=== PATIENT | female | born 1955 | race Caucasian/White ===

== ENCOUNTER → 2017-07-15 09:46 | Outpatient (CLI) | payer OTHER, SELFPAY ==
[2017-07-15 10:29] LABS: Add Manual Diff / Slide Review NO; Basophils Percent Auto 0.7 % (0-2); Eosinophils Percent Auto 3.9 % (2-4); Hematocrit 38.6 % (36-46); Hemoglobin 13.2 g/dL (12.0-16.0); Lymphocytes Percent Auto 31.7 % (25-40); Mean Corpuscular HGB Conc 34.2 % (30-36); Mean Corpuscular Hemoglobin 29.3 PG (26-34); Mean Corpuscular Volume 85.7 fL (80-100); Monocytes Percent Auto 7.3 % (3-14); Neutrophils Absolute Auto 4500 /uL (3000-5900); Neutrophils Percent Auto 56.4 % (50-75); Platelet Count 300 X10^3/uL (150-400); Red Cell Distribution Width 13.9 % (11.6-14.8)
[2017-07-15 11:45] LABS: Blood Urea Nitrogen 21 mg/dL (7-17); Calcium 9.6 mg/dL (8.4-10.2); Carbon Dioxide 29 mmol/L (22-32); Chloride 101 mmol/L (98-107); Cholesterol 242 mg/dL (140-199); Estimated Glomerular Filt Rate > 60.0 mL/min (>60); Glucose 93 mg/dL (70-100); HDL Cholesterol 55 mg/dL (40-60); HEMOLYSIS < 15 (0-50); LDL Cholesterol Calculated 174 mg/dL (<100); Sodium 141 mmol/L (137-145); Triglycerides 64 mg/dL (35-150)
== END ==
PROVIDERS: Family Provider Family Medicine; PCP Family Medicine; Visit Provider Internal Medicine Cardiovascular Disease
DX: I77.810 Thoracic aortic ectasia (principal)
CPT/HCPCS: 36415; 80048; 80061; 85025

== ENCOUNTER → 2017-07-17 11:56 | Outpatient (CLI) | payer OTHER, SELFPAY ==
--- NOTE | 2017-07-19 05:57 | DI.NM.S_ITS ---
DATE OF SERVICE: 07/17/2017 REFERRING PHYSICIAN: Jesse Calvillo MD PROCEDURE: Nuclear cardiac stress study. INDICATIONS: Mrs. Dubon is a 61-year-old patient with symptoms of exertional dyspnea. A nuclear cardiac stress study is performed to exclude underlying ischemic heart disease. STRESS TEST: This patient was unable to exercise on a treadmill, and therefore, a pharmacologic Lexiscan injection was performed with low level walking. She was given a standard injection of Lexiscan medication and reported symptoms of nausea, dyspnea, and flushing but no complaints of anginal chest discomfort and no obvious EKG changes, though there was significant electrical artifact. PROCEDURE: She received an injection of 25.6 mCi of technetium 99 Myoview for the stress portion of the examination and returned 1 day later for the resting images, receiving an additional 26.4 mCi. Prone imaging could not be performed. FINDINGS: RAW DATA: Raw data images demonstrate prominent breast shadows and evident obesity. No other significant artifact or interference. QUANTITATIVE GATED SPECT IMAGING: Gated images demonstrate a normal-sized ventricle with an end-diastolic volume of 127 cc. The ejection fraction is estimated at 72%. No regional wall motion abnormalities noted. QUANTITATIVE PERFUSION SPECT IMAGING: Myocardial perfusion images are of poor quality due to the lack of prone imaging and due to significant tissue attenuation artifact. There are shifting areas of hypoperfusion. Stress perfusion imaging shows moderate hypoperfusion involving the inferior wall, inferior septum, and the inferior apex with modest hypoperfusion of the proximal and mid anterior wall. With resting images, there is prominent hypoperfusion apparent in the anterior wall and inferior apex with less prominent hypoperfusion of the inferior wall. It's my guess that this represents shifting tissue attenuation artifact from prominent breasts and obesity. Similar findings were identified at the time of her previous nuclear cardiac stress study 2 years ago, which I interpreted as probably normal based predominantly on her absence of regional wall motion abnormality and normal ventricular function. DISCUSSION: This examination is indeterminate, and underlying ischemic heart disease cannot be excluded based on shifting perfusion abnormalities on her nuclear cardiac study. Clinical correlation is suggested. Kathy Dubon - ALMAZ/sharon/layo doc#: [id number]/job#: [id number] dd: 07/18/2017 17:41:00 dt: 07/19/2017 05:43:00 DICTATING MD/COPIES TO: Renato Smith MD COPIES MNE: GARRETT
== END ==
PROVIDERS: PCP Family Medicine; Visit Provider Internal Medicine Cardiovascular Disease
DX: R06.09 Other forms of dyspnea (principal)
CPT/HCPCS: 78452; 93016; 93017; 93018; A9502; J2785

== ENCOUNTER → 2017-07-18 09:04 | Outpatient (CLI) | payer OTHER, SELFPAY ==
--- NOTE | 2017-07-18 | DI.ECHO.S_ITS ---
[place] [facility]---------+ [facility] +---------+ : : [address] : [address] : : : : [id number] : : : : Phone: [phone]+ Echocardiogram Report + + :Name: PEDRO CAMARGO Study Date: 07/18/2017 Height: 63 in : :[facility] Weight: 282 lb : : Gender: Female BSA: 2.2 m2 : :: 1955 Age: 61 yrs BP: 180/86 mmHg: :Reason For Study: Dyspnea on exertion : :Ordering Physician: Jesse : :Alfonzo Calvillo Performed By: Shelby Gutierres : + + Interpretation Summary 1) Borderline concentric left ventricular hypertrophy with normal size, wall motion, and sytolic function (EF 55-60%). 2) Normal right ventricular size and function. 3) No significant valvular abnormalities. 4) The ascending aorta is mildly enlarged at 3.8cm. 5) Hypertension present during the study (BP 180/86). 6) Compared to the Echo done 07/01/2009, no significant change. Procedure: A two-dimensional transthoracic echocardiogram with color flow and Doppler was performed. The study quality was technically adequate. Comparison is made with the echocardiogram of 07/01/2009. The patient was in normal sinus rhythm during the exam. The heart rate ranged between 54-70 bpm during the study. Left Ventricle: The left ventricle is normal in size. There is borderline concentric left ventricular hypertrophy. The ejection fraction is estimated to be 55-60%. Left ventricular systolic function is normal. There are no focal wall motion abnormalities. Assessment of diastolic parameters indicates a relaxation abnormality of the left ventricle, consistent with normal filling pressures. Right Ventricle: The right ventricle is normal in size and function. Atria: The left atrium is moderately dilated. Right atrial size is normal. There is no Doppler evidence for an interatrial shunt. Mitral Valve: The mitral valve is normal in structure and function. There is mild mitral regurgitation. Aortic Valve: The aortic valve is not well visualized. The aortic valve opens well. There is no aortic valve stenosis. No aortic regurgitation is present. Tricuspid Valve: The tricuspid valve is normal. There is a trace or physiologic amount of tricuspid regurgitation. Pulmonary artery pressures cannot be estimated because of the lack of a measurable TR jet velocity. Pulmonic Valve: The pulmonic valve is not well visualized. Great Vessels: The aortic root is normal size. The ascending aorta is mildly enlarged. The aortic arch is normal in size. The IVC is of normal diameter and collapses greater than 50% with a sniff. This suggests a low right atrial pressure of 3 mm Hg. Pericardium/ Pleura There is no pericardial effusion. MMode/2D Measurements & Calculations LVIDd: 5.5 cm LVOT diam: 2.2 cm LVIDs: 3.5 cm Ao root diam: 3.4 cm FS: 36.2 % Aortic Jxn: 2.7 cm EPSS: 0.54 cm asc Aorta Diam: 3.8 cm IVSd: 1.2 cm Ao Arch Diam (Prox Trans): 2.9 cm LVPWd: 0.97 cm LV harper. diameter/BSA (cm/m^2): 2.5 LV sys. diameter/BSA (cm/m^2): 1.6 LA A2 area: 28.1 cm2 RA long axis: 5.9 cm LA A4 area: 24.4 cm2 RA area: 18.9 cm2 LA length (vol): 6.7 cm RA vol: 51.1 ml LA vol: 86.9 ml RA : 22.8 ml/m2 LA vol index: 38.8 ml/m2 IVC diam: 1.3 cm RVD1 (basal): 3.4 cm RVD2 (mid): 2.0 cm TAPSE: 2.8 cm Doppler Measurements & Calculations Ao V2 max: 197.0 cm/sec LVOT Max Xu: 100.9 cm/sec Ao V2 mean: 126.0 cm/sec LV V1 max P.1 mmHg Ao max P.5 mmHg LV V1 VTI: 25.6 cm Ao mean P.4 mmHg HALLIE(I,D): 2.2 cm2 Ao V2 VTI: 44.7 cm HALLIE(V,D): 1.9 cm2 sev ratio: 0.57 HALLIE indexed to BSA (cm^2/m^2): 0.97 MV E max xu: 105.6 cm/sec PA V2 max: 95.4 cm/sec MV A max xu: 86.5 cm/sec PA V2 mean: 58.3 cm/sec MV E/A: 1.2 PA mean P.6 mmHg Med Peak E' Xu: 9.2 cm/sec PA Accel Time: 0.04 sec E/E' med: 11.5 Lat Peak E' Xu: 11.8 cm/sec E/E' lat: 9.0 E/e' average: 10.2 MV dec time: 0.23 sec MV P1/2t: 68.3 msec MV P1/2t max xu: 105.6 cm/sec MVA(2t): 3.2 cm2 Reading Physician:04:42 PM
== END ==
PROVIDERS: PCP Family Medicine; Visit Provider Internal Medicine Cardiovascular Disease
DX: R06.09 Other forms of dyspnea (principal)
CPT/HCPCS: 93306

== ENCOUNTER 2017-09-23 14:51 | Emergency (ER) | payer OTHER, SELFPAY ==
[2017-09-23] VITALS (15 sets, daily range): BP systolic 117–147; BP diastolic 50–108; PULSE 68–84; RESP 12–18; TEMP 36.8; O2SAT 96–99
--- NOTE | 2017-09-23 15:04 | DI.RAD.S_ITS ---
PROCEDURE: XR CHEST 1V INDICATIONS: Chest Pain TECHNIQUE: One view of the chest was acquired. COMPARISON: [facility], , CHEST 2 VIEW, 10/03/2016, 13:17. FINDINGS: Surgical changes and devices: None. Lungs and pleura: No pleural effusions or pneumothorax. Lungs are clear. Mediastinum: Mediastinal contours appear normal there is suggestion of mild pulmonary vascular congestion. Heart size is enlarged. Bones and chest wall: No suspicious bony lesions. Overlying soft tissues appear unremarkable. IMPRESSION: Cardiomegaly and mild congestion. No focal infiltrate or pneumothorax. Dictated by: John Cross M.D. on 09/23/2017 at 15:24 Approved by: John Cross M.D. on 09/23/2017 at 15:28
[2017-09-23] MEDS: SODIUM CHLORIDE 0.9% 1,000 ML 150 ML IV (15:12)
[2017-09-23] MEDS: NITROGLYCERIN 0.4 MG SL TAB SL ×2 (15:13→15:48)
[2017-09-23 15:14] LABS: Add Manual Diff / Slide Review NO; Basophils Percent Auto 1.2 % (0-2); Eosinophils Percent Auto 3.6 % (2-4); Lymphocytes Percent Auto 29.1 % (25-40); Mean Corpuscular HGB Conc 34.4 % (30-36); Mean Corpuscular Hemoglobin 29.5 PG (26-34); Mean Corpuscular Volume 85.7 fL (80-100); Monocytes Percent Auto 6.2 % (3-14); Neutrophils Absolute Auto 6100 /uL (3000-5900); Neutrophils Percent Auto 59.9 % (50-75); Platelet Count 283 X10^3/uL (150-400); Red Blood Cell Count 4.43 X10^6/uL (4.0-5.2); Red Cell Distribution Width 14.1 % (11.6-14.8); White Blood Cell Count 10.2 X10^3/uL (4.5-11.0)
[2017-09-23 15:27] LABS: Alanine Aminotransferase 22 IU/L (9-52); Albumin 4.4 g/dL (3.5-5.0); Albumin Globulin Ratio 1.5 (1.0-2.8); Alkaline Phosphatase 82 U/L (38-126); Aspartate Aminotransferase 28 IU/L (14-36); BUN Creatinine Ratio 21.1 (6-22); Bilirubin Total 0.5 mg/dL (0.2-1.3); Blood Urea Nitrogen 19 mg/dL (7-17); Calcium 9.6 mg/dL (8.4-10.2); Carbon Dioxide 24 mmol/L (22-32); Chloride 103 mmol/L (98-107); Creatine Kinase 159 U/L (30-135); Estimated Glomerular Filt Rate > 60.0 mL/min (>60); Glucose 126 mg/dL (80-110); Lipase 67 U/L (23-300); Potassium 4.4 mmol/L (3.4-5.1); Sodium 141 mmol/L (137-145); Total Protein 7.4 g/dL (6.3-8.2)
[2017-09-23 15:39] LABS: Troponin I < 0.012 ng/mL (0.01-0.034)
[2017-09-23 15:43] LABS: CKMB % Relative Index 0.5 % (1.5-5.0); Creatine Kinase MB 0.76 ng/mL (<2.37); HEMOLYSIS 18 (0-50)
--- NOTE | 2017-09-23 16:01 | ED.CHESTPAIN ---
HPI - Chest Pain <George MasonDO johnnie - Last Filed: 09/25/17 11:40> General Chief Complaint: Chest Pain Stated Complaint: CHEST PAIN Time Seen by Provider: 09/23/17 14:55 Source: patient Mode of arrival: ambulatory Limitations: no limitations History of Present Illness HPI narrative: 62-year-old female with history of coronary artery disease and recent LAD stent presents with 8/10 left anterior chest pain with radiation to her left shoulder that started while exerting herself at cardiac rehab. She developed some small ?blip? of pain on Saturday and over the course of today her pain has become more intense and has persisted for longer duration. She took 1 nitro prior to arriving and her pain dropped from an 8 to a 5. Patient was at [facility] August 23 and had a drug alluding stent in her LAD. She has been doing quite well since discharge and her pain became quite intense while on the exercise bike at cardiac rehab Related Data Home Medications Medication Instructions Recorded Confirmed losartan 100 mg tablet 100 mg PO QPM 08/26/17 09/23/17 spironolactone 25 mg tablet 12.5 mg PO QPM 08/26/17 09/23/17 tiotropium bromide 18 mcg capsule 1 cap INHALATION DAILY 08/26/17 09/23/17 with inhalation device aspirin 81 mg PO DAILY 09/23/17 09/23/17 beclomethasone dipropionate [Qvar 1 puff INHALATION BID 09/23/17 09/23/17 RediHaler] clopidogrel 75 mg PO DAILY 09/23/17 09/23/17 nitroglycerin 1 tab SUBLINGUAL PRN PRN 09/23/17 09/23/17 rosuvastatin 5 mg PO QPM 09/23/17 09/23/17 sertraline 100 mg PO QPM 09/23/17 09/23/17 Previous Rx's Medication Instructions Recorded epinephrine 0.3 mg IM X1 PRN #1 syr 05/28/17 hydrocortisone valerate 0.2 % TOPICAL BIDP PRN #15 gm 05/28/17 salmeterol 50 mcg/dose blister 1 inhalation INHALATION BID #28 06/27/17 powder for inhalation each albuterol sulfate HFA 90 2 puff INHALATION QIDP PRN #3 inh 07/31/17 mcg/actuation aerosol inhaler furosemide 20 mg tablet 20 mg PO DAILY #30 tab 08/26/17 hydrocodone 5 mg-acetaminophen 325 1 tab PO Q4HP PRN #60 tab 08/26/17 mg tablet Allergies Allergy/AdvReac Type Severity Reaction Status Date / Time clonazepam [CLONAZEPAM] Allergy Unknown Verified 08/26/17 09:48 Penicillins [PENICILLINS] Allergy Unknown Verified 08/26/17 09:48 shellfish derived Allergy Unknown Verified 08/26/17 09:48 [SHELLFISH DERIVED] Review of Systems <George Lara DO - Last Filed: 09/25/17 11:40> Review of Systems All systems reviewed & are unremarkable except as noted in HPI and below Constitutional Denies chills, Denies fever(s), Denies lethargy and Denies weakness Eyes Denies change in vision, Denies eye discharge, Denies irritation and Denies loss of vision ENT Ears, Nose, Mouth, and Throat: Denies change in voice, Denies neck pain and Denies sore throat Cardiovascular Reports chest pain, Denies irregular heart rhythm, Denies lightheadedness, Denies palpitations, Denies dyspnea, Denies dyspnea on exertion and Denies orthopnea Respiratory Denies cough, Denies dyspnea, Denies dyspnea on exertion and Denies wheezing Gastrointestinal Gastrointestinal: Denies abdominal pain, Denies change in bowel habits, Denies diarrhea, Denies nausea and Denies vomiting Genitourinary Denies hematuria, Denies flank pain, Denies urinary incontinence and Denies urinary urgency Musculoskeletal Denies neck pain Integumentary/Breasts Denies pruritus, Denies erythema, Denies rash and Denies wounds Neurologic Denies confusion, Denies loss of vision and Denies weakness Psychiatric Denies anxiety, Denies confusion, Denies depression, Denies homicidal ideation and Denies suicidal ideation Endocrine Denies palpitations Hematologic/Lymphatic Denies easy bruising Allergic/Immunologic Denies wheezing Exam <George Lara DO - Last Filed: 09/25/17 11:40> Initial Vital Signs Initial Vital Signs: Vital Signs Pulse Rate 84 09/23/17 14:58 Respiratory Rate 16 09/23/17 14:58 Pulse Oximetry 99 09/23/17 14:58 Const General: cooperative, well developed and in distress Nutritional Appearance: well nourished Orientation: alert, awake, oriented x3 and not confused HENNY Head: normocephalic and atraumatic Ears: external ears normal and TM's normal bilaterally Nose: external nose normal and No nasal discharge Face and sinus: sinuses nontender, face symmetric, no sinus tenderness and No dry mucous membranes Mouth: oral mucosae normal and moist mucous membranes Teeth and gingiva: dentition normal Throat: tonsils normal and uvula midline Eyes General: appearance normal, both eyes and all related structures Eyelids: eyelids normal Conjunctivae: conjunctivae normal Sclera: sclerae normal Pupils: PERRL EOM: EOM intact bilaterally Neck Neck: normal visual inspection, trachea midline, No lymphadenopathy, No midline deformity and No JVD Lymphatic: No lymphedema Chest Chest: normal inspection of the chest Resp Effort & Inspection: normal respiratory effort, able to speak in complete sentences, no respiratory distress and no use of accessory muscles Auscultation: clear to auscultation bilaterally, no rales, no rhonchi and no wheezes Cardio Rate: regular rate Rhythm: regular rhythm Heart Sounds: no click, no gallops, no murmurs and no rubs Pulses: normal peripheral pulses GI Inspection: non-distended Palpation: soft, no hepatosplenomegaly, No guarding, No pulsatile mass and No tender Auscultation: normal bowel sounds Back/Spine/Pelvis Back: No CVA tenderness Cervical Spine: cervical ROM normal and No pain with cervical ROM Thoracic/Lumbar Spine: thoracic and lumbar spine normal to inspection Skin General: no rashes or lesions noted, No jaundice and No petechiae Neuro General: alert, oriented x3, gait normal and no focal motor deficits Speech: speech normal Extrem General: full ROM, no clubbing, cyanosis or edema, no pedal edema and no calf tenderness Psych Appearance: well kempt Mental Status: mental status grossly normal Attitude: cooperative Thought Content: normal and suicidality Judgment: judgment good <Camilla Valdovinos DO - Last Filed: 09/24/17 03:04> Initial Vital Signs Initial Vital Signs: Vital Signs Pulse Rate 84 09/23/17 14:58 Respiratory Rate 16 09/23/17 14:58 Pulse Oximetry 99 09/23/17 14:58 Course <George Lara DO - Last Filed: 09/25/17 11:40> Orders Ordered: Discontinued Medications Heparin Sodium (Porcine) (Heparin) 8,700 unit 70 unit/kg (8700 unit) IV NOW ONE Stop: 09/23/17 16:06 Last Admin: 09/23/17 16:20 Dose: 8,700 unit Sodium Chloride (Normal Saline 0.9%) 1,000 mls @ 150 mls/hr IV CONT GABI Last Infusion: 09/23/17 20:25 Dose: 0 mls/hr Admin: 09/23/17 15:12 Dose: 150 mls/hr Heparin Sodium/Dextrose (Heparin Drip) 25,000 unit in 500 mls @ 29.808 mls/hr IV CONT GABI; Protocol Last Infusion: 09/23/17 22:18 Dose: 12 units/kg/hr, 29.808 mls/hr Admin: 09/23/17 16:20 Dose: 12 units/kg/hr, 29.808 mls/hr Nitroglycerin (Nitroglycerin) 50 mg in 250 mls @ 1.5 mls/hr IV TITRATE GABI; Protocol Last Titration: 09/23/17 22:19 Dose: 20 mcg/min, 6 mls/hr Titration: 09/23/17 19:01 Dose: 20 mcg/min, 6 mls/hr Titration: 09/23/17 18:30 Dose: 15 mcg/min, 4.5 mls/hr Titration: 09/23/17 17:40 Dose: 10 mcg/min, 3 mls/hr Titration: 09/23/17 17:30 Dose: 5 mcg/min, 1.5 mls/hr Titration: 09/23/17 17:26 Dose: 0 mcg/min, 0 mls/hr Admin: 09/23/17 16:35 Dose: 5 mcg/min, 1.5 mls/hr Nitroglycerin (Nitrostat) 0.4 mg SL [id number] PRN PRN Reason: Chest Pain Last Admin: 09/23/17 15:48 Dose: 0.4 mg Admin: 09/23/17 15:13 Dose: 0.4 mg Reevaluation(s) Reevaluation #1: Patient continues to improve with sublingual nitro. After 3rd nitro and it 20 min rest. Her pain started coming back and rises to a 4/10. This point time nitro drip ordered. Additionally heparin bolus and drip are ordered. Consultations Consultation #1: cardiology at [facility] paged and agrees with transfer, however, call to supervisor food checkers and cashiers informs us of no beds Vital Signs - 8 hr 09/23/17 19:21 09/23/17 20:30 09/23/17 21:28 Pulse Rate 68 70 71 Respiratory Rate 16 15 13 Blood Pressure Blood Pressure [Left Arm] 141/85 H 120/95 H 125/99 H Pulse Oximetry 96 97 97 09/23/17 22:28 Pulse Rate 72 Respiratory Rate 15 Blood Pressure 135/84 H Blood Pressure [Left Arm] Pulse Oximetry 97 <Camilla Valdovinos, - Last Filed: 09/24/17 03:04> Orders Ordered: Discontinued Medications Heparin Sodium (Porcine) (Heparin) 8,700 unit 70 unit/kg (8700 unit) IV NOW ONE Stop: 09/23/17 16:06 Last Admin: 09/23/17 16:20 Dose: 8,700 unit Sodium Chloride (Normal Saline 0.9%) 1,000 mls @ 150 mls/hr IV CONT GABI Last Infusion: 09/23/17 20:25 Dose: 0 mls/hr Admin: 09/23/17 15:12 Dose: 150 mls/hr Heparin Sodium/Dextrose (Heparin Drip) 25,000 unit in 500 mls @ 29.808 mls/hr IV CONT GABI; Protocol Last Infusion: 09/23/17 22:18 Dose: 12 units/kg/hr, 29.808 mls/hr Admin: 09/23/17 16:20 Dose: 12 units/kg/hr, 29.808 mls/hr Nitroglycerin (Nitroglycerin) 50 mg in 250 mls @ 1.5 mls/hr IV TITRATE GABI; Protocol Last Titration: 09/23/17 22:19 Dose: 20 mcg/min, 6 mls/hr Titration: 09/23/17 19:01 Dose: 20 mcg/min, 6 mls/hr Titration: 09/23/17 18:30 Dose: 15 mcg/min, 4.5 mls/hr Titration: 09/23/17 17:40 Dose: 10 mcg/min, 3 mls/hr Titration: 09/23/17 17:30 Dose: 5 mcg/min, 1.5 mls/hr Titration: 09/23/17 17:26 Dose: 0 mcg/min, 0 mls/hr Admin: 09/23/17 16:35 Dose: 5 mcg/min, 1.5 mls/hr Nitroglycerin (Nitrostat) 0.4 mg SL [id number] PRN PRN Reason: Chest Pain Last Admin: 09/23/17 15:48 Dose: 0.4 mg Admin: 09/23/17 15:13 Dose: 0.4 mg Vital Signs - 8 hr 09/23/17 19:21 09/23/17 20:30 09/23/17 21:28 Pulse Rate 68 70 71 Respiratory Rate 16 15 13 Blood Pressure Blood Pressure [Left Arm] 141/85 H 120/95 H 125/99 H Pulse Oximetry 96 97 97 09/23/17 22:28 Pulse Rate 72 Respiratory Rate 15 Blood Pressure 135/84 H Blood Pressure [Left Arm] Pulse Oximetry 97 MDM - Chest Pain <George Lara DO - Last Filed: 09/25/17 11:40> Lab Data Result diagrams: 09/23/17 15:04 09/23/17 15:04 Lab Results 09/23/17 09/23/17 09/23/17 Range/Units 08:07 15:04 15:04 WBC 10.2 (4.5-11.0) X10^3/uL RBC 4.43 (4.0-5.2) X10^6/uL Hgb 13.0 (12.0-16.0) g/dL Hct 38.0 (36-46) % MCV 85.7 (80-100) fL MCH 29.5 (26-34) PG MCHC 34.4 (30-36) % RDW 14.1 (11.6-14.8) % Plt Count 283 (150-400) X10^3/uL Neut % (Auto) 59.9 (50-75) % Lymph % (Auto) 29.1 (25-40) % [place] % (Auto) 6.2 (3-14) % Eos % (Auto) 3.6 (2-4) % Baso % (Auto) 1.2 (0-2) % Neut # (Auto) 6100 H (8664-0471) /uL APTT (26.4-36.2) SECONDS Sodium 141 (137-145) mmol/L Potassium 4.4 (3.4-5.1) mmol/L Chloride 103 (98-107) mmol/L Carbon Dioxide 24 (22-32) mmol/L BUN 19 H (7-17) mg/dL Creatinine 0.90 (0.52-1.04) mg/dL Estimated GFR > 60.0 (>60) mL/min BUN/Creatinine Ratio 21.1 (6-22) Glucose 126 H (80-110) mg/dL Calcium 9.6 (8.4-10.2) mg/dL Total Bilirubin 0.5 (0.2-1.3) mg/dL AST 28 (14-36) IU/L ALT 22 (9-52) IU/L Alkaline Phosphatase 82 (38-126) U/L Total Creatine Kinase 159 H (30-135) U/L CK-MB (CK-2) 0.76 (<2.37) ng/mL CK-MB (CK-2) Rel Index 0.5 L (1.5-5.0) % Troponin I < 0.012 < 0.012 (0.01-0.034) ng/mL Total Protein 7.4 (6.3-8.2) g/dL Albumin 4.4 (3.5-5.0) g/dL Globulin 3.0 (1.7-4.1) g/dL Albumin/Globulin Ratio 1.5 (1.0-2.8) Lipase 67 (23-300) U/L / Range/Units 15:04 WBC (4.5-11.0) X10^3/uL RBC (4.0-5.2) X10^6/uL Hgb (12.0-16.0) g/dL Hct (36-46) % MCV (80-100) fL MCH (26-34) PG MCHC (30-36) % RDW (11.6-14.8) % Plt Count (150-400) X10^3/uL Neut % (Auto) (50-75) % Lymph % (Auto) (25-40) % [place] % (Auto) (3-14) % Eos % (Auto) (2-4) % Baso % (Auto) (0-2) % Neut # (Auto) (7246-6459) /uL APTT 28 (26.4-36.2) SECONDS Sodium (137-145) mmol/L Potassium (3.4-5.1) mmol/L Chloride (98-107) mmol/L Carbon Dioxide (22-32) mmol/L BUN (7-17) mg/dL Creatinine (0.52-1.04) mg/dL Estimated GFR (>60) mL/min BUN/Creatinine Ratio (6-22) Glucose (80-110) mg/dL Calcium (8.4-10.2) mg/dL Total Bilirubin (0.2-1.3) mg/dL AST (14-36) IU/L ALT (9-52) IU/L Alkaline Phosphatase (38-126) U/L Total Creatine Kinase (30-135) U/L CK-MB (CK-2) (<2.37) ng/mL CK-MB (CK-2) Rel Index (1.5-5.0) % Troponin I (0.01-0.034) ng/mL Total Protein (6.3-8.2) g/dL Albumin (3.5-5.0) g/dL Globulin (1.7-4.1) g/dL Albumin/Globulin Ratio (1.0-2.8) Lipase (23-300) U/L <Camilla Valdovinos, DO - Last Filed: 09/24/17 03:04> Lab Data Lab Results 09/23/17 09/23/17 09/23/17 Range/Units 08:07 15:04 15:04 WBC 10.2 (4.5-11.0) X10^3/uL RBC 4.43 (4.0-5.2) X10^6/uL Hgb 13.0 (12.0-16.0) g/dL Hct 38.0 (36-46) % MCV 85.7 (80-100) fL MCH 29.5 (26-34) PG MCHC 34.4 (30-36) % RDW 14.1 (11.6-14.8) % Plt Count 283 (150-400) X10^3/uL Neut % (Auto) 59.9 (50-75) % Lymph % (Auto) 29.1 (25-40) % [place] % (Auto) 6.2 (3-14) % Eos % (Auto) 3.6 (2-4) % Baso % (Auto) 1.2 (0-2) % Neut # (Auto) 6100 H (3188-7539) /uL APTT (26.4-36.2) SECONDS Sodium 141 (137-145) mmol/L Potassium 4.4 (3.4-5.1) mmol/L Chloride 103 (98-107) mmol/L Carbon Dioxide 24 (22-32) mmol/L BUN 19 H (7-17) mg/dL Creatinine 0.90 (0.52-1.04) mg/dL Estimated GFR > 60.0 (>60) mL/min BUN/Creatinine Ratio 21.1 (6-22) Glucose 126 H (80-110) mg/dL Calcium 9.6 (8.4-10.2) mg/dL Total Bilirubin 0.5 (0.2-1.3) mg/dL AST 28 (14-36) IU/L ALT 22 (9-52) IU/L Alkaline Phosphatase 82 (38-126) U/L Total Creatine Kinase 159 H (30-135) U/L CK-MB (CK-2) 0.76 (<2.37) ng/mL CK-MB (CK-2) Rel Index 0.5 L (1.5-5.0) % Troponin I < 0.012 < 0.012 (0.01-0.034) ng/mL Total Protein 7.4 (6.3-8.2) g/dL Albumin 4.4 (3.5-5.0) g/dL Globulin 3.0 (1.7-4.1) g/dL Albumin/Globulin Ratio 1.5 (1.0-2.8) Lipase 67 (23-300) U/L // Range/Units 15:04 WBC (4.5-11.0) X10^3/uL RBC (4.0-5.2) X10^6/uL Hgb (12.0-16.0) g/dL Hct (36-46) % MCV (80-100) fL MCH (26-34) PG MCHC (30-36) % RDW (11.6-14.8) % Plt Count (150-400) X10^3/uL Neut % (Auto) (50-75) % Lymph % (Auto) (25-40) % [place] % (Auto) (3-14) % Eos % (Auto) (2-4) % Baso % (Auto) (0-2) % Neut # (Auto) (7396-7642) /uL APTT 28 (26.4-36.2) SECONDS Sodium (137-145) mmol/L Potassium (3.4-5.1) mmol/L Chloride (98-107) mmol/L Carbon Dioxide (22-32) mmol/L BUN (7-17) mg/dL Creatinine (0.52-1.04) mg/dL Estimated GFR (>60) mL/min BUN/Creatinine Ratio (6-22) Glucose (80-110) mg/dL Calcium (8.4-10.2) mg/dL Total Bilirubin (0.2-1.3) mg/dL AST (14-36) IU/L ALT (9-52) IU/L Alkaline Phosphatase (38-126) U/L Total Creatine Kinase (30-135) U/L CK-MB (CK-2) (<2.37) ng/mL CK-MB (CK-2) Rel Index (1.5-5.0) % Troponin I (0.01-0.034) ng/mL Total Protein (6.3-8.2) g/dL Albumin (3.5-5.0) g/dL Globulin (1.7-4.1) g/dL Albumin/Globulin Ratio (1.0-2.8) Lipase (23-300) U/L Discharge Plan Departure Patient Disposition: [facility] Clinical Impression: Angina pectoris, unstable Discharge Date/Time: 09/23/17 22:17 Interventions: ED Discharge Assessment Last Done: 09/23/17 22:28 Prescriptions: No Action salmeterol [Serevent Diskus] 50 mcg/dose blister with device 1 inhalation INHALATION BID Qty: 28 RF: 5 losartan 100 mg tablet 100 mg PO QPM RF: 0 spironolactone 25 mg tablet 12.5 mg PO QPM RF: 0 tiotropium bromide 18 mcg capsule, w/inhalation device 1 cap INHALATION DAILY RF: 0 hydrocodone-acetaminophen 5-325 mg tablet 1 tab PO Q4HP PRN (Reason: pain) Qty: 60 RF: 0 furosemide 20 mg tablet 20 mg PO DAILY Qty: 30 RF: 0 epinephrine 0.3 MG/0.3 ML auto-injector 0.3 mg IM X1 PRNQty: 1 RF: 3 hydrocortisone valerate 0.2 % cream 0.2 % Topical BIDP PRNQty: 15 RF: 4 albuterol sulfate [Ventolin HFA] 90 mcg/actuation HFA aerosol inhaler 2 puff INHALATION QIDP PRN (Reason: shortness of breath) Qty: 3 RF: 0 clopidogrel 75 mg tablet 75 mg PO DAILY RF: 0 nitroglycerin 0.4 mg tablet, sublingual 1 tab Sublingual PRN PRN (Reason: Chest Pain) RF: 0 aspirin 81 mg tablet,chewable 81 mg PO DAILY RF: 0 rosuvastatin 5 mg tablet 5 mg PO QPM RF: 0 beclomethasone dipropionate [Qvar RediHaler] 80 mcg/actuation HFA aerosol breath activated 1 puff Inhalation BID RF: 0 sertraline 100 MG tablet 100 mg PO QPM RF: 0 <Camilla Valdovinos, DO - Last Filed: 09/24/17 03:04> Sign Out Provider Sign Out Attestation: Patient signed out to me DR. Lara, Patient awaiting transfer. On nitro drip. Continues to have intermittent pain.
[2017-09-23] MEDS: HEPARIN 5,000 UNIT/ML VIAL 8700 UNIT IV (16:20)
[2017-09-23] MEDS: HEPARIN DRIP 25,000 UNIT/500 ML IV.SOLN 29.808 UNIT IV (16:20)
[2017-09-23] MEDS: NITROGLYCERIN 50 MG/250 ML INFUS..BTL IV (16:35)
[2017-09-23 16:42] LABS: PTT Partial Thromboplastin Tim 28 SECONDS (26.4-36.2)
--- NOTE | 2017-09-23 17:03 | ED_ITS ---
HPI - Chest Pain <George MasonDO johnnie - Last Filed: 09/25/17 11:40> General Chief Complaint: Chest Pain Stated Complaint: CHEST PAIN Time Seen by Provider: 09/23/17 14:55 Source: patient Mode of arrival: ambulatory Limitations: no limitations History of Present Illness HPI narrative: 62-year-old female with history of coronary artery disease and recent LAD stent presents with 8/10 left anterior chest pain with radiation to her left shoulder that started while exerting herself at cardiac rehab. She developed some small ?blip? of pain on Saturday and over the course of today her pain has become more intense and has persisted for longer duration. She took 1 nitro prior to arriving and her pain dropped from an 8 to a 5. Patient was at [facility] August 23 and had a drug alluding stent in her LAD. She has been doing quite well since discharge and her pain became quite intense while on the exercise bike at cardiac rehab Related Data Home Medications Medication Instructions Recorded Confirmed losartan 100 mg tablet 100 mg PO QPM 08/26/17 09/23/17 spironolactone 25 mg tablet 12.5 mg PO QPM 08/26/17 09/23/17 tiotropium bromide 18 mcg capsule 1 cap INHALATION DAILY 08/26/17 09/23/17 with inhalation device aspirin 81 mg PO DAILY 09/23/17 09/23/17 beclomethasone dipropionate [Qvar 1 puff INHALATION BID 09/23/17 09/23/17 RediHaler] clopidogrel 75 mg PO DAILY 09/23/17 09/23/17 nitroglycerin 1 tab SUBLINGUAL PRN PRN 09/23/17 09/23/17 rosuvastatin 5 mg PO QPM 09/23/17 09/23/17 sertraline 100 mg PO QPM 09/23/17 09/23/17 Previous Rx's Medication Instructions Recorded epinephrine 0.3 mg IM X1 PRN #1 syr 05/28/17 hydrocortisone valerate 0.2 % TOPICAL BIDP PRN #15 gm 05/28/17 salmeterol 50 mcg/dose blister 1 inhalation INHALATION BID #28 06/27/17 powder for inhalation each albuterol sulfate HFA 90 2 puff INHALATION QIDP PRN #3 inh 07/31/17 mcg/actuation aerosol inhaler furosemide 20 mg tablet 20 mg PO DAILY #30 tab 08/26/17 hydrocodone 5 mg-acetaminophen 325 1 tab PO Q4HP PRN #60 tab 08/26/17 mg tablet Allergies Allergy/AdvReac Type Severity Reaction Status Date / Time clonazepam [CLONAZEPAM] Allergy Unknown Verified 08/26/17 09:48 Penicillins [PENICILLINS] Allergy Unknown Verified 08/26/17 09:48 shellfish derived Allergy Unknown Verified 08/26/17 09:48 [SHELLFISH DERIVED] Review of Systems <George Lara DO - Last Filed: 09/25/17 11:40> Review of Systems All systems reviewed & are unremarkable except as noted in HPI and below Constitutional Denies chills, Denies fever(s), Denies lethargy and Denies weakness Eyes Denies change in vision, Denies eye discharge, Denies irritation and Denies loss of vision ENT Ears, Nose, Mouth, and Throat: Denies change in voice, Denies neck pain and Denies sore throat Cardiovascular Reports chest pain, Denies irregular heart rhythm, Denies lightheadedness, Denies palpitations, Denies dyspnea, Denies dyspnea on exertion and Denies orthopnea Respiratory Denies cough, Denies dyspnea, Denies dyspnea on exertion and Denies wheezing Gastrointestinal Gastrointestinal: Denies abdominal pain, Denies change in bowel habits, Denies diarrhea, Denies nausea and Denies vomiting Genitourinary Denies hematuria, Denies flank pain, Denies urinary incontinence and Denies urinary urgency Musculoskeletal Denies neck pain Integumentary/Breasts Denies pruritus, Denies erythema, Denies rash and Denies wounds Neurologic Denies confusion, Denies loss of vision and Denies weakness Psychiatric Denies anxiety, Denies confusion, Denies depression, Denies homicidal ideation and Denies suicidal ideation Endocrine Denies palpitations Hematologic/Lymphatic Denies easy bruising Allergic/Immunologic Denies wheezing Exam <George Lara DO - Last Filed: 09/25/17 11:40> Initial Vital Signs Initial Vital Signs: Vital Signs Pulse Rate 84 09/23/17 14:58 Respiratory Rate 16 09/23/17 14:58 Pulse Oximetry 99 09/23/17 14:58 Const General: cooperative, well developed and in distress Nutritional Appearance: well nourished Orientation: alert, awake, oriented x3 and not confused HENPA Head: normocephalic and atraumatic Ears: external ears normal and TM's normal bilaterally Nose: external nose normal and No nasal discharge Face and sinus: sinuses nontender, face symmetric, no sinus tenderness and No dry mucous membranes Mouth: oral mucosae normal and moist mucous membranes Teeth and gingiva: dentition normal Throat: tonsils normal and uvula midline Eyes General: appearance normal, both eyes and all related structures Eyelids: eyelids normal Conjunctivae: conjunctivae normal Sclera: sclerae normal Pupils: PERRL EOM: EOM intact bilaterally Neck Neck: normal visual inspection, trachea midline, No lymphadenopathy, No midline deformity and No JVD Lymphatic: No lymphedema Chest Chest: normal inspection of the chest Resp Effort & Inspection: normal respiratory effort, able to speak in complete sentences, no respiratory distress and no use of accessory muscles Auscultation: clear to auscultation bilaterally, no rales, no rhonchi and no wheezes Cardio Rate: regular rate Rhythm: regular rhythm Heart Sounds: no click, no gallops, no murmurs and no rubs Pulses: normal peripheral pulses GI Inspection: non-distended Palpation: soft, no hepatosplenomegaly, No guarding, No pulsatile mass and No tender Auscultation: normal bowel sounds Back/Spine/Pelvis Back: No CVA tenderness Cervical Spine: cervical ROM normal and No pain with cervical ROM Thoracic/Lumbar Spine: thoracic and lumbar spine normal to inspection Skin General: no rashes or lesions noted, No jaundice and No petechiae Neuro General: alert, oriented x3, gait normal and no focal motor deficits Speech: speech normal Extrem General: full ROM, no clubbing, cyanosis or edema, no pedal edema and no calf tenderness Psych Appearance: well kempt Mental Status: mental status grossly normal Attitude: cooperative Thought Content: normal and suicidality Judgment: judgment good <Camilla Valdovinos DO - Last Filed: 09/24/17 03:04> Initial Vital Signs Initial Vital Signs: Vital Signs Pulse Rate 84 09/23/17 14:58 Respiratory Rate 16 09/23/17 14:58 Pulse Oximetry 99 09/23/17 14:58 Course <George Lara DO - Last Filed: 09/25/17 11:40> Orders Ordered: Discontinued Medications Heparin Sodium (Porcine) (Heparin) 8,700 unit 70 unit/kg (8700 unit) IV NOW ONE Stop: 09/23/17 16:06 Last Admin: 09/23/17 16:20 Dose: 8,700 unit Sodium Chloride (Normal Saline 0.9%) 1,000 mls @ 150 mls/hr IV CONT GABI Last Infusion: 09/23/17 20:25 Dose: 0 mls/hr Admin: 09/23/17 15:12 Dose: 150 mls/hr Heparin Sodium/Dextrose (Heparin Drip) 25,000 unit in 500 mls @ 29.808 mls/hr IV CONT GABI; Protocol Last Infusion: 09/23/17 22:18 Dose: 12 units/kg/hr, 29.808 mls/hr Admin: 09/23/17 16:20 Dose: 12 units/kg/hr, 29.808 mls/hr Nitroglycerin (Nitroglycerin) 50 mg in 250 mls @ 1.5 mls/hr IV TITRATE GABI; Protocol Last Titration: 09/23/17 22:19 Dose: 20 mcg/min, 6 mls/hr Titration: 09/23/17 19:01 Dose: 20 mcg/min, 6 mls/hr Titration: 09/23/17 18:30 Dose: 15 mcg/min, 4.5 mls/hr Titration: 09/23/17 17:40 Dose: 10 mcg/min, 3 mls/hr Titration: 09/23/17 17:30 Dose: 5 mcg/min, 1.5 mls/hr Titration: 09/23/17 17:26 Dose: 0 mcg/min, 0 mls/hr Admin: 09/23/17 16:35 Dose: 5 mcg/min, 1.5 mls/hr Nitroglycerin (Nitrostat) 0.4 mg SL [id number] PRN PRN Reason: Chest Pain Last Admin: 09/23/17 15:48 Dose: 0.4 mg Admin: 09/23/17 15:13 Dose: 0.4 mg Reevaluation(s) Reevaluation #1: Patient continues to improve with sublingual nitro. After 3rd nitro and it 20 min rest. Her pain started coming back and rises to a 4/10. This point time nitro drip ordered. Additionally heparin bolus and drip are ordered. Consultations Consultation #1: cardiology at [facility] paged and agrees with transfer, however, call to food and nutrition supervisor informs us of no beds Vital Signs - 8 hr 09/23/17 19:21 09/23/17 20:30 09/23/17 21:28 Pulse Rate 68 70 71 Respiratory Rate 16 15 13 Blood Pressure Blood Pressure [Left Arm] 141/85 H 120/95 H 125/99 H Pulse Oximetry 96 97 97 09/23/17 22:28 Pulse Rate 72 Respiratory Rate 15 Blood Pressure 135/84 H Blood Pressure [Left Arm] Pulse Oximetry 97 <Camilla Valdovinos, - Last Filed: 09/24/17 03:04> Orders Ordered: Discontinued Medications Heparin Sodium (Porcine) (Heparin) 8,700 unit 70 unit/kg (8700 unit) IV NOW ONE Stop: 09/23/17 16:06 Last Admin: 09/23/17 16:20 Dose: 8,700 unit Sodium Chloride (Normal Saline 0.9%) 1,000 mls @ 150 mls/hr IV CONT GABI Last Infusion: 09/23/17 20:25 Dose: 0 mls/hr Admin: 09/23/17 15:12 Dose: 150 mls/hr Heparin Sodium/Dextrose (Heparin Drip) 25,000 unit in 500 mls @ 29.808 mls/hr IV CONT GABI; Protocol Last Infusion: 09/23/17 22:18 Dose: 12 units/kg/hr, 29.808 mls/hr Admin: 09/23/17 16:20 Dose: 12 units/kg/hr, 29.808 mls/hr Nitroglycerin (Nitroglycerin) 50 mg in 250 mls @ 1.5 mls/hr IV TITRATE GABI; Protocol Last Titration: 09/23/17 22:19 Dose: 20 mcg/min, 6 mls/hr Titration: 09/23/17 19:01 Dose: 20 mcg/min, 6 mls/hr Titration: 09/23/17 18:30 Dose: 15 mcg/min, 4.5 mls/hr Titration: 09/23/17 17:40 Dose: 10 mcg/min, 3 mls/hr Titration: 09/23/17 17:30 Dose: 5 mcg/min, 1.5 mls/hr Titration: 09/23/17 17:26 Dose: 0 mcg/min, 0 mls/hr Admin: 09/23/17 16:35 Dose: 5 mcg/min, 1.5 mls/hr Nitroglycerin (Nitrostat) 0.4 mg SL [id number] PRN PRN Reason: Chest Pain Last Admin: 09/23/17 15:48 Dose: 0.4 mg Admin: 09/23/17 15:13 Dose: 0.4 mg Vital Signs - 8 hr 09/23/17 19:21 09/23/17 20:30 09/23/17 21:28 Pulse Rate 68 70 71 Respiratory Rate 16 15 13 Blood Pressure Blood Pressure [Left Arm] 141/85 H 120/95 H 125/99 H Pulse Oximetry 96 97 97 09/23/17 22:28 Pulse Rate 72 Respiratory Rate 15 Blood Pressure 135/84 H Blood Pressure [Left Arm] Pulse Oximetry 97 MDM - Chest Pain <George Lara DO - Last Filed: 09/25/17 11:40> Lab Data Result diagrams: 09/23/17 15:04 09/23/17 15:04 Lab Results 09/23/17 09/23/17 09/23/17 Range/Units 08:07 15:04 15:04 WBC 10.2 (4.5-11.0) X10^3/uL RBC 4.43 (4.0-5.2) X10^6/uL Hgb 13.0 (12.0-16.0) g/dL Hct 38.0 (36-46) % MCV 85.7 (80-100) fL MCH 29.5 (26-34) PG MCHC 34.4 (30-36) % RDW 14.1 (11.6-14.8) % Plt Count 283 (150-400) X10^3/uL Neut % (Auto) 59.9 (50-75) % Lymph % (Auto) 29.1 (25-40) % [place] % (Auto) 6.2 (3-14) % Eos % (Auto) 3.6 (2-4) % Baso % (Auto) 1.2 (0-2) % Neut # (Auto) 6100 H (2304-0747) /uL APTT (26.4-36.2) SECONDS Sodium 141 (137-145) mmol/L Potassium 4.4 (3.4-5.1) mmol/L Chloride 103 (98-107) mmol/L Carbon Dioxide 24 (22-32) mmol/L BUN 19 H (7-17) mg/dL Creatinine 0.90 (0.52-1.04) mg/dL Estimated GFR > 60.0 (>60) mL/min BUN/Creatinine Ratio 21.1 (6-22) Glucose 126 H (80-110) mg/dL Calcium 9.6 (8.4-10.2) mg/dL Total Bilirubin 0.5 (0.2-1.3) mg/dL AST 28 (14-36) IU/L ALT 22 (9-52) IU/L Alkaline Phosphatase 82 (38-126) U/L Total Creatine Kinase 159 H (30-135) U/L CK-MB (CK-2) 0.76 (<2.37) ng/mL CK-MB (CK-2) Rel Index 0.5 L (1.5-5.0) % Troponin I < 0.012 < 0.012 (0.01-0.034) ng/mL Total Protein 7.4 (6.3-8.2) g/dL Albumin 4.4 (3.5-5.0) g/dL Globulin 3.0 (1.7-4.1) g/dL Albumin/Globulin Ratio 1.5 (1.0-2.8) Lipase 67 (23-300) U/L / Range/Units 15:04 WBC (4.5-11.0) X10^3/uL RBC (4.0-5.2) X10^6/uL Hgb (12.0-16.0) g/dL Hct (36-46) % MCV (80-100) fL MCH (26-34) PG MCHC (30-36) % RDW (11.6-14.8) % Plt Count (150-400) X10^3/uL Neut % (Auto) (50-75) % Lymph % (Auto) (25-40) % [place] % (Auto) (3-14) % Eos % (Auto) (2-4) % Baso % (Auto) (0-2) % Neut # (Auto) (9536-1152) /uL APTT 28 (26.4-36.2) SECONDS Sodium (137-145) mmol/L Potassium (3.4-5.1) mmol/L Chloride (98-107) mmol/L Carbon Dioxide (22-32) mmol/L BUN (7-17) mg/dL Creatinine (0.52-1.04) mg/dL Estimated GFR (>60) mL/min BUN/Creatinine Ratio (6-22) Glucose (80-110) mg/dL Calcium (8.4-10.2) mg/dL Total Bilirubin (0.2-1.3) mg/dL AST (14-36) IU/L ALT (9-52) IU/L Alkaline Phosphatase (38-126) U/L Total Creatine Kinase (30-135) U/L CK-MB (CK-2) (<2.37) ng/mL CK-MB (CK-2) Rel Index (1.5-5.0) % Troponin I (0.01-0.034) ng/mL Total Protein (6.3-8.2) g/dL Albumin (3.5-5.0) g/dL Globulin (1.7-4.1) g/dL Albumin/Globulin Ratio (1.0-2.8) Lipase (23-300) U/L <Camilla Valdovinos, DO - Last Filed: 09/24/17 03:04> Lab Data Lab Results 09/23/17 09/23/17 09/23/17 Range/Units 08:07 15:04 15:04 WBC 10.2 (4.5-11.0) X10^3/uL RBC 4.43 (4.0-5.2) X10^6/uL Hgb 13.0 (12.0-16.0) g/dL Hct 38.0 (36-46) % MCV 85.7 (80-100) fL MCH 29.5 (26-34) PG MCHC 34.4 (30-36) % RDW 14.1 (11.6-14.8) % Plt Count 283 (150-400) X10^3/uL Neut % (Auto) 59.9 (50-75) % Lymph % (Auto) 29.1 (25-40) % [place] % (Auto) 6.2 (3-14) % Eos % (Auto) 3.6 (2-4) % Baso % (Auto) 1.2 (0-2) % Neut # (Auto) 6100 H (4326-8329) /uL APTT (26.4-36.2) SECONDS Sodium 141 (137-145) mmol/L Potassium 4.4 (3.4-5.1) mmol/L Chloride 103 (98-107) mmol/L Carbon Dioxide 24 (22-32) mmol/L BUN 19 H (7-17) mg/dL Creatinine 0.90 (0.52-1.04) mg/dL Estimated GFR > 60.0 (>60) mL/min BUN/Creatinine Ratio 21.1 (6-22) Glucose 126 H (80-110) mg/dL Calcium 9.6 (8.4-10.2) mg/dL Total Bilirubin 0.5 (0.2-1.3) mg/dL AST 28 (14-36) IU/L ALT 22 (9-52) IU/L Alkaline Phosphatase 82 (38-126) U/L Total Creatine Kinase 159 H (30-135) U/L CK-MB (CK-2) 0.76 (<2.37) ng/mL CK-MB (CK-2) Rel Index 0.5 L (1.5-5.0) % Troponin I < 0.012 < 0.012 (0.01-0.034) ng/mL Total Protein 7.4 (6.3-8.2) g/dL Albumin 4.4 (3.5-5.0) g/dL Globulin 3.0 (1.7-4.1) g/dL Albumin/Globulin Ratio 1.5 (1.0-2.8) Lipase 67 (23-300) U/L // Range/Units 15:04 WBC (4.5-11.0) X10^3/uL RBC (4.0-5.2) X10^6/uL Hgb (12.0-16.0) g/dL Hct (36-46) % MCV (80-100) fL MCH (26-34) PG MCHC (30-36) % RDW (11.6-14.8) % Plt Count (150-400) X10^3/uL Neut % (Auto) (50-75) % Lymph % (Auto) (25-40) % [place] % (Auto) (3-14) % Eos % (Auto) (2-4) % Baso % (Auto) (0-2) % Neut # (Auto) (2773-7262) /uL APTT 28 (26.4-36.2) SECONDS Sodium (137-145) mmol/L Potassium (3.4-5.1) mmol/L Chloride (98-107) mmol/L Carbon Dioxide (22-32) mmol/L BUN (7-17) mg/dL Creatinine (0.52-1.04) mg/dL Estimated GFR (>60) mL/min BUN/Creatinine Ratio (6-22) Glucose (80-110) mg/dL Calcium (8.4-10.2) mg/dL Total Bilirubin (0.2-1.3) mg/dL AST (14-36) IU/L ALT (9-52) IU/L Alkaline Phosphatase (38-126) U/L Total Creatine Kinase (30-135) U/L CK-MB (CK-2) (<2.37) ng/mL CK-MB (CK-2) Rel Index (1.5-5.0) % Troponin I (0.01-0.034) ng/mL Total Protein (6.3-8.2) g/dL Albumin (3.5-5.0) g/dL Globulin (1.7-4.1) g/dL Albumin/Globulin Ratio (1.0-2.8) Lipase (23-300) U/L Discharge Plan Departure Patient Disposition: [facility] Clinical Impression: Angina pectoris, unstable Discharge Date/Time: 09/23/17 22:17 Interventions: ED Discharge Assessment Last Done: 09/23/17 22:28 Prescriptions: No Action salmeterol [Serevent Diskus] 50 mcg/dose blister with device 1 inhalation INHALATION BID Qty: 28 RF: 5 losartan 100 mg tablet 100 mg PO QPM RF: 0 spironolactone 25 mg tablet 12.5 mg PO QPM RF: 0 tiotropium bromide 18 mcg capsule, w/inhalation device 1 cap INHALATION DAILY RF: 0 hydrocodone-acetaminophen 5-325 mg tablet 1 tab PO Q4HP PRN (Reason: pain) Qty: 60 RF: 0 furosemide 20 mg tablet 20 mg PO DAILY Qty: 30 RF: 0 epinephrine 0.3 MG/0.3 ML auto-injector 0.3 mg IM X1 PRNQty: 1 RF: 3 hydrocortisone valerate 0.2 % cream 0.2 % Topical BIDP PRNQty: 15 RF: 4 albuterol sulfate [Ventolin HFA] 90 mcg/actuation HFA aerosol inhaler 2 puff INHALATION QIDP PRN (Reason: shortness of breath) Qty: 3 RF: 0 clopidogrel 75 mg tablet 75 mg PO DAILY RF: 0 nitroglycerin 0.4 mg tablet, sublingual 1 tab Sublingual PRN PRN (Reason: Chest Pain) RF: 0 aspirin 81 mg tablet,chewable 81 mg PO DAILY RF: 0 rosuvastatin 5 mg tablet 5 mg PO QPM RF: 0 beclomethasone dipropionate [Qvar RediHaler] 80 mcg/actuation HFA aerosol breath activated 1 puff Inhalation BID RF: 0 sertraline 100 MG tablet 100 mg PO QPM RF: 0 <Camilla Valdovinos, DO - Last Filed: 09/24/17 03:04> Sign Out Provider Sign Out Attestation: Patient signed out to me DR. Lara, Patient awaiting transfer. On nitro drip. Continues to have intermittent pain.
[2017-09-23 20:48] LABS: Troponin I < 0.012 ng/mL (0.01-0.034)
--- NOTE | 2017-09-23 22:36 | PC.NURSE ---
1548 Pt received 1 dose sublingual NTG prior to coming to ED with approx 10 min relief. Gave 2 additional doses in ED, per order with minimal/short-lived relief of chest pressure. Provider aware. Heparin drip and bolus and NTG drip ordered. 1620 started heparin bolus and drip per cardiac protocol. Started NTG drip per protocol 1726 Pt beginning to feel lightheaded. BP of 98/63. Paused drip. 1730 Pt BP now 130/86. Pt states chest pressure returning since NTG paused. Provider notified. Restarted drip with blood pressure remaining within normal limits. 1900 NTG increased to 20mcg/min per protocol. Pt states chest pressure still present, but tolerable. Provider notified.
== END 2017-09-23 22:17 | disposition short-term general hospital (02) ==
PROVIDERS: Emergency Medicine; Emergency Provider Emergency Medicine; PCP Family Medicine
DX: I20.0 Unstable angina (principal)
CPT/HCPCS: 36591; 71045; 80053; 81003; 82550; 82553; 83690; 84484; 85025; 85730; 93005; 93010; 96361; 96365; 96366; 96368; 96375; 99285; J1644

== ENCOUNTER → 2017-12-19 16:48 | Outpatient (CLI) | payer OTHER, SELFPAY ==
--- NOTE | 2017-12-19 16:54 | DI.RAD.S_ITS ---
PROCEDURE: XR HUMERUS RT 2V INDICATIONS: limited ROM, fall today TECHNIQUE: 2 views of the humerus were acquired. COMPARISON: [facility], CR, FOREARM RIGHT, 08/03/2014, 18:23. [facility], CR, XR FOREARM RT 2V, 12/19/2017, 17:03. FINDINGS: Bones: Subtle cortical irregularity in the medial humeral epicondyle. No suspicious bony lesions. There is severe degenerative joint disease in right shoulder. Soft tissues: No suspicious soft tissue calcifications. IMPRESSION: Subtle cortical irregularity in the medial humeral epicondyle. If there is elbow pain, x-ray of the elbow is suggested. Dictated by: Bela Kasper M.D. on 12/19/2017 at 17:39 Approved by: Bela Kasper M.D. on 12/19/2017 at 17:42
--- NOTE | 2017-12-19 16:54 | DI.RAD.S_ITS ---
PROCEDURE: XR FOREARM RT 2V INDICATIONS: limited ROM, fall TECHNIQUE: 2 views of the forearm were acquired. COMPARISON: [facility], CR, XR HUMERUS RT 2V, 12/19/2017, 17:03. FINDINGS: Bones: No fractures or dislocations. No suspicious bony lesions. Soft tissues: No suspicious soft tissue calcifications or masses. IMPRESSION: No fracture or dislocation. Dictated by: Bela Kasper M.D. on 12/19/2017 at 17:35 Approved by: Bela Kasper M.D. on 12/19/2017 at 17:36
--- NOTE | 2017-12-19 16:54 | DI.RAD.S_ITS ---
PROCEDURE: XR RIBS RT 2V INDICATIONS: fall TECHNIQUE: 2 views of the right ribs were acquired. COMPARISON: [facility], , XR CHEST 1V, 09/23/2017, 15:09. [facility], , CHEST 2 VIEW, 10/03/2016, 13:17. FINDINGS: Surgical changes and devices: None. Bones and chest wall: No fractures or dislocations. No suspicious bony lesions. Overlying soft tissues appear unremarkable. Severe glenohumeral joint degeneration. Lungs and pleura: The visualized lung appears clear. No pleural effusions or pneumothorax are visible. IMPRESSION: No displaced right rib fractures. Dictated by: Bela Kasper M.D. on 12/19/2017 at 17:42 Approved by: Bela Kasper M.D. on 12/19/2017 at 17:43
--- OUTSIDE RECORDS SUMMARY | 2018-01-13 11:46 | XMS_ITS | Referral Summary ---
:1955 Author Organization [address] [address] Care Team Providers Name Role Phone Nagi Nair Primary Care Provider Reason for Referral Rehabilitation - Outpatient (Routine) Status Reason Specialty Diagnoses / Procedures Referred By Contact Referred To Contact Closed Diagnoses Effort angina (CMS/HCC) History of heart artery stent [facility] [address] [place] [address] [id number] [place] [address] Hospital - Outpatient (Routine) Status Reason Specialty Diagnoses / Referred By Referred To Procedures Contact Contact Closed Specialty Services Radiology Diagnoses DIA (dyspnea on exertion) Effort angina (CMS/HCC) Abnormal stress test Jesse Calvillo [facility] Special Required Procedures [place] LEFT HEART CATH MD [facility] [address] [facility] [address] [place], [place] [id number] Phone: Diagnostic Imaging (Routine) Status Reason Specialty Diagnoses / Referred By Referred To Procedures Contact Contact Closed Specialty Services Radiology Diagnoses Effort angina (CMS/HCC) Abnormal stress test Jesse Calvillo [facility] Special Required Procedures [place] LEFT HEART CATH MD [facility] [address] [facility] [address] [place], [place] [phone] Phone: Reason for Visit Reason Comments Heart Problem Encounter Details Date Type Department Care Team Description 07/26/2017 Office Visit Jesse Atkins (dyspnea on exertion) (Primary Dx); Clinics Cardiology MD [facility] Effort angina ([facility]); [facility] [address] Essential hypertension; [address], [address] Hyperlipidemia, unspecified hyperlipidemia type; [address] [place], [place] Obesity, Class III, BMI 40-49.9 (morbid obesity) ([facility]); [place] [address] Abnormal stress test; [id number] History of heart artery stent [phone] Allergies Active Allergy Reactions Severity Noted Date Comments Clonazepam Anaphylaxis High 06/10/2017 Penicillins 06/10/2017 Shellfish Derived 06/10/2017 as of this encounter Medications Prescription Sig. Disp. Refills Start Date End Date Status ipratropium-albutero prn 06/23/2009 Active l (DUONEB) 0.5-2.5 mg/3 mL nebulizer solution EPINEPHrine (EPIPEN) Use as needed. 3 05/28/2017 Active 0.3 mg/0.3 mL injection syringe HYDROcodone-acetamin TK 1 T PO Q 0 04/04/2017 Active ophen (NORCO) 5-325 FOUR H PRN P mg hydrocortisone APPLY TOPICALLY 4 05/29/2017 Active (WESTCORT) 0.2 % TO AFFECTED cream AREA BID FOR ROSACEA beclomethasone take as 06/23/2009 Active (QVAR) 80 directed/daily mcg/actuation inhaler sertraline (ZOLOFT) Take 1 tablet 3 05/28/2017 Active 100 mg tablet by mouth daily VENTOLIN HFA 90 INHALE 2 PUFFS 0 07/09/2017 Active mcg/actuation PO QID PRN FOR inhaler SOB losartan (COZAAR) Take 1 tablet 90 tablet 3 07/26/2017 Active 100 mg (100 mg total) 9 tabletIndications: by mouth Essential nightly. hypertension rosuvastatin Take 1 tablet 90 tablet 3 07/26/2017 Active (CRESTOR) 5 mg (5 mg total) by 9 tablet mouth daily. aspirin 81 mg Take 1 tablet 90 tablet 3 08/23/2017 Active chewable tablet (81 mg total) 9 by mouth daily. losartan (COZAAR) Take 0.5 45 tablet 3 06/13/2017 Discontinued 100 mg tablets (50 mg 8 tabletIndications: total) by mouth Essential nightly. hypertension SEREVENT DISKUS 50 Inhale 1 puff 2 5 07/16/2017 Discontinued mcg/dose diskus (two) times a 8 inhaler day. clopidogrel (PLAVIX) Take 1 tablet 90 tablet 1 08/23/2017 Discontinued 75 mg tablet (75 mg total) 8 by mouth daily. 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 Sleep apnea 06/22/2009 Social History Tobacco Use Types Packs/Day Years Used Date Former Smoker Smokeless Tobacco: Never Used Sex Assigned at Date Recorded Not on file as of this encounter Last Filed Vital Signs Vital Sign Reading Time Taken Blood Pressure 150/82 07/26/2017 11:57 AM PDT Pulse 76 07/26/2017 11:57 AM PDT Temperature - - Respiratory Rate - - Oxygen Saturation - - Inhaled Oxygen Concentration - - Weight 131 kg (288 lb) 07/26/2017 11:57 AM PDT Height 161.3 cm (5' 3.5) 07/26/2017 11:57 AM PDT Body Mass Index 50.22 07/26/2017 11:57 AM PDT in this encounter Instructions Patient Instructions - Jesse Calvillo MD - 07/26/2017 11:40 AM PDT1) Increase your losartan from 50mg daily to 100mg daily in the evening/night. 2) Start rosuvastatin 5mg daily in the evening/night. 3) Heart healthy diet is using extra virgin olive oil, eating unsalted nuts such as almonds, cashews, and walnuts/pecans, eating vegetables and fruits. Avoid red meat and avoid coconut oil.in this encounter Progress Notes Jesse Calvillo MD - 07/26/2017 11:40 AM PDTFormatting of this note may be different from the original. Subjective Patient ID: Kathy Dubon is a 62 y.o. female that presents today for had concerns including Heart Problem. HPI: 62 yo W h/o HTN, HLD, and RAH here for f/u on her chest pain. Patient is here by herself. Since her last visit, she continues to have dyspnea, chest pain, and knee pain with exertion. Dyspnea is the rate limiting factor. Chest pain occurs at rest as well but it resolves within few minutes. Inhalers are not helping her dyspnea. PROBLEM LIST: # HTN # HLD # Severe Athsma # RAH # Morbid obesity Past Medical History: Diagnosis Date ??? Asthma ??? Hyperlipemia ??? Hypertension ??? Psoriasis ??? Sleep apnea Past Surgical History: Procedure Laterality Date ??? SECTION Social History Social History ??? Marital status: Unknown Spouse name: N/A ??? Number of children: N/A ??? Years of education: N/A Social History Main Topics ??? Smoking status: Former Smoker ??? Smokeless tobacco: Never Used ??? Alcohol use None ??? Drug use: Unknown ??? Sexual activity: Not Asked Other Topics Concern ??? None Social History Narrative ??? None Allergies Allergen Reactions ??? Clonazepam ??? Penicillins ??? Shellfish Derived Current Medication List Sig beclomethasone (QVAR) 80 mcg/actuation inhaler take as directed EPINEPHrine (EPIPEN) 0.3 mg/0.3 mL injection syringe Use as needed. HYDROcodone-acetaminophen (NORCO) 5-325 mg TK 1 T PO Q FOUR H PRN P hydrocortisone (WESTCORT) 0.2 % cream APPLY TOPICALLY TO AFFECTED AREA BID FOR ROSACEA ipratropium-albuterol (DUONEB) 0.5-2.5 mg/3 mL nebulizer solution take as directed losartan (COZAAR) 100 mg tablet Take 0.5 tablets (50 mg total) by mouth nightly. SEREVENT DISKUS 50 mcg/dose diskus inhaler Inhale 1 puff 2 (two) times a day. sertraline (ZOLOFT) 100 mg tablet Take 1 tablet by mouth daily VENTOLIN HFA 90 mcg/actuation inhaler INHALE 2 PUFFS PO QID PRN FOR SOB Review of Systems Constitutional: Positive for fatigue and unexpected weight change. HENT: Negative for facial swelling. Eyes: Positive for visual disturbance. Respiratory: Positive for shortness of breath. Negative for chest tightness. Cardiovascular: Positive for leg swelling. Negative for chest pain and palpitations. Gastrointestinal: Negative for blood in stool. Heartburn Endocrine: Negative for polydipsia. Genitourinary: Negative for hematuria. Musculoskeletal: Negative for neck stiffness. Skin: Positive for rash. Neurological: Positive for dizziness, weakness and light-headedness. Negative for syncope and numbness. Hematological: Bruises/bleeds easily. Psychiatric/Behavioral: Negative for agitation. The patient is nervous/anxious. Objective BP (!) 150/82 (BP Location: Left arm, Patient Position: Sitting) Pulse 76 Ht 1.613 m Wt 131kg BMI 50.22 kg/m?? Physical Exam: General appearance: No apparent distress, well-nourished, pleasant, cooperative HEET: Normocephalic atraumatic, no scleral icterus, tongue midline, mucous membranes moist Neck: supple Cardiovascular: RRR, normal S1 and normal S2, no murmurs/ rubs/gallops, no JVD, no peripheral edema Respiratory: Good aeration, CTAB Abdomen: Obese Soft, nontender, + bowel sounds Neuro: Alert, no facial droop, tongue midline, no gross motor deficits Psych: appropriate affect Skin: no rashes on face, neck, and lower extremities Echo 2009: The ejection fraction estimate is 60-65%. The left atrium is moderately dilated. There is trace tricuspid regurgitation. The ascending aorta is mildly enlarged at 4.1cm. There is trace mitral regurgitation. Echo 07/18/2017: 1) Borderline concentric left ventricular hypertrophy with normal size, wall motion, and sytolic function (EF 55-60%). 2) Normal right ventricular size and function. 3) No significant valvular abnormalities. 4) The ascending aorta is mildly enlarged at 3.8cm. 5) Hypertension present during the study (BP 180/86). 6) Compared to the Echo done 07/01/2009, no significant change. Pharmaceutical nuclear stress 07/17/2017: poor quality images. Stress imaging shows moderate hypoperfusion involving the inferior wall, inferior septum, inferior apex, and proximal to mid anterior wall. Rest images shows prominent hypoperfusion in the anterior wall and inferoapex with less hypoperfusion in the inferior wall. These shifting abnormalities are probably artifacts ( breasts and/or obesity). ECG 06/13/2017: Sinus rhythm, LVH and left axis deviation BMP 10/01/2016: sodium 144, potassuim 4.8, chloride 107, CO2 27, BUN 22, Cr 0.7, TSH 1.15, WBC 10.2, Hct 38.8, Plt 299 Labs 07/15/2017: sodium 141, potassium 5.0, chloride 101, CO2 29 , BUN 21, Cr 0.7 , total cholesterol 242, HDL 55, LDL 174, TG 64, WBC 8.0, Hct 38.6, Plt 300 Assessment/Plan Diagnoses and all orders for this visit: DIA (dyspnea on exertion) Effort angina ([facility]) Essential hypertension Hyperlipidemia, unspecified hyperlipidemia type Obesity, Class III, BMI 40-49.9 (morbid obesity) ([facility]) Assessment/Plan Comments: # Anginal chest pain with dyspnea on exertion: etiology unclear as it could be obesity related vs asthma (but doesn't improve with inhaler) vs. Ischemic heart disease. Her stress test is abnormal but it could be from artifacts. She has significant risk factors for CAD including untreated HLD and undertreated HTN. Plan: - [facility] ordered. Informed consent obtained after discussing risks vs benefits vs alternatives. Will try to schedule for 08/08 at 2:30PM - Patient will work with PCP on whether it is safe to start aspirin. She was told by some doctors many years ago to avoid aspirin and so has never taken it # Hypertension: continues to be elevated. Plan: - Increase losartan from 50 mg nightly to 100mg qhs # Hyperlipidemia: Plan: - Start rosuvastatin 5mg qhs. Patient leery of taking meds but is willing to consider low dose rosuvastatin. - Patient to work on diet as well. F/U after cath. ADDENDUM 08/23/2017: Cath with anesthesia showed obstructive disease in the mid- LAD involving the ostium of second diagonal (bifurcating lesion) and obstructive disease of the ostium of posterolateral branch. BRIGITTE was placed to mid-LAD. Will have the patient start aspirin + clopidogrel and see me backin 1 month. Electronically signed by Jesse Calvillo MD 07/26/2017 12:05 PM in this encounter Plan of Treatment Scheduled Tests Name Priority Associated Diagnoses Order Schedule SI LEFT HEART CATH Routine Effort angina ([facility]) Expected: 07/26/2017, Abnormal stress test Expires: 10/26/2018 Scheduled Referrals Name Priority Associated Diagnoses Order Schedule *SRC MV Referral to Cardiac Routine Effort angina ([facility]) 1 Occurrences starting Rehabilitation History of heart artery 08/28/2017 until stent 02/28/2018 as of this encounter Results SI LEFT HEART CATH (08/23/2017 12:32 PM) Narrative Performed At Cardiac Cath Report Date of Service 08/23/17 Procedure: SI LEFT HEART CATHSI STENT BRIGITTE - CORONARY Vascular Access Right Radial Artery using 5 Fr sheath, closure with TR Band Diagnostic Catheters Left main: [place] 4.5, 5 Fr RCA: [place] 4.5, 5 Fr Procedure Details Coronary angiography details: The patient was brought to the cardiac catheterization lab in a fasting state. Patient was laid supine on the cardiac catheterization table and the vascular access site was prepped and draped in the usual sterile fashion. One percent Xylocaine was infiltrated over the right radial artery. Vascular access was then achieved under ultrasound guidance.. Guide wire was used to advance the catheter through the sheath and up into the aortic sinuses. After coronary angiography was completed, guide wire was advanced through the catheter ahead of the tip of the catheter and the guide wire along with the catheter were pulled together out of the sheath. Medications/Fluoro Time Medications Administered: 1.Sedation through anesthesia 2. Heparin: 5000 units IV Fluorscopy Time: see cath tech report Fluids administered: see cath tech report Contrast (Isovue): see cath tech report Blood loss: 5 mls Findings 1) Coronary angiography: right dominance A. Left main: normal caliber short left main with no angiographic disease. B. Left Anterior Descending (LAD) Artery: normal caliber vessel with 40-50% stenosis at the ostium and 80% stenosis at the takeoff of the second diagonal branch.?The first diagonal is small caliber with mild diffuse disease.?The second diagonal branch has 80% stenosis at the ostium. C. Left Circumflex (LCx): LCx is a normal caliber vessel with mild luminal irregularities and 30% stenosis in the mid-vessel D. Right Coronary Artery: normal caliber vessel with 60% stenosis in the mid vessel and 70-80% stenosis at the ostium of posterolateral branch. 2) Left Heart catheterization A. LVEDP is mildly elevated at 21 mmHg Complications There were no periprocedural complications identified SUMMARY There were no periprocedural complications identified RECOMMENDATIONS: - Obstructive disease in the mid-LAD including involving 80% ostial 2nd diagonal branch involvement (bifurcation lesion) - Obstructive disease of the ostium of the posterolateral branch Jesse Calvillo MD in this encounter Visit Diagnoses Diagnosis DIA (dyspnea on exertion) - Primary Other dyspnea and respiratory abnormality Effort angina (CMS/HCC) Other and unspecified angina pectoris Essential hypertension Unspecified essential hypertension Hyperlipidemia, unspecified hyperlipidemia type Obesity, Class III, BMI 40-49.9 (morbid obesity) (CMS/HCC) Abnormal stress test Other nonspecific abnormal cardiovascular system function study History of heart artery stent Insurance Payer Benefit Plan / Group Subscriber ID Type Phone Address [facility] [place] of this encounter
== END ==
PROVIDERS: Visit Provider Physician Assistant
DX: M25.531 Pain in right wrist (principal); M25.521 Pain in right elbow; M25.511 Pain in right shoulder; M19.011 Primary osteoarthritis, right shoulder; R07.81 Pleurodynia
CPT/HCPCS: 71100; 73060; 73090

== ENCOUNTER → 2017-12-20 11:57 | Outpatient (CLI) | payer OTHER, SELFPAY ==
--- NOTE | 2017-12-20 11:59 | DI.RAD.S_ITS ---
PROCEDURE: XR SHOULDER RT MIN 2V INDICATIONS: FALL TECHNIQUE: 3 views of the shoulder were acquired. COMPARISON: [facility], CR, XR ELBOW RT MIN 3V, 12/20/2017, 12:10. [facility], CR, XR HUMERUS RT 2V, 12/19/2017, 17:03. [facility], CR, XR FOREARM RT 2V, 12/19/2017, 17:03. [facility], CR, XR RIBS RT 2V, 12/19/2017, 17:03. FINDINGS: Bones: No fractures or dislocations. No suspicious bony lesions. Visualized ribs appear intact. Prominent degenerative changes are seen, with moderate to severe glenohumeral joint space narrowing with associated spur formation of the glenoid and humeral head. Soft tissues: No suspicious soft tissue calcifications. The visualized lung demonstrates an unremarkable appearance. IMPRESSION: No dimas acute bony abnormality is detected. If there is point tenderness (or other clinical suspicion for a fracture not seen on these images) please consider a dedicated CT for further evaluation. Prominent glenohumeral joint degenerative change. Dictated by: Deven Cedeño M.D. on 12/20/2017 at 11:29 Approved by: Deven Cedeño M.D. on 12/20/2017 at 11:30
--- NOTE | 2017-12-20 11:59 | DI.RAD.S_ITS ---
PROCEDURE: XR ELBOW RT MIN 3V INDICATIONS: FALL TECHNIQUE: 2 views of the elbow were acquired. COMPARISON: [facility], CR, XR RIBS RT 2V, 12/19/2017, 17:03. [facility], CR, XR HUMERUS RT 2V, 12/19/2017, 17:03. [facility], CR, XR FOREARM RT 2V, 12/19/2017, 17:03. [facility], CR, XR SHOULDER RT MIN 2V, 12/20/2017, 12:10. FINDINGS: Bones: There is a minimal cortical irregularity seen of the medial humeral epicondyle. No additional focal bony abnormalities are seen. Age-appropriate bony degenerative changes are seen. Soft tissues: No elbow joint effusion. No suspicious soft tissue calcifications. IMPRESSION: Potential mildly displaced fracture of the medial epicondyle. Please correlate with focal tenderness. No additional bony abnormality can be seen. No elbow joint effusion can be seen. Dictated by: Deven Cedeño M.D. on 12/20/2017 at 11:26 Approved by: Deven Cedeño M.D. on 12/20/2017 at 11:29
== END ==
PROVIDERS: PCP Student in an Organized Health Care Education/Training Program; Visit Provider Physician Assistant
DX: M25.511 Pain in right shoulder (principal); M25.521 Pain in right elbow; M19.011 Primary osteoarthritis, right shoulder
CPT/HCPCS: 73030; 73080

== ENCOUNTER 2017-12-30 14:00 | Outpatient (RCR) | payer OTHER, SELFPAY ==
[2017-09-10 14:32] VITALS: BP 120/72; BP 120/76; O2SAT 98; BMI 49.4
--- NOTE | 2017-09-10 15:11 | CR.IEVALNOTE ---
CR Initial Assessment Report DX: STENT LAD, Syncope, Asthma, CHF, CAD/CP/DIA, Arthritis, Depression/Anxiety, Sleep Apnea CR Cardiac Rehab Initial Assessment Start: 09/10/17 14:32 Freq: Status: Active Session 1 Protocol: Document 09/10/17 14:32 MARY (Rec: 09/10/17 14:55 MARY [id number]) Cardiac Rehabilitation Exercise Risk Risk Moderate % 55-60% 07/18/17 EF Comment: down from 30-65% 2009 AICD No Pacemaker No Heart Rhythm SR Left Arm Blood Pressure (90/60-120/80 mmHg) 120/72 Blood Pressure Method Manual Cuff/Auscultation Blood Pressure Position Sitting Right Arm Blood Pressure (90/60-120/80 mmHg) 120/76 Blood Pressure Method Manual Cuff/Auscultation Blood Pressure Position Sitting Bilateral Resting Heart Rate: 79 Strength: Normal Pulse Rhythm: Regular Pulse Assessment Method Pulse Ox/Monitor Pulse Oximetry (91-100 %) 98 Comment: 96 AFTER EXERTION Cardiac Rehabilitation Exercise Fall Risk History of Falling (Immediate or Yes Previous) Secondary Diagnosis (More Than 2 Medical Yes Diagnoses) Ambulatory Aid None/bed rest/nurse assist IV/Heparin Lock No Gait/Transferring Normal/bedrest/immobile Mental Status Oriented to own ability Score Total 40 Risk Level Moderate Fall Risk Action Implement Moderate Fall Risk Precautions Cardiac Rehabilitation Nutrition Evaluation Recent Lipid Blood Test Yes Date Blood Test Drawn 07/15/17 Total Cholesterol 242 Triglycerides 64 HDL 55 LDL 174 Lipid Medications Yes: CRESTOR 5MG. NEW SINCE STENT Goal for Lipids LOWER TOT AND LDL History of Diabetes No Cardiac Rehabilitation Weight Management Plan Height 160.02 cm Weight 126.552 kg Body Mass Index (BMI) 49.4 Patient Goal(s) Lose 1-2 of Girth Lose 5-10 lbs Body Weight BMI Goal of 19-25 Comment PT STATES SHE WANTS TO LOSE 100# Vitamins & Supplements No Use Occasionally Intake Type WINE Amount Occasionally Nutrition Evaluation Referral to Diabetes Education No Patient Following Diet Plan Yes: STATES KETO Diet Low-Carb Patient's Nutritional Goals WANTS TO LOSE WEIGHT FOR HEART AND SO SHE CAN HAVE KNEES REPAIRED. DISCUSSED DAILY INTAKE AND WHILE PATIENT THINKS SHE IS DOING KETO, IS INGESTING HIGH GLYCEMIC VEGETABLES. 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 Hx Hypertension No: PER PT, HTN MEDS NEW Medications LASIX, SPIRONOLACTONE, LOSARTAN Goal of BP <130/80 Yes HTN Education Discussion YES. HAS RECENTLY PURCHASED OWN BP MACHINE FOR HOME USE Medications Reconciled Yes CR Psychosocial Evaluation Goal WANTS TO BE CONFIDENT ENOUGH TO RESUME ACTIVITES SHE USED TO PERFORM. KNEES AND BREATHING A BIG PART OF THAT Identifies Stressors HX DEPRESSION AND TX WITH PSYCHOLOGIST SINCE 'S SUDDEN 4 YEARS AGO. MEDICATIONS RECENTLY UPPED AND STATES SHE FEELS LIKE SHE IS ACTUALLY LOOKING FORWARD TO DOING THINGS NOW. Psych Consult No Discussion with Patient Yes Psychotropic Medications Yes: SERTRALINE; PRE-EXISTING PSYCH RELATIONSHIP PHQ9 Score 19 HQ Scoring Scale 10-14 = Severe PHQ >9 Yes PCP Notified Yes Comment LM FOR DR. 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 FINALLY WORKED UP AND FAILED STRESS TEST. Treatment Prescribed for Individual Yes Needs No Treatment Change Yes: Please Continue with Cardiopulmonary Rehabilitation as Ordered Date 09/10/17 Document 09/10/17 15:03 AA (Rec: 09/10/17 15:11 AA [id number]) Cardiac Rehabilitation Exercise Fall Risk Comment Implement fall procedures, physioball w/ saucer next to rail. Assistive Devices None Hilliard Activity Status Index 7.59 Home Exercise No Symptoms: Abnormal Gait Back Pain Difficulty Walking Joint Pain Limited Range of Motion Muscle Weakness Radiating Pain into Limb Body Alignment Posture Forward Head Leaning Rigid Thoracic Kyphosis Ambulation Assistive Device None Orthotic/Prosthetic Devices or Brace: No Exercise NS Results 5 mins METS 2.1 Angina with Exercise No Exercise Tolerance Poor Additional Comment Not oriented to own ability. States that she is capable of more, but not willing to try to do more. Chronic pain, no cartilage on L knee, and very little on R knee. Calf pain in L leg, unable to do TM, barely completed 5 mins on NS. CR Pre Exercise Evaluation Orientation Self Pulse Check SUMA PRE Scale Exercise Safety Equipment Orientation Warm Up/Cool Down Patient Short-term Goal(s) To increase strength and endurance to be able to complete 20 mins on NS CR in 6 weeks. 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 to lose weight and gain relaxation skills in CR in 12 weeks. Prescribed Exercises Arm Ergometer MET Goal 2.50 Nustep MET Goal 2.50 RPE 11-14 Equipment Goals NuStep 2.5 Arm Bike 2.5 Number/Value 2 LVL 2 l. blue Progress to Goal Increase as tolerated Current Diagnoses Presence of coronary angioplasty implant and graft (09/10/17)
--- NOTE | 2017-09-10 15:32 | CR.EDUC ---
CR Education Report CR Education Start: 09/10/17 15:24 Freq: Status: Active Protocol: Document 09/10/17 15:27 MARY (Rec: 09/10/17 15:31 [facility] [id number]) CR Education Education Called Dr. Nair's office back and spoke to his nurse Mitchell (male) at 1520 09/10/17. Conveyed the message about the PHQ-9 score being 19 and that our policy is to contact above 9. Noted that the patient told us that the recent change in her setraline had positive results and she feels like she is looking forward to doing things. Contacted Dr. Calvillo's office to inquire about next scheduled appt as pt was unsure and had recently called a week and a half ago to schedule a time but hadn't heard back. Her next appt is 10/02/17 at 1430 with a 1415 check in time in [place]. Called pt's number and left a message with whomever answered to call us back. Please note that the listed number is her home/business number and that she doesn't want info shared there.
--- NOTE | 2017-09-23 16:11 | CR.EDUC ---
Current Diagnoses Presence of coronary angioplasty implant and graft (09/23/17) Past Medical History (Last Reviewed 08/26/17 @ 10:35 by Nagi Nair MD) Diastolic congestive heart failure (Chronic) Coronary artery disease (Chronic) Ascending aortic aneurysm (Chronic) Essential hypertension (Chronic 02/24/15) Mild persistent asthma without complication (Chronic 02/24/15) Primary osteoarthritis of both knees (Chronic 02/24/15) Chest pain (Chronic 08/09/15) Chronic left-sided low back pain with left-sided sciatica (Chronic 10/03/16) Dyspnea on exertion (Chronic 03/15/17) Depression (Chronic 04/04/17) Anxiety (Chronic Unknown) Asthma (Chronic Unknown) Hyperlipemia (Chronic Unknown) Psoriasis (Chronic Unknown) Sleep apnea (Chronic Unknown) Provider Summary Visit Care Team Role Provider Type Nagi Nair MD Primary Care Provider Physician Specialty: Family Practice Address: [address] [place] [address] Email: [email or web address] Jesse Calvillo MD Attending Provider Physician Specialty: Cardiology Address: [address] [place] [address], [id number] Email: CR Education Report CR Education Start: 09/10/17 15:24 Freq: Status: Active Protocol: Document 09/10/17 15:27 MARY (Rec: 09/10/17 15:31 [facility] [id number]) CR EDUCATION Education Called Dr. Nair's office back and spoke to his nurse Jans (male) at 1520 09/10/17. Conveyed the message about the PHQ-9 score being 19 and that our policy is to contact above 9. Noted that the patient told us that the recent change in her setraline had positive results and she feels like she is looking forward to doing things. Contacted Dr. Calvillo's office to inquire about next scheduled appt as pt was unsure and had recently called a week and a half ago to schedule a time but hadn't heard back. Her next appt is 10/02/17 at 1430 with a 1415 check in time in [place]. Called pt's number and left a message with whomever answered to call us back. Please note that the listed number is her home/business number and that she doesn't want info shared there. Document 09/12/17 14:43 JCP (Rec: 09/12/17 14:45 JCP [id number]) CR EDUCATION Education DISCUSSED WEIGHT LOSS WITH PEDRO. RECOMMENDED THE [facility] FOR WEIGHT LOSS UNDER SUPERVISION WITH DR. JOSEPH. TOLD HER I WOULD BE HAPPY TO HELP HER WITH THE KETO DIET AFTER CONSULT. SHE IS UNDER ALOT OF STRESS RIGHT NOW.SIENNA Document 09/19/17 14:56 MARY (Rec: 09/19/17 14:57 MARY [id number]) CR EDUCATION Education reviewed stretches she could do for calves and hamstrings. was able to maintain full 20 min on arsh by going backwards
--- NOTE | 2017-10-10 15:55 | CR.REVALNOTE ---
Current Diagnoses Presence of coronary angioplasty implant and graft (10/10/17) Past Medical History (Last Reviewed 10/01/17 @ 06:47 by Nagi Nair MD) Diastolic congestive heart failure (Chronic) Coronary artery disease (Chronic) Ascending aortic aneurysm (Chronic) Essential hypertension (Chronic 02/24/15) Mild persistent asthma without complication (Chronic 02/24/15) Primary osteoarthritis of both knees (Chronic 02/24/15) Chest pain (Chronic 08/09/15) Chronic left-sided low back pain with left-sided sciatica (Chronic 10/03/16) Dyspnea on exertion (Chronic 03/15/17) Depression (Chronic 04/04/17) Anxiety (Chronic Unknown) Asthma (Chronic Unknown) Hyperlipemia (Chronic Unknown) Psoriasis (Chronic Unknown) Sleep apnea (Chronic Unknown) Provider Summary Visit Care Team Role Provider Type Nagi Nair MD Primary Care Provider Physician Specialty: Family Practice Address: [address] [place] [address], [id number] Email: [email or web address] Jesse Calvillo MD Attending Provider Physician Specialty: Cardiology Address: [address] [place] [address], [id number] Email: CR Re-Evaluation Report 10.10.17- CFS Kathy returned today, per clearance from Dr. Calvillo, after she recieved another stent on 09.24.17. She tolerated exercise well. Tolerated 33 min of cardio before knees were too sore. No SOB, or fatigue. No CP. No change to ExRx as she only exercised 4 times with original Rx. Knees are still really sore. She stated that she has found someone that will do her knee surgeries in a year. She meets with [facility] clinic today to help aide in her weight loss journey. CR Education Start: 09/10/17 15:24 Freq: Status: Active Protocol: Document 09/10/17 15:27 MARY (Rec: 09/10/17 15:31 MARY [id number]) CR EDUCATION Education Called Dr. Nair's office back and spoke to his nurse Jans (male) at 1520 09/10/17. Conveyed the message about the PHQ-9 score being 19 and that our policy is to contact above 9. Noted that the patient told us that the recent change in her setraline had positive results and she feels like she is looking forward to doing things. Contacted Dr. Calvillo's office to inquire about next scheduled appt as pt was unsure and had recently called a week and a half ago to schedule a time but hadn't heard back. Her next appt is 10/02/17 at 1430 with a 1415 check in time in [place]. Called pt's number and left a message with whomever answered to call us back. Please note that the listed number is her home/business number and that she doesn't want info shared there. Document 09/12/17 14:43 JCP (Rec: 09/12/17 14:45 JCP [id number]) CR EDUCATION Education DISCUSSED WEIGHT LOSS WITH KATHY. RECOMMENDED THE [facility] CL[facility]IC FOR WEIGHT LOSS UNDER SUPERVISION WITH DR. JOSEPH. TOLD HER I WOULD BE HAPPY TO HELP HER WITH THE KETO DIET AFTER CONSULT. SHE IS UNDER ALOT OF STRESS RIGHT NOW.SIENNA Document 09/19/17 14:56 MARY (Rec: 09/19/17 14:57 MARY [id number]) CR EDUCATION Education reviewed stretches she could do for calves and hamstrings. was able to maintain full 20 min on arsh by going backwards Document 09/23/17 16:06 JCP (Rec: 09/23/17 16:11 JCP [id number]) CR EDUCATION Education KATHY COMES IN TODAY WALKING WITH CHEST PRESSURE 5/10. IMPROVES WITH SITTING. STARTS EXERCISING ON AE AND CHEST PAIN RETURNS GIVEN NITRO .4MG SUBQ WITH RELIEF 1/10. SOON SHE EXERCISES AGAIN IT RETURNS.40 POINT DROP IN SYSTOLIC WITH NITRO. PAIN LEFT BREAST;THROAT AND CHEST. SPOKE WITH JAKE RN AT TRIAGE DESK TO LET KNOW I AM TAKING HER TO THE ER. REPORT GIVEN TO GILL TENDER. SIENNA 09/23/17 16:11 CR Education Note by Lorin Gaitan Current Diagnoses Presence of coronary angioplasty implant and graft (09/23/17) Past Medical History (Last Reviewed 08/26/17 @ 10:35 by Nagi Nair MD) Diastolic congestive heart failure (Chronic) Coronary artery disease (Chronic) Ascending aortic aneurysm (Chronic) Essential hypertension (Chronic 02/24/15) Mild persistent asthma without complication (Chronic 02/24/15) Primary osteoarthritis of both knees (Chronic 02/24/15) Chest pain (Chronic 08/09/15) Chronic left-sided low back pain with left-sided sciatica (Chronic 10/03/16) Dyspnea on exertion (Chronic 03/15/17) Depression (Chronic 04/04/17) Anxiety (Chronic Unknown) Asthma (Chronic Unknown) Hyperlipemia (Chronic Unknown) Psoriasis (Chronic Unknown) Sleep apnea (Chronic Unknown) Provider Summary Visit Care Team Role Provider Type Nagi Nair MD Primary Care Provider Physician Specialty: Family Practice Address: [address] [place] [address], [id number] Email: [email or web address] Jesse Calvillo MD Attending Provider Physician Specialty: Cardiology Address: [address] [place] [address], [id number] Email: CR Education Report CR Education Start: 09/10/17 15:24 Freq: Status: Active Protocol: Document 09/10/17 15:27 MARY (Rec: 09/10/17 15:31 MARY [id number]) CR EDUCATION Education Called Dr. Nair's office back and spoke to his nurse Jans (male) at 1520 09/10/17. Conveyed the message about the PHQ-9 score being 19 and that our policy is to contact above 9. Noted that the patient told us that the recent change in her setraline had positive results and she feels like she is looking forward to doing things. Contacted Dr. Calvillo's office to inquire about next scheduled appt as pt was unsure and had recently called a week and a half ago to schedule a time but hadn't heard back. Her next appt is 10/02/17 at 1430 with a 1415 check in time in [place]. Called pt's number and left a message with whomever answered to call us back. Please note that the listed number is her home/business number and that she doesn't want info shared there. Document 09/12/17 14:43 JCP (Rec: 09/12/17 14:45 JCP [id number]) CR EDUCATION Education DISCUSSED WEIGHT LOSS WITH KATHY. RECOMMENDED THE [facility] CL[facility] FOR WEIGHT LOSS UNDER SUPERVISION WITH DR. JOSEPH. TOLD HER I WOULD BE HAPPY TO HELP HER WITH THE KETO DIET AFTER CONSULT. SHE IS UNDER ALOT OF STRESS RIGHT NOW.SIENNA Document 09/19/17 14:56 MARY (Rec: 09/19/17 14:57 MARY [id number]) CR EDUCATION Education reviewed stretches she could do for calves and hamstrings. was able to maintain full 20 min on arsh by going backwards Initialized on 09/23/17 16:11 - END OF NOTE Document 10/10/17 15:53 CFS (Rec: 10/10/17 15:54 CFS [id number]) CR EDUCATION Education First day back to CR after stent placed on 09.24.17. Tolerated exercise well. No SOB. discussed appt with [facility] clinic that is scheduled for today.
[2017-11-07 15:27] VITALS: BP 132/92
== END 2017-12-31 08:13 ==
LOC: CAR 14:00
PROVIDERS: PCP Family Medicine; Visit Provider Internal Medicine Cardiovascular Disease
DX: Z95.5 Presence of coronary angioplasty implant and graft (principal)
CPT/HCPCS: 93798

== ENCOUNTER → 2018-02-13 10:59 | Outpatient (CLI) | payer OTHER, SELFPAY ==
--- NOTE | 2018-02-18 07:50 | PM.PFT.1 ---
Pulmonary Function Test Referral & Results Date Patient Seen: 02/13/18 Requesting provider: Genaro Steward Indication: Dyspnea upon exertion Results: The spirometry demonstrates an FVC of 1.87 L which is 56% of predicted. The FEV1 was measured at 1.15 L which is 45% of predicted. The FEV1/FVC ratio was 62 which is 70% of predicted. Following the administration of bronchodilator there was a 47% improvement in FEV1 and a 159% improvement in FEF 25-75% . Lung volumes show an SVC of 2.66 L which is 87% of predicted. The diffusing capacity was measured at 24.06 which is 99% of predicted. The maximum voluntary ventilation was reduced Interpretation: This study demonstrates moderately severe obstructive lung disease with an FEV1 of only 45% of predicted but there is evidence of significant benefit following bronchodilator based on a 47% improvement in FEV1 and a greater than 100% improvement in FEF 25-75% suggesting significant improvement in small airway flow Lung volumes were minimally reduced suggesting perhaps mild restrictive lung disease Compared to PFTs performed in June 2009, FEV1 is actually improved on current study. Previous FEV1 was 0.95 L currently is 1.15 L and lung volumes are also significantly improved previously SVC was 1.84 L currently 2.66 L Clinical correlation suggested
== END ==
PROVIDERS: PCP Student in an Organized Health Care Education/Training Program; Visit Provider Student in an Organized Health Care Education/Training Program
DX: R06.09 Other forms of dyspnea (principal)
CPT/HCPCS: 94060; 94726; 94729

== ENCOUNTER → 2018-03-20 11:20 | Outpatient (CLI) | payer OTHER, SELFPAY ==
[2018-03-20 11:26] LABS: Bacteria Urine None Seen; RBC Urine None Seen (0-5/HPF); WBC Urine None Seen (0-5/HPF)
[2018-03-20 11:51] LABS: Add Manual Diff / Slide Review NO; Basophils Absolute Auto 0 /uL (0-100); Basophils Percent Auto 0.5 % (0-2); Eosinophils Absolute Auto 200 /uL (0-450); Eosinophils Percent Auto 2.3 % (2-4); Hematocrit 41.1 % (36-46); Hemoglobin 13.9 g/dL (12.0-16.0); Lymphocytes Absolute Auto 2800 /uL (1100-4500); Lymphocytes Percent Auto 31.4 % (25-40); Mean Corpuscular HGB Conc 33.8 % (30-36); Mean Corpuscular Hemoglobin 29.2 PG (26-34); Mean Corpuscular Volume 86.1 fL (80-100); Monocytes Absolute Auto 500 /uL (0-900); Monocytes Percent Auto 6.1 % (3-14); Neutrophils Absolute Auto 5400 /uL (1500-7000); Neutrophils Percent Auto 59.7 % (50-75); Platelet Count 372 X10^3/uL (150-400); Red Blood Cell Count 4.78 X10^6/uL (4.0-5.2); Red Cell Distribution Width 14.1 % (11.6-14.8)
[2018-03-20 11:58] LABS: Appearance Urine UA CLEAR; Bilirubin Urine UA NEGATIVE (NEGATIVE); Color Urine UA YELLOW; Glucose Urine UA NEGATIVE (Negative); Ketones Urine UA NEGATIVE (NEGATIVE); Leukocyte Esterase Urine UA NEGATIVE (NEGATIVE); Nitrite Urine UA NEGATIVE (Negative); Occult Blood Urine UA TRACE-INTACT (Negative); Protein Urine UA NEGATIVE (Negative); Urobilinogen Urine UA 0.2 E.U./dL (0.2)
[2018-03-20 12:07] LABS: BUN Creatinine Ratio 22.5 (6-22); Blood Urea Nitrogen 18 mg/dL (7-17); Calcium 9.9 mg/dL (8.4-10.2); Carbon Dioxide 29 mmol/L (22-32); Chloride 101 mmol/L (98-107); Cholesterol 290 mg/dL (140-199); Estimated Glomerular Filt Rate > 60.0 mL/min (>60); Glucose 93 mg/dL (80-110); HDL Cholesterol 55 mg/dL (40-60); HEMOLYSIS < 15 (0-50); LDL Cholesterol Calculated 213 mg/dL (<100); Potassium 4.9 mmol/L (3.4-5.1); Sodium 140 mmol/L (137-145); Triglycerides 110 mg/dL (35-150)
[2018-03-20 12:14] LABS: Amorphous Sediment Urine 2+; Culture Indicated Urine Cult Not Indicated
== END ==
PROVIDERS: PCP Student in an Organized Health Care Education/Training Program; Visit Provider Internal Medicine Cardiovascular Disease
DX: I10 Essential (primary) hypertension (principal); E78.2 Mixed hyperlipidemia; E55.9 Vitamin D deficiency, unspecified; E87.6 Hypokalemia; T50.2X5A Adverse effect of carbonic-anhydrase inhibitors, benzothiadiazides and other diuretics, initial encounter; R30.0 Dysuria
CPT/HCPCS: 36415; 80048; 80061; 81001; 82306; 85025

== ENCOUNTER → 2018-09-25 08:53 | Outpatient (CLI) | payer OTHER, SELFPAY ==
[2018-09-25 09:32] LABS: Add Manual Diff / Slide Review NO; Basophils Absolute Auto 100 /uL (0-100); Basophils Percent Auto 0.7 % (0-2); Eosinophils Absolute Auto 300 /uL (0-450); Eosinophils Percent Auto 3.2 % (2-4); Hematocrit 38.3 % (36-46); Hemoglobin 12.9 g/dL (12.0-16.0); Lymphocytes Absolute Auto 2500 /uL (1100-4500); Lymphocytes Percent Auto 27.7 % (25-40); Mean Corpuscular HGB Conc 33.5 % (30-36); Mean Corpuscular Volume 86.6 fL (80-100); Monocytes Absolute Auto 700 /uL (0-900); Monocytes Percent Auto 7.3 % (3-14); Neutrophils Absolute Auto 5500 /uL (1500-7000); Neutrophils Percent Auto 61.1 % (50-75); Platelet Count 319 X10^3/uL (150-400); Red Blood Cell Count 4.42 X10^6/uL (4.0-5.2); Red Cell Distribution Width 13.7 % (11.6-14.8)
[2018-09-25 10:02] LABS: BUN Creatinine Ratio 24.3 (6-22); Blood Urea Nitrogen 17 mg/dL (7-17); Calcium 9.4 mg/dL (8.4-10.2); Carbon Dioxide 27 mmol/L (22-32); Chloride 104 mmol/L (98-107); Cholesterol 237 mg/dL (140-199); Estimated Glomerular Filt Rate > 60.0 mL/min (>60); Glucose 98 mg/dL (80-110); HDL Cholesterol 47 mg/dL (40-60); HEMOLYSIS < 15 (0-50); LDL Cholesterol Calculated 169 mg/dL (<100); Potassium 4.7 mmol/L (3.4-5.1); Sodium 139 mmol/L (137-145); Triglycerides 106 mg/dL (35-150)
== END ==
PROVIDERS: PCP Student in an Organized Health Care Education/Training Program; Visit Provider Internal Medicine Cardiovascular Disease
DX: I10 Essential (primary) hypertension (principal)
CPT/HCPCS: 36415; 80048; 80061; 85025

== ENCOUNTER 2018-10-04 17:58 | Emergency (ER) | payer OTHER, SELFPAY ==
--- NOTE | 2018-10-04 18:03 | DI.RAD.S_ITS ---
PROCEDURE: XR CHEST 1V INDICATIONS: Cough and chest pain TECHNIQUE: One view of the chest was acquired. COMPARISON: None. FINDINGS: Surgical changes and devices: None. Lungs and pleura: Lungs are clear. No pleural effusions or pneumothorax. Mediastinum: Mediastinal contours appear normal. Heart size is normal. Bones and chest wall: No suspicious bony lesions. Overlying soft tissues appear unremarkable. IMPRESSION: No acute process. Dictated by: Armand Resendiz M.D. on 10/04/2018 at 18:27 Approved by: Armand Resendiz M.D. on 10/04/2018 at 18:27
--- NOTE | 2018-10-04 18:05 | ED.SOB ---
HPI - SOB/Dyspnea General Chief Complaint: Shortness of Breath/Dyspnea Stated Complaint: real bad cough Time Seen by Provider: 10/04/18 18:01 Source: patient Mode of arrival: ambulatory Limitations: no limitations History of Present Illness Patient is a 63-year-old female who was sent over from the walk-in clinic for concerns about ST elevations on her EKG. The patient went to the walk-in clinic today for a cough. She states she has had a cough for the past several days if not the past several weeks. She also states she has been short of breath for the past several weeks. She does have a history of asthma. She has been taking her asthma medication to include her inhalers. She states she does have a diagnosis of diastolic heart failure. She is on Lasix. She has not described any lower extremity swelling. She states that for the past several weeks if not the past several months she has had dyspnea on exertion which she feels potentially has been worsening. She denies any fevers. She denies any chest pain. She states that her symptoms are similar to when she has had pneumonia in the past. Related Data Home Medications Medication Instructions Recorded Confirmed losartan 100 mg tablet 100 mg PO QPM 08/26/17 07/17/18 spironolactone 25 mg tablet 12.5 mg PO QPM 08/26/17 07/17/18 aspirin 81 mg PO DAILY 09/23/17 07/17/18 beclomethasone dipropionate [Qvar 1 puff INHALATION BID 09/23/17 07/17/18 RediHaler] clopidogrel 75 mg PO DAILY 09/23/17 07/17/18 nitroglycerin 1 tab SUBLINGUAL PRN PRN 09/23/17 07/17/18 vitamin B complex tablet 1 tab PO DAILY 07/17/18 Previous Rx's Medication Instructions Recorded epinephrine 0.3 mg IM X1 PRN #1 syr 05/28/17 hydrocortisone valerate 0.2 % TOPICAL BIDP PRN #15 gm 05/28/17 metoprolol tartrate 25 mg tablet 25 mg PO BID #180 tab 12/13/17 albuterol sulfate HFA 90 1 puff INHALATION Q6H #6.7 gram 01/23/18 mcg/actuation aerosol inhaler montelukast 10 mg tablet 10 mg PO QPM #30 tab 02/25/18 rosuvastatin 10 mg tablet 10 mg PO QPM #90 tab 03/20/18 duloxetine 20 mg capsule,delayed 20 mg PO BID #60 cap 07/17/18 release furosemide 80 mg tablet 80 mg PO BID #60 tab 07/17/18 methocarbamol 500 mg tablet 500 mg PO TID PRN #90 tab 07/17/18 potassium chloride ER 20 mEq 20 meq PO BID #60 tab 07/17/18 tablet,extended release albuterol sulfate 2.5 mg INHALATION Q4-6H PRN #90 ml 10/04/18 prednisone 40 mg PO DAILY 5 Days #10 tab 10/04/18 Allergies Allergy/AdvReac Type Severity Reaction Status Date / Time clonazepam [CLONAZEPAM] Allergy Unknown Verified 10/04/18 18:12 Penicillins [PENICILLINS] Allergy Unknown Verified 10/04/18 18:12 shellfish derived Allergy Unknown Verified 10/04/18 18:12 [SHELLFISH DERIVED] Review of Systems Constitutional Denies fever(s) and Denies headache(s) ENT Ears, Nose, Mouth, and Throat: Denies headache(s) Cardiovascular Denies edema, Denies palpitations, Reports dyspnea and Reports dyspnea on exertion Comments: No current chest pain. States she had chest pain several days ago for which she took her nitroglycerin which resolved the symptoms. Respiratory Reports cough, Reports dyspnea, Reports dyspnea on exertion and Reports wheezing Gastrointestinal Gastrointestinal: Denies abdominal pain, Denies nausea and Denies vomiting Genitourinary Denies dysuria Musculoskeletal Denies myalgias and Denies arthralgias Integumentary/Breasts Denies lesions and Denies rash Neurologic Denies behavioral changes and Denies headache(s) Psychiatric Denies behavioral changes Endocrine Denies palpitations Hematologic/Lymphatic Denies easy bleeding and Denies easy bruising Allergic/Immunologic Denies urticaria and Reports wheezing [facility] Medical History Diastolic congestive heart failure (Chronic) Coronary artery disease (Chronic) Ascending aortic aneurysm (Chronic) Essential hypertension (Chronic 02/24/15) Mild persistent asthma without complication (Chronic 02/24/15) Primary osteoarthritis of both knees (Chronic 02/24/15) Chest pain (Chronic 08/09/15) Chronic left-sided low back pain with left-sided sciatica (Chronic 10/03/16) Dyspnea on exertion (Chronic 03/15/17) Depression (Chronic 04/04/17) Anxiety (Chronic) Gout (Chronic) Hyperlipemia (Chronic) Morbid obesity (Chronic) Psoriasis (Chronic) Sleep apnea (Chronic) History of left heart catheterization (LHC) (Resolved 09/24/17) Syncope (Resolved) Social History Smoking Status: Never smoker Exam Initial Vital Signs Initial Vital Signs: Vital Signs Temperature 98.3 F 10/04/18 18:12 Pulse Rate 84 10/04/18 18:12 Respiratory Rate 22 10/04/18 18:12 Blood Pressure 176/96 H 10/04/18 18:12 Pulse Oximetry 96 10/04/18 18:12 Const General: cooperative, well developed and well groomed Orientation: alert, awake and oriented x3 HENMT Head: normal to inspection and normocephalic Resp Effort & Inspection: normal respiratory effort, audible wheezes, cough, not labored, no retractions and not tachypneic Auscultation: crackles and wheezes Cardio Rate: regular rate Rhythm: regular rhythm Pulses: radial pulses present GI Inspection: non-distended Palpation: soft Skin Lesions: no lesions Rashes: no rashes Neuro General: alert and awake Cognition: normal cognition Speech: speech normal Extrem General: normal to inspection and capillary refill normal Psych Appearance: grossly normal and well kempt Scores GCS [place] coma scale eye opening: Spontaneous [place] coma scale verbal response: Orientated [place] coma scale motor response: Obey commands [place] coma scale total score: 15 Course Orders Ordered: ED Orders 10/04/18 18:03 XR chest 1V Stat EKG-12 Lead Stat 10/04/18 18:25 B Type Natriuretic Peptide Stat Complete Blood Count AUTO DIFF Stat Comprehensive Metabolic Panel Stat Lipase Stat Partial Thromboplastin Time Stat Prothrombin Time INR Stat Troponin I Stat 10/04/18 20:55 Troponin I Stat Discontinued Medications Albuterol (Ventolin Hfa Prepack) 1 box MISC SEEINSTR ONE Stop: 10/04/18 22:16 Last Admin: 10/04/18 22:30 Dose: 1 box Albuterol/Ipratropium (Duoneb) 3 ml INH NOW ONE Stop: 10/04/18 18:23 Last Admin: 10/04/18 18:23 Dose: 3 ml Methylprednisolone (Solu-Medrol 125 Mg Vial) 125 mg IV NOW ONE Stop: 10/04/18 18:52 Last Admin: 10/04/18 19:04 Dose: 125 mg Vital Signs - 8 hr 10/04/18 18:24 10/04/18 19:50 10/04/18 21:30 Pulse Rate 77 73 69 Respiratory Rate 16 16 19 Blood Pressure [Left Arm] 164/90 H 155/90 H Pulse Oximetry 95 97 95 10/04/18 22:00 10/04/18 22:30 Pulse Rate 75 76 Respiratory Rate 22 14 Blood Pressure [Left Arm] 147/74 H Pulse Oximetry 96 96 MDM - SOB/Dyspnea Medical Records Attestation: I reviewed the patient's medical records. Lab Data Attestation: I reviewed the patient's lab results. Result diagrams: 10/04/18 18:25 10/04/18 18:25 Lab Results 10/04/18 10/04/18 10/04/18 Range/Units 18:25 18:25 18:25 WBC 11.4 H (4.5-11.0) X10^3/uL RBC 4.57 (4.0-5.2) X10^6/uL Hgb 13.2 (12.0-16.0) g/dL Hct 39.3 (36-46) % MCV 86.1 (80-100) fL MCH 28.9 (26-34) PG MCHC 33.6 (30-36) % RDW 13.8 (11.6-14.8) % Plt Count 346 (150-400) X10^3/uL Neut % (Auto) 57.0 (50-75) % Lymph % (Auto) 30.9 (25-40) % [place] % (Auto) 7.1 (3-14) % Eos % (Auto) 3.0 (2-4) % Baso % (Auto) 2.0 (0-2) % Neut # (Auto) 6500 (9238-5869) /uL Lymph # (Auto) 3500 (4587-7185) /uL [place] # (Auto) 800 (0-900) /uL Eos # (Auto) 300 (0-450) /uL Baso # (Auto) 200 H (0-100) /uL PT 11.5 (10.1-12.7) SECONDS INR 1.0 (0.9-1.3) APTT 30 D (26.4-36.2) SECONDS Sodium 141 (137-145) mmol/L Potassium 4.5 (3.4-5.1) mmol/L Chloride 103 (98-107) mmol/L Carbon Dioxide 28 (22-32) mmol/L BUN 28 H (7-17) mg/dL Creatinine 0.70 (0.52-1.04) mg/dL Estimated GFR > 60.0 (>60) mL/min BUN/Creatinine Ratio 40.0 H (6-22) Glucose 105 (80-110) mg/dL Calcium 9.4 (8.4-10.2) mg/dL Total Bilirubin 0.4 (0.2-1.3) mg/dL AST 19 (14-36) IU/L ALT 7 L (9-52) IU/L Alkaline Phosphatase 79 (38-126) U/L Troponin I (0.01-0.034) ng/mL B-Natriuretic Peptide 332 H (<100) Total Protein 7.6 (6.3-8.2) g/dL Albumin 4.3 (3.5-5.0) g/dL Globulin 3.3 (1.7-4.1) g/dL Albumin/Globulin Ratio 1.3 (1.0-2.8) Lipase 47 (23-300) U/L 10/04/18 10/04/18 Range/Units 18:25 20:55 WBC (4.5-11.0) X10^3/uL RBC (4.0-5.2) X10^6/uL Hgb (12.0-16.0) g/dL Hct (36-46) % MCV (80-100) fL MCH (26-34) PG MCHC (30-36) % RDW (11.6-14.8) % Plt Count (150-400) X10^3/uL Neut % (Auto) (50-75) % Lymph % (Auto) (25-40) % [place] % (Auto) (3-14) % Eos % (Auto) (2-4) % Baso % (Auto) (0-2) % Neut # (Auto) (7103-9499) /uL Lymph # (Auto) (2331-7455) /uL [place] # (Auto) (0-900) /uL Eos # (Auto) (0-450) /uL Baso # (Auto) (0-100) /uL PT (10.1-12.7) SECONDS INR (0.9-1.3) APTT (26.4-36.2) SECONDS Sodium (137-145) mmol/L Potassium (3.4-5.1) mmol/L Chloride (98-107) mmol/L Carbon Dioxide (22-32) mmol/L BUN (7-17) mg/dL Creatinine (0.52-1.04) mg/dL Estimated GFR (>60) mL/min BUN/Creatinine Ratio (6-22) Glucose (80-110) mg/dL Calcium (8.4-10.2) mg/dL Total Bilirubin (0.2-1.3) mg/dL AST (14-36) IU/L ALT (9-52) IU/L Alkaline Phosphatase (38-126) U/L Troponin I 0.013 0.016 (0.01-0.034) ng/mL B-Natriuretic Peptide (<100) Total Protein (6.3-8.2) g/dL Albumin (3.5-5.0) g/dL Globulin (1.7-4.1) g/dL Albumin/Globulin Ratio (1.0-2.8) Lipase (23-300) U/L Imaging Data Chest x-ray: Radiologist's impression: [place] [address] XRay Report Signed Patient: Kathy Dubon LMR#: [id number] : 8Acct:[id number] Age/Sex: 63 / FDate of Service: 10/04/18 Loc: ED Accession Number: [id number] Procedure: XR chest 1V Ordering Provider: Jude Desai D.O. PROCEDURE: XR CHEST 1V INDICATIONS: Cough and chest pain TECHNIQUE: One view of the chest was acquired. COMPARISON: None. FINDINGS: Surgical changes and devices: None. Lungs and pleura: Lungs are clear. No pleural effusions or pneumothorax. Mediastinum: Mediastinal contours appear normal. Heart size is normal. Bones and chest wall: No suspicious bony lesions. Overlying soft tissues appear unremarkable. IMPRESSION: No acute process. Dictated by: Armand Resendiz M.D. on 10/04/2018 at 18:27 Approved by: Armand Resendiz M.D. on 10/04/2018 at 18:27 ECG Data Attestation: I personally reviewed and interpreted this ECG as follows: Prior ECG tracings: available for review Interpretation: Sinus rhythm Ventricular rate of 90 LVH Normal QRS Normal QTC Inverted T-waves V2 V3 V5 V6 1 and aVL Comparison EKG from the walk-in clinic his similar to this EKG. There are no ST elevations. Comparison EKG from 09/23/2017. Inverted T-waves are new otherwise EKG is unchanged MDM Narrative Medical decision making narrative: Patient's troponin is negative x2. Her chest x-ray is unremarkable. EKG does show inverted T-waves which were new from EKG in 2018. There are no ST elevations on the EKG. Patient was given a DuoNeb here in the emergency department for her wheezing. She states this only helped her symptoms. her chest x-ray and labs and physical exam is not consistent with pneumonia. Patient does have risk factors for ACS however I feel that the symptoms that brought her in her more likely asthma related. We will send home with a prescription for steroids. She was given steroids here in the ER. I do feel that she needs a stress test and I did discuss this with Dr. Kothari who is on-call for the patient's primary provider who took the patient's information. The patient was instructed to contact her primary doctor's office on Saturday for a stress test sometime next week. There is no indication for antibiotics. Patient has nitroglycerin at home for any chest pain. she was given return precautions and follow-up instructions. She expressed understanding and agreement with plan. Discharge Plan Departure Patient Disposition: Home Clinical Impression: Cough, Dyspnea on exertion Discharge Date/Time: 10/04/18 23:18 Interventions: ED Discharge Assessment Last Done: 10/04/18 23:14 Instructions: Cough Activity Restrictions/Additional Instructions: On Saturday morning contact the [facility] at [phone]. I discussed her case tonight with Dr. Kothari. That will help you with getting a stress test sometime next week. Until then take all of your medications as directed. Return to the emergency department for any new or worsening symptoms. Prescriptions: New albuterol sulfate 2.5 mg /3 mL (0.083 %) solution for nebulization 2.5 mg INHALATION Q4-6H PRN (Reason: shortness of breath or wheezing) Qty: 90 RF: 0 prednisone 20 mg tablet 40 mg PO DAILY 5 Days Qty: 10 RF: 0 No Action losartan 100 mg tablet 100 mg PO QPM RF: 0 spironolactone 25 mg tablet 12.5 mg PO QPM RF: 0 epinephrine 0.3 MG/0.3 ML auto-injector 0.3 mg IM X1 PRNQty: 1 RF: 3 hydrocortisone valerate 0.2 % cream 0.2 % Topical BIDP PRNQty: 15 RF: 4 metoprolol tartrate 25 mg tablet 25 mg PO BID Qty: 180 RF: 1 montelukast 10 mg tablet 10 mg PO QPM Qty: 30 RF: 0 rosuvastatin 10 mg tablet 10 mg PO QPM Qty: 90 RF: 1 albuterol sulfate 90 mcg/actuation HFA aerosol inhaler 1 puff INHALATION Q6H Qty: 6.7 RF: 5 furosemide 80 mg tablet 80 mg PO BID Qty: 60 RF: 1 potassium chloride 20 mEq tablet extended release 20 meq PO BID Qty: 60 RF: 0 vitamin B complex tablet 1 tab PO DAILY RF: 0 duloxetine [Cymbalta] 20 mg capsule,delayed release(DR/EC) 20 mg PO BID Qty: 60 RF: 0 methocarbamol 500 mg tablet 500 mg PO TID PRN (Reason: spasms) Qty: 90 RF: 5 clopidogrel 75 mg tablet 75 mg PO DAILY RF: 0 nitroglycerin 0.4 mg tablet, sublingual 1 tab Sublingual PRN PRN (Reason: Chest Pain) RF: 0 aspirin 81 mg tablet,chewable 81 mg PO DAILY RF: 0 beclomethasone dipropionate [Qvar RediHaler] 80 mcg/actuation HFA aerosol breath activated 1 puff Inhalation BID RF: 0 Referrals: Genaro Steward MD [Primary Care Provider] -
[2018-10-04 18:12] VITALS: BP 176/96; PULSE 84; RESP 22; TEMP 36.8; O2SAT 96
[2018-10-04] MEDS: ALBUTEROL/IPRATROPIUM 3 ML AMPUL INH (18:23)
[2018-10-04 18:24] VITALS: PULSE 77; RESP 16; O2SAT 95
[2018-10-04 18:45] LABS: Add Manual Diff / Slide Review NO; Basophils Absolute Auto 200 /uL (0-100); Eosinophils Absolute Auto 300 /uL (0-450); Hematocrit 39.3 % (36-46); Hemoglobin 13.2 g/dL (12.0-16.0); Lymphocytes Absolute Auto 3500 /uL (1100-4500); Lymphocytes Percent Auto 30.9 % (25-40); Mean Corpuscular HGB Conc 33.6 % (30-36); Mean Corpuscular Hemoglobin 28.9 PG (26-34); Mean Corpuscular Volume 86.1 fL (80-100); Monocytes Absolute Auto 800 /uL (0-900); Monocytes Percent Auto 7.1 % (3-14); Neutrophils Absolute Auto 6500 /uL (1500-7000); Platelet Count 346 X10^3/uL (150-400); Red Blood Cell Count 4.57 X10^6/uL (4.0-5.2); Red Cell Distribution Width 13.8 % (11.6-14.8); White Blood Cell Count 11.4 X10^3/uL (4.5-11.0)
[2018-10-04 18:47] LABS: Prothrombin Time 11.5 SECONDS (10.1-12.7)
[2018-10-04 18:49] LABS: Alanine Aminotransferase 7 IU/L (9-52); Albumin 4.3 g/dL (3.5-5.0); Albumin Globulin Ratio 1.3 (1.0-2.8); Alkaline Phosphatase 79 U/L (38-126); Aspartate Aminotransferase 19 IU/L (14-36); Bilirubin Total 0.4 mg/dL (0.2-1.3); Blood Urea Nitrogen 28 mg/dL (7-17); Calcium 9.4 mg/dL (8.4-10.2); Carbon Dioxide 28 mmol/L (22-32); Chloride 103 mmol/L (98-107); Estimated Glomerular Filt Rate > 60.0 mL/min (>60); Globulin 3.3 g/dL (1.7-4.1); Glucose 105 mg/dL (80-110); HEMOLYSIS 29 (0-50); Lipase 47 U/L (23-300); Potassium 4.5 mmol/L (3.4-5.1); Sodium 141 mmol/L (137-145); Total Protein 7.6 g/dL (6.3-8.2)
[2018-10-04 18:50] LABS: PTT Partial Thromboplastin Tim 30 SECONDS (26.4-36.2)
[2018-10-04] MEDS: methylPREDNISolone 125 MG/2 ML VIAL IV (19:04)
[2018-10-04 19:31] LABS: B Type Natriuretic Peptide 332 (<100)
[2018-10-04 19:34] LABS: Troponin I 0.013 ng/mL (0.01-0.034)
[2018-10-04 19:50] VITALS: BP 164/90; PULSE 73; RESP 16; O2SAT 97
[2018-10-04 21:30] VITALS: BP 155/90; PULSE 69; RESP 19; O2SAT 95
[2018-10-04 21:35] LABS: Troponin I 0.016 ng/mL (0.01-0.034)
[2018-10-04 22:00] VITALS: BP 147/74; PULSE 75; RESP 22; O2SAT 96
[2018-10-04 22:30] VITALS: PULSE 76; RESP 14; O2SAT 96
[2018-10-04] MEDS: ALBUTEROL HFA PREPACK 1 BOX MISC (22:30)
== END 2018-10-04 23:18 | disposition home or self-care (01) ==
PROVIDERS: Emergency Provider Emergency Medicine; PCP Student in an Organized Health Care Education/Training Program
DX: R05 Cough (principal); R06.00 Dyspnea, unspecified
CPT/HCPCS: 36415; 36591; 71045; 80053; 83690; 83880; 84484; 85025; 85610; 85730; 93005; 94640; 96374; 99283; 99285; J2930

== ENCOUNTER 2018-11-03 14:53 | Emergency (ER) | payer OTHER, SELFPAY ==
[2018-11-03 14:55] VITALS: BP 130/72; PULSE 71; RESP 24; TEMP 37.3; O2SAT 97
[2018-11-03 15:27] LABS: Add Manual Diff / Slide Review NO; Basophils Absolute Auto 100 /uL (0-100); Basophils Percent Auto 0.8 % (0-2); Eosinophils Absolute Auto 400 /uL (0-450); Eosinophils Percent Auto 4.3 % (2-4); Hematocrit 38.5 % (36-46); Hemoglobin 13.2 g/dL (12.0-16.0); Lymphocytes Absolute Auto 3000 /uL (1100-4500); Lymphocytes Percent Auto 30.1 % (25-40); Mean Corpuscular HGB Conc 34.2 % (30-36); Mean Corpuscular Hemoglobin 29.3 PG (26-34); Mean Corpuscular Volume 85.6 fL (80-100); Monocytes Absolute Auto 700 /uL (0-900); Monocytes Percent Auto 7.1 % (3-14); Neutrophils Absolute Auto 5700 /uL (1500-7000); Neutrophils Percent Auto 57.7 % (50-75); Platelet Count 361 X10^3/uL (150-400); Red Cell Distribution Width 14.2 % (11.6-14.8); White Blood Cell Count 9.9 X10^3/uL (4.5-11.0)
[2018-11-03] MEDS: KETOROLAC 60 MG/2 ML VIAL 15 MG IV (15:30)
[2018-11-03 15:38] LABS: Alanine Aminotransferase 20 IU/L (9-52); Albumin 4.3 g/dL (3.5-5.0); Albumin Globulin Ratio 1.3 (1.0-2.8); Alkaline Phosphatase 80 U/L (38-126); Aspartate Aminotransferase 28 IU/L (14-36); BUN Creatinine Ratio 26.7 (6-22); Bilirubin Total 0.6 mg/dL (0.2-1.3); Blood Urea Nitrogen 16 mg/dL (7-17); Calcium 9.4 mg/dL (8.4-10.2); Carbon Dioxide 26 mmol/L (22-32); Chloride 103 mmol/L (98-107); Estimated Glomerular Filt Rate > 60.0 mL/min (>60); Globulin 3.2 g/dL (1.7-4.1); Glucose 91 mg/dL (80-110); HEMOLYSIS < 15 (0-50); Potassium 4.2 mmol/L (3.4-5.1); Sodium 140 mmol/L (137-145); Total Protein 7.5 g/dL (6.3-8.2)
--- NOTE | 2018-11-03 15:46 | ED_ITS ---
HPI - Abdominal Pain General Chief Complaint: Abdominal Pain Stated Complaint: BLOOD URINE RIGHT SIDE PAIN Time Seen by Provider: 11/03/18 15:00 Source: patient Mode of arrival: Ambulatory History of Present Illness HPI narrative: 63-year-old female with extensive cardiac history head nonsmoker presents with a chief complaint of a sudden onset right flank pain with radiation into her right groin and hematuria. Her pain is worse when she moves and improves with rest. She denies fever, chills nor nausea or vomiting. She denies any dizziness, weakness or lightheadedness. She was seen at the walk-in clinic and sent here when she was found to have blood in her urine. There is no sign of infection. She has no history of kidney stones Related Data Home Medications Medication Instructions Recorded Confirmed losartan 100 mg tablet 100 mg PO QPM 08/26/17 10/23/18 spironolactone 25 mg tablet 12.5 mg PO QPM 08/26/17 10/23/18 aspirin 81 mg PO DAILY 09/23/17 10/23/18 beclomethasone dipropionate [Qvar 1 puff INHALATION BID 09/23/17 10/23/18 RediHaler] clopidogrel 75 mg PO DAILY 09/23/17 10/23/18 vitamin B complex 1 tab PO DAILY 07/17/18 10/23/18 ezetimibe 10 mg tablet 10 mg PO DAILY 10/23/18 11/03/18 isosorbide mononitrate 60 mg 60 mg PO QAM 10/23/18 10/23/18 tablet,extended release 24 hr nitroglycerin 0.4 mg sublingual 0.4 mg SL Q5-15M PRN 10/23/18 10/23/18 tablet sertraline 100 mg tablet 100 mg PO DAILY 10/23/18 10/23/18 terbinafine HCl 250 mg tablet 250 mg PO DAILY 10/23/18 10/23/18 metoprolol tartrate 25 mg PO BID 11/03/18 11/03/18 Previous Rx's Medication Instructions Recorded epinephrine 0.3 mg IM X1 PRN #1 syr 05/28/17 hydrocortisone valerate 0.2 % TOPICAL BIDP PRN #15 gm 05/28/17 albuterol sulfate 90 mcg/actuation 1 puff INHALATION Q6H #6.7 gram 01/23/18 aerosol inhaler montelukast 10 mg tablet 10 mg PO QPM #30 tab 02/25/18 furosemide 80 mg tablet 80 mg PO BID #60 tab 07/17/18 methocarbamol 500 mg tablet 500 mg PO TID PRN #90 tab 07/17/18 albuterol sulfate 2.5 mg INHALATION Q4-6H PRN #90 ml 10/04/18 duloxetine 20 mg capsule,delayed 20 mg PO BID #180 cap 10/14/18 release rosuvastatin 40 mg tablet 40 mg PO QPM #90 tab 10/23/18 hydrocodone-acetaminophen 1 tab PO Q4-6H PRN #10 tab 11/03/18 ketorolac 10 mg PO Q6H PRN #14 tab 11/03/18 lidocaine [Lidoderm] 1 patch TOP DAILY #15 each 11/03/18 ondansetron 4 mg PO TID-QID PRN #10 tab 11/03/18 Allergies Allergy/AdvReac Type Severity Reaction Status Date / Time clonazepam [CLONAZEPAM] Allergy Unknown Verified 10/23/18 10:20 Penicillins [PENICILLINS] Allergy Unknown Verified 10/23/18 10:20 shellfish derived Allergy Unknown Verified 10/23/18 10:20 [SHELLFISH DERIVED] Review of Systems Constitutional Constitutional: Denies chills, Denies fatigue, Denies fever(s), Denies frequent falls, Denies lethargy and Denies weakness Eyes Eyes: Denies change in vision, Denies eye discharge, Denies irritation and Denies loss of vision ENT Ears, Nose, Mouth, and Throat: Denies change in voice, Denies dizziness, Denies neck pain, Denies sore throat and Denies throat swelling Cardiovascular Cardiovascular: Denies chest pain, Denies irregular heart rhythm, Denies lightheadedness, Denies palpitations, Denies dyspnea, Denies dyspnea on exertion and Denies orthopnea Respiratory Respiratory: Denies cough, Denies dyspnea, Denies dyspnea on exertion and Denies wheezing Gastrointestinal Gastrointestinal: Denies abdominal pain, Denies change in bowel habits, Denies diarrhea, Denies nausea and Denies vomiting Genitourinary Genitourinary: Denies hematuria, Reports flank pain, Denies urinary incontinence and Denies urinary urgency Musculoskeletal Musculoskeletal: Denies back pain, Denies muscle weakness, Denies neck pain, Denies numbness and Denies tingling Integumentary/Breasts Skin/Breast: Denies pruritus, Denies erythema, Denies rash and Denies wounds Neurologic Neurologic: Denies behavioral changes, Denies confusion, Denies dizziness, Denies frequent falls, Denies loss of vision, Denies numbness, Denies tingling and Denies weakness Psychiatric Psychiatric: Denies anxiety, Denies behavioral changes, Denies confusion, Denies depression, Denies homicidal ideation and Denies suicidal ideation Endocrine Endocrine: Denies fatigue, Denies flushing and Denies palpitations Hematologic/Lymphatic Hematologic/Lymphatic: Denies easy bruising Allergic/Immunologic Allergic/Immunologic: Denies urticaria, Denies throat swelling and Denies wheezing [facility] Medical History Anxiety (Chronic) Ascending aortic aneurysm (Chronic) Chest pain (Chronic 08/09/15) Chronic left-sided low back pain with left-sided sciatica (Chronic 10/03/16) Coronary artery disease (Chronic) Depression (Chronic 04/04/17) Diastolic congestive heart failure (Chronic) Dyspnea on exertion (Chronic 03/15/17) Essential hypertension (Chronic 02/24/15) Gout (Chronic) History of left heart catheterization (LHC) (Resolved 09/24/17) Hyperlipemia (Chronic) Mild persistent asthma without complication (Chronic 02/24/15) Morbid obesity (Chronic) Primary osteoarthritis of both knees (Chronic 02/24/15) Psoriasis (Chronic) Sleep apnea (Chronic) Syncope (Resolved) Surgical History History of colonoscopy with polypectomy (Resolved 10/30/10) Hx of arthroscopy of left knee (Resolved 2005) S/P angioplasty with stent (Chronic 08/23/17) S/P angioplasty with stent (Resolved 09/24/17) Status post delivery (Resolved) Family History Father No problems noted. Mother Hypertension Diabetes mellitus CAD (coronary artery disease) Social History Smoking Status: Never smoker Family History Father No problems noted. Mother Hypertension Diabetes mellitus CAD (coronary artery disease) Social History Smoking Status: Never smoker Exam Narrative Exam Narrative: GENERAL: [] year old patient appears stated age. Well-nourished, well-developed patient, in mild distress. HEAD: Atraumatic. Normocephalic. EYES: Pupils equal round and reactive. Extraocular motions intact. No scleral icterus. No injection or drainage. ENT: Nose without bleeding, purulent drainage. Throat without erythema, tonsi llar hypertrophy or exudate. Airway patent. NECK: Trachea midline. Non tender CARDIOVASCULAR: Regular rate and rhythm without murmurs, gallops, or rubs. RESPIRATORY: Clear to auscultation. Breath sounds equal bilaterally. No wheezes, rales, or rhonchi. GASTROINTESTINAL: Abdomen soft, non-tender, nondistended. EXTREMITIES: No edema or joint tenderness. BACK: Nontender without deformity or crepitance. Right flank tenderness to palpation NEURO: AOx3. SKIN: No rash or erythema of visible areas Initial Vital Signs Initial Vital Signs: Vital Signs Temperature 99.1 F 11/03/18 14:55 Pulse Rate 71 11/03/18 14:55 Respiratory Rate 24 11/03/18 14:55 Blood Pressure 130/72 11/03/18 14:55 Pulse Oximetry 97 11/03/18 14:55 Course Orders Ordered: ED Orders 11/03/18 15:19 Complete Blood Count AUTO DIFF Stat Comprehensive Metabolic Panel Stat 11/03/18 16:56 CT kidney ureter bladder (KUB) Stat Discontinued Medications Ketorolac Tromethamine (Toradol) 15 mg IV NOW ONE Stop: 11/03/18 15:02 Last Admin: 11/03/18 15:30 Dose: 15 mg Documented by: DEEPA Vital Signs Vital signs: Vital Signs - 8 hr 11/03/18 14:55 11/03/18 17:30 Temperature 99.1 F Pulse Rate 71 68 Respiratory Rate 24 16 Blood Pressure 130/72 144/86 H Pulse Oximetry 97 97 MDM - Abdominal Pain Lab Data Result diagrams: 11/03/18 15:19 11/03/18 15:19 Labs: Lab Results 11/03/18 11/03/18 Range/Units 15:19 15:19 WBC 9.9 (4.5-11.0) X10^3/uL RBC 4.50 (4.0-5.2) X10^6/uL Hgb 13.2 (12.0-16.0) g/dL Hct 38.5 (36-46) % MCV 85.6 (80-100) fL MCH 29.3 (26-34) PG MCHC 34.2 (30-36) % RDW 14.2 (11.6-14.8) % Plt Count 361 (150-400) X10^3/uL Neut % (Auto) 57.7 (50-75) % Lymph % (Auto) 30.1 (25-40) % [place] % (Auto) 7.1 (3-14) % Eos % (Auto) 4.3 H (2-4) % Baso % (Auto) 0.8 (0-2) % Neut # (Auto) 5700 (9897-6126) /uL Lymph # (Auto) 3000 (4840-3465) /uL [place] # (Auto) 700 (0-900) /uL Eos # (Auto) 400 (0-450) /uL Baso # (Auto) 100 (0-100) /uL Sodium 140 (137-145) mmol/L Potassium 4.2 (3.4-5.1) mmol/L Chloride 103 (98-107) mmol/L Carbon Dioxide 26 (22-32) mmol/L BUN 16 (7-17) mg/dL Creatinine 0.60 (0.52-1.04) mg/dL Estimated GFR > 60.0 (>60) mL/min BUN/Creatinine Ratio 26.7 H (6-22) Glucose 91 (80-110) mg/dL Calcium 9.4 (8.4-10.2) mg/dL Total Bilirubin 0.6 (0.2-1.3) mg/dL AST 28 (14-36) IU/L ALT 20 (9-52) IU/L Alkaline Phosphatase 80 (38-126) U/L Total Protein 7.5 (6.3-8.2) g/dL Albumin 4.3 (3.5-5.0) g/dL Globulin 3.2 (1.7-4.1) g/dL Albumin/Globulin Ratio 1.3 (1.0-2.8) Imaging Data CT scan - abdomen: Radiologist's impression: [address] [address] [address] Scan Report Signed Patient: Kathy Dubon LMR#: [id number] : 8Acct:[id number] Age/Sex: 63 / FDate of Service: 11/03/18 Loc: ED Accession Number: [id number] Procedure: CT kidney ureter bladder (KUB) Ordering Provider: George Lara D.O. PROCEDURE: CT KIDNEY URETER BLADDER (KUB) INDICATIONS: R flank pain, hematuria TECHNIQUE: Noncontrast 5 mm thick sections acquired from the diaphragms to the symphysis. 5 mm thick coronal and sagittal reformats were then performed. For radiation dose reduction, the following was used: automated exposure control, adjustment of mA and/or kV according to patient size. COMPARISON: [facility], CT, CT ANGIO CHEST PE, 08/08/2017, 17:04. FINDINGS: Image quality: Excellent. Lung bases: 5 x 2 mm oval nodule is seen in anterior aspect of the right l mi ddle lobe unchanged from previous CT study series 3 image 2.. Bilateral lung bases otherwise clear. Heart size is normal. Urinary system: Both kidneys are normal in size. No kidney stones. No hydronephrosis or perinephric fat stranding. Both ureters appear non-dilated throughout their expected courses. Bladder wall thickness is normal; no calcified bladder stones. Other solid organs: Liver is normal in size. Gallbladder is within normal limits. Pancreas is normal in contours. Spleen is normal in size. No adrenal nodules. Peritoneum and bowel: Unenhanced bowel loops demonstrate normal wall thickness and caliber. No free fluid or air. The appendix is visualized and is within normal limits. Nodes and vessels: No retroperitoneal or mesenteric adenopathy by size criteria. Aorta and inferior vena cava are normal in caliber. Abdominal wall: No ventral hernias. Pelvis: No free pelvic fluid. No inguinal hernias. Nonspecific bilateral inguinal lymph nodes are seen and measures up to 1.2 cm in short axis diameter in right inguinal region. Uterus and bilateral adnexa show no gross abnormality. Bones: No suspicious bony lesions. No vertebral body compression fractures. IMPRESSION: 1. No renal stone or hydronephrosis. Normal appearing bilateral ureters or urinary bladder. 2. Nonspecific mildly enlarged bilateral inguinal lymph nodes. No peritoneal or retroperitoneal lymphadenopathy. 3. Normal appendix. No bowel obstruction. No free fluid or free air. 4. Stable 5 mm right middle lobe nodule unchanged from previous CT of chest stud y and likely represent benign process. Dictated by: John Cross M.D. on 11/03/2018 at 17:24 MDM Narrative Medical decision making narrative: Multiple etiologies for patient's symptoms considered including: [Pyelonephritis versus kidney stone versus passed kidney stone versus shingles versus bowel obstruction versus other] Patient's symptoms improved or duration of stay with above-stated therapies. Findings and discharge diagnosis discussed with patient/family followed by verbalization of understanding Return precautions discussed with patient/family whom verbalize understanding. Discharge Plan Departure Patient Disposition: Home Clinical Impression: Acute flank pain Hematuria Qualifiers: Hematuria type: unspecified type Qualified Code(s): R31.9 - Hematuria, unspecified Discharge Date/Time: 11/03/18 19:42 Instructions: DI for Hematuria Activity Restrictions/Additional Instructions: *You have been diagnosed with [acute flank pain with hematuria. May be a passed kidney stone. ] *What to do: *Take medications as directed *Follow up with your primary care provider in 2-3 days, call for an appointment. Let them know you were seen in the Emergency Department and that we ask that you be seen in follow up *Return to ER if you should have any new, worsening or concerning symptoms Prescriptions: New hydrocodone-acetaminophen 5-325 mg tablet 1 tab PO Q4-6H PRN (Reason: pain) Qty: 10 RF: 0 ketorolac 10 mg tablet 10 mg PO Q6H PRN (Reason: pain) Qty: 14 RF: 0 lidocaine [Lidoderm] 5 % adhesive patch,medicated 1 patch TOP DAILY Qty: 15 RF: 0 ondansetron 4 mg tablet,disintegrating 4 mg PO TID-QID PRN (Reason: nausea and vomiting) Qty: 10 RF: 0 No Action losartan 100 mg tablet 100 mg PO QPM RF: 0 spironolactone 25 mg tablet 12.5 mg PO QPM RF: 0 epinephrine 0.3 MG/0.3 ML auto-injector 0.3 mg IM X1 PRNQty: 1 RF: 3 hydrocortisone valerate 0.2 % cream 0.2 % Topical BIDP PRNQty: 15 RF: 4 montelukast 10 mg tablet 10 mg PO QPM Qty: 30 RF: 0 duloxetine [Cymbalta] 20 mg capsule,delayed release(DR/EC) 20 mg PO BID Qty: 180 RF: 1 albuterol sulfate 90 mcg/actuation HFA aerosol inhaler 1 puff INHALATION Q6H Qty: 6.7 RF: 5 rosuvastatin 40 mg tablet 40 mg PO QPM Qty: 90 RF: 1 isosorbide mononitrate 60 mg tablet extended release 24 hr 60 mg PO QAM RF: 0 ezetimibe 10 mg tablet 10 mg PO DAILY RF: 0 sertraline 100 mg tablet 100 mg PO DAILY RF: 0 terbinafine HCl 250 mg tablet 250 mg PO DAILY RF: 0 nitroglycerin 0.4 mg tablet, sublingual 0.4 mg SL Q5-15M PRNRF: 0 furosemide 80 mg tablet 80 mg PO BID Qty: 60 RF: 1 vitamin B complex tablet 1 tab PO DAILY RF: 0 methocarbamol 500 mg tablet 500 mg PO TID PRN (Reason: spasms) Qty: 90 RF: 5 clopidogrel 75 mg tablet 75 mg PO DAILY RF: 0 aspirin 81 mg tablet,chewable 81 mg PO DAILY RF: 0 beclomethasone dipropionate [Qvar RediHaler] 80 mcg/actuation HFA aerosol breath activated 1 puff Inhalation BID RF: 0 metoprolol tartrate 25 mg tablet 25 mg PO BID RF: 0 albuterol sulfate 2.5 mg /3 mL (0.083 %) solution for nebulization 2.5 mg INHALATION Q4-6H PRN (Reason: shortness of breath or wheezing) Qty: 90 RF: 0 Referrals: Genaro Steward MD [Primary Care Provider] -
--- NOTE | 2018-11-03 16:56 | DI.CT.S_ITS ---
PROCEDURE: CT KIDNEY URETER BLADDER (KUB) INDICATIONS: R flank pain, hematuria TECHNIQUE: Noncontrast 5 mm thick sections acquired from the diaphragms to the symphysis. 5 mm thick coronal and sagittal reformats were then performed. For radiation dose reduction, the following was used: automated exposure control, adjustment of mA and/or kV according to patient size. COMPARISON: [facility], CT, CT ANGIO CHEST PE, 08/08/2017, 17:04. FINDINGS: Image quality: Excellent. Lung bases: 5 x 2 mm oval nodule is seen in anterior aspect of the right l middle lobe unchanged from previous CT study series 3 image 2.. Bilateral lung bases otherwise clear. Heart size is normal. Urinary system: Both kidneys are normal in size. No kidney stones. No hydronephrosis or perinephric fat stranding. Both ureters appear non-dilated throughout their expected courses. Bladder wall thickness is normal; no calcified bladder stones. Other solid organs: Liver is normal in size. Gallbladder is within normal limits. Pancreas is normal in contours. Spleen is normal in size. No adrenal nodules. Peritoneum and bowel: Unenhanced bowel loops demonstrate normal wall thickness and caliber. No free fluid or air. The appendix is visualized and is within normal limits. Nodes and vessels: No retroperitoneal or mesenteric adenopathy by size criteria. Aorta and inferior vena cava are normal in caliber. Abdominal wall: No ventral hernias. Pelvis: No free pelvic fluid. No inguinal hernias. Nonspecific bilateral inguinal lymph nodes are seen and measures up to 1.2 cm in short axis diameter in right inguinal region. Uterus and bilateral adnexa show no gross abnormality. Bones: No suspicious bony lesions. No vertebral body compression fractures. IMPRESSION: 1. No renal stone or hydronephrosis. Normal appearing bilateral ureters or urinary bladder. 2. Nonspecific mildly enlarged bilateral inguinal lymph nodes. No peritoneal or retroperitoneal lymphadenopathy. 3. Normal appendix. No bowel obstruction. No free fluid or free air. 4. Stable 5 mm right middle lobe nodule unchanged from previous CT of chest study and likely represent benign process. Dictated by: John Cross M.D. on 11/03/2018 at 17:24 Approved by: John Cross M.D. on 11/03/2018 at 17:30
[2018-11-03 17:30] VITALS: BP 144/86; PULSE 68; RESP 16; O2SAT 97
== END 2018-11-03 19:42 | disposition home or self-care (01) ==
PROVIDERS: Emergency Provider Emergency Medicine; PCP Student in an Organized Health Care Education/Training Program
DX: R31.9 Hematuria, unspecified (principal); R10.9 Unspecified abdominal pain
CPT/HCPCS: 36415; 74176; 80053; 85025; 96374; 99282; 99284; J1885

== ENCOUNTER → 2018-11-11 11:56 | Outpatient (CLI) | payer OTHER, SELFPAY | PROVIDERS: PCP Student in an Organized Health Care Education/Training Program; Visit Provider Student in an Organized Health Care Education/Training Program | DX: R10.9 Unspecified abdominal pain (principal); Z53.9 Procedure and treatment not carried out, unspecified reason ==

== ENCOUNTER → 2018-11-17 10:54 | Outpatient (CLI) | payer OTHER, SELFPAY ==
--- NOTE | 2018-11-17 10:54 | DI.CT.S_ITS ---
PROCEDURE: CT ABDOMEN PELVIS WO/W CON INDICATIONS: Flank pain TECHNIQUE: Optional 5 mm thick noncontrast images acquired from the diaphragm to the symphysis pubis. After the administration of intravenous contrast, 5 mm thick images acquired from the diaphragm to the symphysis pubis after a 10-minute delay. 2 mm thick coronal and sagittal reformats were then performed of the kidneys and ureters. For radiation dose reduction, the following was used: automated exposure control, adjustment of mA and/or kV according to patient size. COMPARISON: [facility], CT, CT KIDNEY URETER BLADDER (KUB), 11/03/2018, 16:57. FINDINGS: Image quality: Excellent. Lung bases: Lung bases are clear. Heart size is normal. Urinary system: Both kidneys are normal in size, without hydronephrosis or nephrolithiasis on pre-contrast images. No perinephric fat stranding. There is normal bilateral renal enhancement. Renal calyces appear normal in morphology when filled with contrast. Opacified portions of both ureters demonstrate normal caliber. Bladder wall thickness is normal. No calcified bladder stones. Other solid organs: Liver is normal in size and enhancement. Gallbladder unremarkable. Biliary system is non dilated. Pancreas enhances normally. Spleen is normal in size and enhancement. Fat attenuation 1 cm left adrenal nodule presumably a myelolipoma. Peritoneum and bowel: Bowel loops demonstrate normal wall thickness and caliber. No free fluid or air. Nodes and vessels: No retroperitoneal or mesenteric adenopathy by size criteria. Aorta and inferior vena cava are normal in size. Abdominal wall: No ventral hernias. Pelvis: No pathologic free pelvic fluid. No inguinal hernias or adenopathy. In the left adnexal region, there is a 3.1 x 3.2 cm cystic lesion involving the left ovary, nonspecific and recommend further assessment with ultrasound. Bones: No suspicious bony lesions. No vertebral body compression fractures. IMPRESSION: No urolithiasis. No evidence of urinary obstruction. Normal appendix. 3.2 cm left adnexal/ovarian cystic lesion, technically non-specific in the absence of any prior studies. Given patient age, recommend further evaluation and continued long-term surveillance with dedicated pelvic ultrasound to exclude cystic ovarian malignancy. Consider further evaluation with biochemical data such as CA-125. No acute process identified. Incidental left adrenal myelolipoma Dictated by: Damien Schulz M.D. on 11/17/2018 at 12:33 Approved by: Damien Schulz M.D. on 11/17/2018 at 12:42
== END ==
PROVIDERS: PCP Student in an Organized Health Care Education/Training Program; Visit Provider Student in an Organized Health Care Education/Training Program
DX: R10.9 Unspecified abdominal pain (principal); R31.9 Hematuria, unspecified; N83.202 Unspecified ovarian cyst, left side; D17.79 Benign lipomatous neoplasm of other sites
CPT/HCPCS: 74178; Q9967

== ENCOUNTER → 2018-11-19 12:00 | Outpatient (CLI) | payer OTHER, SELFPAY ==
--- NOTE | 2018-11-19 12:10 | DI.US.S_ITS ---
PROCEDURE: US PELVIC COMPLETE INDICATIONS: LEFT ADNEXAL MASS ON CT TECHNIQUE: Real-time scanning was performed of the pelvic organs, with image documentation. Additional endovaginal scanning was necessary due to incomplete visualization of the adnexal and endometrial structures by transabdominal scanning. COMPARISON: [facility], CT, CT ABDOMEN PELVIS WO/W CON, 11/17/2018, 10:55. FINDINGS: Transabdominal scanning: Limited scanning through the kidneys shows no hydronephrosis. No pathologic free abdominal or pelvic fluid. Endovaginal scanning: Uterus: Uterus is normal in size for postmenopausal status at 3.5 x 4.8 x 7.4 cm, anteverted. The endometrium measures 4.0 mm in combined thickness. Ovaries: Not seen bilaterally at the left adnexa a cystic masslike structure appears present measuring up to 2.4 x 3.6 x 3.2 cm. IMPRESSION: Anteverted uterus, no uterine fibroids or endometrial lining thickness is found. Prior CT scanning from 11/17/18 has identified a cystic structure at the left adnexa, and this can be seen by ultrasound scanning but quality of visualization is quite limited due to adjacent bowel gas. Gynecological consultation is anticipated to determine whether excisional biopsy is warranted at this time versus sequential followup. MR scanning with contrast could be utilized for a more thorough at higher resolution evaluation of this structure if clinically desired. Dictated by: Emory Walsh M.D. on 11/19/2018 at 14:10 Approved by: Emory Walsh M.D. on 11/19/2018 at 14:18
== END ==
PROVIDERS: PCP Student in an Organized Health Care Education/Training Program; Visit Provider Student in an Organized Health Care Education/Training Program
DX: N94.89 Other specified conditions associated with female genital organs and menstrual cycle (principal)
CPT/HCPCS: 76830; 76856

== ENCOUNTER → 2018-11-24 16:25 | Outpatient (CLI) | payer OTHER, SELFPAY ==
[2018-11-24 17:53] LABS: Vitamin D 25 Hydroxy (D3) 18.3 ng/mL (30.0-100.0)
[2018-11-24 17:58] LABS: Erythrocyte Sedimentation Rate 10 MM/HR (0-20)
[2018-11-24 18:06] LABS: Cancer Antigen 125 < 6 U/mL (0-35)
[2018-11-25 14:12] LABS: Cholesterol 249 mg/dL (140-199); HDL Cholesterol 47 mg/dL (40-60); LDL Cholesterol Calculated 177 mg/dL (<100); Triglycerides 124 mg/dL (35-150)
[2018-11-27 14:55] LABS: Human HE4 Antigen 36 pmol/L
== END ==
PROVIDERS: PCP Student in an Organized Health Care Education/Training Program; Visit Provider Obstetrics & Gynecology
DX: N94.89 Other specified conditions associated with female genital organs and menstrual cycle (principal); R10.9 Unspecified abdominal pain; E55.9 Vitamin D deficiency, unspecified; Z91.89 Other specified personal risk factors, not elsewhere classified; R19.09 Other intra-abdominal and pelvic swelling, mass and lump; E78.2 Mixed hyperlipidemia
CPT/HCPCS: 36415; 80061; 82306; 85651; 86304; 86305

== ENCOUNTER → 2019-02-23 13:03 | Outpatient (CLI) | payer OTHER, SELFPAY ==
[2019-02-23 15:59] LABS: Cancer Antigen 125 < 6 U/mL (0-35)
[2019-02-26 16:33] LABS: Human HE4 Antigen 33 pmol/L
== END ==
PROVIDERS: Obstetrics & Gynecology; PCP Student in an Organized Health Care Education/Training Program; Visit Provider Student in an Organized Health Care Education/Training Program
DX: N94.89 Other specified conditions associated with female genital organs and menstrual cycle (principal)
CPT/HCPCS: 36415; 86304; 86305

== ENCOUNTER → 2019-02-23 13:32 | Outpatient (ROUT) | payer OTHER, SELFPAY ==
[2019-02-23 15:08] LABS: Add Manual Diff / Slide Review NO; Basophils Absolute Auto 100 /uL (0-100); Basophils Percent Auto 0.9 % (0-2); Eosinophils Absolute Auto 200 /uL (0-450); Eosinophils Percent Auto 1.9 % (2-4); Hematocrit 42.7 % (36-46); Hemoglobin 14.4 g/dL (12.0-16.0); Lymphocytes Absolute Auto 2600 /uL (1100-4500); Lymphocytes Percent Auto 28.6 % (25-40); Mean Corpuscular HGB Conc 33.8 % (30-36); Mean Corpuscular Hemoglobin 29.2 PG (26-34); Mean Corpuscular Volume 86.2 fL (80-100); Monocytes Absolute Auto 500 /uL (0-900); Monocytes Percent Auto 5.6 % (3-14); Neutrophils Absolute Auto 5800 /uL (1500-7000); Platelet Count 329 X10^3/uL (150-400); Red Blood Cell Count 4.95 X10^6/uL (4.0-5.2); Red Cell Distribution Width 13.6 % (11.6-14.8); White Blood Cell Count 9.2 X10^3/uL (4.5-11.0)
[2019-02-23 16:21] LABS: BUN Creatinine Ratio 24.3 (6-22); Blood Urea Nitrogen 17 mg/dL (7-17); Calcium 10.1 mg/dL (8.4-10.2); Carbon Dioxide 23 mmol/L (22-32); Chloride 102 mmol/L (98-107); Cholesterol 197 mg/dL (140-199); Estimated Glomerular Filt Rate > 60.0 mL/min (>60); Glucose 103 mg/dL (80-110); HDL Cholesterol 26 mg/dL (40-60); HEMOLYSIS < 15 (0-50); LDL Cholesterol Calculated 156 mg/dL (<100); Potassium 4.3 mmol/L (3.4-5.1); Sodium 139 mmol/L (137-145); Triglycerides 76 mg/dL (35-150)
== END ==
PROVIDERS: PCP Student in an Organized Health Care Education/Training Program; Visit Provider Internal Medicine Cardiovascular Disease
DX: E78.5 Hyperlipidemia, unspecified (principal); I10 Essential (primary) hypertension; N94.89 Other specified conditions associated with female genital organs and menstrual cycle
CPT/HCPCS: 36415; 80048; 80061; 85025; 86304; 86305

== ENCOUNTER → 2019-03-30 10:54 | Outpatient (CLI) | payer OTHER, SELFPAY ==
--- NOTE | 2019-03-30 10:55 | DI.US.S_ITS ---
PROCEDURE: US PELVIC COMPLETE INDICATIONS: ADNEXAL MASS TECHNIQUE: Real-time scanning was performed of the pelvic organs, with image documentation. Additional endovaginal scanning was necessary due to incomplete visualization of the adnexal and endometrial structures by transabdominal scanning. COMPARISON: [facility], , US PELVIC COMPLETE, 11/19/2018, 12:20. FINDINGS: Transabdominal scanning: Limited scanning through the kidneys shows no hydronephrosis. No pathologic free abdominal or pelvic fluid. Endovaginal scanning: Uterus: Uterus is normal in size at 5.6 x 4.1 x 3.5 cm. The endometrium measures 5 mm in combined thickness. Ovaries: Ovaries not seen bilaterally. Previously described left adnexal cystic lesion is decreased in size now measuring 2.4 x 2.2 x 2.8 cm, previously 7.4 x 4.8 x 3.4 cm. IMPRESSION: Left adnexal cystic lesion probably decreased in size as discussed above. Ovaries technically not sonographically visualized, and the study is suboptimal due to body habitus therefore recommend continued ultrasound surveillance (next examination in 6 months) to determine fdc stability and more definitively exclude cystic neoplasm. Dictated by: Damien Schulz M.D. on 03/30/2019 at 16:03 Approved by: Damien Schulz M.D. on 03/30/2019 at 16:07
== END ==
PROVIDERS: PCP Student in an Organized Health Care Education/Training Program; Referring Provider Obstetrics & Gynecology; Visit Provider Obstetrics & Gynecology
DX: N94.89 Other specified conditions associated with female genital organs and menstrual cycle (principal)
CPT/HCPCS: 76830; 76856

== ENCOUNTER → 2019-06-25 11:34 | Outpatient (CLI) | payer OTHER, SELFPAY ==
[2019-06-25 12:59] LABS: Cholesterol 70 mg/dL (140-199); HDL Cholesterol 41 mg/dL (40-60); LDL Cholesterol Calculated 17 mg/dL (<100); Triglycerides 61 mg/dL (35-150)
== END ==
PROVIDERS: PCP Student in an Organized Health Care Education/Training Program; Referring Provider Student in an Organized Health Care Education/Training Program; Visit Provider Student in an Organized Health Care Education/Training Program
DX: E78.2 Mixed hyperlipidemia (principal)
CPT/HCPCS: 36415; 80061

== ENCOUNTER → 2019-07-16 12:14 | Outpatient (CLI) | payer OTHER, SELFPAY ==
[2019-07-16 13:39] LABS: Blood Urea Nitrogen 14 mg/dL (7-17); Calcium 9.8 mg/dL (8.4-10.2); Carbon Dioxide 30 mmol/L (22-32); Chloride 104 mmol/L (98-107); Cholesterol 147 mg/dL (140-199); Estimated Glomerular Filt Rate > 60.0 mL/min (>60); Glucose 97 mg/dL (80-110); HDL Cholesterol 39 mg/dL (40-60); HEMOLYSIS < 15 (0-50); LDL Cholesterol Calculated 96 mg/dL (<100); Potassium 5.1 mmol/L (3.4-5.1); Sodium 140 mmol/L (137-145); Triglycerides 58 mg/dL (35-150)
[2019-07-16 13:43] LABS: Add Manual Diff / Slide Review NO; Basophils Absolute Auto 0 /uL (0-100); Basophils Percent Auto 0.6 % (0-2); Eosinophils Absolute Auto 300 /uL (0-450); Eosinophils Percent Auto 4.4 % (2-4); Hematocrit 38.9 % (36-46); Hemoglobin 13.2 g/dL (12.0-16.0); Lymphocytes Absolute Auto 2600 /uL (1100-4500); Lymphocytes Percent Auto 35.3 % (25-40); Mean Corpuscular HGB Conc 33.8 % (30-36); Mean Corpuscular Hemoglobin 29.8 PG (26-34); Mean Corpuscular Volume 87.9 fL (80-100); Monocytes Absolute Auto 500 /uL (0-900); Monocytes Percent Auto 6.7 % (3-14); Neutrophils Absolute Auto 3900 /uL (1500-7000); Platelet Count 302 X10^3/uL (150-400); Red Blood Cell Count 4.43 X10^6/uL (4.0-5.2); Red Cell Distribution Width 13.9 % (11.6-14.8); White Blood Cell Count 7.3 X10^3/uL (4.5-11.0)
== END ==
PROVIDERS: PCP Student in an Organized Health Care Education/Training Program; Referring Provider Internal Medicine Cardiovascular Disease; Visit Provider Internal Medicine Cardiovascular Disease
DX: I25.10 Atherosclerotic heart disease of native coronary artery without angina pectoris (principal); E78.5 Hyperlipidemia, unspecified
CPT/HCPCS: 36415; 80048; 80061; 85025

== ENCOUNTER → 2020-02-02 10:06 | Outpatient (CLI) | payer OTHER, SELFPAY ==
[2020-02-02 11:15] LABS: Cholesterol 106 mg/dL (140-199); HDL Cholesterol 39 mg/dL (40-60); LDL Cholesterol Calculated 44 mg/dL (<100); Triglycerides 114 mg/dL (35-150)
== END ==
PROVIDERS: PCP Student in an Organized Health Care Education/Training Program; Referring Provider Internal Medicine Cardiovascular Disease; Visit Provider Internal Medicine Cardiovascular Disease
DX: I25.10 Atherosclerotic heart disease of native coronary artery without angina pectoris (principal); I10 Essential (primary) hypertension
CPT/HCPCS: 36415; 80061

== ENCOUNTER → 2020-03-25 16:29 | Outpatient (CLI) | payer OTHER, SELFPAY ==
[2020-03-25 17:34] LABS: Alanine Aminotransferase 12 IU/L (<35); Albumin 4.5 g/dL (3.5-5.0); Albumin Globulin Ratio 1.4 (1.0-2.8); Alkaline Phosphatase 83 U/L (38-126); Aspartate Aminotransferase 22 IU/L (14-36); BUN Creatinine Ratio 27.9 (6-22); Bilirubin Total 0.3 mg/dL (0.2-1.3); Blood Urea Nitrogen 24 mg/dL (7-17); Calcium 9.6 mg/dL (8.4-10.2); Carbon Dioxide 32 mmol/L (22-32); Chloride 104 mmol/L (98-107); Estimated Glomerular Filt Rate > 60.0 mL/min (>60); Globulin 3.2 g/dL (1.7-4.1); Glucose 94 mg/dL (80-110); HEMOLYSIS < 15 (0-50); Potassium 4.4 mmol/L (3.4-5.1); Sodium 139 mmol/L (137-145); Total Protein 7.7 g/dL (6.3-8.2)
[2020-03-25 17:35] LABS: Hematocrit 40.2 % (36-46); Hemoglobin 13.1 g/dL (12.0-16.0)
[2020-03-25 17:41] LABS: Prealbumin 24.5 mg/dL (17.6-36.0)
== END ==
PROVIDERS: PCP Student in an Organized Health Care Education/Training Program; Referring Provider Student in an Organized Health Care Education/Training Program; Visit Provider Student in an Organized Health Care Education/Training Program
DX: E46 Unspecified protein-calorie malnutrition (principal); M62.831 Muscle spasm of calf
CPT/HCPCS: 36415; 80053; 84134; 85014; 85018

== ENCOUNTER → 2020-06-23 16:18 | Outpatient (CLI) | payer OTHER, SELFPAY ==
[2020-06-23 17:47] LABS: Add Manual Diff / Slide Review NO; Basophils Absolute Auto 0 /uL (0-100); Basophils Percent Auto 0.6 % (0-2); Eosinophils Absolute Auto 300 /uL (0-450); Eosinophils Percent Auto 3.7 % (2-4); Hemoglobin 11.4 g/dL (12.0-16.0); Lymphocytes Absolute Auto 2300 /uL (1100-4500); Lymphocytes Percent Auto 33.2 % (25-40); Mean Corpuscular HGB Conc 32.6 % (30-36); Mean Corpuscular Hemoglobin 29.1 PG (26-34); Mean Corpuscular Volume 89.1 fL (80-100); Monocytes Absolute Auto 600 /uL (0-900); Monocytes Percent Auto 8.3 % (3-14); Neutrophils Absolute Auto 3800 /uL (1500-7000); Neutrophils Percent Auto 54.2 % (50-75); Platelet Count 307 X10^3/uL (150-400); Red Blood Cell Count 3.93 X10^6/uL (4.0-5.2); Red Cell Distribution Width 14.4 % (11.6-14.8)
[2020-06-23 18:52] LABS: Albumin 3.9 g/dL (3.5-5.0); BUN Creatinine Ratio 23.3 (6-22); Blood Urea Nitrogen 20 mg/dL (7-17); Calcium 9.5 mg/dL (8.4-10.2); Carbon Dioxide 29 mmol/L (22-32); Chloride 105 mmol/L (98-107); Estimated Glomerular Filt Rate > 60.0 mL/min (>60); Glucose 108 mg/dL (80-110); HEMOLYSIS < 15 (0-50); Potassium 4.7 mmol/L (3.4-5.1); Sodium 141 mmol/L (137-145)
[2020-06-23 19:00] LABS: NT-proBNP (BNP-Adult 18+) 1610 pg/mL (<125); Prealbumin 22.5 mg/dL (17.6-36.0)
== END ==
PROVIDERS: PCP Student in an Organized Health Care Education/Training Program; Referring Provider Student in an Organized Health Care Education/Training Program; Visit Provider Student in an Organized Health Care Education/Training Program
DX: E46 Unspecified protein-calorie malnutrition (principal); I10 Essential (primary) hypertension; I50.30 Unspecified diastolic (congestive) heart failure; R60.9 Edema, unspecified
CPT/HCPCS: 36415; 80048; 82040; 83880; 84134; 85025

== ENCOUNTER → 2020-07-14 10:04 | Outpatient (CLI) | payer OTHER, SELFPAY ==
[2020-07-14 12:13] LABS: Add Manual Diff / Slide Review NO; Basophils Absolute Auto 100 /uL (0-100); Basophils Percent Auto 0.8 % (0-2); Eosinophils Absolute Auto 200 /uL (0-450); Eosinophils Percent Auto 2.8 % (2-4); Hemoglobin 12.9 g/dL (12.0-16.0); Lymphocytes Absolute Auto 2800 /uL (1100-4500); Lymphocytes Percent Auto 37.2 % (25-40); Mean Corpuscular HGB Conc 32.3 % (30-36); Mean Corpuscular Hemoglobin 28.4 PG (26-34); Mean Corpuscular Volume 87.9 fL (80-100); Monocytes Absolute Auto 400 /uL (0-900); Monocytes Percent Auto 5.5 % (3-14); Neutrophils Absolute Auto 4000 /uL (1500-7000); Neutrophils Percent Auto 53.7 % (50-75); Platelet Count 341 X10^3/uL (150-400); Red Blood Cell Count 4.55 X10^6/uL (4.0-5.2); Red Cell Distribution Width 14.1 % (11.6-14.8); White Blood Cell Count 7.5 X10^3/uL (4.5-11.0)
[2020-07-14 12:25] LABS: BUN Creatinine Ratio 23.5 (6-22); Blood Urea Nitrogen 16 mg/dL (7-17); Calcium 9.6 mg/dL (8.4-10.2); Carbon Dioxide 27 mmol/L (22-32); Chloride 104 mmol/L (98-107); Cholesterol 193 mg/dL (140-199); Estimated Glomerular Filt Rate > 60.0 mL/min (>60); Glucose 89 mg/dL (80-110); HDL Cholesterol 56 mg/dL (40-60); HEMOLYSIS < 15 (0-50); LDL Cholesterol Calculated 125 mg/dL (<100); Potassium 4.2 mmol/L (3.4-5.1); Sodium 138 mmol/L (137-145); Triglycerides 61 mg/dL (35-150)
== END ==
PROVIDERS: PCP Student in an Organized Health Care Education/Training Program; Referring Provider Internal Medicine Cardiovascular Disease; Visit Provider Internal Medicine Cardiovascular Disease
DX: E78.5 Hyperlipidemia, unspecified (principal); I25.10 Atherosclerotic heart disease of native coronary artery without angina pectoris
CPT/HCPCS: 36415; 80048; 80061; 85025

== ENCOUNTER → 2020-08-15 11:18 | Outpatient (CLI) | payer OTHER, SELFPAY ==
[2020-08-15 13:00] LABS: COVID19 -Nasal RAPID Negative (Negative)
== END ==
PROVIDERS: PCP Student in an Organized Health Care Education/Training Program; Visit Provider Physician Assistant
DX: Z01.812 Encounter for preprocedural laboratory examination (principal); Z20.822 Contact with and (suspected) exposure to COVID-19
CPT/HCPCS: 87635

== ENCOUNTER → 2020-08-16 10:41 | Outpatient (CLI) | payer OTHER, SELFPAY ==
--- NOTE | 2020-08-16 | DI.NM.S_ITS ---
PROCEDURE: NM KSENIA PERF SPECT R&S PHARM Rest and pharmacological stress myocardial perfusion SPECT with gated imaging and ejection fraction RADIOPHARMACEUTICAL: 27.0 mCi Tc-99m tetrafosmin IV at rest and 25.9 mCi Tc-99m tetrafosmin IV at peak effect of pharmacological stress. Svz-[id number]-[id number] was performed. INDICATIONS: Dyspnea, unspecified TECHNIQUE: Radiopharmaceutical was injected at peak stress test, and also at rest. SPECT images were obtained. SPECT myocardial perfusion images were displayed in short axis, horizontal long axis, and vertical long axis views. Gated images were reviewed using [employer] software. COMPARISON: None. CARDIAC STRESS: A pharmacologic stress test was performed under the supervision of an attending staff, using an infusion of lexiscan 0.4mg IV X1. Hemodynamic data: There is normal blood pressure and heart rate response to pharmacologic stress. Symptoms: The patient denied anginal chest pain. Aminophylline: none EKG: No diagnostic changes of ischemia; frequent PVCs. FINDINGS: Raw data: There is good myocardial uptake of radiotracer. No significant motion artifacts. Mdvm-zi-fefkf ratio is 0.36 (normal is less than 0.38 for tetrafosmin tracer). Left ventricle function: Gated images demonstrate hypokinesis of the distal septum and the apex. No segmental wall motion abnormalities. No transient ischemic dilation; TID is 1.08 (normal less than 1.3). Left ventricle resting end diastolic volume is 203 mL. Left ventricle stress ejection fraction is 45%; normal range is above 45%. Myocardial perfusion: There is a partially reversible apical defect consistent with prior infarction and moderate ashely-infarct ischemia. SSS 16, SRS 5. IMPRESSION: Abnormal pharmaceutical nuclear stress test 1) There is a partially reversible apical defect consistent with prior infarction and moderate ashely-infarct ischemia. SSS 16, SRS 5. 2) Enlarged left ventricle (resting EDV 203cc) with mildly reduced systolic function (EF post stress 45%). There is hypokinesis of the distal septum and the apex. 3) No ECG evidence of ischemia. 4) No angina during the study. 5) Compared to the nuclear stress test done 08/26/2015, apical perfusion defect described above is new on this study. Dictated by: Jesse Calvillo MD on 08/17/2020 at 16:55 Approved by: Jesse Calvillo MD on 08/17/2020 at 16:59
== END ==
PROVIDERS: PCP Student in an Organized Health Care Education/Training Program; Referring Provider Internal Medicine Cardiovascular Disease; Visit Provider Internal Medicine Cardiovascular Disease
DX: R94.39 Abnormal result of other cardiovascular function study (principal); R07.2 Precordial pain; R06.00 Dyspnea, unspecified
CPT/HCPCS: 78452; 93017; A9502; J2785

== ENCOUNTER → 2020-09-28 15:57 | Outpatient (CLI) | payer OTHER, SELFPAY ==
--- NOTE | 2020-09-28 15:58 | DI.ECHO.S_ITS ---
[facility] +---------+ : : [address] : : : : [id number] : : : : Phone: [phone]+ Echocardiogram Report + + :Name: PEDRO CAMARGO Study Date: 09/28/2020 Height: 64 in : :[facility] ReadingLocation: Weight: 282 lb: : Gender: Female BSA: 2.3 m2 : :: 1955 Age: 65 yrs : :Reason For Study: ISCHEMIC CARDIOMYOAPTHY : :Ordering Physician: MARVA, : :JOSÉ Performed By: Nathalia Ring : :Referring: JOSÉ CALVILLO : + + Interpretation Summary 1) Mildly enlarged left ventricle with low normal systolic function (EF 50- 55%). 2) The right ventricle is normal in size and function. 3) No significant valvular abnormalities. 4) Compared to the Echo done 01/12/2019, LVEF has increased slightly from 45- 50% to 50-55%. Procedure: A two-dimensional transthoracic echocardiogram with color flow and Doppler was performed. The study quality was technically adequate. Comparison is made with the echocardiogram of 01/12/2019. The patient was in sinus rhythm with heart rates between 62-97 bpm during the exam. Left Ventricle: The left ventricle is mildly dilated. The estimated left ventricular end diastolic volume is 94 ml. There is mild concentric left ventricular hypertrophy. The ejection fraction is estimated to be 50-55%. There are no obvious focal wall motion abnormalities noted but poor endocardial definition reduces the sensitivity for the detection of such. Right Ventricle: The right ventricle is normal in size and function. Atria: The left atrium is mildly dilated. Right atrial size is normal. There is no Doppler evidence for an interatrial shunt. Mitral Valve: The mitral valve is normal in structure and function. There is mild mitral regurgitation. Aortic Valve: The aortic valve opens well. There is no aortic valve stenosis. No aortic regurgitation is present. Tricuspid Valve: The tricuspid valve is normal in structure and function. There is mild tricuspid regurgitation. Pulmonary artery pressures cannot be estimated because of the lack of a measurable TR jet velocity but the IVC suggests a CVP of around 3 mmHg. Pulmonic Valve: The pulmonic valve is not well seen, but is grossly normal. There is mild pulmonic regurgitation. Great Vessels: The aortic root is normal size. The ascending aorta is mildly enlarged. The IVC is of normal diameter and collapses greater than 50% with a sniff. This suggests a low right atrial pressure of 3 mm Hg. Pericardium/ Pleura There is no pericardial effusion. There is no pleural effusion. MMode/2D Measurements & Calculations LVIDd: 6.3 cm LVOT diam: 2.1 cm LVIDs: 4.3 cm Ao root diam: 3.2 cm FS: 31.6 % asc Aorta Diam: 3.7 cm IVSd: 1.3 cm Ao Arch Diam (Prox Trans): 2.9 cm LVPWd: 1.1 cm LV harper. diameter/BSA (cm/m^2): 2.8 LV sys. diameter/BSA (cm/m^2): 1.9 LA A2 area: 27.0 cm2 RA long axis: 6.5 cm LA A4 area: 25.1 cm2 RA area: 21.8 cm2 LA length (vol): 6.3 cm RA vol: 61.9 ml LA vol: 91.0 ml RA : 27.4 ml/m2 LA vol index: 40.2 ml/m2 IVC diam: 1.2 cm RVD1 (basal): 3.6 cm TAPSE: 2.7 cm Doppler Measurements & Calculations Ao V2 max: 188.0 cm/sec LVOT Max Xu: 102.8 cm/sec Ao V2 mean: 125.3 cm/sec LV V1 max P.2 mmHg Ao max P.1 mmHg LV V1 VTI: 22.3 cm Ao mean P.3 mmHg HALLIE(I,D): 2.1 cm2 Ao V2 VTI: 37.2 cm HALLIE(V,D): 1.9 cm2 sev ratio: 0.60 HALLIE indexed to BSA (cm^2/m^2): 0.92 MV E max xu: 86.3 cm/sec PA V2 max: 128.5 cm/sec MV A max xu: 117.8 cm/sec PA V2 mean: 84.1 cm/sec MV E/A: 0.73 PA mean P.2 mmHg Med Peak E' Xu: 5.1 cm/sec PA pr(Accel): 44.7 mmHg E/E' med: 16.9 Lat Peak E' Xu: 4.9 cm/sec E/E' lat: 17.4 E/e' average: 17.2 MV dec time: 0.23 sec SV(LVOT): 77.2 ml Reading Physician:09:26 AM
== END ==
PROVIDERS: PCP Student in an Organized Health Care Education/Training Program; Referring Provider Internal Medicine Cardiovascular Disease; Visit Provider Internal Medicine Cardiovascular Disease
DX: I08.1 Rheumatic disorders of both mitral and tricuspid valves (principal); I77.89 Other specified disorders of arteries and arterioles; I25.5 Ischemic cardiomyopathy
CPT/HCPCS: 93306

== ENCOUNTER → 2020-11-23 17:35 | Outpatient (CLI) | payer OTHER, SELFPAY ==
--- NOTE | 2020-11-23 17:38 | DI.MG.S_ITS ---
BILATERAL DIGITAL SCREENING MAMMOGRAM 3D/2D WITH CAD: 11/23/2020 CLINICAL: Routine screening. Comparison is made to exams dated: 09/13/2010 mammogram and 03/22/2006 mammogram - [facility]. There are scattered fibroglandular elements in both breasts. Current study was also evaluated with a Computer Aided Detection (CAD) system. There is an oval equal density mass with a circumscribed margin in the left breast at 12 o'clock middle depth. No other significant masses, calcifications, or other findings are seen in either breast. IMPRESSION: INCOMPLETE: NEEDS ADDITIONAL IMAGING EVALUATION The oval equal density mass in the left breast is indeterminate. Mediolateral and spot compression views as well as additional views with possible ultrasound are recommended. This exam was interpreted at Station ID: [id number]. NOTE: For mammograms, a report in lay terms will be sent to the patient. Approximately 15% of breast malignancies will not be visualized mammographically. In the management of a palpable breast mass, a negative mammogram must not discourage biopsy of a clinically suspicious lesion. Electronically Signed By: Jacob casiano/sridhar:11/24/2020 08:35:12 letter sent: Additional Imaging Needed ACR BI-RADS Category 0: Incomplete [id number]
== END ==
PROVIDERS: PCP Student in an Organized Health Care Education/Training Program; Referring Provider Student in an Organized Health Care Education/Training Program; Visit Provider Student in an Organized Health Care Education/Training Program
DX: Z12.31 Encounter for screening mammogram for malignant neoplasm of breast (principal)
CPT/HCPCS: 77063; 77067

== ENCOUNTER → 2020-12-20 13:33 | Outpatient (CLI) | payer OTHER, SELFPAY ==
--- NOTE | 2020-12-20 | DI.MG.S_ITS ---
UNILATERAL LEFT DIGITAL DIAGNOSTIC MAMMOGRAM 3D/2D WITH ADDITIONAL VIEWS: 12/20/2020 CLINICAL: Additional evaluation requested from prior study. Comparison is made to exams dated: 11/23/2020 mammogram, 09/13/2010 mammogram, and 03/22/2006 mammogram - [facility]. There are scattered fibroglandular elements in left breast. There is an oval equal density mass with a circumscribed margin in the left breast at 12 o'clock middle depth. No other significant masses or calcifications are seen in the breast. IMPRESSION: INCOMPLETE: NEEDS ADDITIONAL IMAGING EVALUATION The oval equal density mass in the left breast is indeterminate. An ultrasound is recommended. Ultrasound will be performed immediately following the current exam. This exam was interpreted at Station ID: [id number]. NOTE: For mammograms, a report in lay terms will be sent to the patient. Approximately 15% of breast malignancies will not be visualized mammographically. In the management of a palpable breast mass, a negative mammogram must not discourage biopsy of a clinically suspicious lesion. Electronically Signed By: Jacob Gandhi M.D. [email or web address]/:12/20/2020 14:17:18 ACR BI-RADS Category 0: Incomplete [id number]
--- NOTE | 2020-12-20 | DI.US.S_ITS ---
LIMITED ULTRASOUND OF LEFT BREAST: 12/20/2020 CLINICAL: Patient returns today to evaluate a focal asymmetry in the left breast. Comparison is made to exams dated: 12/20/2020 mammogram, 11/23/2020 mammogram, 09/13/2010 mammogram, and 03/22/2006 mammogram - [facility]. Color flow and real-time ultrasound of the left breast 11-1 o'clock region were performed on the areas of interest. No discrete cystic or solid mass lesion identified in the area of mammographic abnormality. There are a few retroareolar dilated ducts in the left breast at 12 o'clock. There is mild internal debris within the ducts without a discrete mass. Color flow imaging demonstrates that there is no vascularity present. IMPRESSION: PROBABLY BENIGN The dilated ducts in the left breast likely represent duct ectasia and appear benign. There are no abnormalities seen in the left breast to correspond with the mammography finding in the superior left breast. A follow-up mammogram in 6 months is recommended to demonstrate stability. This exam was interpreted at Station ID: [id number]. Electronically Signed By: Jacob casiano/:12/20/2020 15:04:29 letter sent: Followup Recommended Ultrasound BI-RADS: 3 Probably benign
== END ==
PROVIDERS: PCP Student in an Organized Health Care Education/Training Program; Referring Provider Student in an Organized Health Care Education/Training Program; Visit Provider Student in an Organized Health Care Education/Training Program
DX: R92.8 Other abnormal and inconclusive findings on diagnostic imaging of breast (principal); N63.25 Unspecified lump in the left breast, overlapping quadrants
CPT/HCPCS: 76642; 77065; G0279

== ENCOUNTER 2021-02-18 08:42 | Observation (INO) | payer OTHER, SELFPAY ==
[2021-02-18] VITALS (25 sets, daily range): BP systolic 117–223; BP diastolic 66–109; PULSE 58–74; RESP 14–22; TEMP 35.5–37; O2SAT 93–97; BMI 51.5
--- NOTE | 2021-02-18 09:04 | DI.CT.S_ITS ---
PROCEDURE: CT CERVICAL SPINE WO CON INDICATIONS: Fall TECHNIQUE: Noncontrast 3 mm thick sections acquired from the skull base to the T4 level. Sagittal and coronal reformats were then constructed. For radiation dose reduction, the following was used: automated exposure control, adjustment of mA and/or kV according to patient size. COMPARISON: None. FINDINGS: Image quality: Slightly limited given body habitus. This results in beam hardening and decreased penetration most prominently along the lower cervical spine.. Bones: No fractures or dislocations. Straightening of the normal cervical lordosis. Vertebral body heights are maintained. Mild endplate degenerative changes and [id number] facet arthropathy. No significant bony spinal canal or neural foraminal stenosis. Visualized superior ribs are intact. Soft tissues: Prevertebral soft tissues are normal in thickness. Likely periparotid lymph nodes with scattered subcentimeter short axis cervical chain lymph nodes. No adenopathy by size criteria. Vascular calcifications noted within the carotid vessels worse at the bifurcations. [place] tonsilliths. No paravertebral hematomas. No apical pneumothoraces. IMPRESSION: No acute fracture or dislocation. Dictated by: Willis Solis D.O. on 02/18/2021 at 8:56 Approved by: Willis Solis D.O. on 02/18/2021 at 9:00
--- NOTE | 2021-02-18 09:04 | DI.CT.S_ITS ---
PROCEDURE: CT HEAD/BRAIN WO CON INDICATIONS: Fall TECHNIQUE: Noncontrast 4.5 mm thick angled axial sections acquired from the foramen magnum to the vertex, with coronal and sagittal reformats. For radiation dose reduction, the following was used: automated exposure control, adjustment of mA and/or kV according to patient size. COMPARISON: [facility], CT, HEAD WITHOUT CONTRAST, 03/22/2017, 11:04. FINDINGS: Image quality: Excellent. CSF spaces: Basal cisterns are patent. No extra-axial fluid collections. The ventricles are symmetric in size and shape. Brain: No intracranial bleeds or masses. There are periventricular and deep white matter chronic small vessel ischemic changes. There is proximal intracranial internal artery atherosclerosis. Skull and face: Calvarium and visualized facial bones appear intact, without suspicious lesions. Sinuses: Visualized sinuses and mastoids are clear. IMPRESSION: No acute intracranial abnormality. Mild microvascular ischemic changes. Dictated by: Willis Solis D.O. on 02/18/2021 at 8:53 Approved by: Willis Solis D.O. on 02/18/2021 at 8:56
--- NOTE | 2021-02-18 09:19 | ED_ITS ---
HPI - Fall General Chief Complaint: Fall Stated Complaint: Syncope, GLF, hit head on thinners Time Seen by Provider: 02/18/21 09:19 Source: patient and EMS Mode of arrival: EMS Limitations: no limitations History of Present Illness HPI Narrative: This is a 65-year-old female comes emergency department with complaint of possible syncopal episode. Patient states she woke up and went to the bathroom, sat down on her bed. She states she started to get tunnel vision she felt like she was going to pass out she felt herself fall and land on her dog and the dog bed. She did have a loss of consciousness for short period of time. When she woke up she could not get up and felt very tired, nauseated dizzy and light headed. She states she did not feel like she was in full control of her body. She has been about 30 minutes on the floor. She states she felt drunk but has not had anything to drink. She has not had similar symptoms in the past. She has had a headache for several weeks but nothing acutely today she has also had blurred vision for the last several weeks no acute changes. She has had some neck and low back discomfort. She has had chronic shortness of breath and chest tightness which is not new or changed. She is nauseated today but not actively vomiting. No diarrhea constipation. She has had some urinary frequency with small amounts but no dysuria. She has not any bowel or bladder incontinence. Patient has not taken her daily blood pressure medications she has a history of diastolic congestive heart failure, hypertension, asthma and has 3 cardiac stents the most recent was placed in August of 2020. Surgeon about history of shoulder surgery as well as knee repair x2. No tobacco, occasional alcohol but nothing in the last day, no illicit. Her primary care is Dr. Steward and Dr. Calvillo is her cardiology. Related Data Home Medications Medication Instructions Recorded Confirmed aspirin 81 mg chewable tablet 81 mg PO DAILY 09/23/17 02/18/21 ezetimibe 10 mg tablet 10 mg PO DAILY 10/23/18 02/18/21 evolocumab 140 mg/mL subcutaneous 140 mg SUBCUT Q2W 07/24/19 02/18/21 pen injector (Alec Jones) metoprolol tartrate 25 mg tablet 25 mg PO BID 09/15/20 02/18/21 gabapentin 600 mg tablet 600 mg PO DAILY tab 01/17/21 02/18/21 lidocaine 5 % topical patch 1 patch TOP DAILY PRN each 01/17/21 02/18/21 (Lidoderm) Previous Rx's Medication Instructions Recorded rosuvastatin 40 mg tablet 40 mg PO QPM #90 tab 11/06/18 diclofenac sodium 1 % topical gel 2 gram TOP QID #100 gram 12/17/18 albuterol sulfate 2.5 mg (3 mL) INHALATION Q4-6H PRN 11/06/19 #90 ml nitroglycerin 0.4 mg sublingual 0.4 mg SL Q5-15M PRN #25 tab 11/06/19 tablet ciclesonide 80 mcg/actuation 1 puff INHALATION BID #6.1 gram 12/09/19 aerosol inhaler (Alvesco) hydrocortisone valerate 0.2 % 0.2 % TOPICAL BIDP #15 gram 12/09/19 topical cream montelukast 10 mg tablet 10 mg PO QPM #90 tab 03/15/20 spironolactone 25 mg tablet 12.5 mg PO QPM #45 tab 03/15/20 Parking Permit... #1 ea 06/23/20 duloxetine 20 mg capsule,delayed 20 mg PO BID #180 cap 06/23/20 release (Cymbalta) epinephrine 0.3 mg/0.3 mL 0.3 mg (0.3 mL) IM X1 PRN #1 syr 06/23/20 injection, auto-injector methocarbamol 500 mg tablet 500 mg PO TID PRN #90 tab 06/23/20 furosemide 40 mg tablet 40 mg PO BID #180 tab 06/24/20 Ventolin HFA 90 mcg/actuation 2 puff INHALATION Q6H PRN #18 g NS 09/28/20 aerosol inhaler (albuterol sulfate) Allergies Allergy/AdvReac Type Severity Reaction Status Date / Time clonazepam [CLONAZEPAM] Allergy Unknown Verified 01/17/21 13:18 Penicillins [PENICILLINS] Allergy Unknown Verified 01/17/21 13:18 shellfish derived Allergy Unknown Verified 01/17/21 13:18 [SHELLFISH DERIVED] Review of Systems Review of Systems ROS Unobtainable: All systems reviewed & are unremarkable except as noted in HPI and below Patient History Medical History Anxiety Ascending aortic aneurysm Chronic left-sided low back pain with left-sided sciatica (10/03/16) Coronary artery disease Depression (04/04/17) Diastolic congestive heart failure Essential hypertension (02/24/15) Gout History of left heart catheterization (LHC) (09/24/17) Hyperlipemia Mild persistent asthma without complication (02/24/15) Morbid obesity Primary osteoarthritis of both knees (02/24/15) Psoriasis Right shoulder pain Sleep apnea Syncope Tinea pedis Surgical History H/O right knee surgery H/O shoulder surgery History of colonoscopy with polypectomy (10/30/10) Hx of arthroscopy of left knee (2005) S/P angioplasty with stent (08/23/17) S/P angioplasty with stent (09/24/17) Status post delivery Family History Father No problems noted. Mother Hypertension Diabetes mellitus CAD (coronary artery disease) Social History Smoking Status: Never smoker alcohol intake: current substance use type: does not use Smoking Status: Never smoker alcohol intake frequency: 0-2 drinks per day Substance Use Type: does not use Exam Narrative Exam Narrative: GEN: well nourished, well appearing female, alert and oriented x 3, patient appears to be in mild distress. HEENT: Atraumatic, pupils are equal round reactive to light, extraocular movements are intact, no nystagmus, nares are clear, TMs are clear with no fluid, there is no conjunctival pallor. Throat is clear without any exudates, erythema, tonsillar enlargement or uvular deviation, no facial droop. HEART: Regular rate and rhythm without murmur, clicks, rubs. No carotid bruits, pulses are equal in upper and lower extremities LUNGS:Lungs clear to auscultation, no wheezes, rales, crackles, chest moves symmetrically ABD:bowel sounds normal, soft, non-tender, no guarding, rebound, rigidity, no masses noted, no hepatosplenomegaly :No CVA tenderness MSCL: Non-tender, no muscle atrophy, muscles strength 5/5 upper and lower extremities, full range of motion, gait not tested. NEURO:CN 2-12 intact, sensation normal, reflexes 2/4 upper and lower extremities. finger nose finger test normal, heel magallanes test normal SKIN: No rash, no other skin changes. Initial Vital Signs Initial Vital Signs: Vital Signs Pulse Rate 70 02/18/21 08:50 Pulse Oximetry 96 02/18/21 08:50 Course Orders Ordered: ED Orders 02/18/21 09:03 EKG-12 Lead Stat 02/18/21 09:04 CT cervical spine wo con Stat CT head/brain wo con Stat 02/18/21 09:25 Chest [XR chest 1V] Stat 02/18/21 09:30 BNP [NT-proBNP (BNP-Adult 18+)] Stat Complete Blood Count AUTO DIFF Stat Comprehensive Metabolic Panel Stat Partial Thromboplastin Time Stat Prothrombin Time INR Stat Troponin & CK Cardiac Panel Stat Type and Screen Stat 02/18/21 10:09 CT angio head and neck Stat 02/18/21 10:13 COVID19 -Nasal swab/Pre-Proc Stat 02/18/21 12:24 COVID19 - ADMIT (STOCK CONTROL CLERK swab/PCR) Stat Albuterol (Albuterol 2.5 Mg/3 Ml Neb (Adult)) 2.5 mg INH Q4H PRN PRN Reason: shortness of breath or wheezing Aspirin (Aspirin 81 Mg Chew Tab) 81 mg PO DAILY GABI Atorvastatin Calcium (Atorvastatin 20 Mg Tablet) 80 mg PO BEDTIME GABI Budesonide (Budesonide 0.5 Mg/2 Ml Neb) 0.5 mg INH RTBID GABI Diclofenac Sodium (Diclofenac 1% Gel 100 Gm) 2 applic TOP QID GABI Duloxetine HCl (Duloxetine 20 Mg Capsule) 20 mg PO BID [facility] Ezetimibe (Ezetimibe 10 Mg Tablet) 10 mg PO DAILY [facility] Enoxaparin Sodium (Enoxaparin 40 Mg/0.4 Ml Syringe) 40 mg SUBCUT BID [facility] Furosemide (Furosemide 40 Mg Tablet) 40 mg PO BID [facility] Gabapentin (Gabapentin 600 Mg Tablet) 600 mg PO DAILY [facility] Lidocaine (Lidocaine Patch 1 Each Adh..Patch) 1 each TOP DAILY PRN PRN Reason: Shortness of Breath Methocarbamol (Methocarbamol 500 Mg Tablet) 500 mg PO TID PRN PRN Reason: spasms Metoprolol Tartrate (Metoprolol Ir 25 Mg Tablet) 25 mg PO BID [facility] Montelukast Sodium (Montelukast 10 Mg Tablet) 10 mg PO QPM [facility] Naloxone HCl (Naloxone 0.4 Mg/Ml Vial) 0.2 mg IV Q2MIN PRN PRN Reason: Opiate Reversal Nitroglycerin (Nitroglycerin 0.4 Mg Sl Tab) 0.4 mg SL Q5M PRN PRN Reason: chest pain Evolocumab [Repatha Sureclick] 140 Mg/Ml Pen Injector 140 mg SUBCUT Q14D@0900 [facility] Ondansetron HCl (Ondansetron 4 Mg/2 Ml Inj) 4 mg IV Q6HR PRN PRN Reason: Nausea And Vomiting Last Admin: 02/18/21 10:19 Dose: 4 mg Documented by: RASHID Spironolactone (Spironolactone 25 Mg Tablet) 12.5 mg PO QPM [facility] Discontinued Medications Acetaminophen (Acetaminophen 325 Mg Tablet) 975 mg PO NOW ONE Stop: 02/18/21 09:21 Last Admin: 02/18/21 14:33 Dose: Not Given Documented by: EDGARDO Diphenhydramine HCl (Diphenhydramine 50 Mg/Ml Vial) 25 mg IV NOW ONE Stop: 02/18/21 12:07 Last Admin: 02/18/21 12:15 Dose: 25 mg Documented by: SUSANNE Meclizine HCl (Meclizine Hcl 12.5 Mg Tablet) 50 mg PO NOW ONE Stop: 02/18/21 10:10 Last Admin: 02/18/21 10:18 Dose: 50 mg Documented by: RASHID Tizanidine HCl (Tizanidine 4 Mg Tablet) 4 mg PO NOW ONE Stop: 02/18/21 09:22 Consultations Consultation #1: Dr. Renteria, plan for observation. Patient arrives with vertigo like symptoms. She has somewhat atypical pattern with a syncopal episode. We discussed that head CT CT angio or negative. She has no acute neurologic changes. Based her history sounds like vertigo symptoms started and then she fell but did have a short loss of consciousness. We discussed whether not we should try to obtain MRI. Plan at this time is to admit patient for observation if she continues to be symptomatic will obtain MRI tomorrow. Patient did respond to meclizine and Benadryl but when we try to get her up out of the bed she is acutely worsened. She does have risk factors with history of CHF, asthma and hypertension. Vital Signs Vital signs: Vital Signs - 8 hr 02/18/21 08:50 02/18/21 08:56 02/18/21 09:00 Temperature 98.6 F Pulse Rate 70 72 65 Respiratory Rate 18 Blood Pressure 223/103 H Pulse Oximetry 96 96 95 02/18/21 09:01 02/18/21 09:23 02/18/21 09:54 Temperature Pulse Rate 68 73 66 Respiratory Rate Blood Pressure 191/86 H 174/81 H Pulse Oximetry 95 96 96 02/18/21 09:57 02/18/21 10:00 02/18/21 10:08 Temperature Pulse Rate 66 68 67 Respiratory Rate Blood Pressure 172/81 H 183/85 H 199/109 H Pulse Oximetry 95 94 93 02/18/21 10:09 02/18/21 10:12 02/18/21 10:20 Temperature Pulse Rate 67 69 68 Respiratory Rate 14 17 Blood Pressure 183/91 H 177/86 H 192/93 H Pulse Oximetry 93 94 94 02/18/21 10:30 02/18/21 10:31 02/18/21 10:53 Temperature Pulse Rate 74 68 66 Respiratory Rate 15 16 16 Blood Pressure 201/107 H 199/88 H Pulse Oximetry 96 95 95 02/18/21 11:00 02/18/21 11:30 02/18/21 11:31 Temperature Pulse Rate 67 66 66 Respiratory Rate 16 15 17 Blood Pressure 193/87 H 187/94 H Pulse Oximetry 94 95 94 02/18/21 12:01 02/18/21 12:14 Temperature Pulse Rate 70 64 Respiratory Rate 19 15 Blood Pressure 191/102 H Pulse Oximetry 96 MDM - Fall Lab Data Result diagrams: 02/18/21 09:30 02/18/21 09:30 Labs: Lab Results 02/18/21 02/18/21 02/18/21 Range/Units 09:30 09:30 09:30 WBC 7.4 (4.5-11.0) X10^3/uL RBC 4.45 (4.0-5.2) X10^6/uL Hgb 12.9 (12.0-16.0) g/dL Hct 38.0 (36-46) % MCV 85.5 (80-100) fL MCH 29.1 (26-34) PG MCHC 34.1 (30-36) % RDW 14.1 (11.6-14.8) % Plt Count 297 (150-400) X10^3/uL Neut % (Auto) 59.9 (50-75) % Lymph % (Auto) 30.8 (25-40) % [place] % (Auto) 6.3 (3-14) % Eos % (Auto) 2.1 (2-4) % Baso % (Auto) 0.9 (0-2) % Neut # (Auto) 4400 (8239-0827) /uL Lymph # (Auto) 2300 (5033-2656) /uL [place] # (Auto) 500 (0-900) /uL Eos # (Auto) 200 (0-450) /uL Baso # (Auto) 100 (0-100) /uL PT 10.9 (10.1-12.7) SECONDS INR 1.0 (0.9-1.3) APTT 30 (26.4-36.2) SECONDS Sodium 140 (137-145) mmol/L Potassium 4.4 (3.4-5.1) mmol/L Chloride 107 (98-107) mmol/L Carbon Dioxide 28 (22-32) mmol/L BUN 13 (7-17) mg/dL Creatinine 0.65 (0.52-1.04) mg/dL Estimated GFR > 60.0 (>60) mL/min BUN/Creatinine Ratio 20.0 (6-22) Glucose 101 (80-110) mg/dL Calcium 9.2 (8.4-10.2) mg/dL Total Bilirubin 0.6 (0.2-1.3) mg/dL AST 20 (14-36) IU/L ALT 15 (<35) IU/L Alkaline Phosphatase 70 (38-126) U/L Total Creatine Kinase (30-135) U/L CK-MB (CK-2) CK-MB (CK-2) Rel Index Troponin I (0.01-0.034) ng/mL NT-Pro-B Natriuret Pep (<125) pg/mL Total Protein 7.6 (6.3-8.2) g/dL Albumin 4.2 (3.5-5.0) g/dL Globulin 3.4 (1.7-4.1) g/dL Albumin/Globulin Ratio 1.2 (1.0-2.8) SARS-CoV-2 (PCR) (Negative) Blood Type Antibody Screen 02/18/21 02/18/21 02/18/21 Range/Units 09:30 09:30 10:13 WBC (4.5-11.0) X10^3/uL RBC (4.0-5.2) X10^6/uL Hgb (12.0-16.0) g/dL Hct (36-46) % MCV (80-100) fL MCH (26-34) PG MCHC (30-36) % RDW (11.6-14.8) % Plt Count (150-400) X10^3/uL Neut % (Auto) (50-75) % Lymph % (Auto) (25-40) % [place] % (Auto) (3-14) % Eos % (Auto) (2-4) % Baso % (Auto) (0-2) % Neut # (Auto) (4935-2310) /uL Lymph # (Auto) (0420-4876) /uL [place] # (Auto) (0-900) /uL Eos # (Auto) (0-450) /uL Baso # (Auto) (0-100) /uL PT (10.1-12.7) SECONDS INR (0.9-1.3) APTT (26.4-36.2) SECONDS Sodium (137-145) mmol/L Potassium (3.4-5.1) mmol/L Chloride (98-107) mmol/L Carbon Dioxide (22-32) mmol/L BUN (7-17) mg/dL Creatinine (0.52-1.04) mg/dL Estimated GFR (>60) mL/min BUN/Creatinine Ratio (6-22) Glucose (80-110) mg/dL Calcium (8.4-10.2) mg/dL Total Bilirubin (0.2-1.3) mg/dL AST (14-36) IU/L ALT (<35) IU/L Alkaline Phosphatase (38-126) U/L Total Creatine Kinase 63 (30-135) U/L CK-MB (CK-2) TNP CK-MB (CK-2) Rel Index TNP Troponin I < 0.012 (0.01-0.034) ng/mL NT-Pro-B Natriuret Pep 319 H (<125) pg/mL Total Protein (6.3-8.2) g/dL Albumin (3.5-5.0) g/dL Globulin (1.7-4.1) g/dL Albumin/Globulin Ratio (1.0-2.8) SARS-CoV-2 (PCR) Negative (Negative) Blood Type B Positive Antibody Screen Negative 02/18/21 Range/Units 12:24 WBC (4.5-11.0) X10^3/uL RBC (4.0-5.2) X10^6/uL Hgb (12.0-16.0) g/dL Hct (36-46) % MCV (80-100) fL MCH (26-34) PG MCHC (30-36) % RDW (11.6-14.8) % Plt Count (150-400) X10^3/uL Neut % (Auto) (50-75) % Lymph % (Auto) (25-40) % [place] % (Auto) (3-14) % Eos % (Auto) (2-4) % Baso % (Auto) (0-2) % Neut # (Auto) (9692-7097) /uL Lymph # (Auto) (5879-0960) /uL [place] # (Auto) (0-900) /uL Eos # (Auto) (0-450) /uL Baso # (Auto) (0-100) /uL PT (10.1-12.7) SECONDS INR (0.9-1.3) APTT (26.4-36.2) SECONDS Sodium (137-145) mmol/L Potassium (3.4-5.1) mmol/L Chloride (98-107) mmol/L Carbon Dioxide (22-32) mmol/L BUN (7-17) mg/dL Creatinine (0.52-1.04) mg/dL Estimated GFR (>60) mL/min BUN/Creatinine Ratio (6-22) Glucose (80-110) mg/dL Calcium (8.4-10.2) mg/dL Total Bilirubin (0.2-1.3) mg/dL AST (14-36) IU/L ALT (<35) IU/L Alkaline Phosphatase (38-126) U/L Total Creatine Kinase (30-135) U/L CK-MB (CK-2) CK-MB (CK-2) Rel Index Troponin I (0.01-0.034) ng/mL NT-Pro-B Natriuret Pep (<125) pg/mL Total Protein (6.3-8.2) g/dL Albumin (3.5-5.0) g/dL Globulin (1.7-4.1) g/dL Albumin/Globulin Ratio (1.0-2.8) SARS-CoV-2 (PCR) Negative (Negative) Blood Type Antibody Screen Urine Dip Bedside Urine Glucose Negative Bedside Urine Bilirubin - Negative Bedside Urine Ketone - Negative Urine Specific [place] 1.015 Bedside Urine Occult Blood - Negative Bedside Urine pH 6.5 Bedside Urine Protein - Negative Bedside Urine Urobilinogen - Negative Bedside Urine Nitrite - Negative Bedside Urine Leukocytes - Negative Esterase Imaging Data CT scan - head: Radiologist's Impression: Launch?[place] [address] CT Scan Report Signed Patient: Kathy Dubon MR#: [id number] : 1955 Acct:[id number] Age/Sex: 65 / F Date of Service: 02/18/21 Loc: ED Accession Number: [id number] ?? Procedure: CT head/brain wo con Ordering Provider: Cate Devi D.O. PROCEDURE:? CT HEAD/BRAIN WO CON ? INDICATIONS:? Fall ? TECHNIQUE:? Noncontrast 4.5 mm thick angled axial sections acquired from the foramen magnum to the vertex, with coronal and sagittal reformats.? For radiation dose reduction, the following was used:? automated exposure control, adjustment of mA and/or kV according to patient size.? ? COMPARISON:? [facility], CT, HEAD WITHOUT CONTRAST, 03/22/2017, 11:04. ? FINDINGS:? Image quality:? Excellent.? ? CSF spaces:? Basal cisterns are patent.? No extra-axial fluid collections.? The ventricles are symmetric in size and shape.? ? Brain:? No intracranial bleeds or masses. There are periventricular and deep white matter chronic small vessel ischemic changes.? There is proximal intracranial internal artery atherosclerosis.? ? Skull and face:? Calvarium and visualized facial bones appear intact, without suspicious lesions.? ? Sinuses:? Visualized sinuses and mastoids are clear.? ? IMPRESSION:? ? No acute intracranial abnormality. ? Mild microvascular ischemic changes. ? ? Dictated by: Willis Solis D.O. on 02/18/2021 at 8:53 ? ? Approved by: Willis Solis D.O. on 02/18/2021 at 8:56?? CT - cervical spine: Radiologist's Impression: [place] [address] CT Scan Report Signed Patient: Kathy Dubon MR#: [id number] : 1955 Acct:[id number] Age/Sex: 65 / F Date of Service: 02/18/21 Loc: ED Accession Number: [id number] ?? Procedure: CT cervical spine wo con Ordering Provider: Cate Devi D.O. PROCEDURE:? CT CERVICAL SPINE WO CON ? INDICATIONS:? Fall ? TECHNIQUE:? Noncontrast 3 mm thick sections acquired from the skull base to the T4 level.? Sagittal and coronal reformats were then constructed.? For radiation dose reduction, the following was used:? automated exposure control, adjustment of mA and/or kV according to patient size.? ? COMPARISON:? None. ? FINDINGS:? Image quality:? Slightly limited given body habitus.? This results in beam hardening and decreased penetration most prominently along the lower cervical spine..? ? Bones:? No fractures or dislocations.? Straightening of the normal cervical lordosis.? Vertebral body heights are maintained.? Mild endplate degenerative changes and [id number] facet arthropathy.? No significant bony spinal canal or neural foraminal stenosis.? Visualized superior ribs are intact.? ? Soft tissues:? Prevertebral soft tissues are normal in thickness.? Likely periparotid lymph nodes with scattered subcentimeter short axis cervical chain lymph nodes.? No adenopathy by size criteria.? Vascular calcifications noted within the carotid vessels worse at the bifurcations.? [place] tonsilliths.? No paravertebral hematomas.? No apical pneumothoraces.? ? ? IMPRESSION:? ? No acute fracture or dislocation. ? Dictated by: Willis Solis D.O. on 02/18/2021 at 8:56 ? ? Approved by: Willis Solis D.O. on 02/18/2021 at 9:00?? Chest x-ray: Radiologist's Impression: Launch?Image [address] [address] XRay Report Signed Patient: Kathy Dubon MR#: [id number] : 1955 Acct:[id number] Age/Sex: 65 / F Date of Service: 02/18/21 Loc: ED Accession Number: [id number] ?? Procedure: XR chest 1V Ordering Provider: Cate Deiv D.O. PROCEDURE:? XR CHEST 1V ? INDICATIONS:? syncope ? TECHNIQUE:? One supine view of the chest was acquired.? ? COMPARISON:[facility], , XR CHEST 1V, 10/04/2018, 18:20. ? FINDINGS:? ? Surgical changes and devices:? None.? ? Lungs and pleura:? Lungs are clear.? No pleural effusions or pneumothorax.? Slightly prominent pulmonary vasculature likely due to technique. ? Mediastinum:? Mediastinal contours appear normal.? Heart size along the upper limits of normal given technique. ? Bones and chest wall:? No suspicious bony lesions.? Overlying soft tissues appear unremarkable.? ? IMPRESSION:? ? No evidence of an acute cardiopulmonary abnormality. ? ? Dictated by: Willis Solis D.O. on 02/18/2021 at 8:50 ? ? Approved by: Willis Solis D.O. on 02/18/2021 at 8:52?? CTA - brain/neck: Radiologist's Impression: Kathy Dubon??65??F??1955 ? Allergy/Adv: clonazepam, Penicillins, shellfish derived (More??) Close Head/Neck CTA (Signed) Solis,Willis - 02/18/21 Chest X-Ray (Signed) Solis,02/18/[address] (Signed) Solis,02/18/[address] (Signed) Solis,02/18/21 Mammogram, Additional Views (Signed) Jacob Gandhi - 12/20/20 Breast Ultrasound (Signed) Jacob Gandhi - 12/20/20 Mammogram Screening (Signed) Jacob Gandhi - 11/23/20 Echocardiogram Ultrasound (Signed) Jesse Calvillo - 09/28/20 Myocardial Perfusion Scan Nuc Med (Signed) Jesse Calvillo - 08/16/20 DI Result CC 06/22/20 Pelvis Ultrasound (Signed) Damien Schulz - 03/30/19 DI Result 01/12/19 Outside DI 01/12/19 Pelvis Ultrasound (Signed) Emory Walsh - 11/19/18 Abdomen/Pelvis CT (Signed) Damien Schulz - 11/17/18 Abdomen/Pelvis CT (Signed) John Cross - 11/03/18 Chest X-Ray (Signed) Armand Resendiz - 10/04/18 Shoulder X-Ray (Signed) GalaDeven anderson - 12/20/17 Elbow X-Ray (Signed) OscarJaymeDeven - 12/20/17 Ribs X-Ray (Signed) William Kasper - 12/19/17 Humerus X-Ray (Signed) William Kasper - 12/19/17 Forearm X-Ray (Signed) William Kasper - 12/19/17 Chest X-Ray (Signed) John Cross - 09/23/17 DI Result CC 08/08/17 Radiology Report (Cancelled) Renato Smith - 07/18/17 Echocardiogram Ultrasound (Signed) Jesse Calvillo - 07/18/17 Myocardial Perfusion Scan Nuc Med (Signed) Renato Smith - 07/17/17 Radiology - Historical 02/15/16 Radiology - Historical 08/09/15 Launch?[place] [address] CT Scan Report Signed Patient: Kathy Dubon MR#: [id number] : 1955 Acct:[id number] Age/Sex: 65 / F Date of Service: 02/18/21 Loc: ED Accession Number: [id number] ?? Procedure: CT angio head and neck Ordering Provider: Cate Devi D.O. PROCEDURE:? CT ANGIO HEAD AND NECK ? INDICATIONS:? vertigo, syncope ? TECHNIQUE:? After the administration of intravenous contrast, 1 mm thick sections acquired from the aortic arch through the [place] of [place].? Post-contrast 4.5 mm thick sections then re-acquired from the foramen magnum to the vertex.? 3-dimensional aqedtjg-ndlbegtds-phrejxdzcg (MIP) and/or volume rendering reformats were acquired of the central intracranial vasculature and neck separately. ? COMPARISON:? [facility], CT, CT CERVICAL SPINE WO CON, 02/18/2021, 9:38.? [facility], CT, CT HEAD/BRAIN WO CON, 02/18/2021, 9:38. ? FINDINGS:? Image quality:? Excellent.? ? HEAD CT ANGIOGRAPHY:? Anterior circulation:? Intracranial internal carotid arteries are normal in size and flow.? Calcifications are noted within the proximal intracranial carotid arteries most prominent within the cavernous segments.? No significant stenosis or occlusion.? The flow within the paired anterior cerebral arteries is normal and symmetric.? The flow within the middle cerebral arteries is normal and symmetric.? The anterior communicating artery is seen.? No aneurysms are seen.? ? Posterior circulation:? Incidental note of persistent circulation of the left posterior cerebral artery a diminutive left and dominant right vertebral arteries.? Mild vascular calcifications are noted within the V4 segment of the right vertebral artery.? Visualized portions of the vertebral arteries demonstrate normal caliber, and join to form a normal appearing basilar artery.? Flow within the posterior cerebral arteries is normal and symmetric.? No aneurysms are seen.? ? NECK CT ANGIOGRAPHY:? Carotid system:? Atherosclerotic calcifications are the carotid bifurcations and within the proximal internal carotid arteries without significant stenosis or occl usion.? The great vessels demonstrate a conventional anatomy as they arise from the aortic arch.? The origins of the common carotid arteries appear patent.? The common carotid arteries demonstrate normal caliber and courses.? The bifurcation regions are both widely patent.? The internal carotid arteries demonstrate normal calibers and courses.? ? Posterior circulation:? The origins of the vertebral arteries both appear widely patent.? The more superior extracranial portions of both vertebral arteries also demonstrate normal courses and calibers.? They join to form a normal appearing basilar ar vero.? ? Soft tissues:? Visualized neck soft tissues demonstrate no suspicious abnormalities.? ? Bones:? No suspicious bony lesions.? Age appropriate degenerative changes no acute osseous abnormality.? Visualized cervical spine appears normally aligned.? ? ? IMPRESSION:? ? No significant flow-limiting stenosis or occlusion of the cervical or intracranial vasculature. ? ? Dictated by: Willis Solis D.O. on 02/18/2021 at 10:14 ? ? Approved by: Willis Solis D.O. on 02/18/2021 at 10:22?? ECG Data Attestation: I personally reviewed and interpreted this ECG as follows: Prior ECG tracings: available for review Interpretation: Sinus rhythm rate of 70 NM 162 QRS of 128 QTC of 466. No acute ST changes. Patient has what appears to be PH, T-wave inversion V2 3 which appears similar to prior with changes in 2 3 AVF also present on 10/04/2018. MDM Narrative Medical decision making narrative: This is a 65-year-old female with a syncopal episode who on exam appears to have vertigo. She does not have any other acute neurologic changes. CT head is initially negative as well as C-spine and chest x-ray. CT angio was included patient has never had vertigo type symptoms before she does have cardiovascular risk factors with history of hypertension, CHF and prior cardiac stents. Patient is quite nauseated and when we sat her forward she is worsened with her vertigo symptoms. She was given meclizine. She was quite hypertensive on arrival but has been improving. Patient had not had her normal daily medications including her antihypertensive. She states she normally takes them had her medications yesterday. Patient unclear if she develops sudden acute vertigo and then fell and got knocked out verses possibly had a syncopal episode hit her head has concussive symptoms. CVA is a part of the differential but no clear neurologic changes otherwise. CT angiography is negative. Discussed case with Dr. Renteria accepts for observation. Plan to continue to monitor treat her symptoms and potentially MRI. Discharge Plan Departure Patient Disposition: Admitted as Observation Clinical Impression: Vertigo Admit Date/Time: 02/18/21 13:04 Admit Provider: Uvaldo Renteria
--- NOTE | 2021-02-18 09:25 | DI.RAD.S_ITS ---
PROCEDURE: XR CHEST 1V INDICATIONS: syncope TECHNIQUE: One supine view of the chest was acquired. COMPARISON: [facility], CR, XR CHEST 1V, 10/04/2018, 18:20. FINDINGS: Surgical changes and devices: None. Lungs and pleura: Lungs are clear. No pleural effusions or pneumothorax. Slightly prominent pulmonary vasculature likely due to technique. Mediastinum: Mediastinal contours appear normal. Heart size along the upper limits of normal given technique. Bones and chest wall: No suspicious bony lesions. Overlying soft tissues appear unremarkable. IMPRESSION: No evidence of an acute cardiopulmonary abnormality. Dictated by: Willis Solis D.O. on 02/18/2021 at 8:50 Approved by: Willis Solis D.O. on 02/18/2021 at 8:52
[2021-02-18 10:02] LABS: Add Manual Diff / Slide Review NO; Basophils Absolute Auto 100 /uL (0-100); Basophils Percent Auto 0.9 % (0-2); Eosinophils Absolute Auto 200 /uL (0-450); Eosinophils Percent Auto 2.1 % (2-4); Hemoglobin 12.9 g/dL (12.0-16.0); Lymphocytes Absolute Auto 2300 /uL (1100-4500); Lymphocytes Percent Auto 30.8 % (25-40); Mean Corpuscular HGB Conc 34.1 % (30-36); Mean Corpuscular Hemoglobin 29.1 PG (26-34); Mean Corpuscular Volume 85.5 fL (80-100); Monocytes Absolute Auto 500 /uL (0-900); Monocytes Percent Auto 6.3 % (3-14); Neutrophils Absolute Auto 4400 /uL (1500-7000); Neutrophils Percent Auto 59.9 % (50-75); Platelet Count 297 X10^3/uL (150-400); Red Blood Cell Count 4.45 X10^6/uL (4.0-5.2); Red Cell Distribution Width 14.1 % (11.6-14.8); White Blood Cell Count 7.4 X10^3/uL (4.5-11.0)
[2021-02-18 10:09] LABS: Prothrombin Time 10.9 SECONDS (10.1-12.7)
--- NOTE | 2021-02-18 10:09 | DI.CT.S_ITS ---
PROCEDURE: CT ANGIO HEAD AND NECK INDICATIONS: vertigo, syncope TECHNIQUE: After the administration of intravenous contrast, 1 mm thick sections acquired from the aortic arch through the [place] of [place]. Post-contrast 4.5 mm thick sections then re-acquired from the foramen magnum to the vertex. 3-dimensional zuexmzf-njurjefrg-lrsggnogsq (MIP) and/or volume rendering reformats were acquired of the central intracranial vasculature and neck separately. COMPARISON: [facility], CT, CT CERVICAL SPINE WO CON, 02/18/2021, 9:38. [facility], CT, CT HEAD/BRAIN WO CON, 02/18/2021, 9:38. FINDINGS: Image quality: Excellent. HEAD CT ANGIOGRAPHY: Anterior circulation: Intracranial internal carotid arteries are normal in size and flow. Calcifications are noted within the proximal intracranial carotid arteries most prominent within the cavernous segments. No significant stenosis or occlusion. The flow within the paired anterior cerebral arteries is normal and symmetric. The flow within the middle cerebral arteries is normal and symmetric. The anterior communicating artery is seen. No aneurysms are seen. Posterior circulation: Incidental note of persistent circulation of the left posterior cerebral artery a diminutive left and dominant right vertebral arteries. Mild vascular calcifications are noted within the V4 segment of the right vertebral artery. Visualized portions of the vertebral arteries demonstrate normal caliber, and join to form a normal appearing basilar artery. Flow within the posterior cerebral arteries is normal and symmetric. No aneurysms are seen. NECK CT ANGIOGRAPHY: Carotid system: Atherosclerotic calcifications are the carotid bifurcations and within the proximal internal carotid arteries without significant stenosis or occlusion. The great vessels demonstrate a conventional anatomy as they arise from the aortic arch. The origins of the common carotid arteries appear patent. The common carotid arteries demonstrate normal caliber and courses. The bifurcation regions are both widely patent. The internal carotid arteries demonstrate normal calibers and courses. Posterior circulation: The origins of the vertebral arteries both appear widely patent. The more superior extracranial portions of both vertebral arteries also demonstrate normal courses and calibers. They join to form a normal appearing basilar artery. Soft tissues: Visualized neck soft tissues demonstrate no suspicious abnormalities. Bones: No suspicious bony lesions. Age appropriate degenerative changes no acute osseous abnormality. Visualized cervical spine appears normally aligned. IMPRESSION: No significant flow-limiting stenosis or occlusion of the cervical or intracranial vasculature. Dictated by: Willis Solis D.O. on 02/18/2021 at 10:14 Approved by: Willis Solis D.O. on 02/18/2021 at 10:22
[2021-02-18 10:12] LABS: PTT Partial Thromboplastin Tim 30 SECONDS (26.4-36.2)
[2021-02-18 10:14] LABS: Alanine Aminotransferase 15 IU/L (<35); Albumin 4.2 g/dL (3.5-5.0); Albumin Globulin Ratio 1.2 (1.0-2.8); Alkaline Phosphatase 70 U/L (38-126); Aspartate Aminotransferase 20 IU/L (14-36); Bilirubin Total 0.6 mg/dL (0.2-1.3); Blood Urea Nitrogen 13 mg/dL (7-17); Calcium 9.2 mg/dL (8.4-10.2); Carbon Dioxide 28 mmol/L (22-32); Chloride 107 mmol/L (98-107); Creatine Kinase 63 U/L (30-135); Estimated Glomerular Filt Rate > 60.0 mL/min (>60); Globulin 3.4 g/dL (1.7-4.1); Glucose 101 mg/dL (80-110); HEMOLYSIS < 15 (0-50); Potassium 4.4 mmol/L (3.4-5.1); Sodium 140 mmol/L (137-145); Total Protein 7.6 g/dL (6.3-8.2)
[2021-02-18] MEDS: MECLIZINE HCL 12.5 MG TABLET 50 MG PO (10:18)
[2021-02-18] MEDS: ONDANSETRON 4 MG/2 ML INJ IV (10:19)
[2021-02-18 10:26] LABS: NT-proBNP (BNP-Adult 18+) 319 pg/mL (<125); Troponin I < 0.012 ng/mL (0.01-0.034)
[2021-02-18 10:44] LABS: COVID19 -Nasal RAPID Negative (Negative)
[2021-02-18] MEDS: diphenhydrAMINE 50 MG/ML VIAL 25 MG IV (12:15)
--- NOTE | 2021-02-18 12:26 | PC.NURSE ---
attemp to use bedside commode with assistance. Pt dizzy and nausea while on edge of stretcher. pt using bedpan with no difficulty. medicated with additional meds. resting comfortable on stretcher.
[2021-02-18 13:20] LABS: COVID19 - ADMIT (NP swab/PCR) Negative (Negative)
--- NOTE | 2021-02-18 14:31 | PC.NURSE ---
Patient arrives from ED via stretcher. Transferred to bed via slider board with assist. Patient endorses lower back pain, denies SOB, chest pain, N/V. Endorses dizziness. Patient assisted to use bedpan, voiding without complication. L Hand IV intact. Tele on. Medications reconciled with patient. Patient remains on RA, 96%. Call light in reach, instructed to call before getting OOB. Patient verbalizes understanding, stating she feels she's lost control of her limbs. This is of no change from being admitted to the ER. Patient denies further needs at this time.
--- NOTE | 2021-02-18 15:06 | P.HP_ITS ---
History of Present Illness History of Present Illness Date Patient Seen: 02/18/21 Time Patient Seen: 15:07 Chief complaint: Syncope, GLF, hit head on thinners Narrative: This is a 65-year-old female with osteoarthritis, hyperlipidemia, diastolic CHF, depression, coronary artery disease, chronic low back pain, anxiety, hypertension and gout who presents with an acute episode of syncope, falling in her home when she got out of bed and walked to the bathroom and then turned to turn the heat on and passed out, waking up a few seconds later on top of her squirming dog. She was subsequently dizzy with vertigo and nausea and also experiencing epigastric pain which has persisted. Her workup so far has not revealed any signs of anemia, myocardial infarct, CVA or electrolyte abnormalities/metabolic encephalopathy. She most likely had experienced a vasovagal episode related to the trip to the bathroom. She does not appear to have any orthopedic injury but continues to have the epigastric pain at a low level. This pain was not present until her fall. Patient History Medical History Anxiety Ascending aortic aneurysm Chronic left-sided low back pain with left-sided sciatica (10/03/16) Coronary artery disease Depression (04/04/17) Diastolic congestive heart failure Essential hypertension (02/24/15) Gout History of left heart catheterization (LHC) (09/24/17) Hyperlipemia Mild persistent asthma without complication (02/24/15) Morbid obesity Primary osteoarthritis of both knees (02/24/15) Psoriasis Right shoulder pain Sleep apnea Syncope Tinea pedis Surgical History H/O right knee surgery H/O shoulder surgery History of colonoscopy with polypectomy (10/30/10) Hx of arthroscopy of left knee (2005) S/P angioplasty with stent (08/23/17) S/P angioplasty with stent (09/24/17) Status post delivery Family & Social History Family History Father No problems noted. Mother Hypertension Diabetes mellitus CAD (coronary artery disease) Social History: Prior Living Arrangements House Safety & Behavioral: Feels Safe in Current Yes Environment Been Physically Hurt or No Threatened By a Person Suicidal Ideation Description None Suicide Plan Description No Plan Tobacco & Substance use: Smoking Status Never smoker alcohol intake current alcohol intake frequency a few times a week Substance Use Type does not use Meds Home Medications and Allergies Home Medications Medication Instructions Recorded Confirmed Type aspirin 81 mg chewable tablet 81 mg PO DAILY 09/23/17 02/18/21 History ezetimibe 10 mg tablet 10 mg PO DAILY 10/23/18 02/18/21 History rosuvastatin 40 mg tablet 40 mg PO QPM #90 tab 11/06/18 02/18/21 Rx diclofenac sodium 1 % topical gel 2 gram TOP QID #100 gram 12/17/18 02/18/21 Rx evolocumab 140 mg/mL subcutaneous 140 mg SUBCUT Q2W 07/24/19 02/18/21 History pen injector (Alec Jones) albuterol sulfate 2.5 mg (3 mL) INHALATION Q4-6H PRN 11/06/19 02/18/21 Rx #90 ml nitroglycerin 0.4 mg sublingual 0.4 mg SL Q5-15M PRN #25 tab 11/06/19 02/18/21 Rx tablet ciclesonide 80 mcg/actuation 1 puff INHALATION BID #6.1 gram 12/09/19 02/18/21 Rx aerosol inhaler ([place]ves[place]) hydrocortisone valerate 0.2 % 0.2 % TOPICAL BIDP #15 gram 12/09/19 02/18/21 Rx topical cream montelukast 10 mg tablet 10 mg PO QPM #90 tab 03/15/20 02/18/21 Rx spironolactone 25 mg tablet 12.5 mg PO QPM #45 tab 03/15/20 02/18/21 Rx Parking Permit... #1 ea 06/23/20 02/18/21 Rx duloxetine 20 mg capsule,delayed 20 mg PO BID #180 cap 06/23/20 02/18/21 Rx release (Cymbalta) epinephrine 0.3 mg/0.3 mL 0.3 mg (0.3 mL) IM X1 PRN #1 syr 06/23/20 02/18/21 Rx injection, auto-injector methocarbamol 500 mg tablet 500 mg PO TID PRN #90 tab 06/23/20 02/18/21 Rx furosemide 40 mg tablet 40 mg PO BID #180 tab 06/24/20 02/18/21 Rx metoprolol tartrate 25 mg tablet 25 mg PO BID 09/15/20 02/18/21 History Ventolin HFA 90 mcg/actuation 2 puff INHALATION Q6H PRN #18 g NS 09/28/20 02/18/21 Rx aerosol inhaler (albuterol sulfate) gabapentin 600 mg tablet 600 mg PO DAILY tab 01/17/21 02/18/21 History lidocaine 5 % topical patch 1 patch TOP DAILY PRN each 01/17/21 02/18/21 History (Lidoderm) Allergies Allergy/AdvReac Type Severity Reaction Status Date / Time clonazepam [CLONAZEPAM] Allergy Unknown Verified 01/17/21 13:18 Penicillins [PENICILLINS] Allergy Unknown Verified 01/17/21 13:18 shellfish derived Allergy Unknown Verified 01/17/21 13:18 [SHELLFISH DERIVED] Review of Systems Review of Systems Narrative: Positive for fall, nausea, vertigo, epigastric pain. Negative for fevers, chills, sweats, coughing, vomiting, shortness of breath, chest pain, seizures, rash, joint pain, sore throat and headache. Exam Vital Signs (past 8 hours): - 02/18/21 08:50 02/18/21 08:56 02/18/21 09:00 Temperature 98.6 F Pulse Rate 70 72 65 Respiratory Rate 18 Blood Pressure 223/103 H Pulse Oximetry 96 96 95 02/18/21 09:01 02/18/21 09:23 02/18/21 09:54 Temperature Pulse Rate 68 73 66 Respiratory Rate Blood Pressure 191/86 H 174/81 H Pulse Oximetry 95 96 96 02/18/21 09:57 02/18/21 10:00 02/18/21 10:08 Temperature Pulse Rate 66 68 67 Respiratory Rate Blood Pressure 172/81 H 183/85 H 199/109 H Pulse Oximetry 95 94 93 02/18/21 10:09 02/18/21 10:12 02/18/21 10:20 Temperature Pulse Rate 67 69 68 Respiratory Rate 14 17 Blood Pressure 183/91 H 177/86 H 192/93 H Pulse Oximetry 93 94 94 02/18/21 10:30 02/18/21 10:31 02/18/21 10:53 Temperature Pulse Rate 74 68 66 Respiratory Rate 15 16 16 Blood Pressure 201/107 H 199/88 H Pulse Oximetry 96 95 95 02/18/21 11:00 02/18/21 11:30 02/18/21 11:31 Temperature Pulse Rate 67 66 66 Respiratory Rate 16 15 17 Blood Pressure 193/87 H 187/94 H Pulse Oximetry 94 95 94 02/18/21 12:01 02/18/21 12:14 02/18/21 13:33 Temperature 98 F Pulse Rate 70 64 66 Respiratory Rate 19 15 20 Blood Pressure 191/102 H 184/83 H Pulse Oximetry 96 96 Oxygen Delivery Method Room Air Narrative Exam Narrative: She is alert and oriented x3. No apparent distress She is lying on her side in bed, looking quite comfortable Pupils are equally round and reactive to light and accommodation. Sclerae are pink and nonicteric. No lymph nodes are felt head, neck, supraclavicular area. There is no thyromegaly. Throat looks normal. JVD is less than 6 cm and no carotid bruits are heard. Heart is regular rate and rhythm without murmur Lungs are clear to auscultation bilaterally. Abdomen is soft, bowel sounds positive, no organomegaly. She does have consistent mild epigastric tenderness. Extremities have no ankle edema. Neurological exam: Deep tendon reflexes are normal and symmetric Cranial nerves 2-12 test intact There is no obvious vertigo provoked by changes in position Motor function is 5/5 throughout No loss of sensation There is no tremor. Objective Labs Result Diagrams: 02/18/21 09:30 02/18/21 09:30 Labs: Laboratory Results - last 24 hr 02/18/21 02/18/21 02/18/21 09:30 09:30 09:30 WBC 7.4 RBC 4.45 Hgb 12.9 Hct 38.0 MCV 85.5 MCH 29.1 MCHC 34.1 RDW 14.1 Plt Count 297 Neut % (Auto) 59.9 Lymph % (Auto) 30.8 [place] % (Auto) 6.3 Eos % (Auto) 2.1 Baso % (Auto) 0.9 Neut # (Auto) 4400 Lymph # (Auto) 2300 [place] # (Auto) 500 Eos # (Auto) 200 Baso # (Auto) 100 PT 10.9 INR 1.0 APTT 30 Sodium 140 Potassium 4.4 Chloride 107 Carbon Dioxide 28 BUN 13 Creatinine 0.65 Estimated GFR > 60.0 BUN/Creatinine Ratio 20.0 Glucose 101 Calcium 9.2 Total Bilirubin 0.6 AST 20 ALT 15 Alkaline Phosphatase 70 Total Creatine Kinase CK-MB (CK-2) CK-MB (CK-2) Rel Index Troponin I NT-Pro-B Natriuret Pep Total Protein 7.6 Albumin 4.2 Globulin 3.4 Albumin/Globulin Ratio 1.2 SARS-CoV-2 (PCR) Blood Type Antibody Screen 02/18/21 02/18/21 02/18/21 09:30 09:30 10:13 WBC RBC Hgb Hct MCV MCH MCHC RDW Plt Count Neut % (Auto) Lymph % (Auto) [place] % (Auto) Eos % (Auto) Baso % (Auto) Neut # (Auto) Lymph # (Auto) [place] # (Auto) Eos # (Auto) Baso # (Auto) PT INR APTT Sodium Potassium Chloride Carbon Dioxide BUN Creatinine Estimated GFR BUN/Creatinine Ratio Glucose Calcium Total Bilirubin AST ALT Alkaline Phosphatase Total Creatine Kinase 63 CK-MB (CK-2) TNP CK-MB (CK-2) Rel Index TNP Troponin I < 0.012 NT-Pro-B Natriuret Pep 319 H Total Protein Albumin Globulin Albumin/Globulin Ratio SARS-CoV-2 (PCR) Negative Blood Type B Positive Antibody Screen Negative 02/18/21 12:24 WBC RBC Hgb Hct MCV MCH MCHC RDW Plt Count Neut % (Auto) Lymph % (Auto) [place] % (Auto) Eos % (Auto) Baso % (Auto) Neut # (Auto) Lymph # (Auto) [place] # (Auto) Eos # (Auto) Baso # (Auto) PT INR APTT Sodium Potassium Chloride Carbon Dioxide BUN Creatinine Estimated GFR BUN/Creatinine Ratio Glucose Calcium Total Bilirubin AST ALT Alkaline Phosphatase Total Creatine Kinase CK-MB (CK-2) CK-MB (CK-2) Rel Index Troponin I NT-Pro-B Natriuret Pep Total Protein Albumin Globulin Albumin/Globulin Ratio SARS-CoV-2 (PCR) Negative Blood Type Antibody Screen Assessment & Plan Assessment & Plan narrative: This is a 65-year-old female with osteoarthritis, hyperlipidemia, diastolic CHF, depression, coronary artery disease, chronic low back pain, anxiety, hypertension and gout who presents with an acute episode of syncope, falling in her home when she got out of bed and walked to the bathroom and then turned to turn the heat on and passed out, waking up a few seconds later on top of her squirming dog. Syncope, present on admission. Active. -likely vasovagal/cardiogenic in relationship to suspected bradycardia/hypotensi on when walking to the bathroom -monitor with telemetry and consider further neurological imaging -repeat CBC and BMP in the morning Coronary artery disease, present on admission. Chronic. -continue metoprolol, spironolactone, rosuvastatin and as needed nitroglycerin. Diastolic congestive heart failure, present on admission. Chronic. -continue furosemide and metoprolol Hyperlipidemia, present on admission. Chronic. -continue rosuvastatin, Zetia and Evolocumab. Hypertension, present on admission. Chronic. -continue spironolactone and metoprolol Depression, present on admission. Chronic. -continue duloxetine Asthma, present admission. Chronic. -continue albuterol, ciclesonide and budesonide Psoriasis, present on admission. Chronic. -continue topical steroid treatment Sciatica with low back pain, present on admission. Chronic. -continue gabapentin Lovenox and sequential compression devices for DVT prevention Time Spent With Patient Critical Care time: I spent a total of [] minutes of critical care time on this patient's care today; this time is exclusive of procedural time.
[2021-02-18] MEDS: SPIRONOLACTONE 25 MG TABLET 12.5 MG PO (16:08)
[2021-02-18] MEDS: FUROSEMIDE 40 MG TABLET PO (16:37)
[2021-02-18] MEDS: METOPROLOL IR 25 MG TABLET PO ×2 (16:37→20:10)
[2021-02-18] MEDS: ATORVASTATIN 20 MG TABLET 80 MG PO (20:09)
[2021-02-18] MEDS: methocarbamoL 500 MG TABLET PO (20:09)
[2021-02-18] MEDS: DULOXETINE 20 MG CAPSULE PO (20:09)
[2021-02-18] MEDS: SODIUM CHLORIDE 0.9% FLUSH 10 ML IV (20:16)
[2021-02-18] MEDS: BUDESONIDE 0.5 MG/2 ML NEB INH (21:31)
--- NOTE | 2021-02-18 23:25 | PC.NURSE ---
Addendum entered by Carrie Lund R.N. 02/19/21 05:53: Patient has slept at intervals. Has been getting up to BSC with walker and 2 assists. Still feeling slightly dizzy but denies vertigo. Did start complaining of nausea and had several bouts of dry heaving. Jamil WALLER, informed and order received for Zofran which was administered. Original Note: Patient is alert and oriented. States she continues to have dizziness exacerbated by movement. Complains of 2/10 headache which is causing some blurred vision but declines offer of pain medication. Breath sounds CTA with RA sat of 95%. HRR w/telemetry reading of SR w/BBB. BP elevated at 152/81 which has improved from previous readings. Denied nausea except for some slight stomach upset which accompanies the waves of dizziness. BT present and was incontinent of stool earlier this shift. Has urinary urgency and had some incontinence related to use of Lasix. Is able to turn herself in bed. Up to BSC using walker and 2 assists. Buttocks/coccyx/rectal area bright red but blanchable; will use barrier cream to protect skin. Wearing bilateral calf SCD's. Fall risk score is high and bed alarm is activated.
[2021-02-19] MEDS: ALBUTEROL 2.5 MG/3 ML NEB (ADULT) INH (00:06)
[2021-02-19 00:09] VITALS: PULSE 57; RESP 18; O2SAT 97
[2021-02-19 03:57] VITALS: BP 141/92; PULSE 63; RESP 17; TEMP 37.1; O2SAT 94
[2021-02-19] MEDS: SODIUM CHLORIDE 0.9% FLUSH 10 ML IV ×2 (05:48→08:30)
[2021-02-19] MEDS: ONDANSETRON 4 MG/2 ML INJ IV (05:48)
[2021-02-19 08:00] VITALS: BP 150/67; PULSE 61; RESP 20; TEMP 36.3; O2SAT 93
[2021-02-19 08:02] LABS: Add Manual Diff / Slide Review NO; Basophils Absolute Auto 100 /uL (0-100); Eosinophils Absolute Auto 200 /uL (0-450); Hemoglobin 12.7 g/dL (12.0-16.0); Lymphocytes Absolute Auto 1700 /uL (1100-4500); Lymphocytes Percent Auto 21.6 % (25-40); Mean Corpuscular HGB Conc 33.5 % (30-36); Mean Corpuscular Hemoglobin 28.7 PG (26-34); Mean Corpuscular Volume 85.9 fL (80-100); Monocytes Absolute Auto 500 /uL (0-900); Monocytes Percent Auto 6.7 % (3-14); Neutrophils Absolute Auto 5500 /uL (1500-7000); Neutrophils Percent Auto 68.7 % (50-75); Platelet Count 277 X10^3/uL (150-400); Red Blood Cell Count 4.43 X10^6/uL (4.0-5.2); Red Cell Distribution Width 14.2 % (11.6-14.8)
[2021-02-19 08:18] LABS: Blood Urea Nitrogen 23 mg/dL (7-17); Calcium 9.3 mg/dL (8.4-10.2); Carbon Dioxide 30 mmol/L (22-32); Chloride 104 mmol/L (98-107); Estimated Glomerular Filt Rate > 60.0 mL/min (>60); Glucose 108 mg/dL (80-110); HEMOLYSIS < 15 (0-50); Potassium 4.4 mmol/L (3.4-5.1); Sodium 138 mmol/L (137-145)
[2021-02-19] MEDS: ASPIRIN 81 MG CHEW TAB PO (08:27)
[2021-02-19] MEDS: ENOXAPARIN 40 MG/0.4 ML SYRINGE SUBCUT (08:28)
[2021-02-19] MEDS: DULOXETINE 20 MG CAPSULE PO (08:28)
[2021-02-19] MEDS: FUROSEMIDE 40 MG TABLET PO (08:29)
[2021-02-19] MEDS: EZETIMIBE 10 MG TABLET PO (08:29)
[2021-02-19] MEDS: METOPROLOL IR 25 MG TABLET PO (08:29)
[2021-02-19] MEDS: GABAPENTIN 600 MG TABLET PO (08:29)
[2021-02-19 09:34] VITALS: PULSE 64; RESP 18
[2021-02-19] MEDS: BUDESONIDE 0.5 MG/2 ML NEB INH (09:34)
--- NOTE | 2021-02-19 11:51 | PT.IIE ---
Surgical History (Last Reviewed 02/18/21 @ 10:13 by Cate Devi DO) Status post delivery Medical History (Last Reviewed 02/18/21 @ 10:13 by Cate Devi DO) Anxiety Ascending aortic aneurysm Chronic left-sided low back pain with left-sided sciatica (10/03/16) Coronary artery disease Depression (04/04/17) Diastolic congestive heart failure Essential hypertension (02/24/15) Gout History of left heart catheterization (LHC) (09/24/17) Hyperlipemia Mild persistent asthma without complication (02/24/15) Morbid obesity Primary osteoarthritis of both knees (02/24/15) Psoriasis Right shoulder pain Sleep apnea Syncope Tinea pedis Physical Therapy Inpatient Evaluation/Re-Eval M1 PT/OT-IP Prior Functional Status Start: 02/19/21 09:19 Freq: NEEDED Status: Active Protocol: Document 02/19/21 11:51 AW (Rec: 02/19/21 13:47 AW [id number]) Medical Review Prior Functional Status Medical History Reviewed Yes Communication WNL. Pt is an effective verbal communicator. Mobility and Gait Pt is independent without AD at baseline. Activities of Daily Living and IADL's Independent with all ADL's. Pt drives, does her own shopping and IADL's. Her son assists with heavy chores and repairs around the house. Prior Functional Level (Other details) PMH includes morbid obesity ( BMI 52), diastolic CHF, anxiety. Social History Household Members none Living Arrangements House Number of Floors (Floors) One Floor Number of Stairs To Enter/Railing? Ramped entry. 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 She lives alone but her son, Deangelo, lives 10 minutes away. Pt has two beagles at home. M2 PT-IP Current Condition Start: 02/19/21 09:19 Freq: NEEDED Status: Active Protocol: Document 02/19/21 11:51 AW (Rec: 02/19/21 13:47 AW [id number]) Physical Therapy Current Condition Current Condition Evaluation Date 02/19/21 Treatment Diagnosis vasovagal syncope vs vestibular hypofunction; impaired mobility and gait Onset Date 02/18/21 M3 PT-IP Subjective Start: 02/19/21 09:19 Freq: NEEDED Status: Active Protocol: Document 02/19/21 11:51 AW (Rec: 02/19/21 13:47 AW [id number]) Subjective Physical Therapy Visit Type Type Initial Evaluation Visit Start Time 11:11 Visit Stop Time 11:51 Total Visit Minutes 40 Notes Pt's son arrived skilled nursing through evaluation and contributed some to history. 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 She denies room- spinning sensation but states when she fell, she felt as if she were on a rocking boat and that she had no control of her body. Her hands and feet were tingling. Symptoms have largely improved but she is nauseated during movement today. Patient Goals Return home with family support. Therapy Pain Assessment Pain When Pain Assessed After Treatment Pain Present Pain Present Pain Reported Location Head Intensity 7 Scale Used at base of skull and behind eyes M4 PT-IP Mobility and Gait Start: 02/19/21 09:19 Freq: NEEDED Status: Active Protocol: Document 02/19/21 11:51 AW (Rec: 02/19/21 13:47 AW [id number]) PT-Bed Mobility Assessment Rolling Type of Rolling Roll to Left Level of Assist Independent Supine to Sit Supine to Sit Standby Assistance Scooting Scooting to Edge of Bed Standby Assistance PT-Transfer Assessment Sit to and From Stand Sit to and from Stand Standby Assistance,Use of Upper Extremities Equipment Transfer Assistive Device Gait Belt,Front Wheeled Walker Transfers Transfer Destination Chair Transfer Technique pt amb with fww Transfer Ability Level of Assist Contact Guard Assistance Comments Mobility Comments Pt was lying in bed as PT arrived. She was hesitant to move due to nausea with movement but willing to sit up EOB. Supine BP was 119/56 HR 55. She completed bed mobility SBA with no observed nystagmus during or after movement. She sat EOB for a few minutes waiting for nausea to settle. BP was 165/88 HR 56. She stood SBA and used FWW to walk around the foot of the bed to the chair. Gait was very slow and measured due to nausea. Gait was notable for RLE adduction but pt was able to correct in response to cues . She transferred to chair CGA and BP was 153/76 HR 54. Pt sat for oculomotor and vestibular screen which increased her nausea. After a few more minutes, pt agreed to further ambulation, standing SBA and walking back toward L side of bed with FWW SBA/CGA. Nausea worsened and pt sat EOB . She agreed to walk back to the chair. While PT was CGA with hand on gait belt, pt's right knee buckled and PT was mod assist to stabilize the pt . Her son moved the chair closer and pt was able to turn 180 degrees and transfer back to chair CGA. BP was 145/87 HR 62. Pt was left in the chair with call light and tray table in reach. She agreed to use the call light for all mobility needs. Gait Assessment Gait Gait Assistance Required: Contact Guard Assist,Minimum Assistance,Moderate Assistance ,1 Person Assist Distance (Feet) 25 Assistive Devices Assistive Device Gait Belt,Front Wheeled Walker Orthotic/Prosthetic Devices or Brace: No Gait Deviations General Gait Pattern Antalgic,Ataxic,Decreased Stride Length,Decreased Feet Clearance,Narrow Based Gait Factors Limiting Gait Function Factors Limiting Gait Function Decreased Activity Tolerance, Decreased Sensation,Decreased Strength,Incoordination,Pain, Poor Balance Comments Gait Comments See mobility comments for details. Pt walked 25' x 3 with FWW and had one LOB/ buckling episode requiring PT mod assist to arrest a fall. Stair Climbing Assessment Comments Stair Climbing Comments Not assessed. Pt has ramps at home. PT-Balance Assessment Sitting Balance and Reactions Static Sitting Balance Ability Normal Dynamic Sitting Balance Ability Good Standing Balance and Reactions Static Standing Balance Ability Fair Dynamic Standing Balance Ability Fair Device Used FWW M5 PT-IP Objective Assessments Start: 02/19/21 09:19 Freq: NEEDED Status: Active Protocol: Document 02/19/21 11:51 AW (Rec: 02/19/21 14:04 AW [id number]) Orientation Orientation/Cognition Level of Alertness Alert Orientation Name,Day of Week,Place, Situation Language Function Ability No Deficits Noted Safety Awareness Understands Safety Issues Memory Description No Deficits Noted Gross Range of Motion Upper Extremity ROM Assessment Within Functional Limits Lower Extremity ROM Assessment Within Functional Limits Strength Upper Extremity Strength Assessment Within Functional Limits Lower Extremity Strength Assessment Bilaterally Impaired Hip B 4-/5 Knee R 4+/5; L 4/5 Ankle B 4/5 Comments Strength Comments No unilateral deficit on exam Coordination Assessment Gross Coordination Gross Coordination Impaired Assessment Finger to Nose Test Minimal Impairment Pronation/Supination Test Minimal Impairment Coordination Comments RUE missed targets by ~1 cm on finger to nose. Pt unable to increase speed in pronation/ supination so was difficult to assess. Sensation Assessment Sensation Gross Sensation Right UE Impaired,Left UE Impaired,Right LE Impaired, Left LE Impaired Light Touch Impaired Sensation Description Tingling Comments Sensation Comments Pt reports tingling in hands and feet is largely resolved at this time. Muscle Tone Muscle Tone WNL Yes Other Assessments Other Other Assessments Oculomotor screen: Smooth pursuits and saccades were abnormal with poor tracking and stability. Vestibular: head impulse test was abnormal with left rotation more affected than right. Pt had difficulty with gaze stabilization training and could not maintain 60 bpm with letters in focus. M6 PT-IP Treatment Start: 02/19/21 09:19 Freq: NEEDED Status: Active Protocol: Document 02/19/21 11:51 AW (Rec: 02/19/21 14:04 AW [id number]) Physical Therapy Treatment Education Education Provided Safety Other Treatments Other Treatment Performed Educated pt on results of oculomotor and vestibular screen along with implications for balance. Also educated pt and her son on recommendation for home with assist at this time due to continued symptoms and near fall with PT. M7 PT-IP Assessment and Plan Start: 02/19/21 09:19 Freq: NEEDED Status: Active Protocol: Document 02/19/21 11:51 AW (Rec: 02/19/21 14:04 AW [id number]) PT Summary Assessment and Plan Potential Rehabilitation Potential Good Status of Condition at Evaluation Unstable Summary Impairments Pain,Strength,Balance, Sensation,Bed Mobility, Transfers,Gait Assessment Summary Kathy is a 65 yo woman admitted after a possible syncopal episode who reports headache, blurred vision, sensation disturbance in hands and feet, and mal de debarquement sensation for ~2 weeks prior to fall. Head CT and CTA were negative for acute process. MRI has not been completed. Pt is independent in all regards at baseline. On assessment, pt had impaired visual tracking, saccades, and head impulse test which may imply vestibular involvement. No resting or gaze-evoked nystagmus were observed. Pt was persistently bradycardic during evaluation with HR 54- 62. She needed SBA/CGA for gait with FWW. Gait was notable for RLE adduction vs ataxia which pt was somewhat able to correct in response to cues. Pt had one RLE buckling episode which required mod assist from PT to arrest a fall. Pt would benefit from assist at home until symptoms subside. Outpatient ENT referral may also be indicated . Pt's son states we will take care of having assist at home. With assist, pt is most likely safe to discharge home with continued use of walker. Goals Bed Mobility Goal Independent Transfer Goal Independent,Front Wheeled Walker Gait Goal Independent,Front Wheel Walker Gait Distance 150 Days to Meet Goals 3 Frequency of Treatment Frequency Of Treatment Once a Day Treatment Plan Physical Therapy Treatment Plan Bed Mobility Training,Transfer Training,Gait Training, Therapeutic Exercise,Balance Retraining,Discharge Planning, Neuromuscular Re-ed, Coordination Retraining Other Recommendations and Next Treatment gaze stabilization exercise as Focus indicated; progress gait training with FWW vs 4WW Precautions Other Precautions syncope; falls Recommendations To Nursing Amount of Assist Needed 2 Person Assist Discharge Recommendations PT Discharge Recommendations Home with Assistance,Home with 24/7 Assist Available Other Discharge Recommendations ENT referral is indicated Transportation Needs at Discharge Private Vehicle
[2021-02-19 12:00] VITALS: BP 143/80; PULSE 60; RESP 20; TEMP 36.2; O2SAT 92
[2021-02-19] MEDS: LORazepam 0.5 MG TABLET PO (14:05)
--- NOTE | 2021-02-19 19:40 | P.DS_ITS ---
History of Present Illness History of Present Illness Chief complaint: Syncope, GLF, hit head on thinners Narrative: This is a 65-year-old female with osteoarthritis, hyperlipidemia, diastolic CHF, depression, coronary artery disease, chronic low back pain, anxiety, hypertension and gout who presents with an acute episode of syncope, falling in her home when she got out of bed and walked to the bathroom and then turned to turn the heat on and passed out, waking up a few seconds later on top of her squirming dog.? She was subsequently dizzy with vertigo and nausea and also experiencing epigastric pain which has persisted.? Her workup so far has not revealed any signs of anemia, myocardial infarct, CVA or electrolyte abnormalities/metabolic encephalopathy.? She most likely had experienced a vasovagal episode related to the trip to the bathroom.? She does not appear to have any orthopedic injury but continues to have the epigastric pain at a low level.? This pain was not present until her fall. Discharge Providers Provider Date of admission: 02/18/21 13:04 Discharge Date: 02/19/21 Primary care physician: Genaro Steward MD Consults: 02/18/21 15:06 Consult to Physical Therapy Evaluate & Treat Comment: Physician Instructions: Evaluate and Treat Discharge provider: Jered Garcia MD Summary Hospital Course Discharge Diagnosis: 1. Syncope 2. Vestibular neuritis 3. Coronary artery disease, stable 4. Heart failure with preserved LVEF without exacerbation Patient admitted due to syncope associated with vertigo symptoms. She had no events overnight though continues to experience mild vertigo and some blurring of vision during these episodes. We tried to get an MRI with lorazepam premedication but she was severely claustrophobic and could not tolerate any imaging. Her head CT was normal. Telemetry normal. Overall symptoms are consistent with vestibular neuritis. Recommend outpatient ENT evaluation. She was also evaluated by PT and thought to have some degree of gait instability and would benefit from outpatient PT. Status at Discharge Cognitive/behavioral status at discharge: oriented Functional status at discharge: independent ambulation Overall status at discharge: patient is progressing back to baseline Exam Vital Signs (past 8 hours): - 02/19/21 12:00 Temperature 97.1 F L Pulse Rate 60 Respiratory Rate 20 Blood Pressure 143/80 H Pulse Oximetry 92 Oxygen Delivery Method Room Air Oxygen Flow Rate 0 Narrative Exam Narrative: General: Alert and oriented, NAD Neurological: Affect normal, speech fluent, no gaze nystagmus, EOMI, visual hernandez are normal, normal finger to nose bilaterally, normal upper and lower extremity strength bilaterally Objective Labs Result Diagrams: 02/19/21 07:50 02/19/21 07:50 Labs: Laboratory Results - last 24 hr 02/19/21 02/19/21 07:50 07:50 WBC 8.0 RBC 4.43 Hgb 12.7 Hct 38.0 MCV 85.9 MCH 28.7 MCHC 33.5 RDW 14.2 Plt Count 277 Neut % (Auto) 68.7 Lymph % (Auto) 21.6 L [place] % (Auto) 6.7 Eos % (Auto) 2.0 Baso % (Auto) 1.0 Neut # (Auto) 5500 Lymph # (Auto) 1700 [place] # (Auto) 500 Eos # (Auto) 200 Baso # (Auto) 100 Sodium 138 Potassium 4.4 Chloride 104 Carbon Dioxide 30 BUN 23 H Creatinine 0.82 Estimated GFR > 60.0 BUN/Creatinine Ratio 28.0 H Glucose 108 Calcium 9.3 PFSH Medical History Anxiety Ascending aortic aneurysm Chronic left-sided low back pain with left-sided sciatica (10/03/16) Coronary artery disease Depression (04/04/17) Diastolic congestive heart failure Essential hypertension (02/24/15) Gout History of left heart catheterization (LHC) (09/24/17) Hyperlipemia Mild persistent asthma without complication (02/24/15) Morbid obesity Primary osteoarthritis of both knees (02/24/15) Psoriasis Right shoulder pain Sleep apnea Syncope Tinea pedis Surgical History H/O right knee surgery H/O shoulder surgery History of colonoscopy with polypectomy (10/30/10) Hx of arthroscopy of left knee (2005) S/P angioplasty with stent (08/23/17) S/P angioplasty with stent (09/24/17) Status post delivery Family History Father No problems noted. Mother Hypertension Diabetes mellitus CAD (coronary artery disease) Social History household members: none Smoking Status: Never smoker alcohol intake: current substance use type: does not use Discharge Plan Discharge Plan Patient Disposition: Home Provider Discharge Comment: You were admitted for syncope possibly due to vestibular neuritis. Follow up with PCP and discuss referral to ENT if symptoms persist. Discharge orders & Medications Prescriptions: Continued Alvesco 80 mcg/actuation HFA aerosol inhaler 1 puff INHALATION BID Qty: 6.1 11RF hydrocortisone valerate 0.2 % cream 0.2 % Topical BIDP Qty: 15 4RF montelukast 10 mg tablet 10 mg PO QPM Qty: 90 2RF spironolactone 25 mg tablet 12.5 mg PO QPM Qty: 45 2RF furosemide 40 mg tablet 40 mg PO BID Qty: 180 0RF metoprolol tartrate 25 mg tablet 25 mg PO BID 0RF ezetimibe 10 mg tablet 10 mg PO DAILY 0RF rosuvastatin 40 mg tablet 40 mg PO QPM Qty: 90 1RF albuterol sulfate 2.5 mg /3 mL (0.083 %) solution for nebulization 2.5 mg INHALATION Q4-6H PRN (Reason: shortness of breath or wheezing) Qty: 90 11RF nitroglycerin 0.4 mg tablet, sublingual 0.4 mg SL Q5-15M PRN (Reason: chest pain) Qty: 25 11RF albuterol sulfate [Ventolin HFA] 90 mcg/actuation HFA aerosol inhaler 2 puff inhalation Q6H PRN (Reason: shortness of breath or wheezing) Qty: 18 11RF diclofenac sodium 1 % gel 2 gram TOP QID Qty: 100 1RF Rx Instructions: apply to single elbow, wrist or hand; for hand includes palm/fingers/back of hand Repatha SureClick 140 mg/mL pen injector 140 mg SUBCUT Q2W 0RF (DME) Parking Permit... See Rx Instructions .ROUTE .MEDSUPPLY Qty: 1 0RF Rx Instructions: As directed duloxetine [Cymbalta] 20 mg capsule,delayed release(DR/EC) 20 mg PO BID Qty: 180 1RF methocarbamol 500 mg tablet 500 mg PO TID PRN (Reason: spasms) Qty: 90 5RF epinephrine 0.3 mg/0.3 mL auto-injector 0.3 mg IM X1 PRN (Reason: anaphylaxis) Qty: 1 3RF lidocaine [Lidoderm] 5 % adhesive patch,medicated 1 patch TOP DAILY PRN (Reason: Shortness of Breath) 0RF Rx Instructions: leave on most painful area for 12 hrs gabapentin 600 mg tablet 600 mg PO DAILY 0RF aspirin 81 mg tablet,chewable 81 mg PO DAILY 0RF Follow up/Referrals: Genaro Steward MD [Primary Care Provider] - Diet/Activity/Treatments Diet: Regular Visit Report/Discharge Packet Instructions: Vertigo Discharge Data Primary Care Provider: Genaro Steward Attending Provider: Uvaldo Renteria
== END 2021-02-19 18:20 | disposition home or self-care (01) ==
LOC: ED 12:53 → AC 13:04
PROVIDERS: Admitting Provider Family Medicine; Emergency Provider Emergency Medicine; PCP Student in an Organized Health Care Education/Training Program; Referring Provider Emergency Medicine; Visit Provider Family Medicine
DX: R55 Syncope and collapse (principal); I11.0 Hypertensive heart disease with heart failure; I50.30 Unspecified diastolic (congestive) heart failure; W18.39XA Other fall on same level, initial encounter; Y92.002 Bathroom of unspecified non-institutional (private) residence as the place of occurrence of the external cause; J45.909 Unspecified asthma, uncomplicated; E78.5 Hyperlipidemia, unspecified; F32.9 Major depressive disorder, single episode, unspecified; I25.10 Atherosclerotic heart disease of native coronary artery without angina pectoris; G58.8 Other specified mononeuropathies; Z20.822 Contact with and (suspected) exposure to COVID-19
CPT/HCPCS: 36415; 70450; 70496; 70498; 71045; 72125; 80048; 80053; 81003; 82550; 83880; 84484; 85025; 85610; 85730; 86850; 86900; 86901; 87635; 93005; 93010; 94640; 94760; 96372; 96374; 96375; 96376; 97162; 97535; 99284; C9803; G0378; J1200; J1650; J2405; J7613; Q9967

== ENCOUNTER → 2021-04-19 13:47 | Outpatient (CLI) | payer OTHER, SELFPAY ==
[2021-02-18 13:11] VITALS: BMI 51.5
--- NOTE | 2021-05-09 08:10 | P.HOLT.S_ITS ---
Research Chemical Engineer Report Referral & Results Date Patient Seen: 04/19/21 Requesting provider: Genaro Steward Indication: Syncope Duration of monitoring (days): 7 Diary information: There were 2 patient triggered events and 1 patient diary entry All 3 of these patient events were variably associated with (within 45 seconds) sinus rhythm and PVCs Data: Minimum heart rate identified was 57 beats per minute at 06:08 on 04/20/2021 Maximum sinus heart rate was 120 beats per minute at 18:53 on 04/22/2021 Maximum overall heart rate was 187 beats per minute at 01:13 on 04/26/2021 during a run of SVT Less than 1% of identified beats were supraventricular ectopic in origin which would classify them as rare Approximately 1.2% of identified beats were ventricular ectopic in origin which would classify them as occasional There were 10 runs of SVT the fastest being in 9.9 second run at a rate of 187 beats per minute. This was also the longest run There were no pauses of 3 seconds or longer or episodes of atrial fibrillation or AV block identified on this study Impression: 7 day cardiac cath lab manager demonstrating occasional PVCs as above but no etiology for syncope identified Clinical correlation suggested
== END ==
PROVIDERS: PCP Student in an Organized Health Care Education/Training Program; Referring Provider Student in an Organized Health Care Education/Training Program; Visit Provider Student in an Organized Health Care Education/Training Program
DX: I50.20 Unspecified systolic (congestive) heart failure (principal)
CPT/HCPCS: 93242; 93244

== ENCOUNTER → 2021-05-08 10:53 | Outpatient (CLI) | payer OTHER, SELFPAY ==
[2021-02-18 13:11] VITALS: BMI 51.5
[2021-05-08 12:23] LABS: Add Manual Diff / Slide Review NO; Basophils Absolute Auto 100 /uL (0-100); Basophils Percent Auto 1.1 % (0-2); Eosinophils Absolute Auto 200 /uL (0-450); Eosinophils Percent Auto 2.3 % (2-4); Hematocrit 38.9 % (36-46); Hemoglobin 13.1 g/dL (12.0-16.0); Lymphocytes Absolute Auto 2200 /uL (1100-4500); Mean Corpuscular HGB Conc 33.7 % (30-36); Mean Corpuscular Hemoglobin 29.2 PG (26-34); Mean Corpuscular Volume 86.5 fL (80-100); Monocytes Absolute Auto 500 /uL (0-900); Monocytes Percent Auto 6.2 % (3-14); Neutrophils Absolute Auto 4600 /uL (1500-7000); Neutrophils Percent Auto 61.4 % (50-75); Platelet Count 310 X10^3/uL (150-400); Red Cell Distribution Width 14.2 % (11.6-14.8); White Blood Cell Count 7.5 X10^3/uL (4.5-11.0)
[2021-05-08 13:00] LABS: BUN Creatinine Ratio 25.4 (6-22); Blood Urea Nitrogen 18 mg/dL (7-17); Calcium 9.3 mg/dL (8.4-10.2); Carbon Dioxide 25 mmol/L (22-32); Chloride 104 mmol/L (98-107); Cholesterol 266 mg/dL (140-199); Estimated Glomerular Filt Rate > 60.0 mL/min (>60); Glucose 109 mg/dL (80-110); HDL Cholesterol 54 mg/dL (40-60); HEMOLYSIS < 15 (0-50); LDL Cholesterol Calculated 195 mg/dL (<100); Potassium 4.3 mmol/L (3.4-5.1); Sodium 140 mmol/L (137-145); Triglycerides 84 mg/dL (35-150)
== END ==
PROVIDERS: PCP Student in an Organized Health Care Education/Training Program; Referring Provider Internal Medicine Cardiovascular Disease; Visit Provider Internal Medicine Cardiovascular Disease
DX: E78.5 Hyperlipidemia, unspecified (principal); I25.10 Atherosclerotic heart disease of native coronary artery without angina pectoris
CPT/HCPCS: 36415; 80048; 80061; 85025

== ENCOUNTER → 2021-06-26 10:37 | Outpatient (CLI) | payer OTHER, SELFPAY ==
[2021-02-18 13:11] VITALS: BMI 51.5
--- NOTE | 2021-06-26 10:38 | DI.ECHO.S_ITS ---
[facility]---------+ [facility] +---------+ : : [address] : : : : [id number] : : : : Phone: [phone]+ Echocardiogram Report + + :Name: PEDRO CAMARGO Study Date: 06/26/2021 Height: 64 in : :[facility] ReadingLocation: Weight: 300 lb : : Gender: Female BSA: 2.3 m2 : :: 1955 Age: 65 yrs BP: 208/95 mmHg: :Reason For Study: Syncope : :Ordering Physician: KENISHA, : :RUFINO Performed By: Jayce Weiner : :Referring: RUFINO DE : + + Interpretation Summary 1) Normal sized left ventricle with low normal systolic function (EF about 50%). 2) The right ventricle is normal in size and function. 3) No significant valvular abnormalities. 4) Compared to the Echo done 09/28/2020, no ignificant change. Procedure: A two-dimensional transthoracic echocardiogram with color flow and Doppler was performed. The study quality was technically difficult. Comparison is made with the echocardiogram of 09/28/2020. A contrast injection of Definity was performed to improve assessment of LV function. Left Ventricle: The left ventricle is normal in size. There is mild concentric left ventricular hypertrophy. Left ventricular systolic function is low normal. Left ventricular ejection fraction is estimated to be 50 +/- 5%. There are no focal wall motion abnormalities. Diastolic function could not be accurately assessed due to contradictory data. Right Ventricle: The right ventricle is normal in size and function. Atria: Both atria are normal in size. The interatrial septum grossly appears intact with no obvious evidence for an atrial septal defect. Mitral Valve: The mitral valve is normal in structure and function. There is mild mitral regurgitation. Aortic Valve: The aortic valve is normal in structure and function. There is no aortic valve stenosis. No aortic regurgitation is present. Tricuspid Valve: The tricuspid valve is normal in structure and function. There is a trace or physiologic amount of tricuspid regurgitation. Pulmonary artery pressures cannot be estimated because of the lack of a measurable TR jet velocity. Pulmonic Valve: The pulmonic valve is not well visualized. Great Vessels: The aortic root is normal size. The dimensions of the ascending aorta are normal. The IVC is of normal diameter and collapses greater than 50% with a sniff. This suggests a low right atrial pressure of 3 mm Hg. Pericardium/ Pleura There is no pericardial effusion. There is no pleural effusion. MMode/2D Measurements & Calculations LVIDd: 5.3 cm LVOT diam: 1.9 cm LVIDs: 3.9 cm asc Aorta Diam: 3.7 cm FS: 26.4 % IVSd: 1.3 cm LVPWd: 1.1 cm LV harper. diameter/BSA (cm/m^2): 2.3 LV sys. diameter/BSA (cm/m^2): 1.7 LA dimension: 3.2 cm RA long axis: 5.2 cm LA A2 area: 25.4 cm2 LA A4 area: 20.7 cm2 LA length (vol): 6.4 cm LA vol: 69.4 ml LA vol index: 29.9 ml/m2 TAPSE_phl: 2.8 cm Doppler Measurements & Calculations Ao V2 max: 191.0 cm/sec LVOT Max Xu: 133.0 cm/sec Ao V2 mean: 135.0 cm/sec LV V1 max P.1 mmHg Ao max P.0 mmHg LV V1 VTI: 28.9 cm Ao mean P.0 mmHg HALLIE(I,D): 2.0 cm2 Ao V2 VTI: 40.8 cm HALLIE(V,D): 2.0 cm2 sev ratio: 0.71 HALLIE indexed to BSA (cm^2/m^2): 0.86 MV E max xu: 91.7 cm/sec SV(LVOT): 81.9 ml MV A max xu: 94.3 cm/sec MV E/A: 0.97 Med Peak E' Xu: 4.5 cm/sec E/E' med: 20.2 Lat Peak E' Xu: 7.2 cm/sec E/E' lat: 12.8 E/e' average: 16.5 MV dec time: 0.27 sec AV VR_phl: 0.70 MV P1/2t-pr_phl: 78.0 msec HALLIE(VTI)/BSA_phl: 0.87 Reading Physician:01:14 PM
== END ==
PROVIDERS: PCP Student in an Organized Health Care Education/Training Program; Referring Provider Student in an Organized Health Care Education/Training Program; Visit Provider Student in an Organized Health Care Education/Training Program
DX: I34.0 Nonrheumatic mitral (valve) insufficiency (principal); R55 Syncope and collapse; I25.10 Atherosclerotic heart disease of native coronary artery without angina pectoris; I50.20 Unspecified systolic (congestive) heart failure
CPT/HCPCS: 93306; Q9957

== ENCOUNTER → 2021-07-18 11:55 | Outpatient (CLI) | payer OTHER, SELFPAY ==
[2021-02-18 13:11] VITALS: BMI 51.5
--- NOTE | 2021-07-18 11:56 | DI.MG.S_ITS ---
UNILATERAL LEFT DIGITAL DIAGNOSTIC MAMMOGRAM 3D/2D SHORT-TERM FOLLOW-UP: 07/18/2021 CLINICAL: Short term follow up for the left breast. Comparison is made to exams dated: 12/20/2020 mammogram, 11/23/2020 mammogram, 09/13/2010 mammogram, and 12/20/2020 [facility] There are scattered fibroglandular elements in left breast. The oval mass in the left breast at 12 o'clock middle depth is no longer seen. No other significant masses or calcifications are seen in the breast. IMPRESSION: NEGATIVE There is no mammographic evidence of malignancy. Return to annual mammogram screening schedule is recommended. This exam was interpreted at Station ID: [id number]. NOTE: For mammograms, a report in lay terms will be sent to the patient. Approximately 15% of breast malignancies will not be visualized mammographically. In the management of a palpable breast mass, a negative mammogram must not discourage biopsy of a clinically suspicious lesion. Electronically Signed By: Topher lee/sridhar:07/18/2021 12:46:26 letter sent: Normal Exam ACR BI-RADS Category 1: Negative [id number]
== END ==
PROVIDERS: PCP Student in an Organized Health Care Education/Training Program; Referring Provider Student in an Organized Health Care Education/Training Program; Visit Provider Student in an Organized Health Care Education/Training Program
DX: R92.8 Other abnormal and inconclusive findings on diagnostic imaging of breast (principal)
CPT/HCPCS: 77065; G0279

== ENCOUNTER 2022-01-16 17:44 | Emergency (ER) | payer OTHER, MEDICAID, SELFPAY ==
[2021-02-18 13:11] VITALS: BMI 51.5
[2022-01-16] VITALS (16 sets, daily range): BP systolic 147–226; BP diastolic 87–167; PULSE 69–83; RESP 16–23; TEMP 36.6; O2SAT 94–99; BMI 48.4
--- NOTE | 2022-01-16 17:56 | DI.RAD.S_ITS ---
PROCEDURE: XR CHEST 1V INDICATIONS: chest pain TECHNIQUE: One view of the chest was acquired. COMPARISON: [facility], LAURA, XR CHEST 1V, 02/18/2021, 9:29. [facility], CR, XR CHEST 1V, 10/04/2018, 18:20. FINDINGS: Surgical changes and devices: Right shoulder arthroplasty. Lungs and pleura: No consolidation identified. No pleural effusions or pneumothorax. Mediastinum: Mediastinal contours appear normal. Heart size is normal. Bones and chest wall: No suspicious bony lesions. Overlying soft tissues appear unremarkable. IMPRESSION: No consolidation identified. Dictated by: Bud Garibay M.D. on 01/16/2022 at 20:13 Approved by: Bud Garibay M.D. on 01/16/2022 at 20:14
--- NOTE | 2022-01-16 18:30 | ED_ITS ---
HPI - Chest Pain General Chief Complaint: Chest Pain Stated Complaint: Chest Pains Time Seen by Provider: 01/16/22 18:30 History of Present Illness HPI narrative: 66-year-old woman with a history of asthma, diastolic heart failure, hypertension, hyperlipidemia, coronary artery disease with a stent placed in July currently on Plavix presents with 5 days of profuse diarrhea, fevers, naus ea without vomiting, central chest pain and pressure that comes and goes with any activity and dramatically increasing dyspnea. She states that her inhalers have not been making much difference and she is having difficulty lying flat. She is felt so bad that she has not taken any for medications for the last couple of days. She is had low-grade headaches, cough without significant wheeze and nonproductive. Globally weak but no localizing neurologic findings Related Data Home Medications Medication Instructions Recorded Confirmed aspirin 81 mg chewable tablet 81 mg PO DAILY 09/23/17 01/16/22 evolocumab 140 mg/mL subcutaneous 140 mg SUBCUT Q2W 07/24/19 01/16/22 pen injector (Alec Jones) gabapentin 600 mg tablet 600 mg PO DAILY 01/17/21 01/16/22 lidocaine 5 % topical patch 1 patch topical DAILY PRN Pain, 01/17/21 01/16/22 (Lidoderm) Moderate metoprolol tartrate 25 mg tablet 50 mg PO BID 03/28/21 01/16/22 clopidogrel 75 mg tablet (Plavix) 75 mg PO BEDTIME 01/16/22 01/16/22 Previous Rx's Medication Instructions Recorded rosuvastatin 40 mg tablet 40 mg PO QPM #90 tabs 11/06/18 diclofenac sodium 1 % topical gel 2 gram topical QID #100 grams 12/17/18 nitroglycerin 0.4 mg sublingual 0.4 mg sublingual Q5-15M PRN chest 11/06/19 tablet pain #25 tabs hydrocortisone valerate 0.2 % 0.2 % topical BIDP #15 grams 12/09/19 topical cream spironolactone 25 mg tablet 12.5 mg PO QPM #45 tabs 03/15/20 Parking Permit... #1 ea 06/23/20 duloxetine 20 mg capsule,delayed 20 mg PO BID #180 caps 06/23/20 release (Cymbalta) budesonide 0.5 mg/2 mL suspension 0.5 mg (2 mL) inhalation BID #60 mL 03/28/21 for nebulization clonidine HCl 0.2 mg tablet 0.2 mg PO TID PRN hypertensive 05/23/21 emergency #20 tabs methocarbamol 500 mg tablet 500 mg PO TID PRN spasms #90 tabs 07/24/21 ezetimibe 10 mg tablet 10 mg PO DAILY #90 tabs 08/29/21 furosemide 40 mg tablet 40 mg PO BID #180 tabs 08/29/21 montelukast 10 mg tablet 10 mg PO QPM #90 tabs 09/05/21 epinephrine 0.3 mg/0.3 mL 0.3 mg (0.3 mL) IM X1 PRN 09/11/21 injection, auto-injector anaphylaxis ##1 Nebulizer #1 ea 10/26/21 Ventolin HFA 90 mcg/actuation 2 puff inhalation Q6H PRN 11/21/21 aerosol inhaler (albuterol sulfate) shortness of breath or wheezing #54 grams albuterol sulfate 2.5 mg/3 mL 5 - 10 mg (6 - 12 mL) inhalation 11/21/21 (0.083 %) solution for nebulization Q4-6H PRN shortness of breath or wheezing #180 mL albuterol sulfate 90 mcg/actuation 2 puff inhalation QID #8.5 grams 01/17/22 aerosol inhaler (ProAir HFA) prednisone 20 mg tablet 20 mg PO DAILY #14 tabs 01/17/22 prednisone 20 mg tablet 20 mg PO DAILY #14 tabs 01/17/22 Allergies Allergy/AdvReac Type Severity Reaction Status Date / Time Penicillins [PENICILLINS] Allergy Severe Anaphylaxis Verified 01/16/22 17:56 shellfish derived Allergy Severe Anaphylaxis Verified 01/16/22 17:56 [SHELLFISH DERIVED] clonazepam [CLONAZEPAM] Allergy Mild Hives Verified 01/16/22 17:56 Review of Systems Review of Systems Narrative: Remainder of complete review of systems is otherwise unremarkable except for that included in the HPI. Patient History Medical History Anxiety Ascending aortic aneurysm Chronic left-sided low back pain with left-sided sciatica (10/03/16) Coronary artery disease Depression (04/04/17) Essential hypertension (02/24/15) Gout History of left heart catheterization (LHC) (09/24/17) Hyperlipemia Mild persistent asthma without complication (02/24/15) Morbid obesity Primary osteoarthritis of both knees (02/24/15) Psoriasis Right shoulder pain Sleep apnea Syncope Tinea pedis Surgical History H/O right knee surgery H/O shoulder surgery History of colonoscopy with polypectomy (10/30/10) Hx of arthroscopy of left knee (2005) S/P angioplasty with stent (08/23/17) S/P angioplasty with stent (09/24/17) Status post delivery Family History Father No problems noted. Mother Hypertension Diabetes mellitus CAD (coronary artery disease) Social History household members: none Smoking Status: Never smoker alcohol intake: current substance use type: does not use Smoking Status: Never smoker alcohol intake frequency: a few times a week Substance Use Type: does not use Exam Initial Vital Signs Initial Vital Signs: Vital Signs Temperature 98 F 01/16/22 17:49 Pulse Rate 80 01/16/22 17:49 Respiratory Rate 22 01/16/22 17:49 Blood Pressure 207/94 H 01/16/22 17:49 Pulse Oximetry 96 01/16/22 17:49 Oxygen Delivery Method 01/16/22 17:49 General: Morbidly obese, chronically ill-appearing significantly dyspneic with simply trying to sit up and screwed up the bed. Able to give a complete and coherent history. Patient is unable to lay flat HEENT: Moist mucous membranes, normal sclera with reactive pupils, Neck: Body habitus makes JVD evaluation difficult, supple Respiratory: Lungs are essentially clear. I am not impressed with significant wheeze or crackles. No consolidated findings Full and symmetrical air movement, significant tachypnea and work of breathing without retraction with any movement Cardiac: Regular rate and rhythm no murmurs no bruits Abdomen: Soft, nontender, good bowel tones, no flank pain Skin: Warm and dry, no rashes, well perfused Neurologic: Globally weak but Grossly neurologically intact with no obvious asymmetries or abnormalities Extremities: No trauma, well perfused, 1+ lower extremity edema bilaterally Psych: Cooperative, appropriate insight and affect Course Orders Ordered: ED Orders 01/16/22 17:50 Covid-19 + FLU A/B + RSV - PCR Stat Respiratory Panel (Film Array) Stat 01/16/22 17:56 XR chest 1V Stat EKG-12 Lead Stat 01/16/22 20:35 BNP [NT-proBNP (BNP-Adult 18+)] Stat Blood Culture Stat Complete Blood Count AUTO DIFF Stat Comprehensive Metabolic Panel Stat D Dimer Stat Lactate (Lactic Acid) Stat Lipase Stat Magnesium Stat Partial Thromboplastin Time Stat Prothrombin Time INR Stat Troponin & CK Cardiac Panel Stat 01/16/22 21:50 CT angio chest PE protocol Stat 01/16/22 22:26 Urine Culture Stat Urine Microscopic Stat Methylprednisolone (Methylprednisolone 125 Mg/2 Ml Vial) 125 mg IV NOW ONE Stop: 01/17/22 01:16 Vital Signs Vital signs: Vital Signs - 8 hr 01/16/22 17:49 01/16/22 19:27 01/16/22 19:28 Temperature 98 F Pulse Rate 80 73 Respiratory Rate 22 Blood Pressure 207/94 H 194/109 H Pulse Oximetry 96 99 Oxygen Delivery Method Room Air 01/16/22 19:28 01/16/22 19:30 01/16/22 19:36 Temperature Pulse Rate 73 69 70 Respiratory Rate 20 Blood Pressure Pulse Oximetry 98 98 97 Oxygen Delivery Method Room Air 01/16/22 19:36 01/16/22 20:00 01/16/22 20:00 Temperature Pulse Rate 74 Respiratory Rate Blood Pressure 202/110 H 201/104 H Pulse Oximetry 97 Oxygen Delivery Method 01/16/22 20:10 01/16/22 20:10 01/16/22 20:30 Temperature Pulse Rate 71 69 Respiratory Rate 23 16 Blood Pressure 157/106 H Pulse Oximetry 97 Oxygen Delivery Method 01/16/22 21:00 01/16/22 21:13 01/16/22 21:13 Temperature Pulse Rate 74 72 Respiratory Rate 19 22 Blood Pressure 147/87 H Pulse Oximetry 98 Oxygen Delivery Method 01/16/22 21:30 01/16/22 21:30 01/16/22 22:08 Temperature Pulse Rate 71 83 Respiratory Rate 19 Blood Pressure 175/102 H Pulse Oximetry 97 95 Oxygen Delivery Method 01/16/22 22:30 01/16/22 22:30 01/16/22 23:00 Temperature Pulse Rate 74 79 Respiratory Rate 22 Blood Pressure 196/92 H Pulse Oximetry 96 95 Oxygen Delivery Method 01/16/22 23:01 01/16/22 23:01 01/16/22 23:30 Temperature Pulse Rate 76 Respiratory Rate Blood Pressure 226/98 H 202/167 H Pulse Oximetry 95 Oxygen Delivery Method 01/16/22 23:30 01/17/22 00:00 01/17/22 00:00 Temperature Pulse Rate 74 74 Respiratory Rate 17 26 H Blood Pressure 181/86 H Pulse Oximetry 94 94 Oxygen Delivery Method MDM - Chest Pain Lab Data Result diagrams: 01/16/22 20:35 01/16/22 20:35 Labs: Lab Results 01/16/22 01/16/22 01/16/22 Range/Units 17:50 17:50 20:35 WBC 9.7 (4.5-11.0) X10^3/uL RBC 4.32 (4.0-5.2) X10^6/uL Hgb 12.3 (12.0-16.0) g/dL Hct 36.6 (36-46) % MCV 84.6 (80-100) fL MCH 28.4 (26-34) PG MCHC 33.5 (30-36) % RDW 14.5 (11.6-14.8) % Plt Count 302 (150-400) X10^3/uL Neut % (Auto) 59.1 (50-75) % Lymph % (Auto) 28.3 (25-40) % [place] % (Auto) 9.2 (3-14) % Eos % (Auto) 2.8 (2-4) % Baso % (Auto) 0.6 (0-2) % Neut # (Auto) 5700 (5774-7688) /uL Lymph # (Auto) 2700 (2200-3232) /uL [place] # (Auto) 900 (0-900) /uL Eos # (Auto) 300 (0-450) /uL Baso # (Auto) 100 (0-100) /uL PT (10.1-12.7) SECONDS INR (0.9-1.3) APTT (26-36) SECONDS D-Dimer (<500) ng/ml Sodium (137-145) mmol/L Potassium (3.4-5.1) mmol/L Chloride (98-107) mmol/L Carbon Dioxide (22-32) mmol/L BUN (7-17) mg/dL Creatinine (0.52-1.04) mg/dL Estimated GFR (>60) mL/min BUN/Creatinine Ratio (6-22) Glucose (80-110) mg/dL Lactate (0.7-2.1) mmol/L Calcium (8.4-10.2) mg/dL Magnesium (1.6-2.3) mg/dL Total Bilirubin (0.2-1.3) mg/dL AST (14-36) IU/L ALT (<35) IU/L Alkaline Phosphatase (38-126) U/L Total Creatine Kinase (30-135) U/L CK-MB (CK-2) CK-MB (CK-2) Rel Index Troponin I (0.01-0.034) ng/mL NT-Pro-B Natriuret Pep (<125) pg/mL Total Protein (6.3-8.2) g/dL Albumin (3.5-5.0) g/dL Globulin (1.7-4.1) g/dL Albumin/Globulin Ratio (1.0-2.8) Lipase (23-300) U/L Chlamy pneumoniae PCR Not detected (Not Detect) Adenovirus (PCR) Detected H (Not Detect) B. pertussis DNA (PCR) Not detected (Not Detecte) B.parapertussis DNA PCR Not detected (Not Detecte) Coronavirus OC43 (PCR) Not detected (Not Detect) Coronavirus HKU1 (PCR) Not detected (Not Detect) Coronavirus 229E (PCR) Not detected (Not Detect) SARS-CoV-2 (PCR) Negative Not detected (Negative) Coronavirus NL63 (PCR) Not detected (Not Detect) Human Metapneumovir PCR Not detected (Not Detect) Influenza A (RT-PCR) Flu a negative (NEGATIVE) Influenza Type A (PCR) Not detected (Not Detect) Influenza B (RT-PCR) Flu b negative (NEGATIVE) Influenza Type B (PCR) Not detected (Not Detect) M. pneumoniae (PCR) Not detected (Not Detect) Parainfluenza 1 (PCR) Not detected (Not Detect) Parainfluenza 2 (PCR) Not detected (Not Detect) Parainfluenza 3 (PCR) Not detected (Not Detect) Parainfluenza 4 (PCR) Not detected (Not Detect) RSV (PCR) Negative Not detected (Negative) Entero/Rhino (PCR) Not detected (Not Detect) 01/16/22 01/16/22 01/16/22 Range/Units 20:35 20:35 20:35 WBC (4.5-11.0) X10^3/uL RBC (4.0-5.2) X10^6/uL Hgb (12.0-16.0) g/dL Hct (36-46) % MCV (80-100) fL MCH (26-34) PG MCHC (30-36) % RDW (11.6-14.8) % Plt Count (150-400) X10^3/uL Neut % (Auto) (50-75) % Lymph % (Auto) (25-40) % [place] % (Auto) (3-14) % Eos % (Auto) (2-4) % Baso % (Auto) (0-2) % Neut # (Auto) (1246-6650) /uL Lymph # (Auto) (6251-2933) /uL [place] # (Auto) (0-900) /uL Eos # (Auto) (0-450) /uL Baso # (Auto) (0-100) /uL PT 11.9 (10.1-12.7) SECONDS INR 1.0 (0.9-1.3) APTT 22 L (26-36) SECONDS D-Dimer 1155 H (<500) ng/ml Sodium 138 (137-145) mmol/L Potassium 3.6 (3.4-5.1) mmol/L Chloride 103 (98-107) mmol/L Carbon Dioxide 27 (22-32) mmol/L BUN 14 (7-17) mg/dL Creatinine 0.67 (0.52-1.04) mg/dL Estimated GFR > 60 (>60) mL/min BUN/Creatinine Ratio 20.9 (6-22) Glucose 95 (80-110) mg/dL Lactate (0.7-2.1) mmol/L Calcium 8.9 (8.4-10.2) mg/dL Magnesium 2.3 (1.6-2.3) mg/dL Total Bilirubin 0.4 (0.2-1.3) mg/dL AST 20 (14-36) IU/L ALT 19 (<35) IU/L Alkaline Phosphatase 75 (38-126) U/L Total Creatine Kinase 73 (30-135) U/L CK-MB (CK-2) TNP CK-MB (CK-2) Rel Index TNP Troponin I < 0.012 (0.01-0.034) ng/mL NT-Pro-B Natriuret Pep (<125) pg/mL Total Protein 7.2 (6.3-8.2) g/dL Albumin 4.0 (3.5-5.0) g/dL Globulin 3.2 (1.7-4.1) g/dL Albumin/Globulin Ratio 1.3 (1.0-2.8) Lipase 35 (23-300) U/L Chlamy pneumoniae PCR (Not Detect) Adenovirus (PCR) (Not Detect) B. pertussis DNA (PCR) (Not Detecte) B.parapertussis DNA PCR (Not Detecte) Coronavirus OC43 (PCR) (Not Detect) Coronavirus HKU1 (PCR) (Not Detect) Coronavirus 229E (PCR) (Not Detect) SARS-CoV-2 (PCR) (Negative) Coronavirus NL63 (PCR) (Not Detect) Human Metapneumovir PCR (Not Detect) Influenza A (RT-PCR) (NEGATIVE) Influenza Type A (PCR) (Not Detect) Influenza B (RT-PCR) (NEGATIVE) Influenza Type B (PCR) (Not Detect) M. pneumoniae (PCR) (Not Detect) Parainfluenza 1 (PCR) (Not Detect) Parainfluenza 2 (PCR) (Not Detect) Parainfluenza 3 (PCR) (Not Detect) Parainfluenza 4 (PCR) (Not Detect) RSV (PCR) (Negative) Entero/Rhino (PCR) (Not Detect) 01/16/22 01/16/22 Range/Units 20:35 20:35 WBC (4.5-11.0) X10^3/uL RBC (4.0-5.2) X10^6/uL Hgb (12.0-16.0) g/dL Hct (36-46) % MCV (80-100) fL MCH (26-34) PG MCHC (30-36) % RDW (11.6-14.8) % Plt Count (150-400) X10^3/uL Neut % (Auto) (50-75) % Lymph % (Auto) (25-40) % [place] % (Auto) (3-14) % Eos % (Auto) (2-4) % Baso % (Auto) (0-2) % Neut # (Auto) (2441-2557) /uL Lymph # (Auto) (6003-6722) /uL [place] # (Auto) (0-900) /uL Eos # (Auto) (0-450) /uL Baso # (Auto) (0-100) /uL PT (10.1-12.7) SECONDS INR (0.9-1.3) APTT (26-36) SECONDS D-Dimer (<500) ng/ml Sodium (137-145) mmol/L Potassium (3.4-5.1) mmol/L Chloride (98-107) mmol/L Carbon Dioxide (22-32) mmol/L BUN (7-17) mg/dL Creatinine (0.52-1.04) mg/dL Estimated GFR (>60) mL/min BUN/Creatinine Ratio (6-22) Glucose (80-110) mg/dL Lactate 1.1 (0.7-2.1) mmol/L Calcium (8.4-10.2) mg/dL Magnesium (1.6-2.3) mg/dL Total Bilirubin (0.2-1.3) mg/dL AST (14-36) IU/L ALT (<35) IU/L Alkaline Phosphatase (38-126) U/L Total Creatine Kinase (30-135) U/L CK-MB (CK-2) CK-MB (CK-2) Rel Index Troponin I (0.01-0.034) ng/mL NT-Pro-B Natriuret Pep 225 H (<125) pg/mL Total Protein (6.3-8.2) g/dL Albumin (3.5-5.0) g/dL Globulin (1.7-4.1) g/dL Albumin/Globulin Ratio (1.0-2.8) Lipase (23-300) U/L Chlamy pneumoniae PCR (Not Detect) Adenovirus (PCR) (Not Detect) B. pertussis DNA (PCR) (Not Detecte) B.parapertussis DNA PCR (Not Detecte) Coronavirus OC43 (PCR) (Not Detect) Coronavirus HKU1 (PCR) (Not Detect) Coronavirus 229E (PCR) (Not Detect) SARS-CoV-2 (PCR) (Negative) Coronavirus NL63 (PCR) (Not Detect) Human Metapneumovir PCR (Not Detect) Influenza A (RT-PCR) (NEGATIVE) Influenza Type A (PCR) (Not Detect) Influenza B (RT-PCR) (NEGATIVE) Influenza Type B (PCR) (Not Detect) M. pneumoniae (PCR) (Not Detect) Parainfluenza 1 (PCR) (Not Detect) Parainfluenza 2 (PCR) (Not Detect) Parainfluenza 3 (PCR) (Not Detect) Parainfluenza 4 (PCR) (Not Detect) RSV (PCR) (Negative) Entero/Rhino (PCR) (Not Detect) Urine Dip Bedside Urine Glucose Negative Bedside Urine Bilirubin - Negative Bedside Urine Ketone - Negative Urine Specific [place] 1.015 Bedside Urine Occult Blood + Bedside Urine pH 6.0 Bedside Urine Protein - Negative Bedside Urine Urobilinogen - Negative Bedside Urine Nitrite - Negative Bedside Urine Leukocytes + [address] scan - chest: Radiologist's Impression: FINDINGS:? Image quality:? There is metallic streak artifact from patient's right shoulder prosthesis limiting evaluation.? ? Pulmonary arteries:? Pulmonary arteries demonstrate no intraluminal filling defects to suggest central pulmonary embolism.? There is enlargement of the pulmonary arteries, with the main pulmonary artery measuring up to 4.3 cm suggestive of pulmonary arterial hypertension. ? Lower Neck: No lymphadenopathy by size criteria. Thyroid:? Visualized thyroid demonstrates no discrete nodules. Axillae: No lymphadenopathy by size criteria. Chest Wall:? Unremarkable.? Bones: Visualized osseous structures demonstrate no suspicious lesions. ? Lungs and Airways:? No acute consolidation.? There is nodular thickening along the right minor fissure measuring up to 0.8 cm on series 5, image 151.? Findings are similar to the prior study.? The trachea and central airways are patent. Pleura: No pneumothorax or pleural effusions.? ? Heart: Heart size is normal.? No pericardial effusion.? There is coronary arterial vascular calcification. Thoracic Vessels: The thoracic aorta is normal in size.? Mediastinum and Eliz: No lymphadenopathy by size criteria. Esophagus: No wall thickening. No hiatal hernia. ? Abdomen:? Visualized upper abdominal solid organs appear normal in the early arterial phase of enhancement.? ? IMPRESSION:? ? 1. No evidence of pulmonary embolism. ? 2. Enlargement of the pulmonary arteries suggestive of pulmonary arterial hypertension. ? 3. No acute airspace consolidation.? ? ? Dictated by: Jacob Gandhi M.D. on 01/16/2022 at 23:49 ? ? ECG Data Interpretation: sinus at 71 LVH with wide QRS No acute ischemic changes MDM Narrative Medical decision making narrative: 66-year-old woman with significant both pulmonary and cardiac history presents with mild upper respiratory symptoms no flu, COVID carbon RSV on respiratory panel. Significant increased dyspnea with minimal movement. No evidence of acute coronary syndrome, mild wheeze with good air movement overall. Bibasilar crackles however BNP is not dramatically elevated and chest x-ray does not show dramatic fluid overload. D-dimer is significantly elevated, she is currently on Plavix. She will go for a chest CT to rule out pulmonary embolism. Chest CT does not confirm a pulmonary emboli. Respiratory panel shows Adeno virus. On re-evaluation currently oxygen saturations are up in the mid 90 range and she feels she is at her baseline. There is no evidence of acute coronary syndrome, congestive heart failure or bacterial pneumonia. On re-evaluation she is doing quite a bit better, is able speak in full sentences oxygen levels are in the mid 90 range on room air. Questions are answered and patient is safe for discharge Critical Care Time Critical Care Time Critical Care Time: Yes Total Critical Care Time: 33 Attestation: Critical care time is separate from other billable procedures. There is a high probability of a significant, sudden or life-threatening deterioration that requires my full and direct attention, intervention and personal management. This critical care time includes consultation with family and other consulting doctors, review of records, and interpretation of data from labs, EKGs and imaging as well as managements of acute respiratory distress of uncertain etiology Discharge Plan Departure Patient Disposition: Home Clinical Impression: Adenovirus enteritis, Adenoviral infection Acute asthma exacerbation Qualifiers: Asthma severity: severe Asthma persistence: persistent Qualified Code(s): J45.51 - Severe persistent asthma with (acute) exacerbation Instructions: DI for Asthma -- Adult, DI for Viral Gastroenteritis -- Adult Activity Restrictions/Additional Instructions: Thank you for coming in today You have adenovirus this is causing your diarrhea by affecting your gut and it is also causing an acute asthma exacerbation by affecting your lungs. Fortunately, you do not have evidence of blood clots in her lungs, heart attack, your heart failure is appropriately controlled, I am not seeing signs of bacterial infection, there are no collapsed lungs, your kidney function and electrolytes are all appropriate. By day 5, I suspect you are getting close to the end of the diarrhea. I do recommend clear fluids and simple easy to digest foods as you have been doing. It is okay to continue to use the Imodium. Time will help this With your breathing, I have given you dose of IV steroids and will recommend a prednisone taper. Please continue to use your nebulizers and I am going to give you a prescription for albuterol MDI to use 4 times a day. Hopefully when prescribed like this, your insurance will provide additional inhalers. Please schedule an appointment with your primary care doctor within the next 3-5 days to make sure that you do not need additional steroid prior to stopping this course. If you find that you are getting worse or develop any new symptoms, please feel free to return to the emergency department for further evaluation. Prescriptions: New prednisone 20 mg tablet 20 mg PO DAILY Qty: 14 0RF Rx Instructions: 60 mg x 2 days, 40 mg x 2 days, 20 mg x 2 days and 10 mg x 4 days prednisone 20 mg tablet 20 mg PO DAILY Qty: 14 0RF Rx Instructions: 60 mg for 2 days, 40 mg for 2 days 20 mg for 2 days, 10 mg for 4 days albuterol sulfate [ProAir HFA] 90 mcg/actuation HFA aerosol inhaler 2 puff inhalation QID Qty: 8.5 1RF No Action hydrocortisone valerate 0.2 % cream 0.2 % Topical BIDP Qty: 15 4RF spironolactone 25 mg tablet 12.5 mg PO QPM Qty: 45 2RF methocarbamol 500 mg tablet 500 mg PO TID PRN (Reason: spasms) Qty: 90 5RF montelukast 10 mg tablet 10 mg PO QPM Qty: 90 1RF epinephrine 0.3 mg/0.3 mL auto-injector 0.3 mg IM X1 PRN (Reason: anaphylaxis) Qty: 1 3RF (DME) Nebulizer See Rx Instructions .Route .MEDSUPPLY Qty: 1 0RF Rx Instructions: As directed albuterol sulfate [Ventolin HFA] 90 mcg/actuation HFA aerosol inhaler 2 puff inhalation Q6H PRN (Reason: shortness of breath or wheezing) Qty: 54 11RF albuterol sulfate 2.5 mg /3 mL (0.083 %) solution for nebulization 5 - 10 mg INHALATION Q4-6H PRN (Reason: shortness of breath or wheezing) Qty: 180 11RF rosuvastatin 40 mg tablet 40 mg PO QPM Qty: 90 1RF nitroglycerin 0.4 mg tablet, sublingual 0.4 mg SL Q5-15M PRN (Reason: chest pain) Qty: 25 11RF budesonide 0.5 mg/2 mL suspension for nebulization 0.5 mg inhalation BID Qty: 60 11RF metoprolol tartrate 25 mg tablet 50 mg PO BID diclofenac sodium 1 % gel 2 gram TOP QID Qty: 100 1RF Rx Instructions: apply to single elbow, wrist or hand; for hand includes palm/fingers/back of hand Repatha SureClick 140 mg/mL pen injector 140 mg SUBCUT Q2W (DME) Parking Permit... See Rx Instructions .ROUTE .MEDSUPPLY Qty: 1 0RF Rx Instructions: As directed duloxetine [Cymbalta] 20 mg capsule,delayed release(DR/EC) 20 mg PO BID Qty: 180 1RF clonidine HCl 0.2 mg tablet 0.2 mg PO TID PRN (Reason: hypertensive emergency) Qty: 20 0RF Rx Instructions: For BP >180/110 ezetimibe 10 mg tablet 10 mg PO DAILY Qty: 90 3RF furosemide 40 mg tablet 40 mg PO BID Qty: 180 1RF lidocaine [Lidoderm] 5 % adhesive patch,medicated 1 patch TOP DAILY PRN (Reason: Pain, Moderate) Rx Instructions: leave on most painful area for 12 hrs gabapentin 600 mg tablet 600 mg PO DAILY aspirin 81 mg tablet,chewable 81 mg PO DAILY clopidogrel [Plavix] 75 mg Tablet 75 mg PO BEDTIME Referrals: Genaro Steward MD [Primary Care Provider] -
[2022-01-16 18:54] LABS: Influenza A - CEPHEID Flu A NEGATIVE (NEGATIVE); Influenza B - CEPHEID Flu B NEGATIVE (NEGATIVE); Respiratory Syncytial Virus Negative (Negative)
[2022-01-16 19:01] LABS: COVID-19 CEPHEID 4-PLEX PCR Negative (Negative)
[2022-01-16 21:00] LABS: Add Manual Diff / Slide Review NO; Basophils Absolute Auto 100 /uL (0-100); Basophils Percent Auto 0.6 % (0-2); Eosinophils Absolute Auto 300 /uL (0-450); Eosinophils Percent Auto 2.8 % (2-4); Hematocrit 36.6 % (36-46); Hemoglobin 12.3 g/dL (12.0-16.0); Lymphocytes Absolute Auto 2700 /uL (1100-4500); Lymphocytes Percent Auto 28.3 % (25-40); Mean Corpuscular HGB Conc 33.5 % (30-36); Mean Corpuscular Hemoglobin 28.4 PG (26-34); Mean Corpuscular Volume 84.6 fL (80-100); Monocytes Absolute Auto 900 /uL (0-900); Monocytes Percent Auto 9.2 % (3-14); Neutrophils Absolute Auto 5700 /uL (1500-7000); Neutrophils Percent Auto 59.1 % (50-75); Platelet Count 302 X10^3/uL (150-400); Red Blood Cell Count 4.32 X10^6/uL (4.0-5.2); Red Cell Distribution Width 14.5 % (11.6-14.8); White Blood Cell Count 9.7 X10^3/uL (4.5-11.0)
[2022-01-16 21:04] LABS: Prothrombin Time 11.9 SECONDS (10.1-12.7)
[2022-01-16 21:06] LABS: D Dimer 1155 ng/ml (<500)
[2022-01-16 21:07] LABS: PTT Partial Thromboplastin Tim 22 SECONDS (26-36)
[2022-01-16 21:13] LABS: Alanine Aminotransferase 19 IU/L (<35); Albumin Globulin Ratio 1.3 (1.0-2.8); Alkaline Phosphatase 75 U/L (38-126); Aspartate Aminotransferase 20 IU/L (14-36); BUN Creatinine Ratio 20.9 (6-22); Bilirubin Total 0.4 mg/dL (0.2-1.3); Blood Urea Nitrogen 14 mg/dL (7-17); Calcium 8.9 mg/dL (8.4-10.2); Carbon Dioxide 27 mmol/L (22-32); Chloride 103 mmol/L (98-107); Creatine Kinase 73 U/L (30-135); Estimated Glomerular Filt Rate > 60 mL/min (>60); Globulin 3.2 g/dL (1.7-4.1); Glucose 95 mg/dL (80-110); HEMOLYSIS 16 (0-50); Lipase 35 U/L (23-300); Magnesium 2.3 mg/dL (1.6-2.3); Potassium 3.6 mmol/L (3.4-5.1); Sodium 138 mmol/L (137-145); Total Protein 7.2 g/dL (6.3-8.2)
[2022-01-16 21:22] LABS: Lactate (Lactic Acid) 1.1 mmol/L (0.7-2.1); NT-proBNP (BNP-Adult 18+) 225 pg/mL (<125)
[2022-01-16 21:24] LABS: Troponin I < 0.012 ng/mL (0.01-0.034)
--- NOTE | 2022-01-16 21:50 | DI.CT.S_ITS ---
PROCEDURE: CT ANGIO CHEST PE PROTOCOL INDICATIONS: severe dyspnea TECHNIQUE: After the administration of intravenous contrast, 2 mm thick sections acquired from the pulmonary apices to the posterior costophrenic angles. 3-dimensional maximum intensity projection (MIP) coronal and sagittal reformats were then acquired through the thorax. For radiation dose reduction, the following was used: automated exposure control, adjustment of mA and/or kV according to patient size. COMPARISON: [facility], CT, CT ANGIO CHEST PE, 08/08/2017, 17:04. FINDINGS: Image quality: There is metallic streak artifact from patient's right shoulder prosthesis limiting evaluation. Pulmonary arteries: Pulmonary arteries demonstrate no intraluminal filling defects to suggest central pulmonary embolism. There is enlargement of the pulmonary arteries, with the main pulmonary artery measuring up to 4.3 cm suggestive of pulmonary arterial hypertension. Lower Neck: No lymphadenopathy by size criteria. Thyroid: Visualized thyroid demonstrates no discrete nodules. Axillae: No lymphadenopathy by size criteria. Chest Wall: Unremarkable. Bones: Visualized osseous structures demonstrate no suspicious lesions. Lungs and Airways: No acute consolidation. There is nodular thickening along the right minor fissure measuring up to 0.8 cm on series 5, image 151. Findings are similar to the prior study. The trachea and central airways are patent. Pleura: No pneumothorax or pleural effusions. Heart: Heart size is normal. No pericardial effusion. There is coronary arterial vascular calcification. Thoracic Vessels: The thoracic aorta is normal in size. Mediastinum and Eliz: No lymphadenopathy by size criteria. Esophagus: No wall thickening. No hiatal hernia. Abdomen: Visualized upper abdominal solid organs appear normal in the early arterial phase of enhancement. IMPRESSION: 1. No evidence of pulmonary embolism. 2. Enlargement of the pulmonary arteries suggestive of pulmonary arterial hypertension. 3. No acute airspace consolidation. Dictated by: Jacob Gandhi M.D. on 01/16/2022 at 23:49 Approved by: Jacob Gandhi M.D. on 01/16/2022 at 23:52
[2022-01-16 23:13] LABS: Adenovirus Detected (Not Detect)
[2022-01-16 23:14] LABS: B. parapertussis Not Detected (Not Detecte); Bordetella pertussis Not Detected (Not Detecte); Chlamydophila pneumoniae Not Detected (Not Detect); Coronavirus 229E Not Detected (Not Detect); Coronavirus HKU1 Not Detected (Not Detect); Coronavirus NL 63 Not Detected (Not Detect); Coronavirus OC43 Not Detected (Not Detect); Human Metapneumovirus Not Detected (Not Detect); Human Rhinovirus/Enterovirus Not Detected (Not Detect); Influenza A Not Detected (Not Detect); Influenza B Not Detected (Not Detect); Mycoplasma pneumoniae Not Detected (Not Detect); Parainfluenza Virus 1 Not Detected (Not Detect); Parainfluenza Virus 2 Not Detected (Not Detect); Parainfluenza Virus 3 Not Detected (Not Detect); Parainfluenza Virus 4 Not Detected (Not Detect); Respiratory Syncytial Virus Not Detected (Not Detect); SARS- CoV-2 Not Detected (Not Detecte)
[2022-01-17] VITALS: BP 181/86; PULSE 74; RESP 26; O2SAT 94
[2022-01-17 00:30] VITALS: BP 174/82; PULSE 73; RESP 18; O2SAT 93
[2022-01-17 01:00] VITALS: PULSE 73; RESP 27
[2022-01-17 01:30] VITALS: PULSE 73; RESP 30; O2SAT 95
[2022-01-17 01:30] LABS: Bacteria Urine None Seen; RBC Urine 0-1/HPF (0-5/HPF); Squamous Epithelial Cell Urine 1-5 /HPF (0-5/HPF); WBC Urine 0-1/HPF (0-5/HPF)
[2022-01-17] MEDS: methylPREDNISolone 125 MG/2 ML VIAL IV (01:40)
== END 2022-01-17 01:41 | disposition home or self-care (01) ==
PROVIDERS: Emergency Medicine; Emergency Provider Emergency Medicine; PCP Student in an Organized Health Care Education/Training Program
DX: B34.0 Adenovirus infection, unspecified (principal); A08.2 Adenoviral enteritis; J45.51 Severe persistent asthma with (acute) exacerbation; R11.2 Nausea with vomiting, unspecified; R07.9 Chest pain, unspecified; Z79.899 Other long term (current) drug therapy; Z79.01 Long term (current) use of anticoagulants; Z20.822 Contact with and (suspected) exposure to COVID-19
CPT/HCPCS: 0241U; 36415; 71045; 71275; 80053; 81003; 81015; 82550; 83605; 83690; 83735; 83880; 84484; 85025; 85379; 85610; 85730; 87040; 87086; 87633; 93005; 93010; 96374; 99284; J2930; Q9967

== ENCOUNTER → 2022-04-05 12:46 | Outpatient (CLI) | payer OTHER, SELFPAY ==
[2021-02-18 13:11] VITALS: BMI 51.5
[2022-04-05 13:35] LABS: Add Manual Diff / Slide Review NO; Basophils Absolute Auto 100 /uL (0-100); Basophils Percent Auto 1.2 % (0-2); Eosinophils Absolute Auto 300 /uL (0-450); Eosinophils Percent Auto 2.8 % (2-4); Hematocrit 40.6 % (36-46); Hemoglobin 13.2 g/dL (12.0-16.0); Lymphocytes Absolute Auto 3000 /uL (1100-4500); Lymphocytes Percent Auto 31.8 % (25-40); Mean Corpuscular HGB Conc 32.6 % (30-36); Mean Corpuscular Hemoglobin 28.4 PG (26-34); Mean Corpuscular Volume 87.1 fL (80-100); Monocytes Absolute Auto 600 /uL (0-900); Monocytes Percent Auto 6.6 % (3-14); Neutrophils Absolute Auto 5400 /uL (1500-7000); Neutrophils Percent Auto 57.6 % (50-75); Platelet Count 297 X10^3/uL (150-400); Red Blood Cell Count 4.66 X10^6/uL (4.0-5.2); Red Cell Distribution Width 14.7 % (11.6-14.8); White Blood Cell Count 9.3 X10^3/uL (4.5-11.0)
[2022-04-05 13:42] LABS: BUN Creatinine Ratio 29.8 (6-22); Blood Urea Nitrogen 17 mg/dL (7-17); Calcium 9.1 mg/dL (8.4-10.2); Carbon Dioxide 27 mmol/L (22-32); Chloride 103 mmol/L (98-107); Cholesterol 215 mg/dL (140-199); Estimated Glomerular Filt Rate > 60 mL/min (>60); Glucose 101 mg/dL (80-110); HDL Cholesterol 46 mg/dL (40-60); HEMOLYSIS 18 (0-50); LDL Cholesterol Calculated 152 mg/dL (<100); Potassium 4.4 mmol/L (3.4-5.1); Sodium 139 mmol/L (137-145); Triglycerides 83 mg/dL (35-150)
== END ==
PROVIDERS: PCP Student in an Organized Health Care Education/Training Program; Referring Provider Internal Medicine Cardiovascular Disease; Visit Provider Internal Medicine Cardiovascular Disease
DX: E78.5 Hyperlipidemia, unspecified (principal); I25.10 Atherosclerotic heart disease of native coronary artery without angina pectoris
CPT/HCPCS: 36415; 80048; 80061; 85025

== ENCOUNTER → 2022-08-02 14:52 | Outpatient (CLI) | payer MEDICARE, OTHER, SELFPAY ==
[2021-02-18 13:11] VITALS: BMI 51.5
--- NOTE | 2022-08-02 14:53 | DI.ECHO.S_ITS ---
[facility]---------+ [facility] +---------+ : : [address] : [address] : : : : [id number] : : : : Phone: [phone]+ Echocardiogram Report + + :Name: PEDRO CAMARGO Study Date: 08/02/2022 Height: 63 in : [facility] ReadingLocation: Weight: 303 lb : : Gender: Female BSA: 2.3 m2 : :: 1955 Age: 67 yrs BP: 166/96 mmHg: :Reason For Study: Hypertensive : :Ordering Physician: Darrell, : :Grant Performed By: Cheyanne Pierre : :Referring: GRANT YANG : + + Interpretation Summary 1) Normal sized left ventricle with low normal systolic function (EF 50-55%). 2) Upper normal right ventricular size with normal function. 3) No significant valvular abnormalities. 4) Compared to the Echo done 06/26/2021, no significant change. Procedure: A two-dimensional transthoracic echocardiogram with color flow and Doppler was performed. The study quality was technically difficult. Comparison is made with the echocardiogram of 06/26/2021. The patient was in normal sinus rhythm during the exam. Left Ventricle: The left ventricle is normal in size. The ejection fraction is estimated to be 50-55%. There are no focal wall motion abnormalities. Diastolic parameters suggest a relaxation abnormality of the left ventricle, consistent with probable normal filling pressures. Right Ventricle: The right ventricle is at the upper limits of normal in size. The right ventricular systolic function is normal. Atria: The left atrial size is normal. Right atrial size is normal. There is no Doppler evidence for an interatrial shunt. Mitral Valve: The mitral valve is normal. There is no mitral valve stenosis. There is no mitral regurgitation noted. Aortic Valve: The aortic valve is not well visualized. There is no aortic valve stenosis. No aortic regurgitation is present. Tricuspid Valve: The tricuspid valve is normal. There is no tricuspid stenosis. There is trace tricuspid regurgitation. Pulmonary artery pressures cannot be estimated because of the lack of a measurable TR jet velocity. Pulmonic Valve: The pulmonic valve is not well visualized. There is no pulmonic valvular stenosis. There is no pulmonic valvular regurgitation. Great Vessels: The aortic root is normal size. The ascending aorta is normal in size. The pulmonary artery is normal size. The IVC is of normal diameter and collapses greater than 50% with a sniff. This suggests a low right atrial pressure of 3 mm Hg. Pericardium/ Pleura There is no pericardial effusion. MMode/2D Measurements & Calculations LVOT diam: 2.1 cm LA A2 area: 19.8 cm2 Ao root diam: 3.1 cm LA A4 area: 17.2 cm2 asc Aorta Diam: 3.0 cm LA length (vol): 5.5 cm LA vol: 52.5 ml LA vol index: 22.7 ml/m2 RA long axis: 5.2 cm RVD1 (basal): 4.1 cm RA area: 16.5 cm2 RA vol: 44.2 ml RA : 19.1 ml/m2 LVLs ap4: 6.7 cm LVLd ap2: 7.3 cm LVLs ap2: 6.5 cm TAPSE_phl: 2.5 cm Doppler Measurements & Calculations Ao V2 max: 186.0 cm/sec LVOT Max Xu: 122.0 cm/sec Ao V2 mean: 117.0 cm/sec LV V1 max P.0 mmHg Ao max P.0 mmHg LV V1 VTI: 25.1 cm Ao mean P.0 mmHg HALLIE(I,D): 2.4 cm2 Ao V2 VTI: 36.6 cm HALLIE(V,D): 2.3 cm2 sev ratio: 0.69 HALLIE indexed to BSA (cm^2/m^2): 1.0 MV E max xu: 71.6 cm/sec PA V2 max: 107.0 cm/sec MV A max xu: 88.7 cm/sec PA V2 mean: 73.4 cm/sec MV E/A: 0.81 PA mean P.0 mmHg Med Peak E' Xu: 4.4 cm/sec PA pr(Accel): 45.7 mmHg E/E' med: 16.5 Lat Peak E' Xu: 7.5 cm/sec E/E' lat: 9.6 E/e' average: 13.0 MV dec time: 0.26 sec SV(LVOT): 86.9 ml AV VR_phl: 0.66 HALLIE(VTI)/BSA_phl: 1.0 MV P1/2t-pr_phl: 75.0 msec Reading Physician:05:00 PM
== END ==
PROVIDERS: PCP Pediatrics; Referring Provider Pediatrics; Visit Provider Pediatrics
DX: I16.0 Hypertensive urgency (principal)
CPT/HCPCS: 93306

== ENCOUNTER → 2022-08-10 14:12 | Outpatient (CLI) | payer MEDICARE, OTHER, SELFPAY ==
[2021-02-18 13:11] VITALS: BMI 51.5
--- NOTE | 2022-08-10 14:13 | DI.US.S_ITS ---
PROCEDURE: US PERIPH VENOUS LOW EXTREM BI INDICATIONS: EDEMA; CHRONIC ORTHOPNIA TECHNIQUE: Real-time imaging, as well as color and pulse Doppler interrogation, were performed of the deep veins of both legs from the inguinal ligament to the popliteal fossa. COMPARISON: None. FINDINGS: Right: The common femoral, femoral and popliteal veins are normally compressible, and free of intraluminal thrombus. Color and pulse Doppler demonstrate normal phasic intravascular flow. There is normal augmentation response to distal compression maneuver. Left: The common femoral, femoral and popliteal veins are normally compressible, and free of intraluminal thrombus. Color and pulse Doppler demonstrate normal phasic intravascular flow. There is normal augmentation response to distal compression maneuver. IMPRESSION: No DVT found bilaterally. Dictated by: Emory Walsh M.D. on 08/10/2022 at 14:56 Approved by: Emory Walsh M.D. on 08/10/2022 at 14:56
== END ==
PROVIDERS: PCP Pediatrics; Referring Provider Pediatrics; Visit Provider Pediatrics
DX: R60.0 Localized edema (principal); I16.0 Hypertensive urgency; I25.10 Atherosclerotic heart disease of native coronary artery without angina pectoris; I10 Essential (primary) hypertension; M17.0 Bilateral primary osteoarthritis of knee; R06.01 Orthopnea
CPT/HCPCS: 93970

== ENCOUNTER → 2022-08-24 12:15 | Outpatient (CLI) | payer MEDICARE, OTHER, SELFPAY ==
[2021-02-18 13:11] VITALS: BMI 51.5
--- NOTE | 2022-08-24 12:17 | DI.CT.S_ITS ---
PROCEDURE: CT ANGIO CHEST PE PROTOCOL INDICATIONS: recurring orthopnea, leg swelling hx, leg U/S planned, PEs? TECHNIQUE: After the administration of intravenous contrast, 2 mm thick sections acquired from the pulmonary apices to the posterior costophrenic angles. 3-dimensional maximum intensity projection (MIP) coronal and sagittal reformats were then acquired through the thorax. For radiation dose reduction, the following was used: automated exposure control, adjustment of mA and/or kV according to patient size. COMPARISON: [facility], CT, CT ANGIO CHEST PE PROTOCOL, 01/16/2022, 21:59. FINDINGS: Pulmonary arteries: The main pulmonary artery is enlarged measuring 4.2 cm. No intraluminal filling defects to suggest central pulmonary embolism. Lungs and pleura: No consolidation or pleural effusion. Few small pulmonary nodules present for example a 5 millimeter subpleural left lower lobe nodule, not significantly changed. Mediastinum: no pericardial effusion. No mediastinal or hilar adenopathy. Esophagus is normal in caliber. Multivessel coronary artery calcifications and/or stents. Bones and chest wall: Multilevel degenerative change of the visualized spine. No axillary or supraclavicular adenopathy. Right shoulder arthroplasty. Abdomen: Visualized upper abdominal solid organs appear unremarkable in the early arterial phase of enhancement. IMPRESSION: 1. No pulmonary embolism visualized. 2. Enlargement of the main pulmonary artery, a finding which can be seen in the setting of pulmonary hypertension. Dictated by: Topher Sims M.D. on 08/24/2022 at 14:54 Approved by: Topher Sims M.D. on 08/24/2022 at 15:08
[2022-08-24 13:36] LABS: D Dimer 423 ng/ml (<500)
[2022-08-24 13:40] LABS: Add Manual Diff / Slide Review NO; Basophils Absolute Auto 100 /uL (0-100); Eosinophils Absolute Auto 200 /uL (0-450); Eosinophils Percent Auto 2.4 % (2-4); Hematocrit 38.9 % (36-46); Lymphocytes Absolute Auto 2400 /uL (1100-4500); Mean Corpuscular HGB Conc 33.4 % (30-36); Mean Corpuscular Volume 86.7 fL (80-100); Monocytes Absolute Auto 600 /uL (0-900); Monocytes Percent Auto 6.6 % (3-14); Neutrophils Absolute Auto 6300 /uL (1500-7000); Platelet Count 304 X10^3/uL (150-400); Red Blood Cell Count 4.49 X10^6/uL (4.0-5.2); Red Cell Distribution Width 14.1 % (11.6-14.8); White Blood Cell Count 9.6 X10^3/uL (4.5-11.0)
[2022-08-24 13:46] LABS: Alanine Aminotransferase 19 IU/L (<35); Albumin 4.2 g/dL (3.5-5.0); Albumin Globulin Ratio 1.2 (1.0-2.8); Alkaline Phosphatase 88 U/L (38-126); Aspartate Aminotransferase 22 IU/L (14-36); BUN Creatinine Ratio 29.4 (6-22); Bilirubin Total 0.6 mg/dL (0.2-1.3); Blood Urea Nitrogen 20 mg/dL (7-17); Calcium 9.3 mg/dL (8.4-10.2); Carbon Dioxide 27 mmol/L (22-32); Chloride 103 mmol/L (98-107); Estimated Glomerular Filt Rate > 60 mL/min (>60); Globulin 3.4 g/dL (1.7-4.1); Glucose 97 mg/dL (80-110); HEMOLYSIS 19 (0-50); Potassium 4.2 mmol/L (3.4-5.1); Sodium 137 mmol/L (137-145); Total Protein 7.6 g/dL (6.3-8.2)
[2022-08-24 13:55] LABS: NT-proBNP (BNP-Adult 18+) 304 pg/mL (<125)
== END ==
PROVIDERS: PCP Pediatrics; Referring Provider Pediatrics; Visit Provider Pediatrics
DX: I27.20 Pulmonary hypertension, unspecified (principal); I16.0 Hypertensive urgency; I50.20 Unspecified systolic (congestive) heart failure; I25.10 Atherosclerotic heart disease of native coronary artery without angina pectoris; R06.00 Dyspnea, unspecified; I10 Essential (primary) hypertension; E66.01 Morbid (severe) obesity due to excess calories; R06.01 Orthopnea; R09.02 Hypoxemia; R55 Syncope and collapse; R06.9 Unspecified abnormalities of breathing; R60.9 Edema, unspecified
CPT/HCPCS: 36415; 71275; 80053; 83880; 85025; 85379; Q9967

== ENCOUNTER → 2022-09-21 10:33 | Outpatient (CLI) | payer MEDICARE, OTHER, SELFPAY ==
[2021-02-18 13:11] VITALS: BMI 51.5
[2022-09-21 11:30] LABS: Appearance Urine UA CLEAR; Bilirubin Urine UA NEGATIVE (NEGATIVE); Color Urine UA YELLOW; Glucose Urine UA NEGATIVE (Negative); Ketones Urine UA TRACE (NEGATIVE); Leukocyte Esterase Urine UA NEGATIVE (NEGATIVE); Nitrite Urine UA NEGATIVE (Negative); Occult Blood Urine UA NEGATIVE (Negative); Protein Urine UA NEGATIVE (Negative); Specific Gravity Urine UA 1.015 (1.000-1.035)
[2022-09-21 11:32] LABS: pH Urine UA 6.5 (4.5-8.0)
[2022-09-21 13:02] LABS: Bacteria Urine None Seen; Culture Indicated Urine Cult Not Indicated; RBC Urine None Seen (0-5/HPF); Squamous Epithelial Cell Urine None Seen (0-5/HPF); Urine Comments Microscopic Normal; WBC Urine None Seen (0-5/HPF)
== END ==
PROVIDERS: PCP Pediatrics; Referring Provider Pediatrics; Visit Provider Pediatrics
DX: I27.20 Pulmonary hypertension, unspecified (principal); I50.20 Unspecified systolic (congestive) heart failure; R15.9 Full incontinence of feces
CPT/HCPCS: 81001

== ENCOUNTER → 2022-12-18 11:30 | Outpatient (CLI) | payer MEDICARE, OTHER, SELFPAY ==
[2021-02-18 13:11] VITALS: BMI 51.5
[2022-12-18 12:47] LABS: Add Manual Diff / Slide Review NO; Basophils Absolute Auto 0 /uL (0-100); Basophils Percent Auto 0.3 % (0-2); Eosinophils Absolute Auto 200 /uL (0-450); Eosinophils Percent Auto 2.9 % (2-4); Hematocrit 40.2 % (36-46); Hemoglobin 13.5 g/dL (12.0-16.0); Lymphocytes Absolute Auto 2400 /uL (1100-4500); Lymphocytes Percent Auto 29.3 % (25-40); Mean Corpuscular HGB Conc 33.7 % (30-36); Mean Corpuscular Volume 86.2 fL (80-100); Monocytes Absolute Auto 500 /uL (0-900); Monocytes Percent Auto 6.4 % (3-14); Neutrophils Absolute Auto 5100 /uL (1500-7000); Neutrophils Percent Auto 61.1 % (50-75); Platelet Count 335 X10^3/uL (150-400); Red Blood Cell Count 4.66 X10^6/uL (4.0-5.2); Red Cell Distribution Width 13.9 % (11.6-14.8); White Blood Cell Count 8.3 X10^3/uL (4.5-11.0)
[2022-12-18 13:29] LABS: BUN Creatinine Ratio 22.2 (6-22); Blood Urea Nitrogen 16 mg/dL (7-17); Calcium 9.8 mg/dL (8.4-10.2); Carbon Dioxide 32 mmol/L (22-32); Chloride 102 mmol/L (98-107); Cholesterol 256 mg/dL (140-199); Estimated Glomerular Filt Rate > 60 mL/min (>60); Glucose 95 mg/dL (80-110); HDL Cholesterol 47 mg/dL (40-60); HEMOLYSIS < 15 (0-50); LDL Cholesterol Calculated 190 mg/dL (<100); Potassium 5.1 mmol/L (3.4-5.1); Sodium 139 mmol/L (137-145); Triglycerides 96 mg/dL (35-150)
== END ==
PROVIDERS: PCP Pediatrics; Referring Provider Internal Medicine Cardiovascular Disease; Visit Provider Internal Medicine Cardiovascular Disease
DX: E78.5 Hyperlipidemia, unspecified (principal); I10 Essential (primary) hypertension
CPT/HCPCS: 36415; 80048; 80061; 85025

== ENCOUNTER → 2023-06-05 15:06 | Outpatient (CLI) | payer MEDICARE, OTHER, SELFPAY ==
[2021-02-18 13:11] VITALS: BMI 51.5
[2023-06-05 16:43] LABS: Add Manual Diff / Slide Review NO; Basophils Absolute Auto 100 /uL (0-100); Basophils Percent Auto 0.9 % (0-2); Eosinophils Absolute Auto 300 /uL (0-450); Hematocrit 39.9 % (36-46); Hemoglobin 13.3 g/dL (12.0-16.0); Lymphocytes Absolute Auto 2700 /uL (1100-4500); Lymphocytes Percent Auto 26.7 % (25-40); Mean Corpuscular HGB Conc 33.4 % (30-36); Mean Corpuscular Volume 86.8 fL (80-100); Monocytes Absolute Auto 600 /uL (0-900); Monocytes Percent Auto 5.7 % (3-14); Neutrophils Absolute Auto 6500 /uL (1500-7000); Neutrophils Percent Auto 63.7 % (50-75); Platelet Count 308 X10^3/uL (150-400); Red Blood Cell Count 4.59 X10^6/uL (4.0-5.2); Red Cell Distribution Width 14.2 % (11.6-14.8); White Blood Cell Count 10.2 X10^3/uL (4.5-11.0)
[2023-06-05 16:50] LABS: BUN Creatinine Ratio 22.4 (6-22); Blood Urea Nitrogen 19 mg/dL (7-17); Calcium 9.2 mg/dL (8.4-10.2); Carbon Dioxide 28 mmol/L (22-32); Chloride 107 mmol/L (98-107); Cholesterol 224 mg/dL (140-199); Estimated Glomerular Filt Rate > 60 mL/min (>60); Glucose 131 mg/dL (80-110); HDL Cholesterol 49 mg/dL (40-60); HEMOLYSIS 27 (0-50); LDL Cholesterol Calculated 154 mg/dL (<100); Potassium 4.1 mmol/L (3.4-5.1); Sodium 140 mmol/L (137-145); Triglycerides 104 mg/dL (35-150)
== END ==
PROVIDERS: PCP Pediatrics; Referring Provider Internal Medicine Cardiovascular Disease; Visit Provider Internal Medicine Cardiovascular Disease
DX: I25.10 Atherosclerotic heart disease of native coronary artery without angina pectoris (principal); E78.5 Hyperlipidemia, unspecified
CPT/HCPCS: 36415; 80048; 80061; 85025

== ENCOUNTER → 2023-06-18 16:38 | Outpatient (CLI) | payer MEDICARE, OTHER, SELFPAY ==
[2021-02-18 13:11] VITALS: BMI 51.5
[2023-06-18 18:09] LABS: Alanine Aminotransferase 19 IU/L (<35); Albumin 4.5 g/dL (3.5-5.0); Albumin Globulin Ratio 1.4 (1.0-2.8); Alkaline Phosphatase 81 U/L (38-126); Aspartate Aminotransferase 21 IU/L (14-36); Bilirubin Total 0.4 mg/dL (0.2-1.3); Bilirubin Unconjugated 0.2 mg/dL (0.0-1.1); Globulin 3.2 g/dL (1.7-4.1); HEMOLYSIS < 15 (0-50); Total Protein 7.7 g/dL (6.3-8.2)
[2023-06-18 18:10] LABS: Hemoglobin A1C% w Est Avg Glu 5.6 % (4.0-6.0)
== END ==
PROVIDERS: PCP Family Medicine; Referring Provider Family Medicine; Visit Provider Family Medicine
DX: E66.01 Morbid (severe) obesity due to excess calories (principal)
CPT/HCPCS: 36415; 80076; 83036

== ENCOUNTER → 2023-07-18 10:50 | Outpatient (CLI) | payer MEDICARE, OTHER, SELFPAY ==
[2021-02-18 13:11] VITALS: BMI 51.5
--- NOTE | 2023-07-18 10:52 | DI.RAD.S_ITS ---
PROCEDURE: XR DEXA AXIAL SKELETON INDICATIONS: screening for osteoporosis COMPARISON: None. FINDINGS: Lumbar Spine: Bone mineral density 1.024 g/cm2, T score -0.1 Left Hip: Bone mineral density 0.832 g/cm2, T score -0.9. Left Femoral Neck: Bone mineral density 0.727 g/cm2, T score -1.1. Right Hip: Bone mineral density 0.773 g/cm2, T score -1.4. Right Femoral Neck: Bone mineral density 0.644 g/cm2, T score -1.8. Fracture Risk Calculation (when applicable): 10-year fracture risk of a major osteoporotic fracture 11% and of a hip fracture 0.9%. (T score greater or equal to -1.0 to: NORMAL) (T score from -1.1 to -2.4: OSTEOPENIA) (T score less than or equal to -2.5: OSTEOPOROSIS) IMPRESSION: Osteopenia Follow-up guidelines as follows: Osteoporosis: Consider a repeat DEXA and Vertebral Fracture Assessment (VFA) exam in 2 years or sooner if medically necessary, to reassess this patient's status. Osteopenia: Consider a repeat DEXA in 2-3 years to reassess this patient's status, or if there is a new clinical indication. Normal: Consider a repeat DEXA in 5 years or sooner, or if there is a new clinical indication. All treatment decisions require clinical judgment and consideration of individual patient factors, including patient preferences, comorbidities, previous drug use, risk factors not captured in the FRAX model (e.g., frailty, falls, vitamin D deficiency, increased bone turnover, interval significant decline in bone density ) and possible under- or over-estimation of fracture risk by FRAX. In addition, the NOF Guide recommends that FDA-approved medical therapies be considered in postmenopausal women and men age >= 50 years with a: * Hip or vertebral (clinical or morphometric) fracture * T-score of <=-2.5 at the spine or hip * Ten-year fracture probability by FRAX of >= 3% for hip fracture or >=20% for major osteoporotic fracture. People with diagnosed cases of osteoporosis or at high risk for fracture should have regular bone mineral density tests. For patients eligible for Medicare, routine testing is allowed once every 2 years. The testing frequency can be increased to one year for patients who have rapidly progressing disease, those who are receiving or discontinuing medical therapy to restore bone mass, or have additional risk factors. Dictated by: Junior Duncan M.D. on 07/18/2023 at 14:58 Approved by: Junior Duncan M.D. on 07/18/2023 at 15:00
== END ==
LOC: RAD 10:51
PROVIDERS: PCP Family Medicine; Referring Provider Family Medicine; Visit Provider Family Medicine
DX: Z13.820 Encounter for screening for osteoporosis; M85.89 Other specified disorders of bone density and structure, multiple sites
CPT/HCPCS: 77080

== ENCOUNTER → 2023-08-13 11:24 | Outpatient (CLI) | payer MEDICARE, OTHER, SELFPAY ==
[2021-02-18 13:11] VITALS: BMI 51.5
[2023-08-13 12:59] LABS: Add Manual Diff / Slide Review NO; Basophils Absolute Auto 100 /uL (0-100); Basophils Percent Auto 0.9 % (0-2); Eosinophils Absolute Auto 200 /uL (0-450); Hematocrit 38.6 % (36-46); Hemoglobin 12.8 g/dL (12.0-16.0); Lymphocytes Absolute Auto 2500 /uL (1100-4500); Lymphocytes Percent Auto 30.5 % (25-40); Mean Corpuscular HGB Conc 33.2 % (30-36); Mean Corpuscular Volume 87.5 fL (80-100); Monocytes Absolute Auto 500 /uL (0-900); Monocytes Percent Auto 5.9 % (3-14); Neutrophils Absolute Auto 4900 /uL (1500-7000); Neutrophils Percent Auto 59.7 % (50-75); Platelet Count 322 X10^3/uL (150-400); Red Blood Cell Count 4.41 X10^6/uL (4.0-5.2); Red Cell Distribution Width 14.7 % (11.6-14.8); White Blood Cell Count 8.3 X10^3/uL (4.5-11.0)
[2023-08-13 13:07] LABS: Hemoglobin A1C% w Est Avg Glu 5.5 % (4.0-6.0)
[2023-08-13 13:32] LABS: Alanine Aminotransferase 19 IU/L (<35); Albumin 4.3 g/dL (3.5-5.0); Albumin Globulin Ratio 1.4 (1.0-2.8); Alkaline Phosphatase 77 U/L (38-126); Aspartate Aminotransferase 22 IU/L (14-36); Bilirubin Total 0.6 mg/dL (0.2-1.3); Blood Urea Nitrogen 15 mg/dL (7-17); Calcium 9.3 mg/dL (8.4-10.2); Carbon Dioxide 30 mmol/L (22-32); Chloride 106 mmol/L (98-107); Cholesterol 233 mg/dL (140-199); Estimated Glomerular Filt Rate > 60 mL/min (>60); Glucose 94 mg/dL (80-110); HDL Cholesterol 57 mg/dL (40-60); HEMOLYSIS < 15 (0-50); LDL Cholesterol Calculated 160 mg/dL (<100); Potassium 5.1 mmol/L (3.4-5.1); Sodium 142 mmol/L (137-145); Total Protein 7.3 g/dL (6.3-8.2); Triglycerides 79 mg/dL (35-150)
[2023-08-13 14:00] LABS: TSH w/ Reflex to FT4 1.52 uIU/mL (0.47-4.68)
[2023-08-13 14:36] LABS: Folate 4.4 ng/mL (2.76-20.0); Vitamin B12 388 pg/mL (239-931)
[2023-08-14 15:06] LABS: Vitamin D 25 Hydroxy (D3) 13.3 ng/mL (30.0-100.0)
[2023-08-16 13:09] LABS: Vitamin B1 104.1 nmol/L (66.5-200.0)
== END ==
PROVIDERS: PCP Family Medicine; Referring Provider Family Medicine; Visit Provider Family Medicine
DX: K90.9 Intestinal malabsorption, unspecified (principal); Z71.89 Other specified counseling
CPT/HCPCS: 36415; 80053; 80061; 82306; 82607; 82746; 83036; 84425; 84443; 85025

== ENCOUNTER → 2024-01-13 17:04 | Outpatient (CLI) | payer MEDICARE, OTHER, SELFPAY ==
[2021-02-18 13:11] VITALS: BMI 51.5
--- NOTE | 2024-01-13 17:05 | DI.MRI.S_ITS ---
PROCEDURE: MR LUMBAR SPINE WO CON INDICATIONS: LBP. n/t/burning Lateral Lt thigh TECHNIQUE: Noncontrast sagittal T1 spin echo and T2 fast echo, sagittal STIR, and T2 fast spin echo through the lumbar spine. In cases with scoliosis, additional coronal T2 fast spin echo may be performed. COMPARISON: None. FINDINGS: Image quality: Excellent. Alignment and Curvature: Trace retrolisthesis of L1 on L2, L2 on L3, and L3 on L4. Bone Marrow: Marrow is of normal overall signal. No acute vertebral body compression fractures. Spinal Cord: Conus medullaris terminates at the top of L1 level. Visualized cord demonstrates normal signal and size. Paraspinous Soft Tissues: No paravertebral masses. T12-L1: Disc bulge. No canal stenosis or foraminal stenosis. L1-L2: Chronic disc height loss. Disc bulge. Facet hypertrophy. No significant canal stenosis or foraminal stenosis. L2-L3: Trace retrolisthesis. Disc bulge. Facet hypertrophy. Borderline canal stenosis. No significant foraminal stenosis. L3-L4: Disc bulge. Facet and ligament hypertrophy. Skmt-fu-jpaifzqj canal stenosis. Moderate bilateral foraminal stenosis with mild flattening deformity on the exiting bilateral L3 nerve roots. L4-L5: Congenitally short pedicles. Disc bulge. Facet and ligament hypertrophy. Epidural lipomatosis. Severe canal stenosis. Moderate to severe bilateral foraminal stenosis. There is a degree of bilateral foraminal L4 nerve root impingement. Reference axial image 27 of series 5. Bilateral foraminal stenosis are well seen on sagittal images 5 and 12 of series 2. L5-S1: Disc bulge. Facet hypertrophy. No canal stenosis. Moderate to severe right foraminal narrowing and severe left foraminal narrowing with bilateral foraminal L5 nerve root impingement. Reference images 3 and 12 of series 2. IMPRESSION: 1. Multilevel underlying facet arthropathy and congenitally short pedicles at L4-L5. 2. Canal stenosis is mild to moderate at L3-L4 and severe at L4-L5. 3. Multilevel foraminal narrowing as described above. Findings include moderate to severe bilateral foraminal stenosis at L4-L5, as well as moderate to severe right foraminal stenosis plus severe left foraminal stenosis at L5-S1. Dictated by: Jaylon Monreal M.D. on 01/14/2024 at 8:44 Approved by: Jaylon Monreal M.D. on 01/14/2024 at 8:50
== END ==
PROVIDERS: PCP Family Medicine; Referring Provider Family Medicine; Visit Provider Family Medicine
DX: M47.816 Spondylosis without myelopathy or radiculopathy, lumbar region (principal); M47.817 Spondylosis without myelopathy or radiculopathy, lumbosacral region; M48.061 Spinal stenosis, lumbar region without neurogenic claudication; M48.07 Spinal stenosis, lumbosacral region; M54.50 Low back pain, unspecified; Z90.3 Acquired absence of stomach [part of]
CPT/HCPCS: 72148

== ENCOUNTER 2024-06-11 09:45 | Outpatient (RCR) | payer MEDICARE, OTHER, SELFPAY ==
[2021-02-18 13:11] VITALS: BMI 51.5
--- NOTE | 2024-03-10 17:49 | PT.OIE ---
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] (03/10/24) Past Medical History (Last Updated 07/09/23 @ 16:05 by Delilah Martin DO) Anxiety Ascending aortic aneurysm Chronic left-sided low back pain with left-sided sciatica (10/03/16) Coronary artery disease Depression (04/04/17) Dyspnea Encounter for subsequent annual wellness visit (AWV) in Medicare patient Essential hypertension (02/24/15) Fecal incontinence Gout History of left heart catheterization (LHC) (09/24/17) Hyperlipemia Hypoxia Mild persistent asthma without complication (02/24/15) Morbid obesity Orthopnea Primary osteoarthritis of both knees (02/24/15) Psoriasis Pulmonary hypertension Right shoulder pain Severe asthma Sleep apnea Syncope Tinea pedis Past Surgical History (Last Updated 12/23/23 @ 15:48 by Delilah Martin DO) H/O right knee surgery H/O shoulder surgery History of colonoscopy with polypectomy (10/30/10) Hx of arthroscopy of left knee (2005) S/P angioplasty with stent (08/23/17) S/P angioplasty with stent (09/24/17) Status post delivery Status post sleeve gastrectomy Visit Care Team Role Provider Type Delilah Martin DO Attending Provider Physician Family Provider Primary Care Provider Referring Provider Specialty: Family Practice Address: [address] [place] [address], [address], [facility] Email: [email or web address] Physical Therapy Initial Evaluation PT-OP-A Visit Information Start: 03/03/24 20:02 Freq: Status: Active Protocol: Document 03/10/24 13:02 LRN (Rec: 03/10/24 13:52 LRN [id number]) Out-Patient Physical Therapy Visit Information Visit Information Visit Type Initial Evaluation Visit Start Time 13:02 Visit Stop Time 13:49 Visit Number 1 Evaluation Information Evaluation Date 03/10/24 Precautions Precautions Uncontrolled HTN w/meds (~130/ 70), Diastolic CHF w/3 stents - 2016 (1)-2017 (2) PT-OP-B Current Condition Start: 03/03/24 20:02 Freq: Status: Active Protocol: Document 03/10/24 13:02 LRN (Rec: 03/10/24 13:52 LRN [id number]) Current Condition History of Current Condition Onset Date 07/2023 Current Complaints Tingling & burning down dariel lateral legs & LBP History of Current Condition Recently (07/2023) worsening of lateral thigh and LBP sensation changes. She reports history of dariel LE/LBP prior to 2018. She states pain onset after standing 10 minutes, so she tries walking, but after 30 minutes the pain worsens and she can't stand upright. She thinks her core is not strong, and she has lost weight to help relieve pain. Pt rerports she has a son who is a paraplegic since 15 yr old. 2 yrs ago used a walker all the time, 8 months ago used a cane to walk, 2 months ago did spurts using no assistive device. Must use an assistive device due to LBP . Pt reports being ambidextrous, but uses mostly her R hand since the R TSA surgery. Developmental History Developmental History Pt had TKA's hoping it would help her thigh and LBP, but has not found any relief of her pain since the surgeries (L TKA 2017, R TKA 2019). Other surgical history per pt: R TSA (2019), and L shoulder that needs a TSA but pt has chosen not to do another surgery at this time. Treatment Goals Patient/Caregiver Goals Pt goals: -Learn ex's to mitagate the pain. -Learn proper functional activities. Personal Factors Other Personal Factors That May Effect Bariatric sleeve in November Therapy/Recovery with wgt loss (60# since Nov). Lives alone (spouse in 2013). Current Ex routine (3x/wk): bike, walking pad and works LE 's with bands. L TKA 2017, R TKA 2019, R TSA 2019. son who is a paraplegic since 13 yr old. PT-OP-C Subjective Start: 03/03/24 20:02 Freq: Status: Active Protocol: Document 03/10/24 13:02 MELY (Rec: 03/10/24 13:52 [facility] [id number]) Patient Questionnaires Oswestry Low Back Index Oswestry Score 23/50 = 46/100 Oswestry Impairment 40 to 59% Impaired (Score 40- 59) OP-PT Pain Assessment Pain Assessment Grid Paper Pain Assessment Grid Completed Yes Location Thighs Pain Location Details anterior and lateral Intensity 5 Scale Used Numeric (0 - 10) Description Tingling Frequency Daily Pain Aggravating Factors Standing,Walking Low Back Pain Location Details lower sacral region Intensity 6 Scale Used Numeric (0 - 10) Description Aching,Dull,Sharp Frequency Daily Pain Aggravating Factors Standing,Walking PT-OP-G Mobility & Gait Start: 03/03/24 20:02 Freq: Status: Active Protocol: Document 03/10/24 13:02 LRN (Rec: 03/10/24 13:52 LRN [id number]) OP Gait Assessment Gait Gait Assistance Required: Independent Able to Maintain Weight Bearing Status Yes During Gait Assistive Devices Assistive Device None Gait Deviations General Gait Pattern Decreased Stride Length,Flexed Trunk,Lateral Trunk Lean Factors Limiting Gait Function Factors Limiting Gait Function Decreased Activity Tolerance PT-OP-H Neuro Start: 03/03/24 20:02 Freq: Status: Active Protocol: Document 03/10/24 13:02 LRN (Rec: 03/10/24 13:52 LRN [id number]) Sensation Evaluation Comments Summary Comments Tingling in outer and anterior thighs. PT-OP-J Posture/Palpation/Skin Start: 03/03/24 20:02 Freq: Status: Active Protocol: Document 03/10/24 13:02 LRN (Rec: 03/10/24 13:52 LRN [id number]) Posture Evaluation Position Standing Head/C-Spine Posture Forward Head Comments Posture Comments Dowagers hump, straight upper back, FB hips 25 deg's. Palpation Assessment Location Low back Palpation Location Lower sacral region. Palpation Findings Tenderness Palpation Details Dull ache and gradually becomes sharp. PT-OP-K Range of Motion Start: 03/03/24 20:02 Freq: Status: Active Protocol: Document 03/10/24 13:02 LRN (Rec: 03/10/24 13:52 LRN [id number]) Lumbar Spine Range of Motion Lumbar Spine Active Degrees Testing Position Standing Flexion 70 Extension 3 Rotation Left 15 Rotation Right 10 Lateral Flexion Left 4 Lateral Flexion Right 3 Comments Standing posture is with hips in 15 deg's flexion PT-OP-L Special Tests Start: 03/03/24 20:02 Freq: Status: Active Protocol: Document 03/10/24 13:02 LRN (Rec: 03/10/24 13:52 LRN [id number]) Special Tests Lumbar Spine Special Tests Slump Test Results + bilaterally Comments L: onset LBP & R thigh/LBP, R: onset of R LBP PT-OP-M Strength Start: 03/03/24 20:02 Freq: Status: Active Protocol: Document 03/10/24 13:02 LRN (Rec: 03/10/24 13:52 LRN [id number]) Trunk Strength Trunk Manual Muscle Testing Core Stabilization Lacks core stability with MMT of LE's Hip Strength Hip Manual Muscle Testing Right Flexion (L2) 2+ Poor+ Abduction 5 Normal Adduction 5 Normal Comments Assessed in sitting. Left Flexion (L2) 2+ Poor+ Abduction 5 Normal Adduction 5 Normal Comments Assessed in sitting. Knee Strength Knee Manual Muscle Testing Right Flexion (S2) 5 Normal Extension (L3) 5 Normal Left Flexion (S2) 5 Normal Extension (L3) 5 Normal Ankle/Foot Strength Ankle and Foot Manual Muscle Testing Right Dorsiflexion (L4) 5 Normal Inversion 5 Normal Eversion (S1) 5 Normal Left Dorsiflexion (L4) 5 Normal Inversion 4+ Good+ PT-OP-Q Treatments Start: 03/03/24 20:02 Freq: Status: Active Protocol: Document 03/10/24 13:02 LRN (Rec: 03/10/24 13:52 LR [id number]) Self-Care/Home Management Treatment Education Other Education Discussed results of evaluation, goals, treatment, and plan of care (POC) with pt , attendance/cx/dns policy; pt agreeable to evaluation, goals, treatment, attendance/ cx/dns policy and POC. Brief discussion for use of kettle ball, recommending pt not to do as exercise. Discussed exercise at local pool for aerobics and recommended to start with water walking. PT-OP-T Assessment and Plan Start: 03/03/24 20:02 Freq: Status: Active Protocol: Document 03/10/24 13:02 LRN (Rec: 03/10/24 13:52 [facility] [id number]) Physical Therapy Assessment Rehab Potential Rehabilitation Potential Good Evaluation Complexity Number of Personal Factors/Comorbidities 3 or More Number of Body Systems Impaired 4 or More Clinical Presentation at Evaluation Evolving Impairments Impairments Activity Tolerance,Gait,Pain, Posture,ROM,Soft Tissue Mobility,Strength,Transfers Goals Two Impairment Requires walker to walk long distances (TUG score 18 secs) Short Term Goal (STG) Pt will be educated in best sleeping/sit/stand posture. STG Duration 04/02/24 Shelter Goal (LTG) Pt will be able to improve her walking tolerance to walk outside her home safely for short distances with use of a cane or improve stability of gait with TUG score less than 14 secs. LTG Duration 05/09/24 One Impairment Pt lacks independent HEP to mitigate thigh & LBP Short Term Goal (STG) Pt will be educated and able to demonstrate proper body mechanics for functional activities (lifting, reaching, sweeping/vacuuming). STG Duration 04/09/24 Shelter Goal (LTG) Pt will be independent in core /hip ex's to mitagate thigh & LBP. LTG Duration 05/09/24 Assessment Summary Assessment Pt is a 68 yo female who presents with radicular bilateral LE tingling/pain in thighs (annter/lateral)/LB due to dysfunction of L/S spine ( disc bulges, trace retrolisthesis, canal stenosis L3-L4, severe L4/L5, & foraminal stenosis L3-L4, L4- L5 & nerve root impingement L5 ). The pt has low tolerance to standing, getting onset of tingling in the legs and LBP. The pt wants to be able to walk without an assistive device without the sensation changes or pain, but is understanding that this might be very difficult until she is able to lose more weight, improve posture and core strength, and improve gait. The pt will benefit from skilled physical therapy to educate and train the patient in a HEP of self care exercises, posture, body mechanics and transfer training to help alleviate her pain. Physical Therapy Plan Frequency and Duration Frequency of Treatment 2x/Week Duration of treatment (weeks) 8 Plan of Care Start Date 03/10/24 Plan of Care End Date 05/09/24 Therapeutic Interventions Therapeutic Interventions Gait Training,Home Exercise Program,Manual Therapy, Neuromuscular Re-education, Self-Care/Home Management,Soft Tissue Mobilization, Therapeutic Activities, Therapeutic Exercises Modalities Cold Pack/Ice Massage,Electric Stimulation,Hot Packs, Ultrasound Next Visit Focus/Plan Next Note Type Treatment Note Next Visit Plan Next: Assess trunk strength and hip strength/mobility. Training for posture (standing , sitting), nighttime positioning, assess T/S & L/S in prone (?gentle PA mob), and start Gentle manual L/S traction f/b core stabilization in supine ( assess hip strength/PROM-HEP as needed) in ns or slight anterior tilt L1-L4, while on MH. HEP-neutral spine with slight anter tilt (note trace retrothesis L1-L4). POC: Therapeutic Ex ( strengthening/ROM of L/S), Therapeutic Activity (transfer training), manual therapy ( Ilipsoas stretch, STM Lumbar spine/gentle tx), Gait training, Pt Education (HEP, pain mgmt).
--- NOTE | 2024-03-12 11:49 | PT.OTN ---
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] (03/12/24) Physical Therapy Treatment Note PT-OP-A Visit Information Start: 03/03/24 20:02 Freq: Status: Active Protocol: Document 03/12/24 10:47 LRN (Rec: 03/12/24 11:49 LRN [id number]) Out-Patient Physical Therapy Visit Information Visit Information Visit Type Treatment Note Visit Start Time 10:47 Visit Stop Time 11:32 Visit Number 2 Evaluation Information Evaluation Date 03/10/24 Precautions Precautions Uncontrolled HTN w/meds (~130/ 70), Diastolic CHF w/3 stents - 2015 (1)-2017 (2) PT-OP-B Current Condition Start: 03/03/24 20:02 Freq: Status: Active Protocol: Document 03/10/24 13:02 LRN (Rec: 03/10/24 13:52 LRN [id number]) Current Condition History of Current Condition Onset Date 07/2023 Current Complaints Tingling & burning down dariel lateral legs & LBP History of Current Condition Recently (07/2023) worsening of lateral thigh and LBP sensation changes. She reports history of dariel LE/LBP prior to 2018. She states pain onset after standing 10 minutes, so she tries walking, but after 30 minutes the pain worsens and she can't stand upright. She thinks her core is not strong, and she has lost weight to help relieve pain. Pt rerports she has a son who is a paraplegic since 13 yr old. 2 yrs ago used a walker all the time, 8 months ago used a cane to walk, 2 months ago did spurts using no assistive device. Must use an assistive device due to LBP . Pt reports being ambidextrous, but uses mostly her R hand since the R TSA surgery. Developmental History Developmental History Pt had TKA's hoping it would help her thigh and LBP, but has not found any relief of her pain since the surgeries (L TKA 2017, R TKA 2019). Other surgical history per pt: R TSA (2019), and L shoulder that needs a TSA but pt has chosen not to do another surgery at this time. Treatment Goals Patient/Caregiver Goals Pt goals: -Learn ex's to mitagate the pain. -Learn proper functional activities. Personal Factors Other Personal Factors That May Effect Bariatric sleeve in November Therapy/Recovery with wgt loss (60# since Nov). Lives alone (spouse in 2013). Current Ex routine (3x/wk): bike, walking pad and works LE 's with bands. L TKA 2017, R TKA 2019, R TSA 2019. son who is a paraplegic since 13 yr old. PT-OP-C Subjective Start: 03/03/24 20:02 Freq: Status: Active Protocol: Document 03/12/24 10:47 LRN (Rec: 03/12/24 11:49 LRN [id number]) OP-PT Subjective Patient Comments Patient Comments No change. States she will do pool on her own. PT-OP-G Mobility & Gait Start: 03/03/24 20:02 Freq: Status: Active Protocol: Document 03/10/24 13:02 LRN (Rec: 03/10/24 13:52 LRN [id number]) OP Gait Assessment Gait Gait Assistance Required: Independent Able to Maintain Weight Bearing Status Yes During Gait Assistive Devices Assistive Device None Gait Deviations General Gait Pattern Decreased Stride Length,Flexed Trunk,Lateral Trunk Lean Factors Limiting Gait Function Factors Limiting Gait Function Decreased Activity Tolerance PT-OP-H Neuro Start: 03/03/24 20:02 Freq: Status: Active Protocol: Document 03/10/24 13:02 LRN (Rec: 03/10/24 13:52 LRN [id number]) Sensation Evaluation Comments Summary Comments Tingling in outer and anterior thighs. PT-OP-J Posture/Palpation/Skin Start: 03/03/24 20:02 Freq: Status: Active Protocol: Document 03/10/24 13:02 LRN (Rec: 03/10/24 13:52 LRN [id number]) Posture Evaluation Position Standing Head/C-Spine Posture Forward Head Comments Posture Comments Dowagers hump, straight upper back, FB hips 25 deg's. Palpation Assessment Location Low back Palpation Location Lower sacral region. Palpation Findings Tenderness Palpation Details Dull ache and gradually becomes sharp. PT-OP-K Range of Motion Start: 03/03/24 20:02 Freq: Status: Active Protocol: Document 03/10/24 13:02 LRN (Rec: 03/10/24 13:52 LRN [id number]) Lumbar Spine Range of Motion Lumbar Spine Active Degrees Testing Position Standing Flexion 70 Extension 3 Rotation Left 15 Rotation Right 10 Lateral Flexion Left 4 Lateral Flexion Right 3 Comments Standing posture is with hips in 15 deg's flexion PT-OP-L Special Tests Start: 03/03/24 20:02 Freq: Status: Active Protocol: Document 03/10/24 13:02 LRN (Rec: 03/10/24 13:52 LRN [id number]) Special Tests Lumbar Spine Special Tests Slump Test Results + bilaterally Comments L: onset LBP & R thigh/LBP, R: onset of R LBP PT-OP-M Strength Start: 03/03/24 20:02 Freq: Status: Active Protocol: Document 03/12/24 10:47 LRN (Rec: 03/12/24 11:49 LRN [id number]) Trunk Strength Trunk Manual Muscle Testing Comments Pt not able to maintain TA tight with transfers and exercise. Hip Strength Hip Manual Muscle Testing Right Flexion (L2) 3 Fair Abduction 5 Normal Adduction 5 Normal Left Flexion (L2) 3 Fair Abduction 5 Normal Adduction 5 Normal PT-OP-Q Treatments Start: 03/03/24 20:02 Freq: Status: Active Protocol: Document 03/12/24 10:47 LRN (Rec: 03/12/24 11:49 LRN [id number]) Therapeutic Exercises Supine Exercises GLut squeeze Supine Exercise Name Belly button to spine, arch upper back and GS Reps/Minutes Hold 3SH- 5SH x 10 SLR Supine Exercise Name Training for core stability and breath with lift Side bilateral Reps/Minutes 5x Sidelying Exercises Hip AD Side bilateral Reps/Minutes 5x Comments Extra time needed to get proper position & coordinate lift w/breath bent knee hip AB Sidelying Exercise Name Pt exhale with lifts. Side bilateral Reps/Minutes 5x each Comments Extra time needed for correct positioning and max billy lift TA tightening Side bilateral Reps/Minutes 10 SH x 5 Comments Extra time needed for proper coordination of hold/breath each rep Therapeutic Activity Therapeutic Activity Night posturing Name Training for nighttime posturing with use of pillows for support. Reps/Minutes 9' Self-Care/Home Management Treatment Activities Self-Care/Home Management Activities Issued & reviewed HEP: Core stab ex: SLR, Hip AB/AD & Glut Squeeze. PT-OP-T Assessment and Plan Start: 03/03/24 20:02 Freq: Status: Active Protocol: Document 03/12/24 10:47 LRN (Rec: 03/12/24 11:49 LRN [id number]) Physical Therapy Assessment Goals Two Impairment Requires walker to walk long distances (TUG score 18 secs) Short Term Goal (STG) Pt will be educated in best sleeping/sit/stand posture. 03/12/24: Educated pt in sleeping posturing. Pt sleeping with pillow under knee and support anterior/ orchard sprayer trunk. STG Duration 04/02/24 progressed 03/12/24 Recoater Goal (LTG) Pt will be able to improve her walking tolerance to walk outside her home safely for short distances with use of a cane or improve stability of gait with TUG score less than 14 secs. LTG Duration 05/09/24 One Impairment Pt lacks independent HEP to mitigate thigh & LBP Short Term Goal (STG) Pt will be educated and able to demonstrate proper body mechanics for functional activities (lifting, reaching, sweeping/vacuuming). STG Duration 04/09/24 Assisted Goal (LTG) Pt will be independent in core /hip ex's to mitagate thigh & LBP. 03/12/24: HEP: Core stab ex: SLR, Hip AB/AD & Glut Squeeze. LTG Duration 05/09/24 progressed 03/12/24 Assessment Summary Assessment Pt is a 68 yo female with disc bulges and trace retrolisthesis L1-L4, canal/ foraminal stenosis, & L5 nerve root impingement with symptoms of radicular LE tingling/pain in thighs and LB . Today, pt demonstrates weakness of core with transfers and LE ex's; hip endurance weakness and limited with hip ext due to mechanical L/S dys. Clamshell passively creates anterior knee pain, and pain down anterior lower leg (L4-5) ; SLR ilicits anter thigh tightness (L3). Sidelie R hip AB lift ilicites R SIJ sharp pain (coccyx). Pt is very receptive to ex's and HEP and is very attentive to directions. Physical Therapy Plan Frequency and Duration Frequency of Treatment 2x/Week Duration of treatment (weeks) 8 Plan of Care Start Date 03/10/24 Plan of Care End Date 05/09/24 Next Visit Focus/Plan Next Note Type Treatment Note Next Visit Plan Next: Review HEP issued, Assess hip IR/ER strength & mobility. Training for posture (standing, sitting), & proper body mechanics for functional activities . Assess T/S & L/S position/mob & hip Ext strength in prone ( ?gentle PA mob (L1-L4), and start Gentle manual L/S traction, progress core stabilization in supine ( assess hip strength/PROM-HEP as needed) in ns or slight anterior tilt L1-L4, while on MH. HEP-neutral spine with slight anter tilt (note trace retrothesis L1-L4). POC: Therapeutic Ex ( strengthening/ROM of L/S), Therapeutic Activity (transfer training), manual therapy ( Ilipsoas stretch, STM Lumbar spine/gentle tx), Gait training, Pt Education (HEP, pain mgmt).
--- NOTE | 2024-03-19 14:40 | PT.OTN ---
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] (03/19/24) Physical Therapy Treatment Note PT-OP-A Visit Information Start: 03/03/24 20:02 Freq: Status: Active Protocol: Document 03/19/24 12:56 AB (Rec: 03/19/24 14:40 AB [id number]) Out-Patient Physical Therapy Visit Information Visit Information Visit Type Treatment Note Visit Start Time 13:00 Visit Stop Time 13:47 Visit Number 3 Number of LIBRARY CATALOGING TECHNICIAN Visits 1 Evaluation Information Evaluation Date 03/10/24 Precautions Precautions Uncontrolled HTN w/meds (~130/ 70), Diastolic CHF w/3 stents - 2015 (1)-2017 (2) PT-OP-B Current Condition Start: 03/03/24 20:02 Freq: Status: Active Protocol: Document 03/10/24 13:02 LRN (Rec: 03/10/24 13:52 LRN [id number]) Current Condition History of Current Condition Onset Date 07/2023 Current Complaints Tingling & burning down dariel lateral legs & LBP History of Current Condition Recently (07/2023) worsening of lateral thigh and LBP sensation changes. She reports history of dariel LE/LBP prior to 2018. She states pain onset after standing 10 minutes, so she tries walking, but after 30 minutes the pain worsens and she can't stand upright. She thinks her core is not strong, and she has lost weight to help relieve pain. Pt rerports she has a son who is a paraplegic since 15 yr old. 2 yrs ago used a walker all the time, 8 months ago used a cane to walk, 2 months ago did spurts using no assistive device. Must use an assistive device due to LBP . Pt reports being ambidextrous, but uses mostly her R hand since the R TSA surgery. Developmental History Developmental History Pt had TKA's hoping it would help her thigh and LBP, but has not found any relief of her pain since the surgeries (L TKA 2017, R TKA 2019). Other surgical history per pt: R TSA (2019), and L shoulder that needs a TSA but pt has chosen not to do another surgery at this time. Treatment Goals Patient/Caregiver Goals Pt goals: -Learn ex's to mitagate the pain. -Learn proper functional activities. Personal Factors Other Personal Factors That May Effect Bariatric sleeve in November Therapy/Recovery with wgt loss (60# since Nov). Lives alone (spouse in 2013). Current Ex routine (3x/wk): bike, walking pad and works LE 's with bands. L TKA 2017, R TKA 2019, R TSA 2019. son who is a paraplegic since 13 yr old. PT-OP-C Subjective Start: 03/03/24 20:02 Freq: Status: Active Protocol: Document 03/19/24 12:56 AB (Rec: 03/19/24 14:40 AB [id number]) OP-PT Subjective Patient Comments Patient Comments Patient reports she is the same. PT-OP-G Mobility & Gait Start: 03/03/24 20:02 Freq: Status: Active Protocol: Document 03/10/24 13:02 LRN (Rec: 03/10/24 13:52 LRN [id number]) OP Gait Assessment Gait Gait Assistance Required: Independent Able to Maintain Weight Bearing Status Yes During Gait Assistive Devices Assistive Device None Gait Deviations General Gait Pattern Decreased Stride Length,Flexed Trunk,Lateral Trunk Lean Factors Limiting Gait Function Factors Limiting Gait Function Decreased Activity Tolerance PT-OP-H Neuro Start: 03/03/24 20:02 Freq: Status: Active Protocol: Document 03/10/24 13:02 LRN (Rec: 03/10/24 13:52 LRN [id number]) Sensation Evaluation Comments Summary Comments Tingling in outer and anterior thighs. PT-OP-J Posture/Palpation/Skin Start: 03/03/24 20:02 Freq: Status: Active Protocol: Document 03/10/24 13:02 LRN (Rec: 03/10/24 13:52 LRN [id number]) Posture Evaluation Position Standing Head/C-Spine Posture Forward Head Comments Posture Comments Dowagers hump, straight upper back, FB hips 25 deg's. Palpation Assessment Location Low back Palpation Location Lower sacral region. Palpation Findings Tenderness Palpation Details Dull ache and gradually becomes sharp. PT-OP-K Range of Motion Start: 03/03/24 20:02 Freq: Status: Active Protocol: Document 03/10/24 13:02 LRN (Rec: 03/10/24 13:52 LRN [id number]) Lumbar Spine Range of Motion Lumbar Spine Active Degrees Testing Position Standing Flexion 70 Extension 3 Rotation Left 15 Rotation Right 10 Lateral Flexion Left 4 Lateral Flexion Right 3 Comments Standing posture is with hips in 15 deg's flexion PT-OP-L Special Tests Start: 03/03/24 20:02 Freq: Status: Active Protocol: Document 03/10/24 13:02 LRN (Rec: 03/10/24 13:52 LRN [id number]) Special Tests Lumbar Spine Special Tests Slump Test Results + bilaterally Comments L: onset LBP & R thigh/LBP, R: onset of R LBP PT-OP-M Strength Start: 03/03/24 20:02 Freq: Status: Active Protocol: Document 03/12/24 10:47 LRN (Rec: 03/12/24 11:49 LRN [id number]) Trunk Strength Trunk Manual Muscle Testing Comments Pt not able to maintain TA tight with transfers and exercise. Hip Strength Hip Manual Muscle Testing Right Flexion (L2) 3 Fair Abduction 5 Normal Adduction 5 Normal Left Flexion (L2) 3 Fair Abduction 5 Normal Adduction 5 Normal PT-OP-Q Treatments Start: 03/03/24 20:02 Freq: Status: Active Protocol: Document 03/19/24 12:56 AB (Rec: 03/19/24 14:40 AB [id number]) Therapeutic Exercises Supine Exercises GLut squeeze Supine Exercise Name Belly button to spine, arch upper back and GS Reps/Minutes Hold 3SH- 5SH x 10 Comments monitored for pain. SLR Supine Exercise Name Training for core stability and breath with lift Side bilateral Reps/Minutes 5x Comments VC for belly button to spine Sidelying Exercises Hip AD Side bilateral Reps/Minutes 8x bent knee hip AB Sidelying Exercise Name Pt exhale with lifts. Side bilateral Reps/Minutes 8x each TA tightening Side bilateral Reps/Minutes x 5 Comments VC for avoidng holding breath Therapeutic Activity Therapeutic Activity vacuuming Reps/Minutes 2 Comments verbal and visual cues, good return demonstration supine to and from sit Name initates sit to sidelying good tech, sup to sit partial sit up Reps/Minutes 2 Comments VC to scoot back in seated prior to sit to supine and for timing supine to sit Night posturing Name Sidelying with folded pillow btween knees Reps/Minutes review 1 Manual Therapy Treatment Consent Patient gave verbal consent for manual No treatment Soft Tissue Mobilization thoracic/LS paraspinals Mobilization Type Sustained Pressure Intensity/Depth Moderate Body Position Sidelying Comments with pillow between knees PT-OP-R Modalities Start: 03/03/24 20:02 Freq: Status: Active Protocol: Document 03/19/24 12:56 AB (Rec: 03/19/24 14:40 AB [id number]) Hot Pack/Cold Pack Treatment thoracic/lumbar spine Comments supine and hooklying during HEP review PT-OP-T Assessment and Plan Start: 03/03/24 20:02 Freq: Status: Active Protocol: Document 03/19/24 12:56 AB (Rec: 03/19/24 14:40 AB [id number]) Physical Therapy Assessment Goals Two Impairment Requires walker to walk long distances (TUG score 18 secs) Short Term Goal (STG) Pt will be educated in best sleeping/sit/stand posture. 03/12/24: Educated pt in sleeping posturing. Pt sleeping with pillow under knee and support anterior/ community health program coordinator trunk. STG Duration 04/02/24 progressed 03/12/24 Custodial Goal (LTG) Pt will be able to improve her walking tolerance to walk outside her home safely for short distances with use of a cane or improve stability of gait with TUG score less than 14 secs. LTG Duration 05/09/24 One Impairment Pt lacks independent HEP to mitigate thigh & LBP Short Term Goal (STG) Pt will be educated and able to demonstrate proper body mechanics for functional activities (lifting, reaching, sweeping/vacuuming). 03/19/2024 Review of body mechanics for vacuuming and review of log roll this session. STG Duration 04/09/24 Custodial Goal (LTG) Pt will be independent in core /hip ex's to mitagate thigh & LBP. 03/12/24: HEP: Core stab ex: SLR, Hip AB/AD & Glut Squeeze. LTG Duration 05/09/24 progressed 03/12/24 Assessment Summary Assessment Pt is a 68 yo female with disc bulges and trace retrolisthesis L1-L4, canal/ foraminal stenosis, & L5 nerve root impingement with symptoms of radicular LE tingling/pain in thighs and LB . Kathy reports back pain is a bit worse end of session, good return demonstration for weight shifting with 1/2 foam roll to mimic vacuuming. Patient declined training for lifting trash, commenting she has had training in this type of lifting/demonstrating a squat, also demos a lunge type squat but slightly unsteady, cga to during self correction. Physical Therapy Plan Frequency and Duration Frequency of Treatment 2x/Week Duration of treatment (weeks) 8 Plan of Care Start Date 03/10/24 Plan of Care End Date 05/09/24 Next Visit Focus/Plan Next Note Type Treatment Note Next Visit Plan Next: Assess hip IR/ER strength & mobility. Training for posture (standing, sitting), & proper body mechanics for functional activities . Assess T/S & L/S position/mob & hip Ext strength in prone (?gentle PA mob (L1-L4), and start Gentle manual L/S traction, progress core stabilization in supine (assess hip strength/PROM-HEP as needed) in ns or slight anterior tilt L1-L4, while on MH. HEP-neutral spine with slight anter tilt (note trace retrothesis L1-L4). POC: Therapeutic Ex ( strengthening/ROM of L/S), Therapeutic Activity, manual therapy (Ilipsoas stretch, STM Lumbar spine/gentle tx), Gait training, Pt Education (HEP, pain mgmt).
--- NOTE | 2024-03-24 16:06 | PT.OTN ---
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] (03/24/24) Physical Therapy Treatment Note PT-OP-A Visit Information Start: 03/03/24 20:02 Freq: Status: Active Protocol: Document 03/24/24 14:33 LRN (Rec: 03/24/24 15:23 LRN [id number]) Out-Patient Physical Therapy Visit Information Visit Information Visit Type Treatment Note Visit Start Time 14:33 Visit Stop Time 15:16 Visit Number 4 Evaluation Information Evaluation Date 03/10/24 Precautions Precautions Uncontrolled HTN w/meds (~130/ 70), Diastolic CHF w/3 stents - 2015 (1)-2017 (2) PT-OP-B Current Condition Start: 03/03/24 20:02 Freq: Status: Active Protocol: Document 03/10/24 13:02 LRN (Rec: 03/10/24 13:52 LRN [id number]) Current Condition History of Current Condition Onset Date 07/2023 Current Complaints Tingling & burning down dariel lateral legs & LBP History of Current Condition Recently (07/2023) worsening of lateral thigh and LBP sensation changes. She reports history of dariel LE/LBP prior to 2018. She states pain onset after standing 10 minutes, so she tries walking, but after 30 minutes the pain worsens and she can't stand upright. She thinks her core is not strong, and she has lost weight to help relieve pain. Pt rerports she has a son who is a paraplegic since 13 yr old. 2 yrs ago used a walker all the time, 8 months ago used a cane to walk, 2 months ago did spurts using no assistive device. Must use an assistive device due to LBP . Pt reports being ambidextrous, but uses mostly her R hand since the R TSA surgery. Developmental History Developmental History Pt had TKA's hoping it would help her thigh and LBP, but has not found any relief of her pain since the surgeries (L TKA 2017, R TKA 2019). Other surgical history per pt: R TSA (2019), and L shoulder that needs a TSA but pt has chosen not to do another surgery at this time. Treatment Goals Patient/Caregiver Goals Pt goals: -Learn ex's to mitagate the pain. -Learn proper functional activities. Personal Factors Other Personal Factors That May Effect Bariatric sleeve in November Therapy/Recovery with wgt loss (60# since Nov). Lives alone (spouse in 2013). Current Ex routine (3x/wk): bike, walking pad and works LE 's with bands. L TKA 2017, R TKA 2019, R TSA 2019. son who is a paraplegic since 13 yr old. PT-OP-C Subjective Start: 03/03/24 20:02 Freq: Status: Active Protocol: Document 03/24/24 14:33 LRN (Rec: 03/24/24 15:23 LRN [id number]) OP-PT Subjective Patient Comments Patient Comments States her back has been more sore, but she has been cleaning rugs and cleaning up after her dog. PT-OP-G Mobility & Gait Start: 03/03/24 20:02 Freq: Status: Active Protocol: Document 03/10/24 13:02 LRN (Rec: 03/10/24 13:52 LRN [id number]) OP Gait Assessment Gait Gait Assistance Required: Independent Able to Maintain Weight Bearing Status Yes During Gait Assistive Devices Assistive Device None Gait Deviations General Gait Pattern Decreased Stride Length,Flexed Trunk,Lateral Trunk Lean Factors Limiting Gait Function Factors Limiting Gait Function Decreased Activity Tolerance PT-OP-H Neuro Start: 03/03/24 20:02 Freq: Status: Active Protocol: Document 03/10/24 13:02 LRN (Rec: 03/10/24 13:52 LRN [id number]) Sensation Evaluation Comments Summary Comments Tingling in outer and anterior thighs. PT-OP-J Posture/Palpation/Skin Start: 03/03/24 20:02 Freq: Status: Active Protocol: Document 03/10/24 13:02 LRN (Rec: 03/10/24 13:52 LRN [id number]) Posture Evaluation Position Standing Head/C-Spine Posture Forward Head Comments Posture Comments Dowagers hump, straight upper back, FB hips 25 deg's. Palpation Assessment Location Low back Palpation Location Lower sacral region. Palpation Findings Tenderness Palpation Details Dull ache and gradually becomes sharp. PT-OP-K Range of Motion Start: 03/03/24 20:02 Freq: Status: Active Protocol: Document 03/10/24 13:02 LRN (Rec: 03/10/24 13:52 LRN [id number]) Lumbar Spine Range of Motion Lumbar Spine Active Degrees Testing Position Standing Flexion 70 Extension 3 Rotation Left 15 Rotation Right 10 Lateral Flexion Left 4 Lateral Flexion Right 3 Comments Standing posture is with hips in 15 deg's flexion PT-OP-L Special Tests Start: 03/03/24 20:02 Freq: Status: Active Protocol: Document 03/10/24 13:02 LRN (Rec: 03/10/24 13:52 LRN [id number]) Special Tests Lumbar Spine Special Tests Slump Test Results + bilaterally Comments L: onset LBP & R thigh/LBP, R: onset of R LBP PT-OP-M Strength Start: 03/03/24 20:02 Freq: Status: Active Protocol: Document 03/24/24 14:33 LRN (Rec: 03/24/24 16:03 LRN [id number]) Hip Strength Hip Manual Muscle Testing Right External Rotation 5 Normal Internal Rotation 3+ Fair+ Left External Rotation 5 Normal Internal Rotation 3+ Fair+ PT-OP-Q Treatments Start: 03/03/24 20:02 Freq: Status: Active Protocol: Document 03/24/24 14:33 LRN (Rec: 03/24/24 15:23 LRN [id number]) Therapeutic Exercises Supine Exercises GLut squeeze Supine Exercise Name Belly button to spine, arch upper back and GS Reps/Minutes Hold 3SH- 5SH x 10 Comments Pt encouraged to work slowly up to 10x 2 reps in 1.5-2 wks SLR Supine Exercise Name Training for core stability and breath with lift Side bilateral Reps/Minutes 5x Comments VC for belly button to spine Sidelying Exercises Clamshell Side bilateral Reps/Minutes 5x 2 each Comments Cued to keep neutral spine and breath with ex Hip AD Side bilateral Reps/Minutes 5x 2 Comments Pt encouraged to work slowly up to 10x 2 reps in 1.5-2 wks bent knee hip AB Sidelying Exercise Name Pt exhale with lifts. Side bilateral Reps/Minutes 5x 2 Comments Pt encouraged to work slowly up to 10x 2 reps in 1.5-2 wks TA tightening Side bilateral Reps/Minutes x 5 Comments VC for avoidng holding breath Sitting Exercises Hip ER Side bilateral Reps/Minutes 2x Comments MMT taken 3+/5 Hip IR Side bilateral Reps/Minutes x1 Comments MMT taken - 5/5 Therapeutic Activity Therapeutic Activity Lifting training Name Lift training focus: squat, hip hinge, lift item close to umbicus Reps/Minutes 8' Squat training Name Focus on hip hinging, straight back, using legs Reps/Minutes 5' Self-Care/Home Management Treatment Activities Self-Care/Home Management Activities Handouts Reviewed & Issued: Body Mechanics Basics, & ADL's Body Mechanics, Proper Sit/ Stand Posture, & Proper Posture: The Holcomb to Safe Mvmt (strain on spine in different positions). PT-OP-R Modalities Start: 03/03/24 20:02 Freq: Status: Active Protocol: Document 03/19/24 12:56 AB (Rec: 03/19/24 14:40 AB [id number]) Hot Pack/Cold Pack Treatment thoracic/lumbar spine Comments supine and hooklying during HEP review PT-OP-T Assessment and Plan Start: 03/03/24 20:02 Freq: Status: Active Protocol: Document 03/24/24 14:33 LRN (Rec: 03/24/24 15:23 LRN [id number]) Physical Therapy Assessment Goals Two Impairment Requires walker to walk long distances (TUG score 18 secs) Short Term Goal (STG) Pt will be educated in best sleeping/sit/stand posture. 03/12/24: Educated pt in sleeping posturing. Pt sleeping with pillow under knee and support anterior/ deputy probation officer trunk. 02/22/24: Educated pt in proper Sit/Stand Posture and demonstrated good sit posture. Pt is aware of need to reduce lordosis with standing. STG Duration 04/02/24 (03/24/24: MET GOAL ) Fdc Goal (LTG) Pt will be able to improve her walking tolerance to walk outside her home safely for short distances with use of a cane or improve stability of gait with TUG score less than 14 secs. LTG Duration 05/09/24 One Impairment Pt lacks independent HEP to mitigate thigh & LBP Short Term Goal (STG) Pt will be educated and able to demonstrate proper body mechanics for functional activities (lifting, reaching, sweeping/vacuuming). 03/19/2024 Review of body mechanics for vacuuming and review of log roll this session. 03/24/24: Issued & Reviewed: Body Mechanics Basics, & ADL's Body Mechanics; & Proper Posture: The [place]comb to Safe Mvmt (strain on spine in different positions). Pt showed good body mechanics for picking up object off the floor and lifting purse. STG Duration 04/09/24 progressed 03/24/24 (pt to demonstrate reaching, sweeping/vacuum) Fdc Goal (LTG) Pt will be independent in core /hip ex's to mitigate thigh & LBP. 03/12/24: HEP: Core stab ex: SLR, Hip AB/AD & Glut Squeeze. LTG Duration 05/09/24 progressed 03/12/24 Assessment Summary Assessment Pt is a 68 yo female with disc bulges and trace retrolisthesis L1-L4, canal/ foraminal stenosis, & L5 nerve root impingement with symptoms of radicular LE tingling/pain in thighs and LB . Today, she demonstrates a good recall of her HEP, showing consistance with home exercises. Tolerance to exercise is low, as she is doing only 5-10 reps with some not able to do > 5 reps. Pt is interested in improving strength and muscle tone, and not concerned with wgt loss. Hip rotational strength is decreased; therefore balance is decreased. She is interested in improving her L shoulder, but pt will need to return to therapy with new referral once she completes her LB rehabilitation. Physical Therapy Plan Frequency and Duration Frequency of Treatment 2x/Week Duration of treatment (weeks) 8 Plan of Care Start Date 03/10/24 Plan of Care End Date 05/09/24 Next Visit Focus/Plan Next Note Type Treatment Note Next Visit Plan (note: trace retrothesis L1-L4 ) Next: Assess L ankle strength, hip mobility, T/S & L/S position/mob & hip Ext strength in prone. Body mechanics training for reaching, sweeping/vacuum until pt can demonstrate appropriate body mechanics. -If appropriate try GENTLE ( grade 1-2) PA mob (L1-L4) due to retrolisthesis, and start Gentle manual L/S tx. -Progress core stabilization in supine (assess hip strength /PROM-HEP as needed) in NS or slight anterior tilt L1-L4, while on MH. -HEP-neutral spine with slight anter tilt (caution: trace retrothesis L1-L4). POC: Therapeutic Ex (L/S strengthening/ROM), Therapeutic Activity w/pt able to demonstrate proper body mechanics, manual therapy ( Ilipsoas stretch, STM Lumbar spine/gentle tx), Gait for safe improvement in endurance , Pt Education (HEP, pain mgmt ).
--- NOTE | 2024-03-30 17:52 | PT.OTN ---
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] (03/30/24) Physical Therapy Treatment Note PT-OP-A Visit Information Start: 03/03/24 20:02 Freq: Status: Active Protocol: Document 03/30/24 13:48 LRN (Rec: 03/30/24 14:32 LRN [id number]) Out-Patient Physical Therapy Visit Information Visit Information Visit Type Treatment Note Visit Start Time 13:48 Visit Stop Time 14:30 Visit Number 5 Evaluation Information Evaluation Date 03/10/24 Precautions Precautions Uncontrolled HTN w/meds (~130/ 70), Diastolic CHF w/3 stents - 2015 (1)-2017 (2) PT-OP-B Current Condition Start: 03/03/24 20:02 Freq: Status: Active Protocol: Document 03/10/24 13:02 LRN (Rec: 03/10/24 13:52 LRN [id number]) Current Condition History of Current Condition Onset Date 07/2023 Current Complaints Tingling & burning down dariel lateral legs & LBP History of Current Condition Recently (07/2023) worsening of lateral thigh and LBP sensation changes. She reports history of dariel LE/LBP prior to 2018. She states pain onset after standing 10 minutes, so she tries walking, but after 30 minutes the pain worsens and she can't stand upright. She thinks her core is not strong, and she has lost weight to help relieve pain. Pt rerports she has a son who is a paraplegic since 15 yr old. 2 yrs ago used a walker all the time, 8 months ago used a cane to walk, 2 months ago did spurts using no assistive device. Must use an assistive device due to LBP . Pt reports being ambidextrous, but uses mostly her R hand since the R TSA surgery. Developmental History Developmental History Pt had TKA's hoping it would help her thigh and LBP, but has not found any relief of her pain since the surgeries (L TKA 2017, R TKA 2019). Other surgical history per pt: R TSA (2019), and L shoulder that needs a TSA but pt has chosen not to do another surgery at this time. Treatment Goals Patient/Caregiver Goals Pt goals: -Learn ex's to mitagate the pain. -Learn proper functional activities. Personal Factors Other Personal Factors That May Effect Bariatric sleeve in November Therapy/Recovery with wgt loss (60# since Nov). Lives alone (spouse in 2013). Current Ex routine (3x/wk): bike, walking pad and works LE 's with bands. L TKA 2017, R TKA 2019, R TSA 2019. son who is a paraplegic since 13 yr old. PT-OP-C Subjective Start: 03/03/24 20:02 Freq: Status: Active Protocol: Document 03/30/24 13:48 LRN (Rec: 03/30/24 14:32 LRN [id number]) OP-PT Subjective Patient Comments Patient Comments Worked in [employer], 3 days ago for 4 hrs straight and iced & heated. Next day was very stiff. States she did vacuuming like educated and didn't have problem. PT-OP-G Mobility & Gait Start: 03/03/24 20:02 Freq: Status: Active Protocol: Document 03/10/24 13:02 LRN (Rec: 03/10/24 13:52 LRN [id number]) OP Gait Assessment Gait Gait Assistance Required: Independent Able to Maintain Weight Bearing Status Yes During Gait Assistive Devices Assistive Device None Gait Deviations General Gait Pattern Decreased Stride Length,Flexed Trunk,Lateral Trunk Lean Factors Limiting Gait Function Factors Limiting Gait Function Decreased Activity Tolerance PT-OP-H Neuro Start: 03/03/24 20:02 Freq: Status: Active Protocol: Document 03/10/24 13:02 LRN (Rec: 03/10/24 13:52 LRN [id number]) Sensation Evaluation Comments Summary Comments Tingling in outer and anterior thighs. PT-OP-J Posture/Palpation/Skin Start: 03/03/24 20:02 Freq: Status: Active Protocol: Document 03/30/24 13:48 LRN (Rec: 03/30/24 18:40 LRN [id number]) Palpation Assessment Location Low back Palpation Location Thoracic & Lumbar spine Palpation Findings Tenderness Palpation Details PA pressure of Spinous Process : T1-T4, T7, T10, T12, L1, L2, L4-L5. PT-OP-K Range of Motion Start: 03/03/24 20:02 Freq: Status: Active Protocol: Document 03/30/24 13:48 LRN (Rec: 03/30/24 18:38 LRN [id number]) Hip Goniometric Range of Motion Hip Right Passive Testing Position Supine Internal Rotation 15 External Rotation 50 Left Passive Testing Position Supine Internal Rotation 20 External Rotation 50 PT-OP-L Special Tests Start: 03/03/24 20:02 Freq: Status: Active Protocol: Document 03/10/24 13:02 LRN (Rec: 03/10/24 13:52 LRN [id number]) Special Tests Lumbar Spine Special Tests Slump Test Results + bilaterally Comments L: onset LBP & R thigh/LBP, R: onset of R LBP PT-OP-M Strength Start: 03/03/24 20:02 Freq: Status: Active Protocol: Document 03/30/24 13:48 LRN (Rec: 03/30/24 14:32 LRN [id number]) Ankle/Foot Strength Ankle and Foot Manual Muscle Testing Right Eversion (S1) 3+ Fair+ Comments Strength is 5/5 except as indicated above. Left Inversion 3+ Fair+ Comments Strength is 5/5 except as indicated above. PT-OP-Q Treatments Start: 03/03/24 20:02 Freq: Status: Active Protocol: Document 03/30/24 13:48 LRN (Rec: 03/30/24 14:32 LRN [id number]) Therapeutic Exercises Supine Exercises Ankle AROM Supine Exercise Name DF/PF/EV/IV Side bilateral Reps/Minutes 2x Comments MMT taken, weak with R EV, L IV. Hip ER Supine Exercise Name PT assist stretch Reps/Minutes x 2 each Comments ROM taken Hip IR stretch Supine Exercise Name BKFIn Side left Reps/Minutes 10 SH x 10, PT asst stretch x 2 SLR Supine Exercise Name Training for core stability and breath with lift Side bilateral Reps/Minutes 10x Comments VC for belly button to spine Prone Exercises Hip Ext Prone Exercise Name TA tight & Exhale w/lift Side bilateral Reps/Minutes 10x Comments Cued to exhale on lift Sidelying Exercises Hip AB Sidelying Exercise Name Straight leg hip AB, w/TA/ Exhale w/lift Side bilateral Clamshell Sidelying Exercise Name TA tight & Exhale w/lift Side bilateral Reps/Minutes 10x each Comments Cued to keep neutral spine and breath with ex Hip AD Sidelying Exercise Name TA tight & Exhale w/lift Side bilateral Reps/Minutes 10x Comments Pt encouraged to work slowly up to 10x 2 reps in 1.5-2 wks Sitting Exercises Shoulder rolls Reps/Minutes 15x Self-Care/Home Management Treatment Education Other Education Discussed breaking up gardening time, allowing for breaks at minimal every hour. Discussed potential for increased back pain with prolonged gardening and possible setbacks in her rehab if she were to continue. Activities Self-Care/Home Management Activities Issued & reviewed HEP: Prone hip Ext, and shoulder rolls. PT-OP-R Modalities Start: 03/03/24 20:02 Freq: Status: Active Protocol: Document 03/19/24 12:56 AB (Rec: 03/19/24 14:40 AB [id number]) Hot Pack/Cold Pack Treatment thoracic/lumbar spine Comments supine and hooklying during HEP review PT-OP-T Assessment and Plan Start: 03/03/24 20:02 Freq: Status: Active Protocol: Document 03/30/24 13:48 LRN (Rec: 03/30/24 14:32 LRN [id number]) Physical Therapy Assessment Goals Two Impairment Requires walker to walk long distances (TUG score 18 secs) Short Term Goal (STG) Pt will be educated in best sleeping/sit/stand posture. 03/12/24: Educated pt in sleeping posturing. Pt sleeping with pillow under knee and support anterior/ clinic specialist trunk. 02/22/24: Educated pt in proper Sit/Stand Posture and demonstrated good sit posture. Pt is aware of need to reduce lordosis with standing. STG Duration 04/02/24 (03/24/24: MET GOAL ) Senior Living Goal (LTG) Pt will be able to improve her walking tolerance to walk outside her home safely for short distances with use of a cane or improve stability of gait with TUG score less than 14 secs. LTG Duration 05/09/24 One Impairment Pt lacks independent HEP to mitigate thigh & LBP Short Term Goal (STG) Pt will be educated and able to demonstrate proper body mechanics for functional activities (lifting, reaching, sweeping/vacuuming). 03/19/2024 Review of body mechanics for vacuuming and review of log roll this session. 03/24/24: Issued & Reviewed: Body Mechanics Basics, & ADL's Body Mechanics; & Proper Posture: The Holcomb to Safe Mvmt (strain on spine in different positions). Pt showed good body mechanics for picking up object off the floor and lifting purse. 03/30/24: Pt doing proper body mechanics for vacuuming at home and reporting no problem with activity. STG Duration 04/09/24 progressed 03/24/24 (pt to demonstrate reaching, sweeping) Peanut Cleaner Goal (LTG) Pt will be independent in core /hip ex's to mitigate thigh & LBP. 03/12/24: HEP: Core stab ex: SLR, Hip AB/AD & Glut Squeeze. LTG Duration 05/09/24 progressed 03/12/24 Assessment Summary Assessment Pt is a 68 yo female with disc bulges and trace retrolisthesis L1-L4, canal/ foraminal stenosis, & L5 nerve root impingement with symptoms of radicular LE tingling/pain in thighs and LB . Today, pt demonstrates decr 'd R hip IR ROM (15? R, 20? L) and decreased trunk mobility of upper back, mostly T1-T4 and tenderness with PA pressure in areas of lower thoracic and lumbar spine. The pt appears to be tolerating exercise well although she is doing more gardening resulting in increase back pain. Pt is aware of risk of prolonged gardening to onset of back pain. Physical Therapy Plan Frequency and Duration Frequency of Treatment 2x/Week Duration of treatment (weeks) 8 Plan of Care Start Date 03/10/24 Plan of Care End Date 05/09/24 Next Visit Focus/Plan Next Note Type Treatment Note Next Visit Plan (note: trace retrothesis L1-L4 ) Next: MMT hip Ext strength in prone. Body mechanics training for putting sheets on , demonstrating proper reaching, sweeping. -If appropriate start Gentle manual L/S tx, try GENTLE ( grade 1-2) PA mob (L1-L4) due to retrolisthesis. -Progress core stabilization in supine (HEP hip R IR stretching and strengthening as needed) in NS or slight anterior tilt L1-L4, while on MH. -HEP-neutral spine with slight anter tilt (caution: trace retrothesis L1-L4). POC: Therapeutic Ex (L/S strengthening/ROM), Therapeutic Activity w/pt able to demonstrate proper body mechanics, manual therapy ( Ilipsoas stretch, STM Lumbar spine/gentle tx), Gait for safe improvement in endurance , Pt Education (HEP, pain mgmt ).
--- NOTE | 2024-04-02 16:27 | PT.OTN ---
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] (04/02/24) Physical Therapy Treatment Note PT-OP-A Visit Information Start: 03/03/24 20:02 Freq: Status: Active Protocol: Document 04/02/24 12:57 AB (Rec: 04/02/24 16:25 AB [id number]) Out-Patient Physical Therapy Visit Information Visit Information Visit Type Treatment Note Visit Start Time 14:33 Visit Stop Time 15:17 Visit Number 6 Number of [employer]IR Visits 1 Evaluation Information Evaluation Date 03/10/24 Precautions Precautions Uncontrolled HTN w/meds (~130/ 70), Diastolic CHF w/3 stents - 2015 (1)-2017 (2) PT-OP-B Current Condition Start: 03/03/24 20:02 Freq: Status: Active Protocol: Document 03/10/24 13:02 LRN (Rec: 03/10/24 13:52 LRN [id number]) Current Condition History of Current Condition Onset Date 07/2023 Current Complaints Tingling & burning down dariel lateral legs & LBP History of Current Condition Recently (07/2023) worsening of lateral thigh and LBP sensation changes. She reports history of dariel LE/LBP prior to 2018. She states pain onset after standing 10 minutes, so she tries walking, but after 30 minutes the pain worsens and she can't stand upright. She thinks her core is not strong, and she has lost weight to help relieve pain. Pt rerports she has a son who is a paraplegic since 15 yr old. 2 yrs ago used a walker all the time, 8 months ago used a cane to walk, 2 months ago did spurts using no assistive device. Must use an assistive device due to LBP . Pt reports being ambidextrous, but uses mostly her R hand since the R TSA surgery. Developmental History Developmental History Pt had TKA's hoping it would help her thigh and LBP, but has not found any relief of her pain since the surgeries (L TKA 2017, R TKA 2019). Other surgical history per pt: R TSA (2019), and L shoulder that needs a TSA but pt has chosen not to do another surgery at this time. Treatment Goals Patient/Caregiver Goals Pt goals: -Learn ex's to mitagate the pain. -Learn proper functional activities. Personal Factors Other Personal Factors That May Effect Bariatric sleeve in November Therapy/Recovery with wgt loss (60# since Nov). Lives alone (spouse in 2013). Current Ex routine (3x/wk): bike, walking pad and works LE 's with bands. L TKA 2017, R TKA 2019, R TSA 2019. son who is a paraplegic since 13 yr old. PT-OP-C Subjective Start: 03/03/24 20:02 Freq: Status: Active Protocol: Document 04/02/24 12:57 AB (Rec: 04/02/24 16:25 AB [id number]) OP-PT Subjective Patient Comments Patient Comments Patient rates pain 3-4/10 ambulating into session without device. Patient reports she is a little better , stretches are helping, but the low back continues to hurt tremendously and balance is not what she would like it to be. MMT hip Ext strength in prone. R hip ext 3+ within limited ROM L 3. PT-OP-G Mobility & Gait Start: 03/03/24 20:02 Freq: Status: Active Protocol: Document 03/10/24 13:02 LRN (Rec: 03/10/24 13:52 LRN [id number]) OP Gait Assessment Gait Gait Assistance Required: Independent Able to Maintain Weight Bearing Status Yes During Gait Assistive Devices Assistive Device None Gait Deviations General Gait Pattern Decreased Stride Length,Flexed Trunk,Lateral Trunk Lean Factors Limiting Gait Function Factors Limiting Gait Function Decreased Activity Tolerance PT-OP-H Neuro Start: 03/03/24 20:02 Freq: Status: Active Protocol: Document 03/10/24 13:02 LRN (Rec: 03/10/24 13:52 LRN [id number]) Sensation Evaluation Comments Summary Comments Tingling in outer and anterior thighs. PT-OP-J Posture/Palpation/Skin Start: 03/03/24 20:02 Freq: Status: Active Protocol: Document 03/30/24 13:48 LRN (Rec: 03/30/24 18:40 LRN [id number]) Palpation Assessment Location Low back Palpation Location Thoracic & Lumbar spine Palpation Findings Tenderness Palpation Details PA pressure of Spinous Process : T1-T4, T7, T10, T12, L1, L2, L4-L5. PT-OP-K Range of Motion Start: 03/03/24 20:02 Freq: Status: Active Protocol: Document 03/30/24 13:48 LRN (Rec: 03/30/24 18:38 LRN [id number]) Hip Goniometric Range of Motion Hip Right Passive Testing Position Supine Internal Rotation 15 External Rotation 50 Left Passive Testing Position Supine Internal Rotation 20 External Rotation 50 PT-OP-L Special Tests Start: 03/03/24 20:02 Freq: Status: Active Protocol: Document 03/10/24 13:02 LRN (Rec: 03/10/24 13:52 LRN [id number]) Special Tests Lumbar Spine Special Tests Slump Test Results + bilaterally Comments L: onset LBP & R thigh/LBP, R: onset of R LBP PT-OP-M Strength Start: 03/03/24 20:02 Freq: Status: Active Protocol: Document 04/02/24 12:57 AB (Rec: 04/02/24 16:26 AB [id number]) Hip Strength Hip Manual Muscle Testing Right Extension (S1) 3+ Fair+ Comments within limited ROM Left Extension (S1) 3 Fair PT-OP-Q Treatments Start: 03/03/24 20:02 Freq: Status: Active Protocol: Document 04/02/24 12:57 AB (Rec: 04/02/24 16:25 AB [id number]) Therapeutic Exercises Supine Exercises abdominal bracing with LE extension Side bilateral Reps/Minutes X10 Comments Verbal cues for bracing as LE moves away from core Hip ER Side bilateral Reps/Minutes X10 X 10 Hip IR stretch Supine Exercise Name BKFIn Side bilateral Reps/Minutes X10 X 10 SLR Supine Exercise Name Training for core stability and breath with lift Side bilateral Reps/Minutes 10x Comments VC cues to bend opp LE Sitting Exercises seated hip abd with band Sitting Exercise Name to HEP without handout Resistance level 3 band Reps/Minutes one min X 1 Comments Pt ed rationale one min hold for acivation. Manual Therapy Treatment Soft Tissue Mobilization thoracic/LS paraspinals Mobilization Type Sustained Pressure Intensity/Depth Moderate Body Position Sidelying Comments with pillow between knees Neuro Re-Education Treatment Balance Activities SLS Details L and R LE without UE use Reps/Duration X 2 X 2 each LE Comments CGA PT-OP-R Modalities Start: 03/03/24 20:02 Freq: Status: Active Protocol: Document 03/19/24 12:56 AB (Rec: 03/19/24 14:40 AB [id number]) Hot Pack/Cold Pack Treatment thoracic/lumbar spine Comments supine and hooklying during HEP review PT-OP-T Assessment and Plan Start: 03/03/24 20:02 Freq: Status: Active Protocol: Document 04/02/24 12:57 AB (Rec: 04/02/24 16:25 AB [id number]) Physical Therapy Assessment Goals Two Impairment Requires walker to walk long distances (TUG score 18 secs) Short Term Goal (STG) Pt will be educated in best sleeping/sit/stand posture. 03/12/24: Educated pt in sleeping posturing. Pt sleeping with pillow under knee and support anterior/ hr consultant trunk. 02/22/24: Educated pt in proper Sit/Stand Posture and demonstrated good sit posture. Pt is aware of need to reduce lordosis with standing. STG Duration 04/02/24 (03/24/24: MET GOAL ) Fdc Goal (LTG) Pt will be able to improve her walking tolerance to walk outside her home safely for short distances with use of a cane or improve stability of gait with TUG score less than 14 secs. LTG Duration 05/09/24 One Impairment Pt lacks independent HEP to mitigate thigh & LBP Short Term Goal (STG) Pt will be educated and able to demonstrate proper body mechanics for functional activities (lifting, reaching, sweeping/vacuuming). 03/19/2024 Review of body mechanics for vacuuming and review of log roll this session. 03/24/24: Issued & Reviewed: Body Mechanics Basics, & ADL's Body Mechanics; & Proper Posture: The Holcomb to Safe Mvmt (strain on spine in different positions). Pt showed good body mechanics for picking up object off the floor and lifting purse. 03/30/24: Pt doing proper body mechanics for vacuuming at home and reporting no problem with activity. STG Duration 04/09/24 progressed 03/24/24 (pt to demonstrate reaching, sweeping) Fdc Goal (LTG) Pt will be independent in core /hip ex's to mitigate thigh & LBP. 03/12/24: HEP: Core stab ex: SLR, Hip AB/AD & Glut Squeeze. 04/02/2024 Patient requests initiating session with HEP stretches as they are helpful, required Verbal cues to opp knee during SLR, but good return technique for all other exercises performed in clinic from HEP today. LTG Duration 05/09/24 progressed 03/12/24 Assessment Summary Assessment Pt is a 68 yo female with disc bulges and trace retrolisthesis L1-L4, canal/ foraminal stenosis, & L5 nerve root impingement with symptoms of radicular LE tingling/pain in thighs and LB . Today increased SLS left and right LE without UE use post glute med activation ( seated hip abd with band one min ). Kathy reports left side of Low back is more sore end of session, the rest of the back is better. Physical Therapy Plan Frequency and Duration Frequency of Treatment 2x/Week Duration of treatment (weeks) 8 Plan of Care Start Date 03/10/24 Plan of Care End Date 05/09/24 Therapeutic Interventions Therapeutic Interventions Gait Training,Home Exercise Program,Manual Therapy, Neuromuscular Re-education, Self-Care/Home Management,Soft Tissue Mobilization, Therapeutic Activities, Therapeutic Exercises Modalities Cold Pack/Ice Massage,Electric Stimulation,Hot Packs, Ultrasound Next Visit Focus/Plan Next Note Type Treatment Note Next Visit Plan (note: trace retrothesis L1-L4 ) Next: Body mechanics training for putting sheets on , demonstrating proper reaching, sweeping. -If appropriate start Gentle manual L/S tx, try GENTLE ( grade 1-2) PA mob (L1-L4) due to retrolisthesis. -Progress core stabilization in supine (HEP hip R IR stretching and strengthening as needed) in NS or slight anterior tilt L1-L4, while on MH. -HEP-neutral spine with slight anter tilt (caution: trace retrothesis L1-L4). POC: Therapeutic Ex (L/S strengthening/ROM), Therapeutic Activity w/pt able to demonstrate proper body mechanics, manual therapy ( Ilipsoas stretch, STM Lumbar spine/gentle tx), Gait for safe improvement in endurance , Pt Education (HEP, pain mgmt ).
--- NOTE | 2024-04-07 15:48 | PT.OTN ---
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] (04/07/24) Physical Therapy Treatment Note PT-OP-A Visit Information Start: 03/03/24 20:02 Freq: Status: Active Protocol: Document 04/07/24 14:35 LRN (Rec: 04/07/24 15:48 LRN [id number]) Out-Patient Physical Therapy Visit Information Visit Information Visit Type Treatment Note Visit Start Time 14:35 Visit Stop Time 15:15 Visit Number 7 Evaluation Information Evaluation Date 03/10/24 Precautions Precautions Uncontrolled HTN w/meds (~130/ 70), Diastolic CHF w/3 stents - 2015 (1)-2017 (2) PT-OP-B Current Condition Start: 03/03/24 20:02 Freq: Status: Active Protocol: Document 03/10/24 13:02 LRN (Rec: 03/10/24 13:52 LRN [id number]) Current Condition History of Current Condition Onset Date 07/2023 Current Complaints Tingling & burning down dariel lateral legs & LBP History of Current Condition Recently (07/2023) worsening of lateral thigh and LBP sensation changes. She reports history of dariel LE/LBP prior to 2018. She states pain onset after standing 10 minutes, so she tries walking, but after 30 minutes the pain worsens and she can't stand upright. She thinks her core is not strong, and she has lost weight to help relieve pain. Pt rerports she has a son who is a paraplegic since 15 yr old. 2 yrs ago used a walker all the time, 8 months ago used a cane to walk, 2 months ago did spurts using no assistive device. Must use an assistive device due to LBP . Pt reports being ambidextrous, but uses mostly her R hand since the R TSA surgery. Developmental History Developmental History Pt had TKA's hoping it would help her thigh and LBP, but has not found any relief of her pain since the surgeries (L TKA 2017, R TKA 2019). Other surgical history per pt: R TSA (2019), and L shoulder that needs a TSA but pt has chosen not to do another surgery at this time. Treatment Goals Patient/Caregiver Goals Pt goals: -Learn ex's to mitagate the pain. -Learn proper functional activities. Personal Factors Other Personal Factors That May Effect Bariatric sleeve in November Therapy/Recovery with wgt loss (60# since Nov). Lives alone (spouse in 2013). Current Ex routine (3x/wk): bike, walking pad and works LE 's with bands. L TKA 2017, R TKA 2019, R TSA 2019. son who is a paraplegic since 13 yr old. PT-OP-C Subjective Start: 03/03/24 20:02 Freq: Status: Active Protocol: Document 04/07/24 14:35 LRN (Rec: 04/07/24 15:48 LRN [id number]) OP-PT Subjective Patient Comments Patient Comments No AD walking into therapy. States back is doing a little better. Pain rated 3-4/10. PT-OP-G Mobility & Gait Start: 03/03/24 20:02 Freq: Status: Active Protocol: Document 03/10/24 13:02 LRN (Rec: 03/10/24 13:52 LRN [id number]) OP Gait Assessment Gait Gait Assistance Required: Independent Able to Maintain Weight Bearing Status Yes During Gait Assistive Devices Assistive Device None Gait Deviations General Gait Pattern Decreased Stride Length,Flexed Trunk,Lateral Trunk Lean Factors Limiting Gait Function Factors Limiting Gait Function Decreased Activity Tolerance PT-OP-H Neuro Start: 03/03/24 20:02 Freq: Status: Active Protocol: Document 03/10/24 13:02 LRN (Rec: 03/10/24 13:52 LRN [id number]) Sensation Evaluation Comments Summary Comments Tingling in outer and anterior thighs. PT-OP-J Posture/Palpation/Skin Start: 03/03/24 20:02 Freq: Status: Active Protocol: Document 03/30/24 13:48 LRN (Rec: 03/30/24 18:40 LRN [id number]) Palpation Assessment Location Low back Palpation Location Thoracic & Lumbar spine Palpation Findings Tenderness Palpation Details PA pressure of Spinous Process : T1-T4, T7, T10, T12, L1, L2, L4-L5. PT-OP-K Range of Motion Start: 03/03/24 20:02 Freq: Status: Active Protocol: Document 03/30/24 13:48 LRN (Rec: 03/30/24 18:38 LRN [id number]) Hip Goniometric Range of Motion Hip Right Passive Testing Position Supine Internal Rotation 15 External Rotation 50 Left Passive Testing Position Supine Internal Rotation 20 External Rotation 50 PT-OP-L Special Tests Start: 03/03/24 20:02 Freq: Status: Active Protocol: Document 03/10/24 13:02 LRN (Rec: 03/10/24 13:52 LRN [id number]) Special Tests Lumbar Spine Special Tests Slump Test Results + bilaterally Comments L: onset LBP & R thigh/LBP, R: onset of R LBP PT-OP-M Strength Start: 03/03/24 20:02 Freq: Status: Active Protocol: Document 04/02/24 12:57 AB (Rec: 04/02/24 16:26 AB [id number]) Hip Strength Hip Manual Muscle Testing Right Extension (S1) 3+ Fair+ Comments within limited ROM Left Extension (S1) 3 Fair PT-OP-Q Treatments Start: 03/03/24 20:02 Freq: Status: Active Protocol: Document 04/07/24 14:35 LRN (Rec: 04/07/24 15:48 LRN [id number]) Therapeutic Exercises Prone Exercises Hip Ext Prone Exercise Name TA tight & Exhale w/lift Side bilateral Reps/Minutes 10x R, 10+5x L. Comments Cued to exhale on lift Sidelying Exercises Hip AB Sidelying Exercise Name Straight leg hip AB, w/TA/ Exhale w/lift Side bilateral Reps/Minutes 15x Clamshell Sidelying Exercise Name TA tight & Exhale w/lift Side bilateral Reps/Minutes 15x each Comments Cued to keep neutral spine and breath with ex Hip AD Sidelying Exercise Name TA tight & Exhale w/lift Side bilateral Reps/Minutes 15x Comments Pt encouraged to work slowly up to 10x 2 reps in 1.5-2 wks Standing Exercises Side stepping Standing Exercise Name Hands on Railing, then hands sliding on railing Side bilateral Equipment Used Hand rails Reps/Minutes 20'x 2 Comments Cued to Shallow Squats Reps/Minutes 10x Comments Cued to breath w/exer. Therapeutic Activity Therapeutic Activity Reaching above Name Reaching overhead. Reps/Minutes 2' Comments Pt able to describe her method at home using a step stool for reaching overhead. Making bed. Name Educ/training: putting on mattress cover & Comforter in Duvet. Reps/Minutes 8' Comments Pt receptive to behavior modification of flinging cover over mattress to unfolding cover on mattress. Pt appeared to have a good method for putting comforter in duvet. Sweeping training Name Sweeping and polishing floor training Reps/Minutes 8' Comments Training for core stability, no trunk rot & minimizing flexion during activities. PT-OP-R Modalities Start: 03/03/24 20:02 Freq: Status: Active Protocol: Document 03/19/24 12:56 AB (Rec: 03/19/24 14:40 AB [id number]) Hot Pack/Cold Pack Treatment thoracic/lumbar spine Comments supine and hooklying during HEP review PT-OP-T Assessment and Plan Start: 03/03/24 20:02 Freq: Status: Active Protocol: Document 04/07/24 14:35 LRN (Rec: 04/07/24 15:48 LRN [id number]) Physical Therapy Assessment Goals Two Impairment Requires walker to walk long distances (TUG score 18 secs) Short Term Goal (STG) Pt will be educated in best sleeping/sit/stand posture. 03/12/24: Educated pt in sleeping posturing. Pt sleeping with pillow under knee and support anterior/ waiter/waitress counter trunk. 02/22/24: Educated pt in proper Sit/Stand Posture and demonstrated good sit posture. Pt is aware of need to reduce lordosis with standing. STG Duration 04/02/24 (03/24/24: MET GOAL ) Half-Way Goal (LTG) Pt will be able to improve her walking tolerance to walk outside her home safely for short distances with use of a cane or improve stability of gait with TUG score less than 14 secs. LTG Duration 05/09/24 One Impairment Pt lacks independent HEP to mitigate thigh & LBP Short Term Goal (STG) Pt will be educated and able to demonstrate proper body mechanics for functional activities (lifting, reaching, sweeping/vacuuming). 03/19/2024 Review of body mechanics for vacuuming and review of log roll this session. 03/24/24: Issued & Reviewed: Body Mechanics Basics, & ADL's Body Mechanics; & Proper Posture: The Holcomb to Safe Mvmt (strain on spine in different positions). Pt showed good body mechanics for picking up object off the floor and lifting purse. 03/30/24: Pt doing proper body mechanics for vacuuming at home and reporting no problem with activity. 04/07/24: Pt educated and was able to demonstrate proper body mechanics for sweeping, floor mopping/polishing, vacuuming, & reaching overhead ; pt willing to modify covering of her mattress ( using legs to lift mattress to get on cover, and putting a comforter by rolling and unrolling in a duvet cover. STG Duration 04/09/24 (04/07/24: MET GOAL ) Half-Way Goal (LTG) Pt will be independent in core /hip ex's to mitigate thigh & LBP. 03/12/24: HEP: Core stab ex: SLR, Hip AB/AD & Glut Squeeze. 04/02/2024 Patient requests initiating session with HEP stretches as they are helpful, required Verbal cues to opp knee during SLR, but good return technique for all other exercises performed in clinic from HEP today. LTG Duration 05/09/24 progressed 03/12/24 Assessment Summary Assessment Pt is a 68 yo female with disc bulges and trace retrolisthesis L1-L4, canal/ foraminal stenosis, & L5 nerve root impingement with symptoms of radicular LE tingling/pain in thighs and LB . Today, she demonstrates good body mechanics for ADLs ( sweeping, polishing floor, reaching overhead, and replacing mattress cover and duvet. She is much more aware of safe and proper mvmt for ADLs. Physical Therapy Plan Frequency and Duration Frequency of Treatment 2x/Week Duration of treatment (weeks) 8 Plan of Care Start Date 03/10/24 Plan of Care End Date 05/09/24 Next Visit Focus/Plan Next Note Type Treatment Note Next Visit Plan (note: trace retrothesis L1-L4 ) Next: Educate pt in self care pain mgmt (cryotherapy). Strengthen core/LE's to improve safety with gait, work towards correcting gait posture, f/b manual therapy for dariel neural pain relief of LB/dariel hips & lateral thighs. -Progress core stabilization in supine (HEP hip R IR stretching and strengthening as needed) in NS or slight anterior tilt L1-L4, while on MH. HEP as needed. -If appropriate start Gentle manual L/S tx, try GENTLE ( grade 1-2) PA mob (L1-L4) due to retrolisthesis. -HEP-neutral spine with slight anter tilt (caution: trace retrothesis L1-L4).
--- NOTE | 2024-04-13 18:44 | PT.OTN ---
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] (04/13/24) Physical Therapy Treatment Note PT-OP-A Visit Information Start: 03/03/24 20:02 Freq: Status: Active Protocol: Document 04/13/24 13:03 LRN (Rec: 04/13/24 13:51 LRN [id number]) Out-Patient Physical Therapy Visit Information Visit Information Visit Type Treatment Note Visit Note Blood Pressure: 170/94 Visit Start Time 13:03 Visit Stop Time 13:49 Visit Number 8 Evaluation Information Evaluation Date 03/10/24 Precautions Precautions Uncontrolled HTN w/meds (~130/ 70), Diastolic CHF w/3 stents - 2016 (1)-2017 (2) PT-OP-B Current Condition Start: 03/03/24 20:02 Freq: Status: Active Protocol: Document 03/10/24 13:02 LRN (Rec: 03/10/24 13:52 LRN [id number]) Current Condition History of Current Condition Onset Date 07/2023 Current Complaints Tingling & burning down dariel lateral legs & LBP History of Current Condition Recently (07/2023) worsening of lateral thigh and LBP sensation changes. She reports history of dariel LE/LBP prior to 2018. She states pain onset after standing 10 minutes, so she tries walking, but after 30 minutes the pain worsens and she can't stand upright. She thinks her core is not strong, and she has lost weight to help relieve pain. Pt rerports she has a son who is a paraplegic since 13 yr old. 2 yrs ago used a walker all the time, 8 months ago used a cane to walk, 2 months ago did spurts using no assistive device. Must use an assistive device due to LBP . Pt reports being ambidextrous, but uses mostly her R hand since the R TSA surgery. Developmental History Developmental History Pt had TKA's hoping it would help her thigh and LBP, but has not found any relief of her pain since the surgeries (L TKA 2017, R TKA 2019). Other surgical history per pt: R TSA (2019), and L shoulder that needs a TSA but pt has chosen not to do another surgery at this time. Treatment Goals Patient/Caregiver Goals Pt goals: -Learn ex's to mitagate the pain. -Learn proper functional activities. Personal Factors Other Personal Factors That May Effect Bariatric sleeve in November Therapy/Recovery with wgt loss (60# since Nov). Lives alone (spouse in 2013). Current Ex routine (3x/wk): bike, walking pad and works LE 's with bands. L TKA 2017, R TKA 2019, R TSA 2019. son who is a paraplegic since 13 yr old. PT-OP-C Subjective Start: 03/03/24 20:02 Freq: Status: Active Protocol: Document 04/13/24 13:03 LRN (Rec: 04/13/24 13:51 LRN [id number]) OP-PT Subjective Patient Comments Patient Comments Having pain in L shoulder blade region in last couple of days, comes and goes, doesn't feel like the shoulder pain . States her BP was a little high, 174/90. Not currently having L shoulder pain. Have done ex's this morning: Recumbent bike 15', TM 15', Leg lifts, back stretches and sitting band ex's. States she is feeling better, LBP rated 1-2/10, and feels she is able to stand upright and feels better about about herself. PT-OP-G Mobility & Gait Start: 03/03/24 20:02 Freq: Status: Active Protocol: Document 03/10/24 13:02 LRN (Rec: 03/10/24 13:52 LRN [id number]) OP Gait Assessment Gait Gait Assistance Required: Independent Able to Maintain Weight Bearing Status Yes During Gait Assistive Devices Assistive Device None Gait Deviations General Gait Pattern Decreased Stride Length,Flexed Trunk,Lateral Trunk Lean Factors Limiting Gait Function Factors Limiting Gait Function Decreased Activity Tolerance PT-OP-H Neuro Start: 03/03/24 20:02 Freq: Status: Active Protocol: Document 03/10/24 13:02 LRN (Rec: 03/10/24 13:52 LRN [id number]) Sensation Evaluation Comments Summary Comments Tingling in outer and anterior thighs. PT-OP-J Posture/Palpation/Skin Start: 03/03/24 20:02 Freq: Status: Active Protocol: Document 03/30/24 13:48 LRN (Rec: 03/30/24 18:40 LRN [id number]) Palpation Assessment Location Low back Palpation Location Thoracic & Lumbar spine Palpation Findings Tenderness Palpation Details PA pressure of Spinous Process : T1-T4, T7, T10, T12, L1, L2, L4-L5. PT-OP-K Range of Motion Start: 03/03/24 20:02 Freq: Status: Active Protocol: Document 03/30/24 13:48 LRN (Rec: 03/30/24 18:38 LRN [id number]) Hip Goniometric Range of Motion Hip Right Passive Testing Position Supine Internal Rotation 15 External Rotation 50 Left Passive Testing Position Supine Internal Rotation 20 External Rotation 50 PT-OP-L Special Tests Start: 03/03/24 20:02 Freq: Status: Active Protocol: Document 03/10/24 13:02 LRN (Rec: 03/10/24 13:52 LRN [id number]) Special Tests Lumbar Spine Special Tests Slump Test Results + bilaterally Comments L: onset LBP & R thigh/LBP, R: onset of R LBP PT-OP-M Strength Start: 03/03/24 20:02 Freq: Status: Active Protocol: Document 04/02/24 12:57 AB (Rec: 04/02/24 16:26 AB [id number]) Hip Strength Hip Manual Muscle Testing Right Extension (S1) 3+ Fair+ Comments within limited ROM Left Extension (S1) 3 Fair PT-OP-Q Treatments Start: 03/03/24 20:02 Freq: Status: Active Protocol: Document 04/13/24 13:03 LRN (Rec: 04/13/24 13:51 LRN [id number]) Therapeutic Exercises Supine Exercises Deep Breathing Reps/Minutes 10' Comments EXtra time needed to help pt become aware of belly vs chest breathing Sitting Exercises Piriformis stretch Sitting Exercise Name 2x L, 1x R - [place] pose like stretch sitting on side of plinth Side bilateral Reps/Minutes 3' Comments Extra time taken for positioning & to determine max billy stretch seated hip abd with band Sitting Exercise Name doing HEP without handout Resistance level 2 band Reps/Minutes 15x 2 Comments Pt ed rationale one min hold for acivation. Manual Therapy Treatment Soft Tissue Mobilization LE's Body Location Thighs, reclined for lower legs Mobilization Type Instrument Assisted Intensity/Depth Moderate Body Position Sitting Comments Roller used. Self-Care/Home Management Treatment Education Other Education Discussed and educated pt in possible cardiac concerns regarding referred pain to L posterior shoulder. Pt monitored closely during therapy and requested that the pt return to her primary care physician for assessment of her L shoulder pain as her BP was quite high. Pt states she will do that today. Pt education in self care pain management with RICE technique for her musculoskeletal LB and shoulder pain (not the L posterior back pain). Activities Self-Care/Home Management Activities Issued & reviewed handout: RICE self treatment for pain management. PT-OP-R Modalities Start: 03/03/24 20:02 Freq: Status: Active Protocol: Document 03/19/24 12:56 AB (Rec: 03/19/24 14:40 AB [id number]) Hot Pack/Cold Pack Treatment thoracic/lumbar spine Comments supine and hooklying during HEP review PT-OP-T Assessment and Plan Start: 03/03/24 20:02 Freq: Status: Active Protocol: Document 04/13/24 13:03 LRN (Rec: 04/13/24 13:51 LRN [id number]) Physical Therapy Assessment Goals Two Impairment Requires walker to walk long distances (TUG score 18 secs) Short Term Goal (STG) Pt will be educated in best sleeping/sit/stand posture. 03/12/24: Educated pt in sleeping posturing. Pt sleeping with pillow under knee and support anterior/ veneer patcher trunk. 02/22/24: Educated pt in proper Sit/Stand Posture and demonstrated good sit posture. Pt is aware of need to reduce lordosis with standing. STG Duration 04/02/24 (03/24/24: MET GOAL ) General Ophthalmologist Goal (LTG) Pt will be able to improve her walking tolerance to walk outside her home safely for short distances with use of a cane or improve stability of gait with TUG score less than 14 secs. LTG Duration 05/09/24 One Impairment Pt lacks independent HEP to mitigate thigh & LBP Short Term Goal (STG) Pt will be educated and able to demonstrate proper body mechanics for functional activities (lifting, reaching, sweeping/vacuuming). 03/19/2024 Review of body mechanics for vacuuming and review of log roll this session. 03/24/24: Issued & Reviewed: Body Mechanics Basics, & ADL's Body Mechanics; & Proper Posture: The Holcomb to Safe Mvmt (strain on spine in different positions). Pt showed good body mechanics for picking up object off the floor and lifting purse. 03/30/24: Pt doing proper body mechanics for vacuuming at home and reporting no problem with activity. 04/07/24: Pt educated and was able to demonstrate proper body mechanics for sweeping, floor mopping/polishing, vacuuming, & reaching overhead ; pt willing to modify covering of her mattress ( using legs to lift mattress to get on cover, and putting a comforter by rolling and unrolling in a duvet cover. STG Duration 04/09/24 (04/07/24: MET GOAL ) [facility] Goal (LTG) Pt will be independent in core /hip ex's to mitigate thigh & LBP. 03/12/24: HEP: Core stab ex: SLR, Hip AB/AD & Glut Squeeze. 04/02/2024 Patient requests initiating session with HEP stretches as they are helpful, required Verbal cues to opp knee during SLR, but good return technique for all other exercises performed in clinic from HEP today. LTG Duration 05/09/24 progressed 03/12/24 Assessment Summary Assessment Pt attends today with reported intermittent symptoms of L posterior shoulder pain that could not be reproduced with palpation. Her blood pressure remained high (170/94). Therapy was limited to education and stretches (no active ex). The pt was closely monitored during therapy and showed no signs of L shoulder pain throughout therapy. The pt was advised to contact her primary care physician and that if she experienced L shoulder pain that she should immediately seek care and not to wait to see if symptoms worsen. Physical Therapy Plan Frequency and Duration Frequency of Treatment 2x/Week Duration of treatment (weeks) 8 Plan of Care Start Date 03/10/24 Plan of Care End Date 05/09/24 Next Visit Focus/Plan Next Note Type Treatment Note Next Visit Plan (note: trace retrothesis L1-L4 ) Next: Assess pt's Blood Presure for appropriateness of exercise, and if pt saw physician for her high blood pressure and L posterior shoulder pain. If appropriate for ex, monitor BP/signs & ` symptoms closely with: strengthening core/LE's to improve safety with gait, work towards correcting gait posture, f/b manual therapy for dariel neural pain relief of LB/dariel hips & lateral thighs. -Progress core stabilization in supine (HEP hip R IR stretching and strengthening as needed) in NS or slight anterior tilt L1-L4, while on MH. HEP as needed. -If appropriate start Gentle manual L/S tx, try GENTLE ( grade 1-2) PA mob (L1-L4) due to retrolisthesis. -HEP-neutral spine with slight anter tilt (caution: trace retrothesis L1-L4).
--- NOTE | 2024-04-24 15:10 | PT.OTN ---
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] (04/24/24) Physical Therapy Treatment Note PT-OP-A Visit Information Start: 03/03/24 20:02 Freq: Status: Active Protocol: Document 04/24/24 12:36 AB (Rec: 04/24/24 15:09 AB [id number]) Out-Patient Physical Therapy Visit Information Visit Information Visit Type Treatment Note Visit Note Blood pressure L UE seated X 3 trials unable to get reading then right forearm seated BP unable, manual R UE 178/72HR 57 BPM O2 sat 95% Visit Start Time 14:40 Visit Stop Time 15:02 Visit Number 9 Number of STRUCTURAL RIGGER Visits 1 PT-OP-B Current Condition Start: 03/03/24 20:02 Freq: Status: Active Protocol: Document 03/10/24 13:02 LRN (Rec: 03/10/24 13:52 LRN [id number]) Current Condition History of Current Condition Onset Date 07/2023 Current Complaints Tingling & burning down dariel lateral legs & LBP History of Current Condition Recently (07/2023) worsening of lateral thigh and LBP sensation changes. She reports history of dariel LE/LBP prior to 2018. She states pain onset after standing 10 minutes, so she tries walking, but after 30 minutes the pain worsens and she can't stand upright. She thinks her core is not strong, and she has lost weight to help relieve pain. Pt rerports she has a son who is a paraplegic since 15 yr old. 2 yrs ago used a walker all the time, 8 months ago used a cane to walk, 2 months ago did spurts using no assistive device. Must use an assistive device due to LBP . Pt reports being ambidextrous, but uses mostly her R hand since the R TSA surgery. Developmental History Developmental History Pt had TKA's hoping it would help her thigh and LBP, but has not found any relief of her pain since the surgeries (L TKA 2017, R TKA 2019). Other surgical history per pt: R TSA (2019), and L shoulder that needs a TSA but pt has chosen not to do another surgery at this time. Treatment Goals Patient/Caregiver Goals Pt goals: -Learn ex's to mitagate the pain. -Learn proper functional activities. Personal Factors Other Personal Factors That May Effect Bariatric sleeve in November Therapy/Recovery with wgt loss (60# since Nov). Lives alone (spouse in 2013). Current Ex routine (3x/wk): bike, walking pad and works LE 's with bands. L TKA 2017, R TKA 2019, R TSA 2019. son who is a paraplegic since 13 yr old. PT-OP-C Subjective Start: 03/03/24 20:02 Freq: Status: Active Protocol: Document 04/24/24 12:36 AB (Rec: 04/24/24 15:09 AB [id number]) OP-PT Subjective Patient Comments Patient Comments Patient reports she is sore, had a fall on Saturday, was wresting with dogs, fell on soft ground, reports back is sore is using ice. Patient rates back pain 8/10. Patient reports back was hurting while standing in line earlier today and had shooting pain and numbness down L LE. PT-OP-G Mobility & Gait Start: 03/03/24 20:02 Freq: Status: Active Protocol: Document 03/10/24 13:02 LRN (Rec: 03/10/24 13:52 LRN [id number]) OP Gait Assessment Gait Gait Assistance Required: Independent Able to Maintain Weight Bearing Status Yes During Gait Assistive Devices Assistive Device None Gait Deviations General Gait Pattern Decreased Stride Length,Flexed Trunk,Lateral Trunk Lean Factors Limiting Gait Function Factors Limiting Gait Function Decreased Activity Tolerance PT-OP-H Neuro Start: 03/03/24 20:02 Freq: Status: Active Protocol: Document 03/10/24 13:02 LRN (Rec: 03/10/24 13:52 LRN [id number]) Sensation Evaluation Comments Summary Comments Tingling in outer and anterior thighs. PT-OP-J Posture/Palpation/Skin Start: 03/03/24 20:02 Freq: Status: Active Protocol: Document 03/30/24 13:48 LRN (Rec: 03/30/24 18:40 LRN [id number]) Palpation Assessment Location Low back Palpation Location Thoracic & Lumbar spine Palpation Findings Tenderness Palpation Details PA pressure of Spinous Process : T1-T4, T7, T10, T12, L1, L2, L4-L5. PT-OP-K Range of Motion Start: 03/03/24 20:02 Freq: Status: Active Protocol: Document 03/30/24 13:48 LRN (Rec: 03/30/24 18:38 LRN [id number]) Hip Goniometric Range of Motion Hip Right Passive Testing Position Supine Internal Rotation 15 External Rotation 50 Left Passive Testing Position Supine Internal Rotation 20 External Rotation 50 PT-OP-L Special Tests Start: 03/03/24 20:02 Freq: Status: Active Protocol: Document 03/10/24 13:02 LRN (Rec: 03/10/24 13:52 LRN [id number]) Special Tests Lumbar Spine Special Tests Slump Test Results + bilaterally Comments L: onset LBP & R thigh/LBP, R: onset of R LBP PT-OP-M Strength Start: 03/03/24 20:02 Freq: Status: Active Protocol: Document 04/02/24 12:57 AB (Rec: 04/02/24 16:26 AB [id number]) Hip Strength Hip Manual Muscle Testing Right Extension (S1) 3+ Fair+ Comments within limited ROM Left Extension (S1) 3 Fair PT-OP-Q Treatments Start: 03/03/24 20:02 Freq: Status: Active Protocol: Document 04/13/24 13:03 LRN (Rec: 04/13/24 13:51 LRN [id number]) Therapeutic Exercises Supine Exercises Deep Breathing Reps/Minutes 10' Comments EXtra time needed to help pt become aware of belly vs chest breathing Sitting Exercises Piriformis stretch Sitting Exercise Name 2x L, 1x R - Winigan pose like stretch sitting on side of plinth Side bilateral Reps/Minutes 3' Comments Extra time taken for positioning & to determine max billy stretch seated hip abd with band Sitting Exercise Name doing HEP without handout Resistance level 2 band Reps/Minutes 15x 2 Comments Pt ed rationale one min hold for acivation. Manual Therapy Treatment Soft Tissue Mobilization LE's Body Location Thighs, reclined for lower legs Mobilization Type Instrument Assisted Intensity/Depth Moderate Body Position Sitting Comments Roller used. Self-Care/Home Management Treatment Education Other Education Discussed and educated pt in possible cardiac concerns regarding referred pain to L posterior shoulder. Pt monitored closely during therapy and requested that the pt return to her primary care physician for assessment of her L shoulder pain as her BP was quite high. Pt states she will do that today. Pt education in self care pain management with RICE technique for her musculoskeletal LB and shoulder pain (not the L posterior back pain). Activities Self-Care/Home Management Activities Issued & reviewed handout: RICE self treatment for pain management. PT-OP-R Modalities Start: 03/03/24 20:02 Freq: Status: Active Protocol: Document 03/19/24 12:56 AB (Rec: 03/19/24 14:40 AB [id number]) Hot Pack/Cold Pack Treatment thoracic/lumbar spine Comments supine and hooklying during HEP review PT-OP-T Assessment and Plan Start: 03/03/24 20:02 Freq: Status: Active Protocol: Document 04/24/24 12:36 AB (Rec: 04/24/24 15:09 AB [id number]) Physical Therapy Assessment Goals Two Impairment Requires walker to walk long distances (TUG score 18 secs) Short Term Goal (STG) Pt will be educated in best sleeping/sit/stand posture. 03/12/24: Educated pt in sleeping posturing. Pt sleeping with pillow under knee and support anterior/ agricultural aircraft pilot trunk. 02/22/24: Educated pt in proper Sit/Stand Posture and demonstrated good sit posture. Pt is aware of need to reduce lordosis with standing. STG Duration 04/02/24 (03/24/24: MET GOAL ) Associate Professor Of Media [employer] Goal (LTG) Pt will be able to improve her walking tolerance to walk outside her home safely for short distances with use of a cane or improve stability of gait with TUG score less than 14 secs. LTG Duration 05/09/24 One Impairment Pt lacks independent HEP to mitigate thigh & LBP Short Term Goal (STG) Pt will be educated and able to demonstrate proper body mechanics for functional activities (lifting, reaching, sweeping/vacuuming). 03/19/2024 Review of body mechanics for vacuuming and review of log roll this session. 03/24/24: Issued & Reviewed: Body Mechanics Basics, & ADL's Body Mechanics; & Proper Posture: The Holcomb to Safe Mvmt (strain on spine in different positions). Pt showed good body mechanics for picking up object off the floor and lifting purse. 03/30/24: Pt doing proper body mechanics for vacuuming at home and reporting no problem with activity. 04/07/24: Pt educated and was able to demonstrate proper body mechanics for sweeping, floor mopping/polishing, vacuuming, & reaching overhead ; pt willing to modify covering of her mattress ( using legs to lift mattress to get on cover, and putting a comforter by rolling and unrolling in a duvet cover. STG Duration 04/09/24 (04/07/24: MET GOAL ) Associate Professor [employer] Media [employer] Goal (LTG) Pt will be independent in core /hip ex's to mitigate thigh & LBP. 03/12/24: HEP: Core stab ex: SLR, Hip AB/AD & Glut Squeeze. 04/02/2024 Patient requests initiating session with HEP stretches as they are helpful, required Verbal cues to opp knee during SLR, but good return technique for all other exercises performed in clinic from HEP today. LTG Duration 05/09/24 progressed 03/12/24 Assessment Summary Assessment No treatment given. Spoke with PT Yogesh Camp, regarding fall and high blood pressure. Patient ed to avoid HEP exercises that increase pain. Physical Therapy Plan Frequency and Duration Frequency of Treatment 2x/Week Duration of treatment (weeks) 8 Plan of Care Start Date 03/10/24 Plan of Care End Date 05/09/24 Next Visit Focus/Plan Next Note Type Treatment Note
--- NOTE | 2024-04-27 16:18 | PT.OPPN ---
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 Assessed at 126/62 . Visit Start Time 15:22 Visit Stop Time 16:06 Visit Number 10 Evaluation Information Evaluation Date 03/10/24 Precautions Precautions Uncontrolled HTN w/meds (~130/ 70), Diastolic CHF w/3 stents - 2015 (1)-2017 (2) PT-OP-B Current Condition Start: 03/03/24 20:02 Freq: Status: Active Protocol: Document 03/10/24 13:02 LRN (Rec: 03/10/24 13:52 LRN [id number]) Current Condition History of Current Condition Onset Date 07/2023 Current Complaints Tingling & burning down dariel lateral legs & LBP History of Current Condition Recently (07/2023) worsening of lateral thigh and LBP sensation changes. She reports history of dariel LE/LBP prior to 2018. She states pain onset after standing 10 minutes, so she tries walking, but after 30 minutes the pain worsens and she can't stand upright. She thinks her core is not strong, and she has lost weight to help relieve pain. Pt rerports she has a son who is a paraplegic since 13 yr old. 2 yrs ago used a walker all the time, 8 months ago used a cane to walk, 2 months ago did spurts using no assistive device. Must use an assistive device due to LBP . Pt reports being ambidextrous, but uses mostly her R hand since the R TSA surgery. Developmental History Developmental History Pt had TKA's hoping it would help her thigh and LBP, but has not found any relief of her pain since the surgeries (L TKA 2017, R TKA 2019). Other surgical history per pt: R TSA (2019), and L shoulder that needs a TSA but pt has chosen not to do another surgery at this time. Treatment Goals Patient/Caregiver Goals Pt goals: -Learn ex's to mitagate the pain. -Learn proper functional activities. Personal Factors Other Personal Factors That May Effect Bariatric sleeve in November Therapy/Recovery with wgt loss (60# since Nov). Lives alone (spouse in 2013). Current Ex routine (3x/wk): bike, walking pad and works LE 's with bands. L TKA 2017, R TKA 2019, R TSA 2019. son who is a paraplegic since 13 yr old. PT-OP-C Subjective Start: 03/03/24 20:02 Freq: Status: Active Protocol: Document 04/27/24 16:06 LRN (Rec: 04/27/24 16:06 LRN [id number]) OP-PT Subjective Patient Comments Patient Comments States she talked to her surgeon 3 days ago (Sat) and was told if she is not hitting her hydration levels (64 ozs) , then her blood pressure will fluctuate. Will see Dr. Martin tomorrow about her BP/ and intermittent posterior L shoulder pain, mainly at night . BP today is 152/63. Feeling better, not tight and anxious, therefore her Blood pressure is good. Back is sore , rated 3-4/10 since fall on 04/18/24. Patient Questionnaires Oswestry Low Back Index Oswestry Score 16/50 = 32/100 Oswestry Impairment 20 to 39% Impaired (Score 20- 39) OP-PT Pain Assessment Location Thighs Pain Location Details anterior and lateral Intensity 3 Scale Used Numeric (0 - 10) Low Back Pain Location Details lower sacral region Intensity 4 Scale Used Numeric (0 - 10) PT-OP-G Mobility & Gait Start: 03/03/24 20:02 Freq: Status: Active Protocol: Document 03/10/24 13:02 LRN (Rec: 03/10/24 13:52 LRN [id number]) OP Gait Assessment Gait Gait Assistance Required: Independent Able to Maintain Weight Bearing Status Yes During Gait Assistive Devices Assistive Device None Gait Deviations General Gait Pattern Decreased Stride Length,Flexed Trunk,Lateral Trunk Lean Factors Limiting Gait Function Factors Limiting Gait Function Decreased Activity Tolerance PT-OP-H Neuro Start: 03/03/24 20:02 Freq: Status: Active Protocol: Document 03/10/24 13:02 LRN (Rec: 03/10/24 13:52 LRN [id number]) Sensation Evaluation Comments Summary Comments Tingling in outer and anterior thighs. PT-OP-J Posture/Palpation/Skin Start: 03/03/24 20:02 Freq: Status: Active Protocol: Document 03/30/24 13:48 LRN (Rec: 03/30/24 18:40 LRN [id number]) Palpation Assessment Location Low back Palpation Location Thoracic & Lumbar spine Palpation Findings Tenderness Palpation Details PA pressure of Spinous Process : T1-T4, T7, T10, T12, L1, L2, L4-L5. PT-OP-K Range of Motion Start: 03/03/24 20:02 Freq: Status: Active Protocol: Document 03/30/24 13:48 LRN (Rec: 03/30/24 18:38 LRN [id number]) Hip Goniometric Range of Motion Hip Measured in Degrees Right Passive Testing Position Supine Internal Rotation 15 External Rotation 50 Left Passive Testing Position Supine Internal Rotation 20 External Rotation 50 PT-OP-L Special Tests Start: 03/03/24 20:02 Freq: Status: Active Protocol: Document 03/10/24 13:02 LRN (Rec: 03/10/24 13:52 LRN [id number]) Special Tests Lumbar Spine Special Tests Slump Test Results + bilaterally Comments L: onset LBP & R thigh/LBP, R: onset of R LBP PT-OP-M Strength Start: 03/03/24 20:02 Freq: Status: Active Protocol: Document 04/02/24 12:57 AB (Rec: 04/02/24 16:26 AB [id number]) Hip Strength Hip Manual Muscle Testing Right Extension (S1) 3+ Fair+ Comments within limited ROM Left Extension (S1) 3 Fair PT-OP-T Assessment and Plan Start: 03/03/24 20:02 Freq: Status: Active Protocol: Document 04/27/24 16:06 LRN (Rec: 04/27/24 16:06 LRN [id number]) Physical Therapy Assessment Rehab Potential Rehabilitation Potential Good Evaluation Complexity Number of Personal Factors/Comorbidities 3 or More Number of Body Systems Impaired 4 or More Clinical Presentation at Evaluation Evolving Impairments Impairments Activity Tolerance,Gait,Pain, Posture,ROM,Soft Tissue Mobility,Strength Goals Two Impairment Requires walker to walk long distances (TUG score 18 secs) Short Term Goal (STG) Pt will be educated in best sleeping/sit/stand posture. 03/12/24: Educated pt in sleeping posturing. Pt sleeping with pillow under knee and support anterior/ facility service associate trunk. 02/22/24: Educated pt in proper Sit/Stand Posture and demonstrated good sit posture. Pt is aware of need to reduce lordosis with standing. STG Duration 04/02/24 (03/24/24: MET GOAL ) Senior Network Architect Goal (LTG) Pt will be able to improve her walking tolerance to walk outside her home safely for short distances with use of a cane or improve stability of gait with TUG score less than 14 secs. LTG Duration 06/25/24 One Impairment Pt lacks independent HEP to mitigate thigh & LBP Short Term Goal (STG) Pt will be educated and able to demonstrate proper body mechanics for functional activities (lifting, reaching, sweeping/vacuuming). 03/19/2024 Review of body mechanics for vacuuming and review of log roll this session. 03/24/24: Issued & Reviewed: Body Mechanics Basics, & ADL's Body Mechanics; & Proper Posture: The Holcomb to Safe Mvmt (strain on spine in different positions). Pt showed good body mechanics for picking up object off the floor and lifting purse. 03/30/24: Pt doing proper body mechanics for vacuuming at home and reporting no problem with activity. 04/07/24: Pt educated and was able to demonstrate proper body mechanics for sweeping, floor mopping/polishing, vacuuming, & reaching overhead ; pt willing to modify covering of her mattress ( using legs to lift mattress to get on cover, and putting a comforter by rolling and unrolling in a duvet cover. STG Duration 04/09/24 (04/07/24: MET GOAL ) Fdc Goal (LTG) Pt will be independent in core /hip ex's to mitigate thigh & LBP. 03/12/24: HEP: Core stab ex: SLR, Hip AB/AD & Glut Squeeze. 04/02/2024 Patient requests initiating session with HEP stretches as they are helpful, required Verbal cues to opp knee during SLR, but good return technique for all other exercises performed in clinic from HEP today. LTG Duration 06/25/24 progressed 03/12/24 Assessment Summary Assessment Pt is a 68 yo female with disc bulges and trace retrolisthesis L1-L4, canal/ foraminal stenosis, & L5 nerve root impingement with symptoms of radicular LE tingling/pain in thighs and LB . Today, pt took her BP at home as 152/63. Prior to exer BP taken (15'), difficult to assess and taken in 2 locations (forearm, brachium), assessed at 126/62. Deferred taking ending BP reading due to the multiple attempts needed at start of PT. Pt had no signs of or symptoms of high blood pressure during and post therapy. Physical Therapy Plan Frequency and Duration Frequency of Treatment 2x/Week Duration of treatment (weeks) 8 Plan of Care Start Date 04/27/24 Plan of Care End Date 06/25/24 Therapeutic Interventions Therapeutic Interventions Gait Training,Home Exercise Program,Manual Therapy, Neuromuscular Re-education, Self-Care/Home Management,Soft Tissue Mobilization, Therapeutic Activities, Therapeutic Exercises Modalities Cold Pack/Ice Massage Next Visit Focus/Plan Next Note Type Treatment Note Next Visit Plan (note: trace retrothesis L1-L4 ). Next: Show pt self back massage with ball and start progressing walking tolerance. Assess pt's Blood Presure for appropriateness of exercise, and if pt saw physician for her high blood pressure and L posterior shoulder pain. If appropriate for ex, monitor BP/signs & ` symptoms closely with: strengthening core/LE's to improve safety with gait, work towards correcting gait posture, f/b manual therapy for dariel neural pain relief of LB/dariel hips & lateral thighs. -Progress core stabilization in supine (HEP hip R IR stretching and strengthening as needed) in NS or slight anterior tilt L1-L4, while on MH. HEP as needed. -If appropriate start Gentle manual L/S tx, try GENTLE ( grade 1-2) PA mob (L1-L4) due to retrolisthesis. -HEP-neutral spine with slight anter tilt (caution: trace retrothesis L1-L4).
--- NOTE | 2024-04-27 19:02 | PT.OTN ---
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 Assessed at 126/62 . Visit Start Time 15:22 Visit Stop Time 16:06 Visit Number 10 Evaluation Information Evaluation Date 03/10/24 Precautions Precautions Uncontrolled HTN w/meds (~130/ 70), Diastolic CHF w/3 stents - 2015 (1)-2017 (2) PT-OP-B Current Condition Start: 03/03/24 20:02 Freq: Status: Active Protocol: Document 03/10/24 13:02 LRN (Rec: 03/10/24 13:52 LRN [id number]) Current Condition History of Current Condition Onset Date 07/2023 Current Complaints Tingling & burning down dariel lateral legs & LBP History of Current Condition Recently (07/2023) worsening of lateral thigh and LBP sensation changes. She reports history of dariel LE/LBP prior to 2018. She states pain onset after standing 10 minutes, so she tries walking, but after 30 minutes the pain worsens and she can't stand upright. She thinks her core is not strong, and she has lost weight to help relieve pain. Pt rerports she has a son who is a paraplegic since 15 yr old. 2 yrs ago used a walker all the time, 8 months ago used a cane to walk, 2 months ago did spurts using no assistive device. Must use an assistive device due to LBP . Pt reports being ambidextrous, but uses mostly her R hand since the R TSA surgery. Developmental History Developmental History Pt had TKA's hoping it would help her thigh and LBP, but has not found any relief of her pain since the surgeries (L TKA 2017, R TKA 2019). Other surgical history per pt: R TSA (2019), and L shoulder that needs a TSA but pt has chosen not to do another surgery at this time. Treatment Goals Patient/Caregiver Goals Pt goals: -Learn ex's to mitagate the pain. -Learn proper functional activities. Personal Factors Other Personal Factors That May Effect Bariatric sleeve in November Therapy/Recovery with wgt loss (60# since Nov). Lives alone (spouse in 2013). Current Ex routine (3x/wk): bike, walking pad and works LE 's with bands. L TKA 2017, R TKA 2019, R TSA 2019. son who is a paraplegic since 13 yr old. PT-OP-C Subjective Start: 03/03/24 20:02 Freq: Status: Active Protocol: Document 04/27/24 15:22 LRN (Rec: 04/27/24 16:06 LRN [id number]) OP-PT Subjective Patient Comments Patient Comments States she talked to her surgeon 3 days ago (Sat) and was told if she is not hitting her hydration levels (64 ozs) , then her blood pressure will fluctuate. Will see Dr. Martin tomorrow about her BP/ and intermittent posterior L shoulder pain, mainly at night . BP today is 152/63. Feeling better, not tight and anxious, therefore her Blood pressure is good. Back is sore , rated 3-4/10 since fall on 04/18/24. Patient Questionnaires Oswestry Low Back Index Oswestry Score 16/50 = 32/100 Oswestry Impairment 20 to 39% Impaired (Score 20- 39) OP-PT Pain Assessment Location Thighs Pain Location Details anterior and lateral Intensity 3 Scale Used Numeric (0 - 10) Low Back Pain Location Details lower sacral region Intensity 4 Scale Used Numeric (0 - 10) PT-OP-G Mobility & Gait Start: 03/03/24 20:02 Freq: Status: Active Protocol: Document 03/10/24 13:02 LRN (Rec: 03/10/24 13:52 LRN [id number]) OP Gait Assessment Gait Gait Assistance Required: Independent Able to Maintain Weight Bearing Status Yes During Gait Assistive Devices Assistive Device None Gait Deviations General Gait Pattern Decreased Stride Length,Flexed Trunk,Lateral Trunk Lean Factors Limiting Gait Function Factors Limiting Gait Function Decreased Activity Tolerance PT-OP-H Neuro Start: 03/03/24 20:02 Freq: Status: Active Protocol: Document 03/10/24 13:02 LRN (Rec: 03/10/24 13:52 LRN [id number]) Sensation Evaluation Comments Summary Comments Tingling in outer and anterior thighs. PT-OP-J Posture/Palpation/Skin Start: 03/03/24 20:02 Freq: Status: Active Protocol: Document 03/30/24 13:48 LRN (Rec: 03/30/24 18:40 LRN [id number]) Palpation Assessment Location Low back Palpation Location Thoracic & Lumbar spine Palpation Findings Tenderness Palpation Details PA pressure of Spinous Process : T1-T4, T7, T10, T12, L1, L2, L4-L5. PT-OP-K Range of Motion Start: 03/03/24 20:02 Freq: Status: Active Protocol: Document 03/30/24 13:48 LRN (Rec: 03/30/24 18:38 LRN [id number]) Hip Goniometric Range of Motion Hip Right Passive Testing Position Supine Internal Rotation 15 External Rotation 50 Left Passive Testing Position Supine Internal Rotation 20 External Rotation 50 PT-OP-L Special Tests Start: 03/03/24 20:02 Freq: Status: Active Protocol: Document 03/10/24 13:02 LRN (Rec: 03/10/24 13:52 LRN [id number]) Special Tests Lumbar Spine Special Tests Slump Test Results + bilaterally Comments L: onset LBP & R thigh/LBP, R: onset of R LBP PT-OP-M Strength Start: 03/03/24 20:02 Freq: Status: Active Protocol: Document 04/02/24 12:57 AB (Rec: 04/02/24 16:26 AB [id number]) Hip Strength Hip Manual Muscle Testing Right Extension (S1) 3+ Fair+ Comments within limited ROM Left Extension (S1) 3 Fair PT-OP-Q Treatments Start: 03/03/24 20:02 Freq: Status: Active Protocol: Document 04/27/24 15:22 LRN (Rec: 04/27/24 16:06 LRN [id number]) Therapeutic Exercises Supine Exercises NS/step outs Reps/Minutes 15x - 8' Comments Cued for breath/TA tightening with slight exten of back ( neutral spine) Deep Breathing Reps/Minutes 4' Comments Much v cuing & pt self phys cuing w/hands on chest and abdomen SLR Side bilateral Reps/Minutes 15x Sitting Exercises Piriformis stretch Sitting Exercise Name 2x L, 1x R - [place] pose like stretch sitting on side of plinth Side bilateral Reps/Minutes 5' Comments Extra time taken for positioning & to determine max billy stretch seated hip abd with band Side bilateral Equipment Used level 2 band Reps/Minutes 15x 2 Shoulder rolls Sitting Exercise Name Window Shade Installer shoulder rolls during Piriformis stretch Side bilateral Reps/Minutes 10x 3 Comments Cued for neutral head positioning PT-OP-R Modalities Start: 03/03/24 20:02 Freq: Status: Active Protocol: Document 03/19/24 12:56 AB (Rec: 03/19/24 14:40 AB [id number]) Hot Pack/Cold Pack Treatment thoracic/lumbar spine Comments supine and hooklying during HEP review PT-OP-T Assessment and Plan Start: 03/03/24 20:02 Freq: Status: Active Protocol: Document 04/27/24 15:22 LRN (Rec: 04/27/24 16:06 LRN [id number]) Physical Therapy Assessment Rehab Potential Rehabilitation Potential Good Evaluation Complexity Number of Personal Factors/Comorbidities 3 or More Number of Body Systems Impaired 4 or More Clinical Presentation at Evaluation Evolving Impairments Impairments Activity Tolerance,Gait,Pain, Posture,ROM,Soft Tissue Mobility,Strength Goals Two Impairment Requires walker to walk long distances (TUG score 18 secs) Short Term Goal (STG) Pt will be educated in best sleeping/sit/stand posture. 03/12/24: Educated pt in sleeping posturing. Pt sleeping with pillow under knee and support anterior/ electronics design engineer trunk. 02/22/24: Educated pt in proper Sit/Stand Posture and demonstrated good sit posture. Pt is aware of need to reduce lordosis with standing. STG Duration 04/02/24 (03/24/24: MET GOAL ) Chcf Goal (LTG) Pt will be able to improve her walking tolerance to walk outside her home safely for short distances with use of a cane or improve stability of gait with TUG score less than 14 secs. LTG Duration 06/25/24 One Impairment Pt lacks independent HEP to mitigate thigh & LBP Short Term Goal (STG) Pt will be educated and able to demonstrate proper body mechanics for functional activities (lifting, reaching, sweeping/vacuuming). 03/19/2024 Review of body mechanics for vacuuming and review of log roll this session. 03/24/24: Issued & Reviewed: Body Mechanics Basics, & ADL's Body Mechanics; & Proper Posture: The Holcomb to Safe Mvmt (strain on spine in different positions). Pt showed good body mechanics for picking up object off the floor and lifting purse. 03/30/24: Pt doing proper body mechanics for vacuuming at home and reporting no problem with activity. 04/07/24: Pt educated and was able to demonstrate proper body mechanics for sweeping, floor mopping/polishing, vacuuming, & reaching overhead ; pt willing to modify covering of her mattress ( using legs to lift mattress to get on cover, and putting a comforter by rolling and unrolling in a duvet cover. STG Duration 04/09/24 (04/07/24: MET GOAL ) Chcf Goal (LTG) Pt will be independent in core /hip ex's to mitigate thigh & LBP. 03/12/24: HEP: Core stab ex: SLR, Hip AB/AD & Glut Squeeze. 04/02/2024 Patient requests initiating session with HEP stretches as they are helpful, required Verbal cues to opp knee during SLR, but good return technique for all other exercises performed in clinic from HEP today. LTG Duration 06/25/24 progressed 03/12/24 Assessment Summary Assessment Pt is a 68 yo female with disc bulges and trace retrolisthesis L1-L4, canal/ foraminal stenosis, & L5 nerve root impingement with symptoms of radicular LE tingling/pain in thighs and LB . Today, pt took her BP at home as 152/63. Prior to exer BP taken (15'), difficult to assess and taken in 2 locations (forearm, brachium), assessed at 126/62. Deferred taking ending BP reading due to the multiple attempts needed at start of PT. Pt had no signs of or symptoms of high blood pressure during and post therapy. Physical Therapy Plan Frequency and Duration Frequency of Treatment 2x/Week Duration of treatment (weeks) 8 Plan of Care Start Date 04/27/24 Plan of Care End Date 06/25/24 Therapeutic Interventions Therapeutic Interventions Gait Training,Home Exercise Program,Manual Therapy, Neuromuscular Re-education, Self-Care/Home Management,Soft Tissue Mobilization, Therapeutic Activities, Therapeutic Exercises Modalities Cold Pack/Ice Massage Next Visit Focus/Plan Next Note Type Treatment Note Next Visit Plan (note: trace retrothesis L1-L4 ). Next: Show pt self back massage with ball and start progressing walking tolerance. Assess pt's Blood Presure for appropriateness of exercise, and if pt saw physician for her high blood pressure and L posterior shoulder pain. If appropriate for ex, monitor BP/signs & ` symptoms closely with: strengthening core/LE's to improve safety with gait, work towards correcting gait posture, f/b manual therapy for dariel neural pain relief of LB/dariel hips & lateral thighs. -Progress core stabilization in supine (HEP hip R IR stretching and strengthening as needed) in NS or slight anterior tilt L1-L4, while on MH. HEP as needed. -If appropriate start Gentle manual L/S tx, try GENTLE ( grade 1-2) PA mob (L1-L4) due to retrolisthesis. -HEP-neutral spine with slight anter tilt (caution: trace retrothesis L1-L4).
--- NOTE | 2024-04-29 17:23 | PT.OTN ---
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] (04/29/24) Physical Therapy Treatment Note PT-OP-A Visit Information Start: 03/03/24 20:02 Freq: Status: Active Protocol: Document 04/29/24 14:02 AB (Rec: 04/29/24 17:23 AB [id number]) Out-Patient Physical Therapy Visit Information Visit Information Visit Type Treatment Note Visit Note BP taken manually Left UE seated with pillow under UE's 145/85 Visit Start Time 14:34 Visit Stop Time 15:19 Visit Number 11 Number of BALLET TEACHER Visits 2 Evaluation Information Evaluation Date 03/10/24 PT-OP-B Current Condition Start: 03/03/24 20:02 Freq: Status: Active Protocol: Document 03/10/24 13:02 LRN (Rec: 03/10/24 13:52 LRN [id number]) Current Condition History of Current Condition Onset Date 07/2023 Current Complaints Tingling & burning down dariel lateral legs & LBP History of Current Condition Recently (07/2023) worsening of lateral thigh and LBP sensation changes. She reports history of dariel LE/LBP prior to 2018. She states pain onset after standing 10 minutes, so she tries walking, but after 30 minutes the pain worsens and she can't stand upright. She thinks her core is not strong, and she has lost weight to help relieve pain. Pt rerports she has a son who is a paraplegic since 13 yr old. 2 yrs ago used a walker all the time, 8 months ago used a cane to walk, 2 months ago did spurts using no assistive device. Must use an assistive device due to LBP . Pt reports being ambidextrous, but uses mostly her R hand since the R TSA surgery. Developmental History Developmental History Pt had TKA's hoping it would help her thigh and LBP, but has not found any relief of her pain since the surgeries (L TKA 2017, R TKA 2019). Other surgical history per pt: R TSA (2019), and L shoulder that needs a TSA but pt has chosen not to do another surgery at this time. Treatment Goals Patient/Caregiver Goals Pt goals: -Learn ex's to mitagate the pain. -Learn proper functional activities. Personal Factors Other Personal Factors That May Effect Bariatric sleeve in November Therapy/Recovery with wgt loss (60# since Nov). Lives alone (spouse in 2013). Current Ex routine (3x/wk): bike, walking pad and works LE 's with bands. L TKA 2017, R TKA 2019, R TSA 2019. son who is a paraplegic since 13 yr old. PT-OP-C Subjective Start: 03/03/24 20:02 Freq: Status: Active Protocol: Document 04/29/24 14:02 AB (Rec: 04/29/24 17:23 AB [id number]) OP-PT Subjective Patient Comments Patient Comments Patient reports she saw MD, she is fine, had an EKG and nothing was seen per patient, also reports she is being sent to ortho for shoulder surgery . Kathy rates low back pain start of session BP was 135/84 at MD yesterday and again this morning. Patient ambulates with a Trendelenburg pattern. PT-OP-G Mobility & Gait Start: 03/03/24 20:02 Freq: Status: Active Protocol: Document 03/10/24 13:02 LRN (Rec: 03/10/24 13:52 LRN [id number]) OP Gait Assessment Gait Gait Assistance Required: Independent Able to Maintain Weight Bearing Status Yes During Gait Assistive Devices Assistive Device None Gait Deviations General Gait Pattern Decreased Stride Length,Flexed Trunk,Lateral Trunk Lean Factors Limiting Gait Function Factors Limiting Gait Function Decreased Activity Tolerance PT-OP-H Neuro Start: 03/03/24 20:02 Freq: Status: Active Protocol: Document 03/10/24 13:02 LRN (Rec: 03/10/24 13:52 LRN [id number]) Sensation Evaluation Comments Summary Comments Tingling in outer and anterior thighs. PT-OP-J Posture/Palpation/Skin Start: 03/03/24 20:02 Freq: Status: Active Protocol: Document 03/30/24 13:48 LRN (Rec: 03/30/24 18:40 LRN [id number]) Palpation Assessment Location Low back Palpation Location Thoracic & Lumbar spine Palpation Findings Tenderness Palpation Details PA pressure of Spinous Process : T1-T4, T7, T10, T12, L1, L2, L4-L5. PT-OP-K Range of Motion Start: 03/03/24 20:02 Freq: Status: Active Protocol: Document 03/30/24 13:48 LRN (Rec: 03/30/24 18:38 LRN [id number]) Hip Goniometric Range of Motion Hip Right Passive Testing Position Supine Internal Rotation 15 External Rotation 50 Left Passive Testing Position Supine Internal Rotation 20 External Rotation 50 PT-OP-L Special Tests Start: 03/03/24 20:02 Freq: Status: Active Protocol: Document 03/10/24 13:02 LRN (Rec: 03/10/24 13:52 LRN [id number]) Special Tests Lumbar Spine Special Tests Slump Test Results + bilaterally Comments L: onset LBP & R thigh/LBP, R: onset of R LBP PT-OP-M Strength Start: 03/03/24 20:02 Freq: Status: Active Protocol: Document 04/02/24 12:57 AB (Rec: 04/02/24 16:26 AB [id number]) Hip Strength Hip Manual Muscle Testing Right Extension (S1) 3+ Fair+ Comments within limited ROM Left Extension (S1) 3 Fair PT-OP-Q Treatments Start: 03/03/24 20:02 Freq: Status: Active Protocol: Document 04/29/24 14:02 AB (Rec: 04/29/24 17:23 AB [id number]) Therapeutic Exercises Sitting Exercises Breathing from diaphragm Sitting Exercise Name UE's resting on pillows Reps/Minutes 2 min Comments verbal cues for breathing from diaphragm seated hip abd with band Sitting Exercise Name HEP Side bilateral Equipment Used level 4 band Reps/Minutes 15x 2 one minute hold X 1 Standing Exercises hip extension Standing Exercise Name HEP Resistance level 4 band above knees Reps/Minutes X 15 each LE Comments verbal cues standing hip abduction Standing Exercise Name HEP Resistance level 4 band above knees Reps/Minutes X 15 Comments verbal and visual cues Therapeutic Activity Therapeutic Activity Self STM with balls Name tennis balls and racquet balls on wall Reps/Minutes 4 min Comments assist and verbal cues for set up and mvt LS paraspinals Gait Training Gait Activity without device Surface floor Treatment Focus decrease Trendelenburg pattern Comments 14 feet VC UE's overhead 15 feet and 8 feet, Verbal cues to activate glute max Manual Therapy Treatment Consent Patient gave verbal consent for manual No treatment Soft Tissue Mobilization thoracic/LS paraspinals Body Location lumbar paraspinals Mobilization Type Sustained Pressure Intensity/Depth Moderate Body Position Sidelying Comments with pillow between knees PT-OP-R Modalities Start: 03/03/24 20:02 Freq: Status: Active Protocol: Document 03/19/24 12:56 AB (Rec: 03/19/24 14:40 AB [id number]) Hot Pack/Cold Pack Treatment thoracic/lumbar spine Comments supine and hooklying during HEP review PT-OP-T Assessment and Plan Start: 03/03/24 20:02 Freq: Status: Active Protocol: Document 04/29/24 14:02 AB (Rec: 04/29/24 17:23 AB [id number]) Physical Therapy Assessment Goals Two Impairment Requires walker to walk long distances (TUG score 18 secs) Short Term Goal (STG) Pt will be educated in best sleeping/sit/stand posture. 03/12/24: Educated pt in sleeping posturing. Pt sleeping with pillow under knee and support anterior/ tobacco cloth reclaimer trunk. 02/22/24: Educated pt in proper Sit/Stand Posture and demonstrated good sit posture. Pt is aware of need to reduce lordosis with standing. STG Duration 04/02/24 (03/24/24: MET GOAL ) Intermediate Goal (LTG) Pt will be able to improve her walking tolerance to walk outside her home safely for short distances with use of a cane or improve stability of gait with TUG score less than 14 secs. 04/29/2024 Patient reports she hasn't been able to walk very much due to weather and back being sore, does walk on a walking pad at home for 30 minutes, with no increase in back pain. Patient able to ambulate with out device eliminating Trendelenburg pattern by following verbal cues for glute max activation. LTG Duration 06/25/24 One Impairment Pt lacks independent HEP to mitigate thigh & LBP Short Term Goal (STG) Pt will be educated and able to demonstrate proper body mechanics for functional activities (lifting, reaching, sweeping/vacuuming). 03/19/2024 Review of body mechanics for vacuuming and review of log roll this session. 03/24/24: Issued & Reviewed: Body Mechanics Basics, & ADL's Body Mechanics; & Proper Posture: The Holcomb to Safe Mvmt (strain on spine in different positions). Pt showed good body mechanics for picking up object off the floor and lifting purse. 03/30/24: Pt doing proper body mechanics for vacuuming at home and reporting no problem with activity. 04/07/24: Pt educated and was able to demonstrate proper body mechanics for sweeping, floor mopping/polishing, vacuuming, & reaching overhead ; pt willing to modify covering of her mattress ( using legs to lift mattress to get on cover, and putting a comforter by rolling and unrolling in a duvet cover. STG Duration 04/09/24 (04/07/24: MET GOAL ) Intermediate Goal (LTG) Pt will be independent in core /hip ex's to mitigate thigh & LBP. 03/12/24: HEP: Core stab ex: SLR, Hip AB/AD & Glut Squeeze. 04/02/2024 Patient requests initiating session with HEP stretches as they are helpful, required Verbal cues to opp knee during SLR, but good return technique for all other exercises performed in clinic from HEP today. 04/29/2024 HEP additions of seated hip abd with band, standing hip abd and extnsion with band as well as seated breathing from diaphragm LTG Duration 06/25/24 progressed 03/12/24 Assessment Summary Assessment Kathy rates pain 3/10 less than ambulating out of session without device. With verbal cues to activate/squeeze glute max during ambulation end of stance phase eliminates Trendelenburg pattern. Physical Therapy Plan Next Visit Focus/Plan Next Note Type Treatment Note Next Visit Plan (note: trace retrothesis L1-L4 ). Next: Progressing walking tolerance/ focus on glute max activation. Assess pt's Blood Presure for appropriateness of exercise. If appropriate for ex, monitor BP/signs & `symptoms closely with: strengthening core/LE's to improve safety with gait, work towards correcting gait posture/ focus on glute max activtion during ambulation, f /b manual therapy for dariel neural pain relief of LB/dariel hips & lateral thighs. -Progress core stabilization in supine (HEP hip R IR stretching and strengthening as needed) in NS or slight anterior tilt L1-L4, while on MH. HEP as needed. -If appropriate start Gentle manual L/S tx, try GENTLE ( grade 1-2) PA mob (L1-L4) due to retrolisthesis. -HEP-neutral spine with slight anter tilt (caution: trace retrothesis L1-L4).
--- NOTE | 2024-05-05 15:56 | PT.OTN ---
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] (05/05/24) Physical Therapy Treatment Note PT-OP-A Visit Information Start: 03/03/24 20:02 Freq: Status: Active Protocol: Document 05/05/24 13:05 AB (Rec: 05/05/24 15:56 AB [id number]) Out-Patient Physical Therapy Visit Information Visit Information Visit Type Treatment Note Visit Note BP 138/72 L forearm taken manually Visit Start Time 14:31 Visit Stop Time 15:16 Visit Number 12 Number of SUPERVISOR FRONT Visits 2 Evaluation Information Evaluation Date 03/10/24 Precautions Precautions Uncontrolled HTN w/meds (~130/ 70), Diastolic CHF w/3 stents - 2015 (1)-2017 (2) PT-OP-B Current Condition Start: 03/03/24 20:02 Freq: Status: Active Protocol: Document 03/10/24 13:02 LRN (Rec: 03/10/24 13:52 LRN [id number]) Current Condition History of Current Condition Onset Date 07/2023 Current Complaints Tingling & burning down dariel lateral legs & LBP History of Current Condition Recently (07/2023) worsening of lateral thigh and LBP sensation changes. She reports history of dariel LE/LBP prior to 2018. She states pain onset after standing 10 minutes, so she tries walking, but after 30 minutes the pain worsens and she can't stand upright. She thinks her core is not strong, and she has lost weight to help relieve pain. Pt rerports she has a son who is a paraplegic since 15 yr old. 2 yrs ago used a walker all the time, 8 months ago used a cane to walk, 2 months ago did spurts using no assistive device. Must use an assistive device due to LBP . Pt reports being ambidextrous, but uses mostly her R hand since the R TSA surgery. Developmental History Developmental History Pt had TKA's hoping it would help her thigh and LBP, but has not found any relief of her pain since the surgeries (L TKA 2017, R TKA 2019). Other surgical history per pt: R TSA (2019), and L shoulder that needs a TSA but pt has chosen not to do another surgery at this time. Treatment Goals Patient/Caregiver Goals Pt goals: -Learn ex's to mitagate the pain. -Learn proper functional activities. Personal Factors Other Personal Factors That May Effect Bariatric sleeve in November Therapy/Recovery with wgt loss (60# since Nov). Lives alone (spouse in 2013). Current Ex routine (3x/wk): bike, walking pad and works LE 's with bands. L TKA 2017, R TKA 2019, R TSA 2019. son who is a paraplegic since 13 yr old. PT-OP-C Subjective Start: 03/03/24 20:02 Freq: Status: Active Protocol: Document 05/05/24 13:05 AB (Rec: 05/05/24 15:56 AB [id number]) OP-PT Subjective Patient Comments Patient Comments Patient reports she is fine, has been able to do the HEP. Patient rates pain 3/10 start of session, low back pain. Patient reports walking with focus on glute med activation has been great. PT-OP-G Mobility & Gait Start: 03/03/24 20:02 Freq: Status: Active Protocol: Document 03/10/24 13:02 LRN (Rec: 03/10/24 13:52 LRN [id number]) OP Gait Assessment Gait Gait Assistance Required: Independent Able to Maintain Weight Bearing Status Yes During Gait Assistive Devices Assistive Device None Gait Deviations General Gait Pattern Decreased Stride Length,Flexed Trunk,Lateral Trunk Lean Factors Limiting Gait Function Factors Limiting Gait Function Decreased Activity Tolerance PT-OP-H Neuro Start: 03/03/24 20:02 Freq: Status: Active Protocol: Document 03/10/24 13:02 LRN (Rec: 03/10/24 13:52 LRN [id number]) Sensation Evaluation Comments Summary Comments Tingling in outer and anterior thighs. PT-OP-J Posture/Palpation/Skin Start: 03/03/24 20:02 Freq: Status: Active Protocol: Document 03/30/24 13:48 LRN (Rec: 03/30/24 18:40 LRN [id number]) Palpation Assessment Location Low back Palpation Location Thoracic & Lumbar spine Palpation Findings Tenderness Palpation Details PA pressure of Spinous Process : T1-T4, T7, T10, T12, L1, L2, L4-L5. PT-OP-K Range of Motion Start: 03/03/24 20:02 Freq: Status: Active Protocol: Document 03/30/24 13:48 LRN (Rec: 03/30/24 18:38 LRN [id number]) Hip Goniometric Range of Motion Hip Right Passive Testing Position Supine Internal Rotation 15 External Rotation 50 Left Passive Testing Position Supine Internal Rotation 20 External Rotation 50 PT-OP-L Special Tests Start: 03/03/24 20:02 Freq: Status: Active Protocol: Document 03/10/24 13:02 LRN (Rec: 03/10/24 13:52 LRN [id number]) Special Tests Lumbar Spine Special Tests Slump Test Results + bilaterally Comments L: onset LBP & R thigh/LBP, R: onset of R LBP PT-OP-M Strength Start: 03/03/24 20:02 Freq: Status: Active Protocol: Document 04/02/24 12:57 AB (Rec: 04/02/24 16:26 AB [id number]) Hip Strength Hip Manual Muscle Testing Right Extension (S1) 3+ Fair+ Comments within limited ROM Left Extension (S1) 3 Fair PT-OP-Q Treatments Start: 03/03/24 20:02 Freq: Status: Active Protocol: Document 05/05/24 13:05 AB (Rec: 05/05/24 15:56 AB [id number]) Therapeutic Exercises Sidelying Exercises Hip AB Sidelying Exercise Name back to wall Side bilateral Reps/Minutes 15x Comments Patient reports he only has to Home exercises, with verbal cues to perform Clamshell Side bilateral Reps/Minutes 15x each Comments Patient reports he only has to Home exercises, with verbal cues to perform Sitting Exercises Piriformis stretch Sitting Exercise Name - [place] pose like stretch sitting on side of plinth Side bilateral Reps/Minutes 5' X10 each LE Standing Exercises Shallow Squats Side bilateral Resistance level 5 band tied above knees band to HEP Reps/Minutes X16 Comments Verbal cues and pt ed self tactile cues for hip hinge Manual Therapy Treatment Consent Patient gave verbal consent for manual No treatment Soft Tissue Mobilization thoracic/LS paraspinals Body Location lumbar paraspinals, lower thoracic paraspinas, int vert tissue Mobilization Type Cross-Friction,Sustained Pressure Intensity/Depth Moderate Body Position Sidelying Comments with pillow between knees PT-OP-R Modalities Start: 03/03/24 20:02 Freq: Status: Active Protocol: Document 03/19/24 12:56 AB (Rec: 03/19/24 14:40 AB [id number]) Hot Pack/Cold Pack Treatment thoracic/lumbar spine Comments supine and hooklying during HEP review PT-OP-T Assessment and Plan Start: 03/03/24 20:02 Freq: Status: Active Protocol: Document 05/05/24 13:05 AB (Rec: 05/05/24 15:56 AB [id number]) Physical Therapy Assessment Goals Two Impairment Requires walker to walk long distances (TUG score 18 secs) Short Term Goal (STG) Pt will be educated in best sleeping/sit/stand posture. 03/12/24: Educated pt in sleeping posturing. Pt sleeping with pillow under knee and support anterior/ etch operator semiconductor wafers trunk. 02/22/24: Educated pt in proper Sit/Stand Posture and demonstrated good sit posture. Pt is aware of need to reduce lordosis with standing. STG Duration 04/02/24 (03/24/24: MET GOAL ) Engine Repairer Service Goal (LTG) Pt will be able to improve her walking tolerance to walk outside her home safely for short distances with use of a cane or improve stability of gait with TUG score less than 14 secs. 04/29/2024 Patient reports she hasn't been able to walk very much due to weather and back being sore, does walk on a walking pad at home for 30 minutes, with no increase in back pain. Patient able to ambulate with out device eliminating Trendelenburg pattern by following verbal cues for glute max activation. 05/05/2024 Noted patient with good tech for log roll throughout session, and dec ipsilateral trunk side bend stance phase bilaterally during ambulation compared to start of prev session with this SUPERVISOR FRONT, but miminal ipsilateral trunk sidebednd persists impacting LS spine during ambulation. LTG Duration 06/25/24 One Impairment Pt lacks independent HEP to mitigate thigh & LBP Short Term Goal (STG) Pt will be educated and able to demonstrate proper body mechanics for functional activities (lifting, reaching, sweeping/vacuuming). 03/19/2024 Review of body mechanics for vacuuming and review of log roll this session. 03/24/24: Issued & Reviewed: Body Mechanics Basics, & ADL's Body Mechanics; & Proper Posture: The Holcomb to Safe Mvmt (strain on spine in different positions). Pt showed good body mechanics for picking up object off the floor and lifting purse. 03/30/24: Pt doing proper body mechanics for vacuuming at home and reporting no problem with activity. 04/07/24: Pt educated and was able to demonstrate proper body mechanics for sweeping, floor mopping/polishing, vacuuming, & reaching overhead ; pt willing to modify covering of her mattress ( using legs to lift mattress to get on cover, and putting a comforter by rolling and unrolling in a duvet cover. STG Duration 04/09/24 (04/07/24: MET GOAL ) Usp Goal (LTG) Pt will be independent in core /hip ex's to mitigate thigh & LBP. 03/12/24: HEP: Core stab ex: SLR, Hip AB/AD & Glut Squeeze. 04/02/2024 Patient requests initiating session with HEP stretches as they are helpful, required Verbal cues to opp knee during SLR, but good return technique for all other exercises performed in clinic from HEP today. 04/29/2024 HEP additions of seated hip abd with band, standing hip abd and extnsion with band as well as seated breathing from diaphragm 2024 added level 5 band to mini squat for home use LTG Duration 06/25/24 progressed 03/12/24 Assessment Summary Assessment Kathy rated pain / end of session, reports tailbone pain eliminated post following directions for self tactile cues for hip hinge. Physical Therapy Plan Frequency and Duration Frequency of Treatment 2x/Week Duration of treatment (weeks) 8 Plan of Care Start Date 04/27/24 Plan of Care End Date 06/25/24 Next Visit Focus/Plan Next Note Type Treatment Note Next Visit Plan (note: trace retrothesis L1-L4 ). Next: continue walking tolerance/ focus on glute max activation. Assess pt's Blood Presure for appropriateness of exercise. If appropriate for ex, monitor BP/signs & `symptoms closely with: strengthening core/LE's to improve safety with gait, work towards correcting gait posture/ f/b manual therapy for dariel neural pain relief of LB/dariel hips & lateral thighs. -Progress core stabilization in supine (HEP hip R IR stretching and strengthening as needed) in NS or slight anterior tilt L1-L4, while on MH. HEP as needed/add bands to clamshell and sidelying hip abd vs progress band with standing side stepping and hip ext -If appropriate start Gentle manual L/S tx, try GENTLE ( grade 1-2) PA mob (L1-L4) due to retrolisthesis. -HEP-neutral spine with slight anter tilt (caution: trace retrothesis L1-L4).
--- NOTE | 2024-05-07 11:52 | PT.OTN ---
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] (05/07/24) Physical Therapy Treatment Note PT-OP-A Visit Information Start: 03/03/24 20:02 Freq: Status: Active Protocol: Document 05/07/24 10:36 LRN (Rec: 05/07/24 11:51 LRN [id number]) Out-Patient Physical Therapy Visit Information Visit Information Visit Type Treatment Note Visit Note Sitting BP L forearm - 122/80 Visit Start Time 10:36 Visit Stop Time 11:27 Visit Number 13 Evaluation Information Evaluation Date 03/10/24 Precautions Precautions Uncontrolled HTN w/meds (~130/ 70), Diastolic CHF w/3 stents - 2015 (1)-2017 (2) PT-OP-B Current Condition Start: 03/03/24 20:02 Freq: Status: Active Protocol: Document 03/10/24 13:02 LRN (Rec: 03/10/24 13:52 LRN [id number]) Current Condition History of Current Condition Onset Date 07/2023 Current Complaints Tingling & burning down dariel lateral legs & LBP History of Current Condition Recently (07/2023) worsening of lateral thigh and LBP sensation changes. She reports history of dariel LE/LBP prior to 2018. She states pain onset after standing 10 minutes, so she tries walking, but after 30 minutes the pain worsens and she can't stand upright. She thinks her core is not strong, and she has lost weight to help relieve pain. Pt rerports she has a son who is a paraplegic since 15 yr old. 2 yrs ago used a walker all the time, 8 months ago used a cane to walk, 2 months ago did spurts using no assistive device. Must use an assistive device due to LBP . Pt reports being ambidextrous, but uses mostly her R hand since the R TSA surgery. Developmental History Developmental History Pt had TKA's hoping it would help her thigh and LBP, but has not found any relief of her pain since the surgeries (L TKA 2017, R TKA 2019). Other surgical history per pt: R TSA (2019), and L shoulder that needs a TSA but pt has chosen not to do another surgery at this time. Treatment Goals Patient/Caregiver Goals Pt goals: -Learn ex's to mitagate the pain. -Learn proper functional activities. Personal Factors Other Personal Factors That May Effect Bariatric sleeve in November Therapy/Recovery with wgt loss (60# since Nov). Lives alone (spouse in 2013). Current Ex routine (3x/wk): bike, walking pad and works LE 's with bands. L TKA 2017, R TKA 2019, R TSA 2019. son who is a paraplegic since 13 yr old. PT-OP-C Subjective Start: 03/03/24 20:02 Freq: Status: Active Protocol: Document 05/07/24 10:36 LRN (Rec: 05/07/24 11:51 LRN [id number]) OP-PT Subjective Patient Comments Patient Comments States her blood pressure today was 135/64. States physician had her do an EKG and everything was normal , so thinks it is he shoulder that is causing her BP to be elevated. Waiting to be called for stress test. She is going to call orthopedica physician for possible surgery . Has tingling in thighs and LBP, after doing ex's the pain (3/10)/tinging is minimal. PT-OP-G Mobility & Gait Start: 03/03/24 20:02 Freq: Status: Active Protocol: Document 03/10/24 13:02 LRN (Rec: 03/10/24 13:52 LRN [id number]) OP Gait Assessment Gait Gait Assistance Required: Independent Able to Maintain Weight Bearing Status Yes During Gait Assistive Devices Assistive Device None Gait Deviations General Gait Pattern Decreased Stride Length,Flexed Trunk,Lateral Trunk Lean Factors Limiting Gait Function Factors Limiting Gait Function Decreased Activity Tolerance PT-OP-H Neuro Start: 03/03/24 20:02 Freq: Status: Active Protocol: Document 03/10/24 13:02 LRN (Rec: 03/10/24 13:52 LRN [id number]) Sensation Evaluation Comments Summary Comments Tingling in outer and anterior thighs. PT-OP-J Posture/Palpation/Skin Start: 03/03/24 20:02 Freq: Status: Active Protocol: Document 03/30/24 13:48 LRN (Rec: 03/30/24 18:40 LRN [id number]) Palpation Assessment Location Low back Palpation Location Thoracic & Lumbar spine Palpation Findings Tenderness Palpation Details PA pressure of Spinous Process : T1-T4, T7, T10, T12, L1, L2, L4-L5. PT-OP-K Range of Motion Start: 03/03/24 20:02 Freq: Status: Active Protocol: Document 03/30/24 13:48 LRN (Rec: 03/30/24 18:38 LRN [id number]) Hip Goniometric Range of Motion Hip Right Passive Testing Position Supine Internal Rotation 15 External Rotation 50 Left Passive Testing Position Supine Internal Rotation 20 External Rotation 50 PT-OP-L Special Tests Start: 03/03/24 20:02 Freq: Status: Active Protocol: Document 03/10/24 13:02 LRN (Rec: 03/10/24 13:52 LRN [id number]) Special Tests Lumbar Spine Special Tests Slump Test Results + bilaterally Comments L: onset LBP & R thigh/LBP, R: onset of R LBP PT-OP-M Strength Start: 03/03/24 20:02 Freq: Status: Active Protocol: Document 04/02/24 12:57 AB (Rec: 04/02/24 16:26 AB [id number]) Hip Strength Hip Manual Muscle Testing Right Extension (S1) 3+ Fair+ Comments within limited ROM Left Extension (S1) 3 Fair PT-OP-Q Treatments Start: 03/03/24 20:02 Freq: Status: Active Protocol: Document 05/07/24 10:36 LRN (Rec: 05/07/24 11:51 LRN [id number]) Therapeutic Exercises Supine Exercises NS/step outs Supine Exercise Name Coordinating holding core tight during chest breathing. Reps/Minutes 8' Comments Much cuing to keep TA tight with inhale. Deep Breathing Supine Exercise Name Deep Breathing Reps/Minutes 4' abdominal bracing with LE extension Supine Exercise Name Abdominal bracing with breathing Reps/Minutes 6' SLR Supine Exercise Name Core stab w/SLR, exhale on lift & chest breathing Side bilateral Reps/Minutes 10x Comments Extra time taken for ex training, V cuing needed to coord breath w/lift. Prone Exercises Hip Ext Prone Exercise Name TA tight & Exhale w/lift Side bilateral Reps/Minutes 10 x 2 Sidelying Exercises Hip AB Side bilateral Reps/Minutes 15x, 5x Comments Cued to stablize core & keep stablized with lift Clamshell Side bilateral Reps/Minutes 10x 2 each Comments Cued to keep core stable with lift Gait Training Gait Activity without device Surface level Distance/Duration 2' (165.5 ft) Treatment Focus Posture, glut max activation, decr excessive lateral sway PT-OP-R Modalities Start: 03/03/24 20:02 Freq: Status: Active Protocol: Document 03/19/24 12:56 AB (Rec: 03/19/24 14:40 AB [id number]) Hot Pack/Cold Pack Treatment thoracic/lumbar spine Comments supine and hooklying during HEP review PT-OP-T Assessment and Plan Start: 03/03/24 20:02 Freq: Status: Active Protocol: Document 05/07/24 10:36 LRN (Rec: 05/07/24 11:51 LRN [id number]) Physical Therapy Assessment Goals Two Impairment Requires walker to walk long distances (TUG score 18 secs) Short Term Goal (STG) Pt will be educated in best sleeping/sit/stand posture. 03/12/24: Educated pt in sleeping posturing. Pt sleeping with pillow under knee and support anterior/ fiscal services director trunk. 02/22/24: Educated pt in proper Sit/Stand Posture and demonstrated good sit posture. Pt is aware of need to reduce lordosis with standing. STG Duration 04/02/24 (03/24/24: MET GOAL ) Automotive Glass Technician Goal (LTG) Pt will be able to improve her walking tolerance to walk outside her home safely for short distances with use of a cane or improve stability of gait with TUG score less than 14 secs. 04/29/2024 Patient reports she hasn't been able to walk very much due to weather and back being sore, does walk on a walking pad at home for 30 minutes, with no increase in back pain. Patient able to ambulate with out device eliminating Trendelenburg pattern by following verbal cues for glute max activation. 05/05/2024 Noted patient with good tech for log roll throughout session, and dec ipsilateral trunk side bend stance phase bilaterally during ambulation compared to start of prev session with this GARBAGE TRUCK DISPATCHER, but miminal ipsilateral trunk sidebednd persists impacting LS spine during ambulation. LTG Duration 06/25/24 One Impairment Pt lacks independent HEP to mitigate thigh & LBP Short Term Goal (STG) Pt will be educated and able to demonstrate proper body mechanics for functional activities (lifting, reaching, sweeping/vacuuming). 03/19/2024 Review of body mechanics for vacuuming and review of log roll this session. 03/24/24: Issued & Reviewed: Body Mechanics Basics, & ADL's Body Mechanics; & Proper Posture: The Holcomb to Safe Mvmt (strain on spine in different positions). Pt showed good body mechanics for picking up object off the floor and lifting purse. 03/30/24: Pt doing proper body mechanics for vacuuming at home and reporting no problem with activity. 04/07/24: Pt educated and was able to demonstrate proper body mechanics for sweeping, floor mopping/polishing, vacuuming, & reaching overhead ; pt willing to modify covering of her mattress ( using legs to lift mattress to get on cover, and putting a comforter by rolling and unrolling in a duvet cover. STG Duration 04/09/24 (04/07/24: MET GOAL ) Halfway Goal (LTG) Pt will be independent in core /hip ex's to mitigate thigh & LBP. 03/12/24: HEP: Core stab ex: SLR, Hip AB/AD & Glut Squeeze. 04/02/2024 Patient requests initiating session with HEP stretches as they are helpful, required Verbal cues to opp knee during SLR, but good return technique for all other exercises performed in clinic from HEP today. 04/29/2024 HEP additions of seated hip abd with band, standing hip abd and extnsion with band as well as seated breathing from diaphragm 2024 added level 5 band to mini squat for home use LTG Duration 06/25/24 progressed 03/12/24 Assessment Summary Assessment 68 yo female with disc bulges and trace retrolisthesis L1-L4 , canal/foraminal stenosis, & L5 nerve root impingement with symptoms of radicular LE tingling/pain in thighs and LB . Today, pt's BP is WNL at 122/80. Pt reports her physician felt her blood pressure elevation was due to her L shoulder pain. EKG taken was normal, but she is to schedule for a stress test. Tingling/pain in thighs is miminal (3/10) after ex. Pt having difficulty maintaining stable core with stabilzation exercise. Extra time needed with ex's as pt is conscientious of her moving properly and therefore moves slowly. Physical Therapy Plan Frequency and Duration Frequency of Treatment 2x/Week Duration of treatment (weeks) 8 Plan of Care Start Date 04/27/24 Plan of Care End Date 06/25/24 Next Visit Focus/Plan Next Note Type Treatment Note Next Visit Plan (note: EKG normal. Stress test planned. Trace retrothesis L1-L4). Starting: Assess/Monitor BP/ signs & symptoms closely with ex strengthening. Next: Issue HEP: hip R IR stretching and focus on coordinating breath w/core stab while Progressing core stabilization ex's; issue HEP: core strengthening as needed in NS or slight anterior tilt L1-L4. Progress walking tolerance/focus on glute max activation.Strengthening core/ LE's to improve safety with gait, work towards correcting gait posture. Manual therapy for dariel neural pain relief of LB/dariel hips & lateral thighs. HEP as needed/add bands to clamshell and sidelying hip abd vs progress band with standing side stepping and hip ext -If appropriate start Gentle manual L/S tx, try GENTLE ( grade 1-2) PA mob (L1-L4) due to retrolisthesis. -HEP-neutral spine with slight anter tilt (caution: trace retrothesis L1-L4).
--- NOTE | 2024-05-07 12:02 | PT.OTN ---
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] (05/07/24) Physical Therapy Treatment Note PT-OP-A Visit Information Start: 03/03/24 20:02 Freq: Status: Active Protocol: Document 05/07/24 10:36 LRN (Rec: 05/07/24 11:51 LRN [id number]) Out-Patient Physical Therapy Visit Information Visit Information Visit Type Treatment Note Visit Note Sitting BP L forearm - 122/80 Visit Start Time 10:36 Visit Stop Time 11:27 Visit Number 13 (3/after PN) Evaluation Information Evaluation Date 03/10/24 Precautions Precautions Uncontrolled HTN w/meds (~130/ 70), Diastolic CHF w/3 stents - 2015 (1)-2017 (2) PT-OP-B Current Condition Start: 03/03/24 20:02 Freq: Status: Active Protocol: Document 03/10/24 13:02 LRN (Rec: 03/10/24 13:52 LRN [id number]) Current Condition History of Current Condition Onset Date 07/2023 Current Complaints Tingling & burning down dariel lateral legs & LBP History of Current Condition Recently (07/2023) worsening of lateral thigh and LBP sensation changes. She reports history of dariel LE/LBP prior to 2018. She states pain onset after standing 10 minutes, so she tries walking, but after 30 minutes the pain worsens and she can't stand upright. She thinks her core is not strong, and she has lost weight to help relieve pain. Pt rerports she has a son who is a paraplegic since 15 yr old. 2 yrs ago used a walker all the time, 8 months ago used a cane to walk, 2 months ago did spurts using no assistive device. Must use an assistive device due to LBP . Pt reports being ambidextrous, but uses mostly her R hand since the R TSA surgery. Developmental History Developmental History Pt had TKA's hoping it would help her thigh and LBP, but has not found any relief of her pain since the surgeries (L TKA 2017, R TKA 2019). Other surgical history per pt: R TSA (2019), and L shoulder that needs a TSA but pt has chosen not to do another surgery at this time. Treatment Goals Patient/Caregiver Goals Pt goals: -Learn ex's to mitagate the pain. -Learn proper functional activities. Personal Factors Other Personal Factors That May Effect Bariatric sleeve in November Therapy/Recovery with wgt loss (60# since Nov). Lives alone (spouse in 2013). Current Ex routine (3x/wk): bike, walking pad and works LE 's with bands. L TKA 2017, R TKA 2019, R TSA 2019. son who is a paraplegic since 13 yr old. PT-OP-C Subjective Start: 03/03/24 20:02 Freq: Status: Active Protocol: Document 05/07/24 10:36 LRN (Rec: 05/07/24 11:51 LRN [id number]) OP-PT Subjective Patient Comments Patient Comments States her blood pressure today was 135/64. States physician had her do an EKG and everything was normal , so thinks it is he shoulder that is causing her BP to be elevated. Waiting to be called for stress test. She is going to call orthopedica physician for possible surgery . Has tingling in thighs and LBP, after doing ex's the pain (3/10)/tinging is minimal. PT-OP-G Mobility & Gait Start: 03/03/24 20:02 Freq: Status: Active Protocol: Document 03/10/24 13:02 LRN (Rec: 03/10/24 13:52 LRN [id number]) OP Gait Assessment Gait Gait Assistance Required: Independent Able to Maintain Weight Bearing Status Yes During Gait Assistive Devices Assistive Device None Gait Deviations General Gait Pattern Decreased Stride Length,Flexed Trunk,Lateral Trunk Lean Factors Limiting Gait Function Factors Limiting Gait Function Decreased Activity Tolerance PT-OP-H Neuro Start: 03/03/24 20:02 Freq: Status: Active Protocol: Document 03/10/24 13:02 LRN (Rec: 03/10/24 13:52 LRN [id number]) Sensation Evaluation Comments Summary Comments Tingling in outer and anterior thighs. PT-OP-J Posture/Palpation/Skin Start: 03/03/24 20:02 Freq: Status: Active Protocol: Document 03/30/24 13:48 LRN (Rec: 03/30/24 18:40 LRN [id number]) Palpation Assessment Location Low back Palpation Location Thoracic & Lumbar spine Palpation Findings Tenderness Palpation Details PA pressure of Spinous Process : T1-T4, T7, T10, T12, L1, L2, L4-L5. PT-OP-K Range of Motion Start: 03/03/24 20:02 Freq: Status: Active Protocol: Document 03/30/24 13:48 LRN (Rec: 03/30/24 18:38 LRN [id number]) Hip Goniometric Range of Motion Hip Right Passive Testing Position Supine Internal Rotation 15 External Rotation 50 Left Passive Testing Position Supine Internal Rotation 20 External Rotation 50 PT-OP-L Special Tests Start: 03/03/24 20:02 Freq: Status: Active Protocol: Document 03/10/24 13:02 LRN (Rec: 03/10/24 13:52 LRN [id number]) Special Tests Lumbar Spine Special Tests Slump Test Results + bilaterally Comments L: onset LBP & R thigh/LBP, R: onset of R LBP PT-OP-M Strength Start: 03/03/24 20:02 Freq: Status: Active Protocol: Document 04/02/24 12:57 AB (Rec: 04/02/24 16:26 AB [id number]) Hip Strength Hip Manual Muscle Testing Right Extension (S1) 3+ Fair+ Comments within limited ROM Left Extension (S1) 3 Fair PT-OP-Q Treatments Start: 03/03/24 20:02 Freq: Status: Active Protocol: Document 05/07/24 10:36 LRN (Rec: 05/07/24 11:51 LRN [id number]) Therapeutic Exercises Supine Exercises NS/step outs Supine Exercise Name Coordinating holding core tight during chest breathing. Reps/Minutes 8' Comments Much cuing to keep TA tight with inhale. Deep Breathing Supine Exercise Name Deep Breathing Reps/Minutes 4' abdominal bracing with LE extension Supine Exercise Name Abdominal bracing with breathing Reps/Minutes 6' SLR Supine Exercise Name Core stab w/SLR, exhale on lift & chest breathing Side bilateral Reps/Minutes 10x Comments Extra time taken for ex training, V cuing needed to coord breath w/lift. Prone Exercises Hip Ext Prone Exercise Name TA tight & Exhale w/lift Side bilateral Reps/Minutes 10 x 2 Sidelying Exercises Hip AB Side bilateral Reps/Minutes 15x, 5x Comments Cued to stablize core & keep stablized with lift Clamshell Side bilateral Reps/Minutes 10x 2 each Comments Cued to keep core stable with lift Gait Training Gait Activity without device Surface level Distance/Duration 2' (165.5 ft) Treatment Focus Posture, glut max activation, decr excessive lateral sway PT-OP-R Modalities Start: 03/03/24 20:02 Freq: Status: Active Protocol: Document 03/19/24 12:56 AB (Rec: 03/19/24 14:40 AB [id number]) Hot Pack/Cold Pack Treatment thoracic/lumbar spine Comments supine and hooklying during HEP review PT-OP-T Assessment and Plan Start: 03/03/24 20:02 Freq: Status: Active Protocol: Document 05/07/24 10:36 LRN (Rec: 05/07/24 11:51 LRN [id number]) Physical Therapy Assessment Goals Two Impairment Requires walker to walk long distances (TUG score 18 secs) Short Term Goal (STG) Pt will be educated in best sleeping/sit/stand posture. 03/12/24: Educated pt in sleeping posturing. Pt sleeping with pillow under knee and support anterior/ wind farm electrical systems designer trunk. 02/22/24: Educated pt in proper Sit/Stand Posture and demonstrated good sit posture. Pt is aware of need to reduce lordosis with standing. STG Duration 04/02/24 (03/24/24: MET GOAL ) Dye Boarding Machine Operator Goal (LTG) Pt will be able to improve her walking tolerance to walk outside her home safely for short distances with use of a cane or improve stability of gait with TUG score less than 14 secs. 04/29/2024 Patient reports she hasn't been able to walk very much due to weather and back being sore, does walk on a walking pad at home for 30 minutes, with no increase in back pain. Patient able to ambulate with out device eliminating Trendelenburg pattern by following verbal cues for glute max activation. 05/05/2024 Noted patient with good tech for log roll throughout session, and dec ipsilateral trunk side bend stance phase bilaterally during ambulation compared to start of prev session with this EXTERMINATOR HELPER, but miminal ipsilateral trunk sidebednd persists impacting LS spine during ambulation. LTG Duration 06/25/24 One Impairment Pt lacks independent HEP to mitigate thigh & LBP Short Term Goal (STG) Pt will be educated and able to demonstrate proper body mechanics for functional activities (lifting, reaching, sweeping/vacuuming). 03/19/2024 Review of body mechanics for vacuuming and review of log roll this session. 03/24/24: Issued & Reviewed: Body Mechanics Basics, & ADL's Body Mechanics; & Proper Posture: The Holcomb to Safe Mvmt (strain on spine in different positions). Pt showed good body mechanics for picking up object off the floor and lifting purse. 03/30/24: Pt doing proper body mechanics for vacuuming at home and reporting no problem with activity. 04/07/24: Pt educated and was able to demonstrate proper body mechanics for sweeping, floor mopping/polishing, vacuuming, & reaching overhead ; pt willing to modify covering of her mattress ( using legs to lift mattress to get on cover, and putting a comforter by rolling and unrolling in a duvet cover. STG Duration 04/09/24 (04/07/24: MET GOAL ) Usp Goal (LTG) Pt will be independent in core /hip ex's to mitigate thigh & LBP. 03/12/24: HEP: Core stab ex: SLR, Hip AB/AD & Glut Squeeze. 04/02/2024 Patient requests initiating session with HEP stretches as they are helpful, required Verbal cues to opp knee during SLR, but good return technique for all other exercises performed in clinic from HEP today. 04/29/2024 HEP additions of seated hip abd with band, standing hip abd and extnsion with band as well as seated breathing from diaphragm 2024 added level 5 band to mini squat for home use LTG Duration 06/25/24 progressed 03/12/24 Assessment Summary Assessment 68 yo female with disc bulges and trace retrolisthesis L1-L4 , canal/foraminal stenosis, & L5 nerve root impingement with symptoms of radicular LE tingling/pain in thighs and LB . Today, pt's BP is WNL at 122/80. Pt reports her physician felt her blood pressure elevation was due to her L shoulder pain. EKG taken was normal, but she is to schedule for a stress test. Tingling/pain in thighs is miminal (3/10) after ex. Pt having difficulty maintaining stable core with stabilzation exercise. Extra time needed with ex's as pt is conscientious of her moving properly and therefore moves slowly. Physical Therapy Plan Frequency and Duration Frequency of Treatment 2x/Week Duration of treatment (weeks) 8 Plan of Care Start Date 04/27/24 Plan of Care End Date 06/25/24 Next Visit Focus/Plan Next Note Type Treatment Note Next Visit Plan (note: EKG normal. Stress test planned. Trace retrothesis L1-L4). Starting: Assess/Monitor BP/ signs & symptoms closely with ex strengthening. Next: Issue HEP: hip R IR stretching and focus on coordinating breath w/core stab while Progressing core stabilization ex's; issue HEP: core strengthening as needed in NS or slight anterior tilt L1-L4. Progress walking tolerance/focus on glute max activation.Strengthening core/ LE's to improve safety with gait, work towards correcting gait posture. Manual therapy for dariel neural pain relief of LB/dariel hips & lateral thighs. HEP as needed/add bands to clamshell and sidelying hip abd vs progress band with standing side stepping and hip ext. Add ankle ex's w/focus on R EV, L IV. -If appropriate start Gentle manual L/S tx, try GENTLE ( grade 1-2) PA mob (L1-L4) due to retrolisthesis.
--- NOTE | 2024-05-12 15:31 | PT.OTN ---
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] (05/12/24) Physical Therapy Treatment Note PT-OP-A Visit Information Start: 03/03/24 20:02 Freq: Status: Active Protocol: Document 05/12/24 14:37 LRN (Rec: 05/12/24 14:36 LRN [id number]) Out-Patient Physical Therapy Visit Information Visit Information Visit Type Treatment Note Visit Note Sitting BP L forearm - 138/84 Visit Start Time 14:37 Visit Stop Time 14:17 Visit Number 14 (4/after PN) Evaluation Information Evaluation Date 03/10/24 Precautions Precautions Uncontrolled HTN w/meds (~130/ 70), Diastolic CHF w/3 stents - 2015 (1)-2017 (2) PT-OP-B Current Condition Start: 03/03/24 20:02 Freq: Status: Active Protocol: Document 03/10/24 13:02 LRN (Rec: 03/10/24 13:52 LRN [id number]) Current Condition History of Current Condition Onset Date 07/2023 Current Complaints Tingling & burning down dariel lateral legs & LBP History of Current Condition Recently (07/2023) worsening of lateral thigh and LBP sensation changes. She reports history of dariel LE/LBP prior to 2018. She states pain onset after standing 10 minutes, so she tries walking, but after 30 minutes the pain worsens and she can't stand upright. She thinks her core is not strong, and she has lost weight to help relieve pain. Pt rerports she has a son who is a paraplegic since 13 yr old. 2 yrs ago used a walker all the time, 8 months ago used a cane to walk, 2 months ago did spurts using no assistive device. Must use an assistive device due to LBP . Pt reports being ambidextrous, but uses mostly her R hand since the R TSA surgery. Developmental History Developmental History Pt had TKA's hoping it would help her thigh and LBP, but has not found any relief of her pain since the surgeries (L TKA 2017, R TKA 2019). Other surgical history per pt: R TSA (2019), and L shoulder that needs a TSA but pt has chosen not to do another surgery at this time. Treatment Goals Patient/Caregiver Goals Pt goals: -Learn ex's to mitagate the pain. -Learn proper functional activities. Personal Factors Other Personal Factors That May Effect Bariatric sleeve in November Therapy/Recovery with wgt loss (60# since Nov). Lives alone (spouse in 2013). Current Ex routine (3x/wk): bike, walking pad and works LE 's with bands. L TKA 2017, R TKA 2019, R TSA 2019. son who is a paraplegic since 13 yr old. PT-OP-C Subjective Start: 03/03/24 20:02 Freq: Status: Active Protocol: Document 05/12/24 14:37 LRN (Rec: 05/12/24 14:36 LRN [id number]) OP-PT Subjective Patient Comments Patient Comments States her blood pressure has been doing good. NOt yet doing 3 sets of 10 reps with exercises. Walked for 1.5 hrs around [place] w/o walker independently with one standing rest; for 2 days. Yesterday was able to walk 45' in her neighbor with hills. Will meet with shoulder surgeon in June for possibly July surgery. PT-OP-G Mobility & Gait Start: 03/03/24 20:02 Freq: Status: Active Protocol: Document 03/10/24 13:02 LRN (Rec: 03/10/24 13:52 LRN [id number]) OP Gait Assessment Gait Gait Assistance Required: Independent Able to Maintain Weight Bearing Status Yes During Gait Assistive Devices Assistive Device None Gait Deviations General Gait Pattern Decreased Stride Length,Flexed Trunk,Lateral Trunk Lean Factors Limiting Gait Function Factors Limiting Gait Function Decreased Activity Tolerance PT-OP-H Neuro Start: 03/03/24 20:02 Freq: Status: Active Protocol: Document 03/10/24 13:02 LRN (Rec: 03/10/24 13:52 LRN [id number]) Sensation Evaluation Comments Summary Comments Tingling in outer and anterior thighs. PT-OP-J Posture/Palpation/Skin Start: 03/03/24 20:02 Freq: Status: Active Protocol: Document 03/30/24 13:48 LRN (Rec: 03/30/24 18:40 LRN [id number]) Palpation Assessment Location Low back Palpation Location Thoracic & Lumbar spine Palpation Findings Tenderness Palpation Details PA pressure of Spinous Process : T1-T4, T7, T10, T12, L1, L2, L4-L5. PT-OP-K Range of Motion Start: 03/03/24 20:02 Freq: Status: Active Protocol: Document 03/30/24 13:48 LRN (Rec: 03/30/24 18:38 LRN [id number]) Hip Goniometric Range of Motion Hip Right Passive Testing Position Supine Internal Rotation 15 External Rotation 50 Left Passive Testing Position Supine Internal Rotation 20 External Rotation 50 PT-OP-L Special Tests Start: 03/03/24 20:02 Freq: Status: Active Protocol: Document 03/10/24 13:02 LRN (Rec: 03/10/24 13:52 LRN [id number]) Special Tests Lumbar Spine Special Tests Slump Test Results + bilaterally Comments L: onset LBP & R thigh/LBP, R: onset of R LBP PT-OP-M Strength Start: 03/03/24 20:02 Freq: Status: Active Protocol: Document 04/02/24 12:57 AB (Rec: 04/02/24 16:26 AB [id number]) Hip Strength Hip Manual Muscle Testing Right Extension (S1) 3+ Fair+ Comments within limited ROM Left Extension (S1) 3 Fair PT-OP-Q Treatments Start: 03/03/24 20:02 Freq: Status: Active Protocol: Document 05/12/24 14:37 LRN (Rec: 05/12/24 15:00 LRN [id number]) Therapeutic Exercises Supine Exercises Front Thigh/Iliopsoas stretch Side bilateral Reps/Minutes 30 SH x 2 each Hip IR stretch Supine Exercise Name Piriformis stretch with knee/ ankle to opp shoulder Side bilateral Equipment Used Belt around ankle to help pt pull for stretch Reps/Minutes 20SH x 3 each SLR Supine Exercise Name Core stab w/SLR, exhale on lift & chest breathing Side bilateral Reps/Minutes 10x 3 Comments Extra time taken for ex training, V cuing needed to coord breath w/lift. Sidelying Exercises Hip AB Side bilateral Reps/Minutes 10x 3 Comments Cued to stablize core & keep stablized with lift Clamshell Side bilateral Reps/Minutes 10 x 3 Comments Cued to keep core stable with lift Sitting Exercises Piriformis stretch Sitting Exercise Name [place] pose like stretch sitting on side of plinth Side bilateral Reps/Minutes 30SH x 2 each Self-Care/Home Management Treatment Activities Self-Care/Home Management Activities Issued HEP: Piriformis stretch (knee to opp shdr and in sitting) and anterior thigh (psoas) stretch. PT-OP-R Modalities Start: 03/03/24 20:02 Freq: Status: Active Protocol: Document 03/19/24 12:56 AB (Rec: 03/19/24 14:40 AB [id number]) Hot Pack/Cold Pack Treatment thoracic/lumbar spine Comments supine and hooklying during HEP review PT-OP-T Assessment and Plan Start: 03/03/24 20:02 Freq: Status: Active Protocol: Document 05/12/24 14:37 LRN (Rec: 05/12/24 14:36 LRN [id number]) Physical Therapy Assessment Goals Two Impairment Requires walker to walk long distances (TUG score 18 secs) Short Term Goal (STG) Pt will be educated in best sleeping/sit/stand posture. 03/12/24: Educated pt in sleeping posturing. Pt sleeping with pillow under knee and support anterior/ radio maintainer trunk. 02/22/24: Educated pt in proper Sit/Stand Posture and demonstrated good sit posture. Pt is aware of need to reduce lordosis with standing. STG Duration 04/02/24 (03/24/24: MET GOAL ) Upholstery Sewer Goal (LTG) Pt will be able to improve her walking tolerance to walk outside her home safely for short distances with use of a cane or improve stability of gait with TUG score less than 14 secs. 04/29/2024 Patient reports she hasn't been able to walk very much due to weather and back being sore, does walk on a walking pad at home for 30 minutes, with no increase in back pain. Patient able to ambulate with out device eliminating Trendelenburg pattern by following verbal cues for glute max activation. 05/05/2024 Noted patient with good tech for log roll throughout session, and dec ipsilateral trunk side bend stance phase bilaterally during ambulation compared to start of prev session with this YARD SUPERVISOR, but miminal ipsilateral trunk sidebednd persists impacting LS spine during ambulation. 05/12/24: Walked outside of home for 45' ([place]) w/o use of assistive device, pt reporting feeling safe. LTG Duration 06/25/24 progressing 05/12/24 (need TUG < 14 secs) One Impairment Pt lacks independent HEP to mitigate thigh & LBP Short Term Goal (STG) Pt will be educated and able to demonstrate proper body mechanics for functional activities (lifting, reaching, sweeping/vacuuming). 03/19/2024 Review of body mechanics for vacuuming and review of log roll this session. 03/24/24: Issued & Reviewed: Body Mechanics Basics, & ADL's Body Mechanics; & Proper Posture: The Holcomb to Safe Mvmt (strain on spine in different positions). Pt showed good body mechanics for picking up object off the floor and lifting purse. 03/30/24: Pt doing proper body mechanics for vacuuming at home and reporting no problem with activity. 04/07/24: Pt educated and was able to demonstrate proper body mechanics for sweeping, floor mopping/polishing, vacuuming, & reaching overhead ; pt willing to modify covering of her mattress ( using legs to lift mattress to get on cover, and putting a comforter by rolling and unrolling in a duvet cover. STG Duration 04/09/24 (04/07/24: MET GOAL ) Alf Goal (LTG) Pt will be independent in core /hip ex's to mitigate thigh & LBP. 03/12/24: HEP: Core stab ex: SLR, Hip AB/AD & Glut Squeeze. 04/02/2024 Patient requests initiating session with HEP stretches as they are helpful, required Verbal cues to opp knee during SLR, but good return technique for all other exercises performed in clinic from HEP today. 04/29/2024 HEP additions of seated hip abd with band, standing hip abd and extnsion with band as well as seated breathing from diaphragm 2024 added level 5 band to mini squat for home use. 05/12/24: HEP: Piriformis stretch (sup knee to opp shoulder & in sitting), and Front thigh stretch. LTG Duration 06/25/24 progressed 05/12/24 Assessment Summary Assessment 68 yo female with disc bulges and trace retrolisthesis L1-L4 , canal/foraminal stenosis, & L5 nerve root impingement with symptoms of radicular LE tingling/pain in thighs and LB . Today, pt presented with no signs or symptoms of cardiovascular distress with exercise and her BP has been within tolerated limit for exercise; therefore BP reading after ex deferred. She shows improved hip strength with ability to perform 3 sets of 10 reps of LE ex's, and is reporting ability to walk for 45-60 minutes w/o assistive device. Physical Therapy Plan Frequency and Duration Frequency of Treatment 2x/Week Duration of treatment (weeks) 8 Plan of Care Start Date 04/27/24 Plan of Care End Date 06/25/24 Next Visit Focus/Plan Next Note Type Treatment Note Next Visit Plan (note: EKG normal. Trace retrothesis L1-L4). Stress Test is 05/28/24. Shoulder surgeon appt planned in June. Starting: Monitor BP/signs & symptoms closely with ex strengthening. Next: Focus on coordinating breath w/core stab while Progressing core stabilization ex's; issue HEP: core strengthening as needed in NS or slight anterior tilt L1-L4. Progress walking tolerance /focus on glute max activation .Strengthening core/LE's to improve safety with gait, work towards correcting gait posture. Manual therapy for dariel neural pain relief of LB/dariel hips & lateral thighs. HEP as needed, Might try progressing band with standing side stepping and hip ext vs TB to clamshell and sidelying hip abd. Add ankle ex's w/ focus on R EV, L IV. -If appropriate start Gentle manual L/S tx, try GENTLE ( grade 1-2) PA mob (L1-L4) due to retrolisthesis.
--- NOTE | 2024-05-15 17:12 | PT.OTN ---
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] (05/15/24) Physical Therapy Treatment Note PT-OP-A Visit Information Start: 03/03/24 20:02 Freq: Status: Active Protocol: Document 05/15/24 13:31 AB (Rec: 05/15/24 17:10 AB [id number]) Out-Patient Physical Therapy Visit Information Visit Information Visit Type Treatment Note Visit Note Seated BP R forearm 132/68 HR 57 Visit Start Time 15:17 Visit Stop Time 16:04 Visit Number 15 (5/after PN) Number of SKIN PASS OPERATOR Visits 1 Evaluation Information Evaluation Date 03/10/24 Precautions Precautions Uncontrolled HTN w/meds (~130/ 70), Diastolic CHF w/3 stents - 2015 (1)-2017 (2) PT-OP-B Current Condition Start: 03/03/24 20:02 Freq: Status: Active Protocol: Document 03/10/24 13:02 LRN (Rec: 03/10/24 13:52 LRN [id number]) Current Condition History of Current Condition Onset Date 07/2023 Current Complaints Tingling & burning down dariel lateral legs & LBP History of Current Condition Recently (07/2023) worsening of lateral thigh and LBP sensation changes. She reports history of dariel LE/LBP prior to 2018. She states pain onset after standing 10 minutes, so she tries walking, but after 30 minutes the pain worsens and she can't stand upright. She thinks her core is not strong, and she has lost weight to help relieve pain. Pt rerports she has a son who is a paraplegic since 15 yr old. 2 yrs ago used a walker all the time, 8 months ago used a cane to walk, 2 months ago did spurts using no assistive device. Must use an assistive device due to LBP . Pt reports being ambidextrous, but uses mostly her R hand since the R TSA surgery. Developmental History Developmental History Pt had TKA's hoping it would help her thigh and LBP, but has not found any relief of her pain since the surgeries (L TKA 2017, R TKA 2019). Other surgical history per pt: R TSA (2019), and L shoulder that needs a TSA but pt has chosen not to do another surgery at this time. Treatment Goals Patient/Caregiver Goals Pt goals: -Learn ex's to mitagate the pain. -Learn proper functional activities. Personal Factors Other Personal Factors That May Effect Bariatric sleeve in November Therapy/Recovery with wgt loss (60# since Nov). Lives alone (spouse in 2013). Current Ex routine (3x/wk): bike, walking pad and works LE 's with bands. L TKA 2017, R TKA 2019, R TSA 2019. son who is a paraplegic since 13 yr old. PT-OP-C Subjective Start: 03/03/24 20:02 Freq: Status: Active Protocol: Document 05/15/24 13:31 AB (Rec: 05/15/24 17:10 AB [id number]) OP-PT Subjective Patient Comments Patient Comments Patient reports she is kind of sore, has been working in yard, working for an hour or so then stops. Patient rates pain 4-5/10 L glute piriformis start of session. Patient reports she did her stretches already today. PT-OP-G Mobility & Gait Start: 03/03/24 20:02 Freq: Status: Active Protocol: Document 03/10/24 13:02 LRN (Rec: 03/10/24 13:52 LRN [id number]) OP Gait Assessment Gait Gait Assistance Required: Independent Able to Maintain Weight Bearing Status Yes During Gait Assistive Devices Assistive Device None Gait Deviations General Gait Pattern Decreased Stride Length,Flexed Trunk,Lateral Trunk Lean Factors Limiting Gait Function Factors Limiting Gait Function Decreased Activity Tolerance PT-OP-H Neuro Start: 03/03/24 20:02 Freq: Status: Active Protocol: Document 03/10/24 13:02 LRN (Rec: 03/10/24 13:52 LRN [id number]) Sensation Evaluation Comments Summary Comments Tingling in outer and anterior thighs. PT-OP-J Posture/Palpation/Skin Start: 03/03/24 20:02 Freq: Status: Active Protocol: Document 03/30/24 13:48 LRN (Rec: 03/30/24 18:40 LRN [id number]) Palpation Assessment Location Low back Palpation Location Thoracic & Lumbar spine Palpation Findings Tenderness Palpation Details PA pressure of Spinous Process : T1-T4, T7, T10, T12, L1, L2, L4-L5. PT-OP-K Range of Motion Start: 03/03/24 20:02 Freq: Status: Active Protocol: Document 03/30/24 13:48 LRN (Rec: 03/30/24 18:38 LRN [id number]) Hip Goniometric Range of Motion Hip Right Passive Testing Position Supine Internal Rotation 15 External Rotation 50 Left Passive Testing Position Supine Internal Rotation 20 External Rotation 50 PT-OP-L Special Tests Start: 03/03/24 20:02 Freq: Status: Active Protocol: Document 03/10/24 13:02 LRN (Rec: 03/10/24 13:52 LRN [id number]) Special Tests Lumbar Spine Special Tests Slump Test Results + bilaterally Comments L: onset LBP & R thigh/LBP, R: onset of R LBP PT-OP-M Strength Start: 03/03/24 20:02 Freq: Status: Active Protocol: Document 04/02/24 12:57 AB (Rec: 04/02/24 16:26 AB [id number]) Hip Strength Hip Manual Muscle Testing Right Extension (S1) 3+ Fair+ Comments within limited ROM Left Extension (S1) 3 Fair PT-OP-Q Treatments Start: 03/03/24 20:02 Freq: Status: Active Protocol: Document 05/15/24 13:31 AB (Rec: 05/15/24 17:10 AB [id number]) Therapeutic Exercises Supine Exercises Hip IR stretch Supine Exercise Name Piriformis stretch with knee/ ankle to opp shoulder Side bilateral Equipment Used Belt around ankle to help pt pull for stretch Reps/Minutes 20SH x1 each Sitting Exercises ankle AROM Sitting Exercise Name R eversion L inversion Reps/Minutes X15 Comments verbal and visual cues seated hip abd with band Sitting Exercise Name HEP Side bilateral Equipment Used level 4 and 5 band Reps/Minutes 15x 2 one minute hold X 1 Standing Exercises hip extension Standing Exercise Name HEP Resistance level 4 band above knees Reps/Minutes X 15 each LE Comments verbal cues standing hip abduction Standing Exercise Name HEP Resistance level 4 band above knees Reps/Minutes X 15 Comments verbal and visual cues Shallow Squats Side bilateral Resistance level 5 band tied above knees band to HEP Reps/Minutes X15 Comments VC for buttocks back Manual Therapy Treatment Consent Patient gave verbal consent for manual No treatment Soft Tissue Mobilization Left glute/piriformis Mobilization Type Cross-Friction,Rolling Intensity/Depth Moderate Body Position Sidelying Comments with pillow between knees PT-OP-R Modalities Start: 03/03/24 20:02 Freq: Status: Active Protocol: Document 03/19/24 12:56 AB (Rec: 03/19/24 14:40 AB [id number]) Hot Pack/Cold Pack Treatment thoracic/lumbar spine Comments supine and hooklying during HEP review PT-OP-T Assessment and Plan Start: 03/03/24 20:02 Freq: Status: Active Protocol: Document 05/15/24 13:31 AB (Rec: 05/15/24 17:10 AB [id number]) Physical Therapy Assessment Goals Two Impairment Requires walker to walk long distances (TUG score 18 secs) Short Term Goal (STG) Pt will be educated in best sleeping/sit/stand posture. 03/12/24: Educated pt in sleeping posturing. Pt sleeping with pillow under knee and support anterior/ stripper preliminary trunk. 02/22/24: Educated pt in proper Sit/Stand Posture and demonstrated good sit posture. Pt is aware of need to reduce lordosis with standing. STG Duration 04/02/24 (03/24/24: MET GOAL ) Power Nut Runner Operator Goal (LTG) Pt will be able to improve her walking tolerance to walk outside her home safely for short distances with use of a cane or improve stability of gait with TUG score less than 14 secs. 04/29/2024 Patient reports she hasn't been able to walk very much due to weather and back being sore, does walk on a walking pad at home for 30 minutes, with no increase in back pain. Patient able to ambulate with out device eliminating Trendelenburg pattern by following verbal cues for glute max activation. 05/05/2024 Noted patient with good tech for log roll throughout session, and dec ipsilateral trunk side bend stance phase bilaterally during ambulation compared to start of prev session with this SKIN PASS OPERATOR, but miminal ipsilateral trunk sidebednd persists impacting LS spine during ambulation. 05/12/24: Walked outside of home for 45' (hilly) w/o use of assistive device, pt reporting feeling safe. LTG Duration 06/25/24 progressing 05/12/24 (need TUG < 14 secs) One Impairment Pt lacks independent HEP to mitigate thigh & LBP Short Term Goal (STG) Pt will be educated and able to demonstrate proper body mechanics for functional activities (lifting, reaching, sweeping/vacuuming). 03/19/2024 Review of body mechanics for vacuuming and review of log roll this session. 03/24/24: Issued & Reviewed: Body Mechanics Basics, & ADL's Body Mechanics; & Proper Posture: The Holcomb to Safe Mvmt (strain on spine in different positions). Pt showed good body mechanics for picking up object off the floor and lifting purse. 03/30/24: Pt doing proper body mechanics for vacuuming at home and reporting no problem with activity. 04/07/24: Pt educated and was able to demonstrate proper body mechanics for sweeping, floor mopping/polishing, vacuuming, & reaching overhead ; pt willing to modify covering of her mattress ( using legs to lift mattress to get on cover, and putting a comforter by rolling and unrolling in a duvet cover. STG Duration 04/09/24 (04/07/24: MET GOAL ) Usp Goal (LTG) Pt will be independent in core /hip ex's to mitigate thigh & LBP. 03/12/24: HEP: Core stab ex: SLR, Hip AB/AD & Glut Squeeze. 04/02/2024 Patient requests initiating session with HEP stretches as they are helpful, required Verbal cues to opp knee during SLR, but good return technique for all other exercises performed in clinic from HEP today. 04/29/2024 HEP additions of seated hip abd with band, standing hip abd and extnsion with band as well as seated breathing from diaphragm 2024 added level 5 band to mini squat for home use. 05/12/24: HEP: Piriformis stretch (sup knee to opp shoulder & in sitting), and Front thigh stretch. 05/21/2024 Patient request review of piriformis stretch with strap, commenting she can't feel it, but was able to set up and perform correctly without cues , commenting that she feels it now. LTG Duration 06/25/24 progressed 05/12/24 Assessment Summary Assessment 68 yo female with disc bulges and trace retrolisthesis L1-L4 , canal/foraminal stenosis, & L5 nerve root impingement with symptoms of radicular LE tingling/pain in thighs and LB . Today, pt presents with increased L glute pain end of session. Pt was able to perform standing strengthening exercises with bands ( requests no inc in bands due to difficulty) and with STM to L glute piriformis rates pain 3/10 from 4-5/10 start of session. Physical Therapy Plan Frequency and Duration Frequency of Treatment 2x/Week Duration of treatment (weeks) 8 Plan of Care Start Date 04/27/24 Plan of Care End Date 06/25/24 Next Visit Focus/Plan Next Note Type Treatment Note Next Visit Plan (note: EKG normal. Trace retrothesis L1-L4). Stress Test is 05/28/24. Shoulder surgeon appt planned in June. Starting: Monitor BP/signs & symptoms closely with ex strengthening. Next: Focus on coordinating breath w/core stab while Progressing core stabilization ex's; issue HEP: core strengthening as needed in NS or slight anterior tilt L1-L4. Progress walking tolerance /focus on glute max activation .Strengthening core/LE's to improve safety with gait, work towards correcting gait posture. Manual therapy for dariel neural pain relief of LB/dariel hips & lateral thighs. HEP as needed, Might try progressing band TB to clamshell and sidelying hip abd. review and add to HEP ankle ex's w/focus on R EV, L IV. -If appropriate start Gentle manual L/S tx, try GENTLE ( grade 1-2) PA mob (L1-L4) due to retrolisthesis.
--- NOTE | 2024-05-21 16:24 | PT.OTN ---
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] (05/21/24) Physical Therapy Treatment Note PT-OP-A Visit Information Start: 03/03/24 20:02 Freq: Status: Active Protocol: Document 05/21/24 14:42 AB (Rec: 05/21/24 16:24 AB Laptop) Out-Patient Physical Therapy Visit Information Visit Information Visit Type Treatment Note Visit Note Seated BP R UE start of session 138/71 HR 56 BPM Visit Start Time 15:20 Visit Stop Time 16:03 Visit Number 16 (5/after PN) Number of FLUORESCENT LAMP REPLACER Visits 2 Evaluation Information Evaluation Date 03/10/24 Precautions Precautions Uncontrolled HTN w/meds (~130/ 70), Diastolic CHF w/3 stents - 2015 (1)-2017 (2) PT-OP-B Current Condition Start: 03/03/24 20:02 Freq: Status: Active Protocol: Document 03/10/24 13:02 LRN (Rec: 03/10/24 13:52 LRN [id number]) Current Condition History of Current Condition Onset Date 07/2023 Current Complaints Tingling & burning down dariel lateral legs & LBP History of Current Condition Recently (07/2023) worsening of lateral thigh and LBP sensation changes. She reports history of dariel LE/LBP prior to 2018. She states pain onset after standing 10 minutes, so she tries walking, but after 30 minutes the pain worsens and she can't stand upright. She thinks her core is not strong, and she has lost weight to help relieve pain. Pt rerports she has a son who is a paraplegic since 15 yr old. 2 yrs ago used a walker all the time, 8 months ago used a cane to walk, 2 months ago did spurts using no assistive device. Must use an assistive device due to LBP . Pt reports being ambidextrous, but uses mostly her R hand since the R TSA surgery. Developmental History Developmental History Pt had TKA's hoping it would help her thigh and LBP, but has not found any relief of her pain since the surgeries (L TKA 2017, R TKA 2019). Other surgical history per pt: R TSA (2019), and L shoulder that needs a TSA but pt has chosen not to do another surgery at this time. Treatment Goals Patient/Caregiver Goals Pt goals: -Learn ex's to mitagate the pain. -Learn proper functional activities. Personal Factors Other Personal Factors That May Effect Bariatric sleeve in November Therapy/Recovery with wgt loss (60# since Nov). Lives alone (spouse in 2013). Current Ex routine (3x/wk): bike, walking pad and works LE 's with bands. L TKA 2017, R TKA 2019, R TSA 2019. son who is a paraplegic since 13 yr old. PT-OP-C Subjective Start: 03/03/24 20:02 Freq: Status: Active Protocol: Document 05/21/24 14:42 AB (Rec: 05/21/24 16:24 AB Laptop) OP-PT Subjective Patient Comments Patient Comments Patient reports L glute/ piriformis pain persists rates pain -06/20 start of session. PT-OP-G Mobility & Gait Start: 03/03/24 20:02 Freq: Status: Active Protocol: Document 03/10/24 13:02 LRN (Rec: 03/10/24 13:52 LRN [id number]) OP Gait Assessment Gait Gait Assistance Required: Independent Able to Maintain Weight Bearing Status Yes During Gait Assistive Devices Assistive Device None Gait Deviations General Gait Pattern Decreased Stride Length,Flexed Trunk,Lateral Trunk Lean Factors Limiting Gait Function Factors Limiting Gait Function Decreased Activity Tolerance PT-OP-H Neuro Start: 03/03/24 20:02 Freq: Status: Active Protocol: Document 03/10/24 13:02 LRN (Rec: 03/10/24 13:52 LRN [id number]) Sensation Evaluation Comments Summary Comments Tingling in outer and anterior thighs. PT-OP-J Posture/Palpation/Skin Start: 03/03/24 20:02 Freq: Status: Active Protocol: Document 03/30/24 13:48 LRN (Rec: 03/30/24 18:40 LRN [id number]) Palpation Assessment Location Low back Palpation Location Thoracic & Lumbar spine Palpation Findings Tenderness Palpation Details PA pressure of Spinous Process : T1-T4, T7, T10, T12, L1, L2, L4-L5. PT-OP-K Range of Motion Start: 03/03/24 20:02 Freq: Status: Active Protocol: Document 03/30/24 13:48 LRN (Rec: 03/30/24 18:38 LRN [id number]) Hip Goniometric Range of Motion Hip Right Passive Testing Position Supine Internal Rotation 15 External Rotation 50 Left Passive Testing Position Supine Internal Rotation 20 External Rotation 50 PT-OP-L Special Tests Start: 03/03/24 20:02 Freq: Status: Active Protocol: Document 03/10/24 13:02 LRN (Rec: 03/10/24 13:52 LRN [id number]) Special Tests Lumbar Spine Special Tests Slump Test Results + bilaterally Comments L: onset LBP & R thigh/LBP, R: onset of R LBP PT-OP-M Strength Start: 03/03/24 20:02 Freq: Status: Active Protocol: Document 04/02/24 12:57 AB (Rec: 04/02/24 16:26 AB [id number]) Hip Strength Hip Manual Muscle Testing Right Extension (S1) 3+ Fair+ Comments within limited ROM Left Extension (S1) 3 Fair PT-OP-Q Treatments Start: 03/03/24 20:02 Freq: Status: Active Protocol: Document 05/21/24 14:42 AB (Rec: 05/21/24 16:24 AB Laptop) Therapeutic Exercises Supine Exercises Front Thigh/Iliopsoas stretch Supine Exercise Name holding opp LE with towel Side bilateral Reps/Minutes 30 SH x 2 each Hip IR stretch Supine Exercise Name Piriformis stretch with knee/ ankle to opp shoulder Side bilateral Equipment Used Belt around ankle to help pt pull for stretch Reps/Minutes 20SH x2 each Sidelying Exercises Hip AB Side bilateral Reps/Minutes X 15 level one light blue band Comments Cued to stablize core & keep stablized with lift Clamshell Side bilateral Resistance light blue level one band Reps/Minutes X15 Comments Cued to keep core stable with lift Standing Exercises hip extension Standing Exercise Name HEP Resistance level 4 band above knees Reps/Minutes X 15 each LE Comments verbal cues Manual Therapy Treatment Consent Patient gave verbal consent for manual Yes treatment Soft Tissue Mobilization Left glute/piriformis Body Location bilateral this session Mobilization Type Cross-Friction,Rolling Intensity/Depth Moderate Body Position Sidelying Comments with pillow between knees Joint Mobilizations SI joint mobs for R AI L PI Joint PT Ilene Noah into session to perform SI joint mobs R LE Comments R hip resisted hip ext and hooklying resisted add with quick stretch PT-OP-R Modalities Start: 03/03/24 20:02 Freq: Status: Active Protocol: Document 03/19/24 12:56 AB (Rec: 03/19/24 14:40 AB [id number]) Hot Pack/Cold Pack Treatment thoracic/lumbar spine Comments supine and hooklying during HEP review PT-OP-T Assessment and Plan Start: 03/03/24 20:02 Freq: Status: Active Protocol: Document 05/21/24 14:42 AB (Rec: 05/21/24 16:24 AB Laptop) Physical Therapy Assessment Goals Two Impairment Requires walker to walk long distances (TUG score 18 secs) Short Term Goal (STG) Pt will be educated in best sleeping/sit/stand posture. 03/12/24: Educated pt in sleeping posturing. Pt sleeping with pillow under knee and support anterior/ longitudinal float operator trunk. 02/22/24: Educated pt in proper Sit/Stand Posture and demonstrated good sit posture. Pt is aware of need to reduce lordosis with standing. STG Duration 04/02/24 (03/24/24: MET GOAL ) Microsoft Exchange Architect Goal (LTG) Pt will be able to improve her walking tolerance to walk outside her home safely for short distances with use of a cane or improve stability of gait with TUG score less than 14 secs. 04/29/2024 Patient reports she hasn't been able to walk very much due to weather and back being sore, does walk on a walking pad at home for 30 minutes, with no increase in back pain. Patient able to ambulate with out device eliminating Trendelenburg pattern by following verbal cues for glute max activation. 05/05/2024 Noted patient with good tech for log roll throughout session, and dec ipsilateral trunk side bend stance phase bilaterally during ambulation compared to start of prev session with this FLUORESCENT LAMP REPLACER, but miminal ipsilateral trunk sidebednd persists impacting LS spine during ambulation. 05/12/24: Walked outside of home for 45' (hilly) w/o use of assistive device, pt reporting feeling safe. LTG Duration 06/25/24 progressing 05/12/24 (need TUG < 14 secs) One Impairment Pt lacks independent HEP to mitigate thigh & LBP Short Term Goal (STG) Pt will be educated and able to demonstrate proper body mechanics for functional activities (lifting, reaching, sweeping/vacuuming). 03/19/2024 Review of body mechanics for vacuuming and review of log roll this session. 03/24/24: Issued & Reviewed: Body Mechanics Basics, & ADL's Body Mechanics; & Proper Posture: The Holcomb to Safe Mvmt (strain on spine in different positions). Pt showed good body mechanics for picking up object off the floor and lifting purse. 03/30/24: Pt doing proper body mechanics for vacuuming at home and reporting no problem with activity. 04/07/24: Pt educated and was able to demonstrate proper body mechanics for sweeping, floor mopping/polishing, vacuuming, & reaching overhead ; pt willing to modify covering of her mattress ( using legs to lift mattress to get on cover, and putting a comforter by rolling and unrolling in a duvet cover. STG Duration 04/09/24 (04/07/24: MET GOAL ) Correction Goal (LTG) Pt will be independent in core /hip ex's to mitigate thigh & LBP. 03/12/24: HEP: Core stab ex: SLR, Hip AB/AD & Glut Squeeze. 04/02/2024 Patient requests initiating session with HEP stretches as they are helpful, required Verbal cues to opp knee during SLR, but good return technique for all other exercises performed in clinic from HEP today. 04/29/2024 HEP additions of seated hip abd with band, standing hip abd and extnsion with band as well as seated breathing from diaphragm 2024 added level 5 band to mini squat for home use. 05/12/24: HEP: Piriformis stretch (sup knee to opp shoulder & in sitting), and Front thigh stretch. 05/21/2024 Patient request review of piriformis stretch with strap, commenting she can't feel it, but was able to set up and perform correctly without cues , commenting that she feels it now. 05/21/2024 patient able to progress to level one band for sidelying clamshell and hip abduction. LTG Duration 06/25/24 progressed 05/12/24 Assessment Summary Assessment 68 yo female with disc bulges and trace retrolisthesis L1-L4 , canal/foraminal stenosis, & L5 nerve root impingement with symptoms of radicular LE tingling/pain in thighs and LB . Today presents with L glute pain 4-5/10, which decreased to 2-3/10 end of session ambulating out of session without device, good results post manual and stretches and patient able to progress to level one band for sidelying clamshell and hip abduction. Patient trialed sao tomean ball chair with 55 cm ball as she verbalized plan to buy one. Physical Therapy Plan Frequency and Duration Frequency of Treatment 2x/Week Duration of treatment (weeks) 8 Plan of Care Start Date 04/27/24 Plan of Care End Date 06/25/24 Therapeutic Interventions Therapeutic Interventions Gait Training,Home Exercise Program,Manual Therapy, Neuromuscular Re-education, Self-Care/Home Management,Soft Tissue Mobilization, Therapeutic Activities, Therapeutic Exercises Modalities Cold Pack/Ice Massage Next Visit Focus/Plan Next Note Type Treatment Note Next Visit Plan (note: EKG normal. Trace retrothesis L1-L4). Stress Test is 05/28/24. Shoulder surgeon appt planned in June. Starting: Monitor BP/signs & symptoms closely with ex strengthening. Next: Focus on coordinating breath w/core stab while Progressing core stabilization ex's; issue HEP: core strengthening as needed in NS or slight anterior tilt L1-L4. Progress walking tolerance /focus on glute max activation . Strengthening core/LE's to improve Assess billy to bands with sidelying hip abd and clamshell at home and progress core next session, safety with gait, work towards correcting gait posture. Manual therapy for dariel neural pain relief of LB/dariel hips & lateral thighs. HEP as needed, review and add to HEP ankle ex's w/focus on R EV, L IV. -If appropriate start Gentle manual L/S tx, try GENTLE ( grade 1-2) PA mob (L1-L4) due to retrolisthesis.
--- NOTE | 2024-05-27 15:49 | PT.OTN ---
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 Patient also reports she hasn' t taken her medication yet. Visit Start Time 02:38 Visit Stop Time 15:22 Visit Number 16(7/ after PN) Number of GAGE DESIGNER Visits 2 Evaluation Information Evaluation Date 03/10/24 Precautions Precautions Uncontrolled HTN w/meds (~130/ 70), Diastolic CHF w/3 stents - 2015 (1)-2017 (2) PT-OP-B Current Condition Start: 03/03/24 20:02 Freq: Status: Active Protocol: Document 03/10/24 13:02 LRN (Rec: 03/10/24 13:52 LRN [id number]) Current Condition History of Current Condition Onset Date 07/2023 Current Complaints Tingling & burning down dariel lateral legs & LBP History of Current Condition Recently (07/2023) worsening of lateral thigh and LBP sensation changes. She reports history of dariel LE/LBP prior to 2018. She states pain onset after standing 10 minutes, so she tries walking, but after 30 minutes the pain worsens and she can't stand upright. She thinks her core is not strong, and she has lost weight to help relieve pain. Pt rerports she has a son who is a paraplegic since 13 yr old. 2 yrs ago used a walker all the time, 8 months ago used a cane to walk, 2 months ago did spurts using no assistive device. Must use an assistive device due to LBP . Pt reports being ambidextrous, but uses mostly her R hand since the R TSA surgery. Developmental History Developmental History Pt had TKA's hoping it would help her thigh and LBP, but has not found any relief of her pain since the surgeries (L TKA 2017, R TKA 2019). Other surgical history per pt: R TSA (2019), and L shoulder that needs a TSA but pt has chosen not to do another surgery at this time. Treatment Goals Patient/Caregiver Goals Pt goals: -Learn ex's to mitagate the pain. -Learn proper functional activities. Personal Factors Other Personal Factors That May Effect Bariatric sleeve in November Therapy/Recovery with wgt loss (60# since Nov). Lives alone (spouse in 2013). Current Ex routine (3x/wk): bike, walking pad and works LE 's with bands. L TKA 2017, R TKA 2019, R TSA 2019. son who is a paraplegic since 13 yr old. PT-OP-C Subjective Start: 03/03/24 20:02 Freq: Status: Active Protocol: Document 05/27/24 14:11 AB (Rec: 05/27/24 15:48 AB Laptop) OP-PT Subjective Patient Comments Patient Comments Patient reports her pain is her normal/usual pain 2-3/10 start of session 152/86 HR 61. Patient reports HEP takes 1 hour/ 40 minutes to perform. Patient reports hand MD appt and is low/but will have more tests: B1 and ?D3 is low and reports she was told her LE numbness is caused by vitamin deficiency and is going to have vitamin infusions. PT-OP-G Mobility & Gait Start: 03/03/24 20:02 Freq: Status: Active Protocol: Document 03/10/24 13:02 LRN (Rec: 03/10/24 13:52 LRN [id number]) OP Gait Assessment Gait Gait Assistance Required: Independent Able to Maintain Weight Bearing Status Yes During Gait Assistive Devices Assistive Device None Gait Deviations General Gait Pattern Decreased Stride Length,Flexed Trunk,Lateral Trunk Lean Factors Limiting Gait Function Factors Limiting Gait Function Decreased Activity Tolerance PT-OP-H Neuro Start: 03/03/24 20:02 Freq: Status: Active Protocol: Document 03/10/24 13:02 LRN (Rec: 03/10/24 13:52 LRN [id number]) Sensation Evaluation Comments Summary Comments Tingling in outer and anterior thighs. PT-OP-J Posture/Palpation/Skin Start: 03/03/24 20:02 Freq: Status: Active Protocol: Document 03/30/24 13:48 LRN (Rec: 03/30/24 18:40 LRN [id number]) Palpation Assessment Location Low back Palpation Location Thoracic & Lumbar spine Palpation Findings Tenderness Palpation Details PA pressure of Spinous Process : T1-T4, T7, T10, T12, L1, L2, L4-L5. PT-OP-K Range of Motion Start: 03/03/24 20:02 Freq: Status: Active Protocol: Document 03/30/24 13:48 LRN (Rec: 03/30/24 18:38 LRN [id number]) Hip Goniometric Range of Motion Hip Right Passive Testing Position Supine Internal Rotation 15 External Rotation 50 Left Passive Testing Position Supine Internal Rotation 20 External Rotation 50 PT-OP-L Special Tests Start: 03/03/24 20:02 Freq: Status: Active Protocol: Document 03/10/24 13:02 LRN (Rec: 03/10/24 13:52 LRN [id number]) Special Tests Lumbar Spine Special Tests Slump Test Results + bilaterally Comments L: onset LBP & R thigh/LBP, R: onset of R LBP PT-OP-M Strength Start: 03/03/24 20:02 Freq: Status: Active Protocol: Document 04/02/24 12:57 AB (Rec: 04/02/24 16:26 AB [id number]) Hip Strength Hip Manual Muscle Testing Right Extension (S1) 3+ Fair+ Comments within limited ROM Left Extension (S1) 3 Fair PT-OP-Q Treatments Start: 03/03/24 20:02 Freq: Status: Active Protocol: Document 05/27/24 14:11 AB (Rec: 05/27/24 15:48 AB Laptop) Therapeutic Exercises Supine Exercises chin tuck and head lift Supine Exercise Name for core strengthening Reps/Minutes 7 sec X 2 Comments verbal cues NS/step outs Supine Exercise Name Coordinating holding core tight during chest breathing. Side bilateral Resistance 1 lb weights on LE Reps/Minutes X 10 Comments Much cuing to keep TA tight with inhale. Hip IR stretch Supine Exercise Name Piriformis stretch with knee/ ankle to opp shoulder Side bilateral Equipment Used figure 4 with knee to opp shoulder Reps/Minutes 60 sec X 1 Prone Exercises Hip Ext Prone Exercise Name TA tight & Exhale w/lift Side bilateral Reps/Minutes 10 x 2 Sitting Exercises short sit Sitting Exercise Name for core strengthening seated resting on forearm Reps/Minutes 7 sec X 2 each side Comments verbal cues core warm up Sitting Exercise Name 1. seated trunk rotation 2. modified shoulder flexion ( elb flex dec ROM) Side bilateral Reps/Minutes X 5 X 2 Comments verbal and visual cues ankle AROM Sitting Exercise Name R eversion L inversion Equipment Used HEP Reps/Minutes X15 Comments verbal and visual cues seated hip abd with band Sitting Exercise Name HEP Side bilateral Equipment Used level 4 Reps/Minutes one minute hold X 1 Standing Exercises UE/LE lift Standing Exercise Name standing with hands on mat at counter height 1. UE 2. LE Reps/Minutes 7 sec X 2 each extremity Comments verbal cues and visual cues, cues for bracing hip extension Standing Exercise Name HEP Resistance level 4 band above knees Reps/Minutes X 15 each LE Comments verbal cues Side stepping Standing Exercise Name Hands on Railing Side bilateral Equipment Used Hand rails Reps/Minutes 10 feet X 3 left and right Comments Cued to PT-OP-R Modalities Start: 03/03/24 20:02 Freq: Status: Active Protocol: Document 03/19/24 12:56 AB (Rec: 03/19/24 14:40 AB [id number]) Hot Pack/Cold Pack Treatment thoracic/lumbar spine Comments supine and hooklying during HEP review PT-OP-T Assessment and Plan Start: 03/03/24 20:02 Freq: Status: Active Protocol: Document 05/27/24 14:11 AB (Rec: 05/27/24 15:48 AB Laptop) Physical Therapy Assessment Goals Two Impairment Requires walker to walk long distances (TUG score 18 secs) Short Term Goal (STG) Pt will be educated in best sleeping/sit/stand posture. 03/12/24: Educated pt in sleeping posturing. Pt sleeping with pillow under knee and support anterior/ health insurance specialist trunk. 02/22/24: Educated pt in proper Sit/Stand Posture and demonstrated good sit posture. Pt is aware of need to reduce lordosis with standing. STG Duration 04/02/24 (03/24/24: MET GOAL ) Alf Goal (LTG) Pt will be able to improve her walking tolerance to walk outside her home safely for short distances with use of a cane or improve stability of gait with TUG score less than 14 secs. 04/29/2024 Patient reports she hasn't been able to walk very much due to weather and back being sore, does walk on a walking pad at home for 30 minutes, with no increase in back pain. Patient able to ambulate with out device eliminating Trendelenburg pattern by following verbal cues for glute max activation. 05/05/2024 Noted patient with good tech for log roll throughout session, and dec ipsilateral trunk side bend stance phase bilaterally during ambulation compared to start of prev session with this GAGE DESIGNER, but miminal ipsilateral trunk sidebednd persists impacting LS spine during ambulation. 05/12/24: Walked outside of home for 45' (hilly) w/o use of assistive device, pt reporting feeling safe. LTG Duration 06/25/24 progressing 05/12/24 (need TUG < 14 secs) One Impairment Pt lacks independent HEP to mitigate thigh & LBP Short Term Goal (STG) Pt will be educated and able to demonstrate proper body mechanics for functional activities (lifting, reaching, sweeping/vacuuming). 03/19/2024 Review of body mechanics for vacuuming and review of log roll this session. 03/24/24: Issued & Reviewed: Body Mechanics Basics, & ADL's Body Mechanics; & Proper Posture: The Holcomb to Safe Mvmt (strain on spine in different positions). Pt showed good body mechanics for picking up object off the floor and lifting purse. 03/30/24: Pt doing proper body mechanics for vacuuming at home and reporting no problem with activity. 04/07/24: Pt educated and was able to demonstrate proper body mechanics for sweeping, floor mopping/polishing, vacuuming, & reaching overhead ; pt willing to modify covering of her mattress ( using legs to lift mattress to get on cover, and putting a comforter by rolling and unrolling in a duvet cover. STG Duration 04/09/24 (04/07/24: MET GOAL ) [employer] Goal (LTG) Pt will be independent in core /hip ex's to mitigate thigh & LBP. 03/12/24: HEP: Core stab ex: SLR, Hip AB/AD & Glut Squeeze. 04/02/2024 Patient requests initiating session with HEP stretches as they are helpful, required Verbal cues to opp knee during SLR, but good return technique for all other exercises performed in clinic from HEP today. 04/29/2024 HEP additions of seated hip abd with band, standing hip abd and extnsion with band as well as seated breathing from diaphragm 3/25/ 2025 added level 5 band to mini squat for home use. 05/12/24: HEP: Piriformis stretch (sup knee to opp shoulder & in sitting), and Front thigh stretch. 05/21/2024 Patient request review of piriformis stretch with strap, commenting she can't feel it, but was able to set up and perform correctly without cues , commenting that she feels it now. 05/21/2024 patient able to progress to level one band for sidelying clamshell and hip abduction. 05/27/2024 Patient reports HEP takes 1 hour 40 min to perform added R EV, L IV as per plan . LTG Duration 06/25/24 progressed 05/12/24 Assessment Summary Assessment 68 yo female with disc bulges and trace retrolisthesis L1-L4 , canal/foraminal stenosis, & L5 nerve root impingement with symptoms of radicular LE tingling/pain in thighs and LB . Patient into session with reports that MD suggests vitamin deficiency is causing numbness and will have more testing. Patient into session post gardening rating paint 2- 3/10 commenting this is her usual pain. End of session rates glute pain 2/10 ambulating out of session without device. Physical Therapy Plan Frequency and Duration Frequency of Treatment 2x/Week Duration of treatment (weeks) 8 Plan of Care Start Date 04/27/24 Plan of Care End Date 06/25/24 Next Visit Focus/Plan Next Note Type Treatment Note Next Visit Plan (note: EKG normal. Trace retrothesis L1-L4). Stress Test is 05/28/24. Shoulder surgeon appt planned in June. Starting: Monitor BP/signs & symptoms closely with ex strengthening. TUG next session, possibly begin to condense HEP and continue to progress strength/ bands for clamshells Next: Focus on coordinating breath w/core stab while Progressing core stabilization ex's; issue HEP: core strengthening as needed in NS or slight anterior tilt L1-L4. Progress walking tolerance /focus on glute max activation . Strengthening core/LE's to improve Assess billy to bands with sidelying hip abd and clamshell at home and progress core next session, safety with gait, work towards correcting gait posture. Manual therapy for dariel neural pain relief of LB/dariel hips & lateral thighs. HEP as needed, -If appropriate start Gentle manual L/S tx, try GENTLE ( grade 1-2) PA mob (L1-L4) due to retrolisthesis.
--- NOTE | 2024-06-02 16:11 | PT.OTN ---
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] (06/02/24) Physical Therapy Treatment Note PT-OP-A Visit Information Start: 03/03/24 20:02 Freq: Status: Active Protocol: Document 06/02/24 15:15 AB (Rec: 06/02/24 16:11 AB Laptop) Out-Patient Physical Therapy Visit Information Visit Information Visit Type Treatment Note Visit Note BP R forearm 145/83 HR 57 Visit Start Time 15:18 Visit Stop Time 14:02 Visit Number 17/after Pn Number of TELETYPEWRITER INSTALLER Visits 4 Evaluation Information Evaluation Date 03/10/24 Precautions Precautions Uncontrolled HTN w/meds (~130/ 70), Diastolic CHF w/3 stents - 2015 (1)-2017 (2) PT-OP-B Current Condition Start: 03/03/24 20:02 Freq: Status: Active Protocol: Document 03/10/24 13:02 LRN (Rec: 03/10/24 13:52 LRN [id number]) Current Condition History of Current Condition Onset Date 07/2023 Current Complaints Tingling & burning down dariel lateral legs & LBP History of Current Condition Recently (07/2023) worsening of lateral thigh and LBP sensation changes. She reports history of dariel LE/LBP prior to 2018. She states pain onset after standing 10 minutes, so she tries walking, but after 30 minutes the pain worsens and she can't stand upright. She thinks her core is not strong, and she has lost weight to help relieve pain. Pt rerports she has a son who is a paraplegic since 13 yr old. 2 yrs ago used a walker all the time, 8 months ago used a cane to walk, 2 months ago did spurts using no assistive device. Must use an assistive device due to LBP . Pt reports being ambidextrous, but uses mostly her R hand since the R TSA surgery. Developmental History Developmental History Pt had TKA's hoping it would help her thigh and LBP, but has not found any relief of her pain since the surgeries (L TKA 2017, R TKA 2019). Other surgical history per pt: R TSA (2019), and L shoulder that needs a TSA but pt has chosen not to do another surgery at this time. Treatment Goals Patient/Caregiver Goals Pt goals: -Learn ex's to mitagate the pain. -Learn proper functional activities. Personal Factors Other Personal Factors That May Effect Bariatric sleeve in November Therapy/Recovery with wgt loss (60# since Nov). Lives alone (spouse in 2013). Current Ex routine (3x/wk): bike, walking pad and works LE 's with bands. L TKA 2017, R TKA 2019, R TSA 2019. son who is a paraplegic since 13 yr old. PT-OP-C Subjective Start: 03/03/24 20:02 Freq: Status: Active Protocol: Document 06/02/24 15:15 AB (Rec: 06/02/24 16:11 AB Laptop) OP-PT Subjective Patient Comments Patient Comments Patient reports she didn't have her stress test yesterday , took meds on empty stomach and didn't feel well after that. Patient reports having no pain start of session, comments pain is 10/10 start of session, post ex and shower able to stand and move fine. Patient reports she is now taken BP meds over the course of the day, so hasn't had all of BP meds yet today. Pt ambulates without device narrow GAIL PT-OP-G Mobility & Gait Start: 03/03/24 20:02 Freq: Status: Active Protocol: Document 03/10/24 13:02 LRN (Rec: 03/10/24 13:52 LRN [id number]) OP Gait Assessment Gait Gait Assistance Required: Independent Able to Maintain Weight Bearing Status Yes During Gait Assistive Devices Assistive Device None Gait Deviations General Gait Pattern Decreased Stride Length,Flexed Trunk,Lateral Trunk Lean Factors Limiting Gait Function Factors Limiting Gait Function Decreased Activity Tolerance PT-OP-H Neuro Start: 03/03/24 20:02 Freq: Status: Active Protocol: Document 03/10/24 13:02 LRN (Rec: 03/10/24 13:52 LRN [id number]) Sensation Evaluation Comments Summary Comments Tingling in outer and anterior thighs. PT-OP-J Posture/Palpation/Skin Start: 03/03/24 20:02 Freq: Status: Active Protocol: Document 03/30/24 13:48 LRN (Rec: 03/30/24 18:40 LRN [id number]) Palpation Assessment Location Low back Palpation Location Thoracic & Lumbar spine Palpation Findings Tenderness Palpation Details PA pressure of Spinous Process : T1-T4, T7, T10, T12, L1, L2, L4-L5. PT-OP-K Range of Motion Start: 03/03/24 20:02 Freq: Status: Active Protocol: Document 03/30/24 13:48 LRN (Rec: 03/30/24 18:38 LRN [id number]) Hip Goniometric Range of Motion Hip Right Passive Testing Position Supine Internal Rotation 15 External Rotation 50 Left Passive Testing Position Supine Internal Rotation 20 External Rotation 50 PT-OP-L Special Tests Start: 03/03/24 20:02 Freq: Status: Active Protocol: Document 03/10/24 13:02 LRN (Rec: 03/10/24 13:52 LRN [id number]) Special Tests Lumbar Spine Special Tests Slump Test Results + bilaterally Comments L: onset LBP & R thigh/LBP, R: onset of R LBP PT-OP-M Strength Start: 03/03/24 20:02 Freq: Status: Active Protocol: Document 04/02/24 12:57 AB (Rec: 04/02/24 16:26 AB [id number]) Hip Strength Hip Manual Muscle Testing Right Extension (S1) 3+ Fair+ Comments within limited ROM Left Extension (S1) 3 Fair PT-OP-Q Treatments Start: 03/03/24 20:02 Freq: Status: Active Protocol: Document 06/02/24 15:15 AB (Rec: 06/02/24 16:11 AB Laptop) Therapeutic Exercises Supine Exercises Front Thigh/Iliopsoas stretch Supine Exercise Name holding opp LE with towel Side bilateral Reps/Minutes 30 SH x 2 each Comments with AROM knee flexion Sitting Exercises short sit Sitting Exercise Name for core strengthening seated resting on forearm Reps/Minutes 7 sec X 2 each side Comments verbal cues Standing Exercises UE/LE lift Standing Exercise Name standing with hands on mat at counter height 1. UE 2. LE Reps/Minutes 7 sec X 2 each extremity Comments verbal cues and visual cues, cues for bracing Side stepping Standing Exercise Name Hands on Railing/ also monster walk to HEP declined handout Side bilateral Resistance level 4 band Equipment Used Hand rails Reps/Minutes 10 feet X 3 left and right Comments VC to avoid toe out with band, and visual and verbal for monster walk PT-OP-R Modalities Start: 03/03/24 20:02 Freq: Status: Active Protocol: Document 03/19/24 12:56 AB (Rec: 03/19/24 14:40 AB [id number]) Hot Pack/Cold Pack Treatment thoracic/lumbar spine Comments supine and hooklying during HEP review PT-OP-T Assessment and Plan Start: 03/03/24 20:02 Freq: Status: Active Protocol: Document 06/02/24 15:15 AB (Rec: 06/02/24 16:11 AB Laptop) Physical Therapy Assessment Goals Two Impairment Requires walker to walk long distances (TUG score 18 secs) Short Term Goal (STG) Pt will be educated in best sleeping/sit/stand posture. 03/12/24: Educated pt in sleeping posturing. Pt sleeping with pillow under knee and support anterior/ c++ professor trunk. 02/22/24: Educated pt in proper Sit/Stand Posture and demonstrated good sit posture. Pt is aware of need to reduce lordosis with standing. STG Duration 04/02/24 (03/24/24: MET GOAL ) Endocrinology Teacher Goal (LTG) Pt will be able to improve her walking tolerance to walk outside her home safely for short distances with use of a cane or improve stability of gait with TUG score less than 14 secs. 04/29/2024 Patient reports she hasn't been able to walk very much due to weather and back being sore, does walk on a walking pad at home for 30 minutes, with no increase in back pain. Patient able to ambulate with out device eliminating Trendelenburg pattern by following verbal cues for glute max activation. 05/05/2024 Noted patient with good tech for log roll throughout session, and dec ipsilateral trunk side bend stance phase bilaterally during ambulation compared to start of prev session with this TELETYPEWRITER INSTALLER, but miminal ipsilateral trunk sidebednd persists impacting LS spine during ambulation. 05/12/24: Walked outside of home for 45' (hilly) w/o use of assistive device, pt reporting feeling safe. 2024 TUG 8.56 sec without device.MET LTG Duration 06/25/24 progressing 05/12/24 (need TUG < 14 secs) One Impairment Pt lacks independent HEP to mitigate thigh & LBP Short Term Goal (STG) Pt will be educated and able to demonstrate proper body mechanics for functional activities (lifting, reaching, sweeping/vacuuming). 03/19/2024 Review of body mechanics for vacuuming and review of log roll this session. 03/24/24: Issued & Reviewed: Body Mechanics Basics, & ADL's Body Mechanics; & Proper Posture: The Holcomb to Safe Mvmt (strain on spine in different positions). Pt showed good body mechanics for picking up object off the floor and lifting purse. 03/30/24: Pt doing proper body mechanics for vacuuming at home and reporting no problem with activity. 04/07/24: Pt educated and was able to demonstrate proper body mechanics for sweeping, floor mopping/polishing, vacuuming, & reaching overhead ; pt willing to modify covering of her mattress ( using legs to lift mattress to get on cover, and putting a comforter by rolling and unrolling in a duvet cover. STG Duration 04/09/24 (04/07/24: MET GOAL ) Fpc Goal (LTG) Pt will be independent in core /hip ex's to mitigate thigh & LBP. 03/12/24: HEP: Core stab ex: SLR, Hip AB/AD & Glut Squeeze. 04/02/2024 Patient requests initiating session with HEP stretches as they are helpful, required Verbal cues to opp knee during SLR, but good return technique for all other exercises performed in clinic from HEP today. 04/29/2024 HEP additions of seated hip abd with band, standing hip abd and extnsion with band as well as seated breathing from diaphragm 2024 added level 5 band to mini squat for home use. 05/12/24: HEP: Piriformis stretch (sup knee to opp shoulder & in sitting), and Front thigh stretch. 05/21/2024 Patient request review of piriformis stretch with strap, commenting she can't feel it, but was able to set up and perform correctly without cues , commenting that she feels it now. 05/21/2024 patient able to progress to level one band for sidelying clamshell and hip abduction. 05/27/2024 Patient reports HEP takes 1 hour 40 min to perform added R EV, L IV as per plan . LTG Duration 06/25/24 progressed 05/12/24 Assessment Summary Assessment 68 yo female with disc bulges and trace retrolisthesis L1-L4 , canal/foraminal stenosis, & L5 nerve root impingement with symptoms of radicular LE tingling/pain in thighs and LB . Patient continues to report increased pain am, sleeps mostly on back with pillow under knees. Good return demonstration for exercises, but pain inc to 2/10 end of session. Physical Therapy Plan Frequency and Duration Frequency of Treatment 2x/Week Duration of treatment (weeks) 8 Plan of Care Start Date 04/27/24 Plan of Care End Date 06/25/24 Next Visit Focus/Plan Next Note Type Treatment Note Next Visit Plan (note: EKG normal. Trace retrothesis L1-L4). Stress Test is 05/28/24. Shoulder surgeon appt planned in June. Starting: Monitor BP/signs & symptoms closely with ex strengthening. possibly begin to condense HEP and continue to progress strength/bands for clamshells Next: Focus on coordinating breath w/core stab while Progressing core stabilization ex's; issue HEP: core strengthening as needed in NS or slight anterior tilt L1-L4. Progress walking tolerance /focus on glute max activation . Strengthening core/LE's to improve glute strength progress core next session, safety with gait, work towards correcting gait posture. Manual therapy for dariel neural pain relief of LB/dariel hips & lateral thighs. HEP as needed, -If appropriate start Gentle manual L/S tx, try GENTLE ( grade 1-2) PA mob (L1-L4) due to retrolisthesis.
--- NOTE | 2024-06-11 12:41 | PT.OTN ---
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] (06/11/24) Physical Therapy Treatment Note PT-OP-A Visit Information Start: 03/03/24 20:02 Freq: Status: Active Protocol: Document 06/11/24 09:52 LRN (Rec: 06/11/24 10:34 LRN Laptop) Out-Patient Physical Therapy Visit Information Visit Information Visit Type Treatment Note Visit Start Time 09:52 Visit Stop Time 10:34 Visit Number 18(8 after Pn) Evaluation Information Evaluation Date 03/10/24 Precautions Precautions Uncontrolled HTN w/meds (~130/ 70), Diastolic CHF w/3 stents - 2015 (1)-2017 (2) PT-OP-B Current Condition Start: 03/03/24 20:02 Freq: Status: Active Protocol: Document 03/10/24 13:02 LRN (Rec: 03/10/24 13:52 LRN [id number]) Current Condition History of Current Condition Onset Date 07/2023 Current Complaints Tingling & burning down dariel lateral legs & LBP History of Current Condition Recently (07/2023) worsening of lateral thigh and LBP sensation changes. She reports history of dariel LE/LBP prior to 2018. She states pain onset after standing 10 minutes, so she tries walking, but after 30 minutes the pain worsens and she can't stand upright. She thinks her core is not strong, and she has lost weight to help relieve pain. Pt rerports she has a son who is a paraplegic since 13 yr old. 2 yrs ago used a walker all the time, 8 months ago used a cane to walk, 2 months ago did spurts using no assistive device. Must use an assistive device due to LBP . Pt reports being ambidextrous, but uses mostly her R hand since the R TSA surgery. Developmental History Developmental History Pt had TKA's hoping it would help her thigh and LBP, but has not found any relief of her pain since the surgeries (L TKA 2017, R TKA 2019). Other surgical history per pt: R TSA (2019), and L shoulder that needs a TSA but pt has chosen not to do another surgery at this time. Treatment Goals Patient/Caregiver Goals Pt goals: -Learn ex's to mitagate the pain. -Learn proper functional activities. Personal Factors Other Personal Factors That May Effect Bariatric sleeve in November Therapy/Recovery with wgt loss (60# since Nov). Lives alone (spouse in 2013). Current Ex routine (3x/wk): bike, walking pad and works LE 's with bands. L TKA 2017, R TKA 2019, R TSA 2019. son who is a paraplegic since 13 yr old. PT-OP-C Subjective Start: 03/03/24 20:02 Freq: Status: Active Protocol: Document 06/11/24 09:52 LRN (Rec: 06/11/24 10:34 LRN Laptop) OP-PT Subjective Patient Comments Patient Comments BP regulates between 140 or 132/64. This morning 136/70. Walking up to 2 hrs through the day (30'x4 or longer walks ). Stress test rescheduled due to medication problem, resceduled to next week. Able to manage her LB and medial pain with her current HEP, pt feels ready for DC from PT. Back to gardening. Patient Questionnaires Oswestry Low Back Index Oswestry Score 7/50 (14/100) Oswestry Impairment 1 to 19% Impaired (Score 1-19) PT-OP-G Mobility & Gait Start: 03/03/24 20:02 Freq: Status: Active Protocol: Document 03/10/24 13:02 LRN (Rec: 03/10/24 13:52 LRN [id number]) OP Gait Assessment Gait Gait Assistance Required: Independent Able to Maintain Weight Bearing Status Yes During Gait Assistive Devices Assistive Device None Gait Deviations General Gait Pattern Decreased Stride Length,Flexed Trunk,Lateral Trunk Lean Factors Limiting Gait Function Factors Limiting Gait Function Decreased Activity Tolerance PT-OP-H Neuro Start: 03/03/24 20:02 Freq: Status: Active Protocol: Document 03/10/24 13:02 LRN (Rec: 03/10/24 13:52 LRN [id number]) Sensation Evaluation Comments Summary Comments Tingling in outer and anterior thighs. PT-OP-J Posture/Palpation/Skin Start: 03/03/24 20:02 Freq: Status: Active Protocol: Document 03/30/24 13:48 LRN (Rec: 03/30/24 18:40 LRN [id number]) Palpation Assessment Location Low back Palpation Location Thoracic & Lumbar spine Palpation Findings Tenderness Palpation Details PA pressure of Spinous Process : T1-T4, T7, T10, T12, L1, L2, L4-L5. PT-OP-K Range of Motion Start: 03/03/24 20:02 Freq: Status: Active Protocol: Document 03/30/24 13:48 LRN (Rec: 03/30/24 18:38 LRN [id number]) Hip Goniometric Range of Motion Hip Right Passive Testing Position Supine Internal Rotation 15 External Rotation 50 Left Passive Testing Position Supine Internal Rotation 20 External Rotation 50 PT-OP-L Special Tests Start: 03/03/24 20:02 Freq: Status: Active Protocol: Document 03/10/24 13:02 LRN (Rec: 03/10/24 13:52 LRN [id number]) Special Tests Lumbar Spine Special Tests Slump Test Results + bilaterally Comments L: onset LBP & R thigh/LBP, R: onset of R LBP PT-OP-M Strength Start: 03/03/24 20:02 Freq: Status: Active Protocol: Document 04/02/24 12:57 AB (Rec: 04/02/24 16:26 AB [id number]) Hip Strength Hip Manual Muscle Testing Right Extension (S1) 3+ Fair+ Comments within limited ROM Left Extension (S1) 3 Fair PT-OP-Q Treatments Start: 03/03/24 20:02 Freq: Status: Active Protocol: Document 06/11/24 09:52 LRN (Rec: 06/11/24 10:34 LRN Laptop) Therapeutic Exercises Supine Exercises Leg lowering w/Raw Egg Supine Exercise Name Reviewed the last ex in the Progressive Stability/core program BKFO hip AD stretch Supine Exercise Name Alternating BKFO with end range stretch Side left Reps/Minutes 20x Front Thigh/Iliopsoas stretch Supine Exercise Name holding opp LE with towel Side bilateral Reps/Minutes 30 SH x 2 each Comments with AROM knee flexion NS/step outs Supine Exercise Name Coordinating holding core tight during chest breathing. Side bilateral Resistance 1 lb weights on LE Reps/Minutes X 10 Comments Much cuing to keep TA tight with inhale. Hip IR stretch Supine Exercise Name Piriformis stretch with knee/ ankle to opp shoulder Side bilateral Equipment Used figure 4 with knee to opp shoulder Reps/Minutes 60 sec X 1 SLR Supine Exercise Name Leg lowering ex on the Progressive Stability/core program Side bilateral Reps/Minutes 9x R,8x L Comments Pt cued through ex and I/S 20 reps before moving to last ex on program Sidelying Exercises Clamshell Side bilateral Reps/Minutes x 15 each Sitting Exercises Piriformis stretch Side right Reps/Minutes 1' seated hip abd with band Side bilateral Equipment Used level 4 Reps/Minutes 4' Self-Care/Home Management Treatment Activities Self-Care/Home Management Activities Issued & reviewed progressive nature of HEP: Progressive Stability/core program PT-OP-R Modalities Start: 03/03/24 20:02 Freq: Status: Active Protocol: Document 03/19/24 12:56 AB (Rec: 03/19/24 14:40 AB [id number]) Hot Pack/Cold Pack Treatment thoracic/lumbar spine Comments supine and hooklying during HEP review PT-OP-T Assessment and Plan Start: 03/03/24 20:02 Freq: Status: Active Protocol: Document 06/11/24 09:52 LRN (Rec: 06/11/24 10:34 LRN Laptop) Physical Therapy Assessment Goals Two Impairment Requires walker to walk long distances (TUG score 18 secs) Short Term Goal (STG) Pt will be educated in best sleeping/sit/stand posture. 03/12/24: Educated pt in sleeping posturing. Pt sleeping with pillow under knee and support anterior/ almond sorter trunk. 02/22/24: Educated pt in proper Sit/Stand Posture and demonstrated good sit posture. Pt is aware of need to reduce lordosis with standing. STG Duration 04/02/24 (03/24/24: MET GOAL ) Manager Leasing Goal (LTG) Pt will be able to improve her walking tolerance to walk outside her home safely for short distances with use of a cane or improve stability of gait with TUG score less than 14 secs. 04/29/2024 Patient reports she hasn't been able to walk very much due to weather and back being sore, does walk on a walking pad at home for 30 minutes, with no increase in back pain. Patient able to ambulate with out device eliminating Trendelenburg pattern by following verbal cues for glute max activation. 05/05/2024 Noted patient with good tech for log roll throughout session, and dec ipsilateral trunk side bend stance phase bilaterally during ambulation compared to start of prev session with this [facility], but miminal ipsilateral trunk sidebednd persists impacting LS spine during ambulation. 05/12/24: Walked outside of home for 45' (hilly) w/o use of assistive device, pt reporting feeling safe. 06/02/2024 TUG 8.56 sec without device.MET LTG Duration 06/25/24 (06/11/24: MET GOAL on 05/13/24) One Impairment Pt lacks independent HEP to mitigate thigh & LBP Short Term Goal (STG) Pt will be educated and able to demonstrate proper body mechanics for functional activities (lifting, reaching, sweeping/vacuuming). 03/19/2024 Review of body mechanics for vacuuming and review of log roll this session. 03/24/24: Issued & Reviewed: Body Mechanics Basics, & ADL's Body Mechanics; & Proper Posture: The Holcomb to Safe Mvmt (strain on spine in different positions). Pt showed good body mechanics for picking up object off the floor and lifting purse. 03/30/24: Pt doing proper body mechanics for vacuuming at home and reporting no problem with activity. 04/07/24: Pt educated and was able to demonstrate proper body mechanics for sweeping, floor mopping/polishing, vacuuming, & reaching overhead ; pt willing to modify covering of her mattress ( using legs to lift mattress to get on cover, and putting a comforter by rolling and unrolling in a duvet cover. STG Duration 04/09/24 (04/07/24: MET GOAL ) Senior Care Goal (LTG) Pt will be independent in core /hip ex's to mitigate thigh & LBP. 03/12/24: HEP: Core stab ex: SLR, Hip AB/AD & Glut Squeeze. 04/02/2024 Patient requests initiating session with HEP stretches as they are helpful, required Verbal cues to opp knee during SLR, but good return technique for all other exercises performed in clinic from HEP today. 04/29/2024 HEP additions of seated hip abd with band, standing hip abd and extnsion with band as well as seated breathing from diaphragm 2024 added level 5 band to mini squat for home use. 05/12/24: HEP: Piriformis stretch (sup knee to opp shoulder & in sitting), and Front thigh stretch. 05/21/2024 Patient request review of piriformis stretch with strap, commenting she can't feel it, but was able to set up and perform correctly without cues , commenting that she feels it now. 05/21/2024 patient able to progress to level one band for sidelying clamshell and hip abduction. 05/27/2024 Patient reports HEP takes 1 hour 40 min to perform added R EV, L IV as per plan . 06/11/24: HEP: Progressive Stability/core program LTG Duration 06/25/24 (06/11/24: MET GOAL ) Assessment Summary Assessment Pt is 68 yo female in rehab for disc bulges and trace retrolisthesis L1-L4, canal/ foraminal stenosis, & L5 nerve root impingement with symptoms of radicular LE tingling/pain in thighs and LB , but now only in thighs. The pt has been able to achieve her exercise goals and has gained functional independent stability with gait; therefore no assistive device is needed . The pt is now managing her thigh and LBP and feels confident in continuing on her own with her self care HEP; therefore pt agreeable to DC from PT to her HEP. Physical Therapy Plan Discharge Physical Therapy Discharge Reasons Goals Met Discharge Comments Thank you for your referral. We would be more than happy to work with this pleasant individual again if needed.
== END 2024-07-16 13:21 | disposition home or self-care (01) ==
LOC: PHYS 09:45
PROVIDERS: Family Provider Family Medicine; PCP Family Medicine; Referring Provider Family Medicine; Visit Provider Family Medicine
DX: M54.50 Low back pain, unspecified (principal); Z90.3 Acquired absence of stomach [part of]; R26.89 Other abnormalities of gait and mobility
CPT/HCPCS: 97110; 97140; 97530; 97535

== ENCOUNTER → 2024-06-19 15:01 | Outpatient (CLI) | payer MEDICARE, OTHER, SELFPAY ==
[2021-02-18 13:11] VITALS: BMI 51.5
--- NOTE | 2024-06-19 15:04 | DI.NM.S_ITS ---
PROCEDURE: NM EXERCISE TREADMILL NON NUC COMPARISON: None. INDICATIONS: chest pain FINDINGS: Patient exercised per the standard Jorge protocol. Total exercise time was 1 minute and 59 seconds. Test was terminated secondary to dyspnea. Maximal heart rate obtained is 124 bpm which is 81% of maximal predicted heart rate. Maximum blood pressure [place] 180/[place] [address]. RENETTA +64%. 4.6 METS. No ischemic changes noted. No chest pains voiced. Normal heart rate and blood pressure response to exercise. No arrhythmias present. IMPRESSION: 1. Nondiagnostic exercise treadmill stress test for ischemia due to inability to reach target heart rate. 2. Severely compromised exercise tolerance. Dictated by: Josh Cross M.D. on 06/19/2024 at 17:05 Approved by: Josh Cross M.D. on 06/19/2024 at 17:07
== END ==
LOC: NUCM 15:03
PROVIDERS: Family Provider Family Medicine; PCP Family Medicine; Referring Provider Family Medicine; Visit Provider Family Medicine
DX: R07.89 Other chest pain (principal)
CPT/HCPCS: 93016; 93017; 93018

== ENCOUNTER → 2024-08-12 09:43 | Outpatient (CLI) | payer MEDICARE, OTHER, SELFPAY ==
[2021-02-18 13:11] VITALS: BMI 51.5
[2024-08-12 10:18] LABS: Appearance Urine UA SL CLOUDY; Bilirubin Urine UA NEGATIVE (NEGATIVE); Color Urine UA YELLOW; Glucose Urine UA NEGATIVE (Negative); Ketones Urine UA NEGATIVE (NEGATIVE); Leukocyte Esterase Urine UA 1+ (NEGATIVE); Nitrite Urine UA NEGATIVE (Negative); Occult Blood Urine UA NEGATIVE (Negative); Protein Urine UA NEGATIVE (Negative); Specific Gravity Urine UA <=1.005 (1.000-1.035); Urobilinogen Urine UA 1.0 E.U./dL (0.2)
[2024-08-12 10:41] LABS: pH Urine UA 6.0 (4.5-8.0)
[2024-08-12 10:42] LABS: Culture Indicated Urine Specimen Cultured; Other Crystals Urine Other Crystals: FEW
[2024-08-12 11:02] LABS: Hemoglobin A1C% w Est Avg Glu 4.8 % (4.0-6.0)
[2024-08-12 11:06] LABS: Hematocrit 37.2 % (36-46); Hemoglobin 12.5 g/dL (12.0-16.0); Mean Corpuscular HGB Conc 33.6 % (30-36); Mean Corpuscular Hemoglobin 30.1 PG (26-34); Mean Corpuscular Volume 89.8 fL (80-100); Platelet Count 279 X10^3/uL (150-400)
[2024-08-12 11:16] LABS: Alanine Aminotransferase 11 IU/L (<35); Albumin 4.1 g/dL (3.5-5.0); Albumin Globulin Ratio 1.6 (1.0-2.8); Alkaline Phosphatase 68 U/L (38-126); Blood Urea Nitrogen 16 mg/dL (7-17); Calcium 9.2 mg/dL (8.4-10.2); Carbon Dioxide 27 mmol/L (22-32); Chloride 104 mmol/L (98-107); Cholesterol 244 mg/dL (140-199); Estimated Glomerular Filt Rate > 60 mL/min (>60); Globulin 2.6 g/dL (1.7-4.1); Glucose 85 mg/dL (70-99); HDL Cholesterol 48 mg/dL (40-60); HEMOLYSIS < 15 (0-50); Potassium 4.2 mmol/L (3.4-5.1); Sodium 139 mmol/L (137-145); Total Protein 6.7 g/dL (6.3-8.2); Triglycerides 76 mg/dL (35-150)
[2024-08-12 11:30] LABS: Vitamin D 25 Hydroxy (D3) 35.2 ng/mL (30.0-100.0)
== END ==
PROVIDERS: Family Provider Family Medicine; PCP Family Medicine; Referring Provider Family Medicine; Visit Provider Family Medicine
DX: Z00.00 Encounter for general adult medical examination without abnormal findings (principal); I50.20 Unspecified systolic (congestive) heart failure; I27.20 Pulmonary hypertension, unspecified; E66.01 Morbid (severe) obesity due to excess calories; Z90.3 Acquired absence of stomach [part of]
CPT/HCPCS: 36415; 80053; 80061; 81001; 82306; 83036; 85027; 87086

== ENCOUNTER → 2024-08-25 13:52 | Outpatient (CLI) | payer MEDICARE, OTHER, SELFPAY ==
[2021-02-18 13:11] VITALS: BMI 51.5
--- NOTE | 2024-08-25 13:54 | DI.NM.S_ITS ---
PROCEDURE: NM KSENIA PERF SPECT R&S PHARM Rest and pharmacological stress myocardial perfusion SPECT with gated imaging and ejection fraction RADIOPHARMACEUTICAL: 25 mCi Tc-99m tetrafosmin IV at rest and 26.2 mCi Tc-99m tetrafosmin IV at peak effect of pharmacological stress. [id number] was performed. INDICATIONS: chest pain, dizziness TECHNIQUE: Radiopharmaceutical was injected at peak stress test, and also at rest. SPECT images were obtained. SPECT myocardial perfusion images were displayed in short axis, horizontal long axis, and vertical long axis views. Gated images were reviewed using [employer] software. COMPARISON: None. CARDIAC STRESS: A pharmacologic stress test was performed under the supervision of an attending staff, using an infusion of lexiscan 0.4mg IV X1. Hemodynamic data: There is normal blood pressure and heart rate response to pharmacologic stress. Symptoms: The patient denied anginal chest pain. Aminophylline: none EKG: No diagnostic changes of ischemia; no ectopy. FINDINGS: Raw data: There is good myocardial uptake of radiotracer. No significant motion artifacts. Left ventricle function: Gated images demonstrate normal left ventricular wall thickening. No segmental wall motion abnormalities. No transient ischemic dilation; TID is 1.1 (normal less than 1.3). Left ventricle resting end diastolic volume is 167 mL. Left ventricle stress ejection fraction is 63% ; normal range is above 45%. Myocardial perfusion: There is a moderately intense fixed apical defect consistent with prior infarction and no ischemia. No prone images available. SSS 4, SRS 5. IMPRESSION: Abnormal pharm nuclear stress test consistent with prior infarction and no ischemia. 1) There is a moderately intense fixed apical defect consistent with prior infarction and no significant ischemia. No prone images available. SSS 4, SRS 5 on this study. SSS 16, SRS 5 on study dated 08/16/2020. 2) Enlarged left ventricle with normal wall motion and normal systolic function (EF post stress 60%). 3) No ST changes with lexiscan. 4) No angina during the study. 5) Compared to the nuc stress done 08/16/2020, no significant ischemia is present on this study. Dictated by: Jesse Calvillo MD on 09/01/2024 at 16:49 Approved by: Jesse Calvillo MD on 09/01/2024 at 16:53
== END ==
PROVIDERS: Family Provider Family Medicine; PCP Family Medicine; Referring Provider Family Medicine; Visit Provider Family Medicine
DX: I50.20 Unspecified systolic (congestive) heart failure (principal); R94.39 Abnormal result of other cardiovascular function study; R42 Dizziness and giddiness
CPT/HCPCS: 78452; 93016; 93017; 93018; A9502; J2785

== ENCOUNTER → 2024-10-15 09:48 | Outpatient (CLI) | payer MEDICARE, OTHER, SELFPAY ==
[2021-02-18 13:11] VITALS: BMI 51.5
[2024-10-15 10:54] LABS: Appearance Urine UA CLEAR; Bilirubin Urine UA NEGATIVE (NEGATIVE); Color Urine UA YELLOW; Glucose Urine UA NEGATIVE (Negative); Ketones Urine UA NEGATIVE (NEGATIVE); Leukocyte Esterase Urine UA 2+ (NEGATIVE); Nitrite Urine UA NEGATIVE (Negative); Occult Blood Urine UA NEGATIVE (Negative); Protein Urine UA NEGATIVE (Negative); Specific Gravity Urine UA <=1.005 (1.000-1.035); Urobilinogen Urine UA 0.2 E.U./dL (0.2)
[2024-10-15 10:56] LABS: pH Urine UA 5.5 (4.5-8.0)
[2024-10-15 10:58] LABS: Add Manual Diff / Slide Review NO; Hematocrit 38.9 % (36-46); Hemoglobin 13.0 g/dL (12.0-16.0); Lymphocytes Absolute Auto 2100 /uL (1100-4500); Mean Corpuscular HGB Conc 33.5 % (30-36); Mean Corpuscular Hemoglobin 30.1 PG (26-34); Mean Corpuscular Volume 89.6 fL (80-100); Platelet Count 297 X10^3/uL (150-400)
[2024-10-15 11:07] LABS: INR 1.1 (0.9-1.3); Prothrombin Time 12.0 SECONDS (9.4-12.5)
[2024-10-15 11:08] LABS: Hemoglobin A1C% w Est Avg Glu 5.2 % (4.0-6.0)
[2024-10-15 11:14] LABS: Alanine Aminotransferase 12 IU/L (<35); Albumin 4.3 g/dL (3.5-5.0); Albumin Globulin Ratio 1.6 (1.0-2.8); Alkaline Phosphatase 68 U/L (38-126); Blood Urea Nitrogen 18 mg/dL (7-17); Calcium 9.3 mg/dL (8.4-10.2); Carbon Dioxide 26 mmol/L (22-32); Chloride 103 mmol/L (98-107); Estimated Glomerular Filt Rate > 60 mL/min (>60); Globulin 2.7 g/dL (1.7-4.1); Glucose 79 mg/dL (70-99); HEMOLYSIS < 15 (0-50); Potassium 4.3 mmol/L (3.4-5.1); Sodium 140 mmol/L (137-145); Total Protein 7.0 g/dL (6.3-8.2)
== END ==
PROVIDERS: Family Provider Family Medicine; PCP Family Medicine; Referring Provider Orthopaedic Surgery Sports Medicine; Visit Provider Orthopaedic Surgery Sports Medicine
DX: D50.9 Iron deficiency anemia, unspecified (principal); M19.012 Primary osteoarthritis, left shoulder; Z01.812 Encounter for preprocedural laboratory examination; Z79.01 Long term (current) use of anticoagulants
CPT/HCPCS: 36415; 80053; 81001; 83036; 85025; 85610